=== PATIENT | female | born 1965 | race Caucasian/White ===

== ENCOUNTER → 2019-07-30 15:01 | Outpatient (BNVA) | payer MEDICAID, SELFPAY | PROVIDERS: Family Provider Physician Assistant Medical; PCP Physician Assistant Medical; Visit Provider Nurse Practitioner | DX: M54.6 Pain in thoracic spine (principal); Z79.891 Long term (current) use of opiate analgesic | CPT/HCPCS: 99213 ==

== ENCOUNTER 2019-08-19 06:00 | Outpatient (CLI) | payer MEDICAID, SELFPAY ==
--- NOTE | 2019-08-22 07:09 | ONC FU_ITS ---
Dr. Mancia Patient Follow-Up Note Patient: Nicky Gonzalez Unit #: [id number]: 1965 Dicatated By: Adolph Mancia M.D.Date of Visit:Aug 19, 2019 Onc Med Follow-up/Prog Note Chief Complaint: Anemia. History of Present Illness: This is a 53 year-old woman with iron deficiency anemia. She has a long-standing history of anemia, presumed to be due to iron deficiency. I had seen her initially in August 2014. At that time she indicated that taking iron never does me no good . The only time she recalls getting any benefit was when she was given several doses of parenteral iron during one . She had been seen at the [facility] in July 2014. Laboratory studies at that time included CBC showing hemoglobin 6.8 g with hematocrit 26.5%. The red cell indices were hypochromic/microcytic with MCV 65 and MCH 16. White count was normal at 7000 and the platelet count was slightly elevated at 469,000. Comprehensive metabolic profile was unremarkable except for slightly low potassium at 3.2 mmol per liter. TSH was normal at 1.61 mIU/ML. Her serum iron came back low at 14 mcg/dL. She was given parenteral iron replacement with Venofer. She completed treatment on 10/16/2014 to a total dose of 3000 mg. She tolerated it well. A follow-up CBC on 10/30/2014 showed a hemoglobin of 13.8 g with MCV 84.6. The transferrin saturation was 25% and ferritin was 206 ng/mL. A follow-up CBC on 02/04/2016 did show hemoglobin down slightly to 11.9 g. The transferrin saturation had dropped to 7%. She was then given further parenteral iron replacement with infusions of Injectafer on 02/21/2016 and on 02/28/2016. I had seen her for a follow-up visit again on 10/11/2016. At that time her hemoglobin was normal at 13.1 g, and her red cell indices were also normal. Her serum iron studies showed normal transferrin saturation at 25% and her ferritin was still the low-normal range at 40.7 ng/mL. She continued to complain of significant fatigue. Her repeat laboratory studies in December showed hemoglobin down slightly to 12.4 g. The transferrin saturation at that point had decreased to 9% and the ferritin was down to 6.3 ng/mL, consistent with iron deficiency. Although she was just borderline anemic, she continued to have significant fatigue, and she was given additional parenteral iron replacement with infusions of Injectafer on 01/10/2017 and 01/17/2017. Her medical illnesses include anemia, rheumatoid arthritis, and GERD. She also has a history of supraventricular tachycardia. She had smoked in the past, but only for a few years, and she quit more than 25 years ago. INTERIM HISTORY: She was seen for a follow-up visit on 09/03/2017. At that time she was having significant fatigue. Her hemoglobin was normal at 13.4 g, but her transferrin saturation was low at 11.1% and her ferritin level was low at 9.8 ng/mL, consistent with iron deficiency. She was given parenteral iron replacement with 2 additional infusions of Injectafer. She did appear to have symptomatic benefit. As of her follow-up visit in April, she had become slightly anemic with transferrin saturation low at 7.5% and ferritin low at 5.0 ng/mL, again consistent with iron deficiency. She was given further parenteral iron replacement with infusions of Injectafer on 05/14/2018 and 05/21/2018. She had a good clinical response. As of 12/12/2018 she had become mildly anemic again with hemoglobin 11.3 g and hematocrit 34.6%. The red cell indices were borderline low. The transferrin saturation was low at 8.4% with ferritin 8.0 ng/mL, consistent with iron deficiency. She was given additional parenteral iron replacement with infusions of Injectafer on 12/19/2018 and 12/26/2018. Her repeat CBC on 01/28/2019 showed hemoglobin up to 13.6 g with normal transferrin saturation at 34.9% and normal ferritin at 120 ng/mL. She is seen for a followup visit. she says her energy has been down for the past month or so, but for the past 4 days she has felt awful. She is still doing some work, though it is taking her longer to do it. She has good appetite. She has no fever, night sweats, or hot flashes. She has some shortness of breath with activity. She does not complain of cough. She has been having more SVT, and she has a little chest pain with it. She also has been having a little bit of nausea. Her acid reflux is managed adequately with medication. Bowel and bladder function has been okay. She has been having significant problems with menstrual bleeding, which has been ongoing for 7 weeks. She always has back pain, and she also has some pain in her feet. She has a little bit of numbness/tingling in her arms and legs. Medications: Azulfidine 3 (500 mg) Tablet Oral b.i.d., EQ Ibuprofen Tablet Oral PRN, EQ raNITIdine 1 Tablet (of 75 mg) Oral daily, HYDROcodone-Acetaminophen 1 Tablet (of 5-325 mg) Oral b.i.d., Metoprolol Tartrate 1 (50 mg) Tablet Oral b.i.d., Omeprazole 1 (40 mg) Capsule Delayed Release Oral daily, Potassium Chloride Isela ER 1 (10 meq) Tablet, controlled release Oral daily, PredniSONE 1 (5 mg) Tablet Oral daily Allergies: No Known Allergies. Review of Systems: Constitutional - Her energy has been down the past month. The last 4 days she has felt awful. She is doing some work, but it does take longer. Appetite is good and weight is stable. No fever, hot flashes, or night sweats. ECOG score is 1, ENMT - No sinus congestion/drainage. No mouth sores. No sore throat or difficulty swallowing, Hematologic/Lymphatic - She bruises easily, Respiratory - She has some shortness of breath with activity. No cough. No pleuritic pain or hemoptysis, Cardiovascular - She has been having more SVT, and she has a little bit of chest pain, Gastrointestinal - She has a little bit of nausea. Her acid reflux is adequately managed with omeprazole. No diarrhea or constipation. No blood in the stool or black stools, Genitourinary (F) - No dysuria or hematuria. No urinary frequency. No urgency or incontinence, Musculoskeletal - She alwas has back pain. She also has pain in her feet, Integumentary - No skin complications, Neurologic - She has had some headaches lately. She has been a little dizzy. She has a little bit of numbness and tingling in her arms and legs, Psychiatric - No anxiety or depression. No insomnia. Vital Signs: Performed on Aug 19, 2019 14:20 Height - 64.00 in Weight - 194 lbs (LOW) BSA - 1.93 sq.m BMI - 33.30 (HIGH) Temperature - 98 F (LOW) Pulse - 64 /min Respiration - 19 /min BP - 121/81 mm(hg) O2 Sat - 98 % Pain - 7 Physical Examination: Constitutional - She looks pretty good generally, Eyes - Sclerae nonicteric. Conjunctivae clear, ENMT - No lesions noted in the oral cavity, Hematologic/Lymphatic - No cervical, clavicular, or axillary adenopathy, Respiratory - Lungs are clear with good air movement bilaterally, Cardiovascular - Heart rhythm is regular. There is no murmur, gallop, or rub noted, Abdomen - Soft. Liver and spleen are not enlarged. There is no abdominal mass or ascites noted and there is no inguinal adenopathy, Extremities - No edema, Neurologic - No focal neurologic deficits noted. Lab/Imaging: Test performed on Aug 12, 2019 15:56 Ferritin 8.1 ng/mL % Iron Saturation 7 % Iron, Total 23 mcg/dL TIBC 342 mcg/dL WBC 6.8 10^9/L RBC 3.95 10^12/L HGB 11.4 g/dL HCT 35.6 % MCV 90.1 fl MCH 28.9 pg MCHC 32.0 g/dL RDW 14.4 % Platelet Count 222 10^9/L MPV 11.1 fL Neutrophils (Gran) 4.94 10^9/L Lymphocytes 1.10 10^9/L Monocytes 0.55 10^9/L Eosinophils 0.12 10^9/L Basophils 0.03 10^9/L Manual Lymphocytes 16 % Manual Monocytes 8 % Manual Eosinophils 2 % Manual Basophils 0 % Impression: 1. The patient has iron deficiency anemia, presumably due to inadequate oral iron absorption. She was given parenteral iron replacement with Venofer, which she completed in September to a total dose of 3000 mg. She has had a very good on objective response complete correction of the anemia. 2. By January 2016 she was iron deficient again. She was given further parenteral iron replacement with infusions of Injectafer on 02/21/2016 and 02/28/2016. Her other medical illnesses include: 3. Rheumatoid arthritis. 4. GERD. 5. Supraventricular tachycardia. She initially had a good objective response to the parenteral iron replacement. She had remained borderline anemic, and she continued to complain of significant fatigue. As of December 2016 her lab studies were again consistent with iron deficiency, and she was given another course of parenteral iron replacement with Injectafer. She tolerated it well, and she again had a very good objective response, but without dramatic subjective improvement. She was seen for a follow-up visit in August 2017. At that time she had reported some worsening of her symptoms, including fatigue and more frequent episodes of SVT. Her hemoglobin/hematocrit levels were just down slightly, but her serum iron studies and ferritin were clearly consistent with iron deficiency. She was given additional parenteral iron replacement with 2 infusions of Injectafer. She tolerated it well, and she had a good clinical response. As of April 2018 her laboratory studies were again consistent with iron deficiency, and she had become mildly anemic. She received further parenteral iron replacement with 2 additional infusions of Injectafer. She tolerated it welland she had a very good objective response. However, as of November 2018 she was mildly anemic again with transferrin saturation and ferritin consistent with iron deficiency. She was given additional parenteral iron replacement with Injectafer and she again had a very good clinical response. She comes in now with significant increase in fatigue. She is mildly anemic. The transferrin saturation and ferritin are obviously indicative iron deficiency. This has developed in association with pretty severe menorrhagia. Plan: She will be scheduled to come in for parenteral iron replacement with 2 infusions of Injectafer. She will be seeing Dr. Chen for the menorrhagia. She will have a repeat CBC in 6 weeks. I will see her again in 3 months, or sooner as needed. Signed By: Adolph Mancia M.D. <<Signature on File>>
== END 2019-08-19 06:01 | disposition home or self-care (01) ==
LOC: ONCMED 14:21
PROVIDERS: Family Provider Physician Assistant Medical; PCP Physician Assistant Medical; Visit Provider Internal Medicine Medical Oncology
DX: D50.8 Other iron deficiency anemias (principal); N92.0 Excessive and frequent menstruation with regular cycle; M06.9 Rheumatoid arthritis, unspecified; K21.9 Gastro-esophageal reflux disease without esophagitis; Z79.891 Long term (current) use of opiate analgesic; Z79.52 Long term (current) use of systemic steroids; Z87.891 Personal history of nicotine dependence
CPT/HCPCS: 99214

== ENCOUNTER 2019-08-20 15:16 | Outpatient (CLI) | payer MEDICAID, SELFPAY | END 2019-08-20 15:17 | disposition home or self-care (01) | LOC: ONCMED 15:17 | PROVIDERS: Family Provider Physician Assistant Medical; PCP Physician Assistant Medical; Visit Provider Internal Medicine Medical Oncology | DX: D50.9 Iron deficiency anemia, unspecified (principal) | CPT/HCPCS: 96365; J1439 ==

== ENCOUNTER 2019-08-22 14:54 | Outpatient (CLI) | payer MEDICAID, SELFPAY ==
--- NOTE | 2019-08-22 | US_ITS ---
WS: [id number] TRANSABDOMINAL PELVIC AND TRANSVAGINAL PELVIC ULTRASOUND HISTORY: VAGINAL BLEEDING, ABNORMAL COMPARISON: None available. Uterus: 13.4 cm x 7.8 cm x 5.0 cm. Moderately enlarged anteverted uterus. No fibroid or mass identifi ed. Endometrium: 0.4 cm. Thin endometrium. There is a fluid-filled endometrial cavity. There is also an o void mass along the mid to distal endometrial canal measuring 2.1 x 0.4 cm. Probably a polyp causing obstruction and fluid retention in the more proximal endometrium. Right ovary: 3.2 cm x 2.6 cm x 1.6 cm. Small follicles, no solid mass. Left ovary: 3.3 cm x 3.0 cm x 1.8 cm. Small follicles, no solid mass. Small cyst measures 2.1 x 2.0 x 2.4 cm. No free fluid. US/US pelvic with transvaginal IMPRESSION: 1. Soft tissue mass within the endometrial canal causing a mild fluid obstruct ion. Mass measures 2.1 x 0.4 cm and probably represents a polyp. Recommend dire ct visualization and biopsy. 2. Uterine enlargement.
== END 2019-08-22 14:55 | disposition home or self-care (01) ==
PROVIDERS: Family Provider Physician Assistant Medical; PCP Physician Assistant Medical; Visit Provider Family Medicine
DX: Z01.89 Encounter for other specified special examinations (principal)

== ENCOUNTER 2019-08-27 14:52 | Outpatient (CLI) | payer MEDICAID, SELFPAY ==
[2019-08-27] MEDS: sodium chloride 0.9% 100 ML 500 ML IV (16:20)
[2019-08-27] MEDS: ferric carboxy (PYXIS) 750 mg/15 mL INJ IV (16:20)
== END 2019-08-27 14:53 | disposition home or self-care (01) ==
LOC: ONCMED 14:55
PROVIDERS: Family Provider Physician Assistant Medical; PCP Physician Assistant Medical; Visit Provider Internal Medicine Medical Oncology
DX: D50.9 Iron deficiency anemia, unspecified (principal)
CPT/HCPCS: 96365; J1439

== ENCOUNTER 2019-09-23 06:43 | Day surgery (SDC) | payer MEDICAID, SELFPAY ==
[2019-09-18 10:54] VITALS: BMI 30.9
--- NOTE | 2019-09-18 10:59 | ECG_ITS ---
Measurements Intervals [place] Rate: 53 P: 47 CT: 148 QRS: 24 QRSD: 73 T: 23 QT: 411 QTc: 388 SINUS BRADYCARDIA POSSIBLE LEFT ATRIAL ENLARGEMENT [-0.1mV P WAVE IN V1/V2] Compared to ECG 04/12/2018 01:34:08 Sinus tachycardia no longer present Electronically Signed On 09-18-2019 12:44:53 CDT by Patti Ayala [email or web address]
--- NOTE | 2019-09-18 11:40 | ANES.PREANE2 ---
Pre-Anesthetic Assessment Pre-Anesthetic Assessment: Height/Weight: Height 1.63 m Weight 81.647 kg Proposed Procedure: Operation Date: 09/23/19 08:00 Proposed Procedures p Hysteroscopy with polypectomy 75843/23630/80683/82239/ N93.9(Not Applicable) - MD diana Owen Dilation And Curettage (D&C) Paracervical block(Not Applicable) - MD diana Owen Laser Ablation Vulvar Lesion(Not Applicable) - Medhat Rock MD Social: Social History: No alcohol and No tobacco Exam: Pre-Anes Outpt Exam: alert, oriented x 3, clear to auscultation bilaterally and regular rate & rhythm Airway: Submandibular: WNL Cervical ROM: WNL MP: 2 Dentition: Other (poor) History/ROS: No significant history except as noted Pulmonary: Pulmonary: None reported CV/HEM: CV/HEM: Arrythmia (SVT controlled with metoprolol) : : None reported Hepatic: Hepatic: None reported GI: GI: GERD (controlled) Metabolic: Metabolic: None reported Musc/skel: Musc/skel: RA Neuropsych: Neuropsych: None reported Anesthetic Plan: ASA status: 2 Anesthesia: Anesthesia Evaluation and MAC Risk of > 500 ml blood loss (7ml/kg in children): No PFSH Anesthesia PFSH: Medical History MEME positive Chronic thoracic spine pain Current chronic use of systemic steroids GERD (gastroesophageal reflux disease) Long-term use of high-risk medication Pain management contract signed Raynaud's phenomenon Rheumatoid arthritis Spondylosis THORACIC AND LUMBAR Surgical History History of lumpectomy of left breast (~06/27/17) Hx of section X5 Family History Father Diabetes Mother Hypertension Grandmother Stroke Grandfather Cancer Liver cancer Other Liver disease Social History Smoking and tobacco status: former smoker Alcohol intake: never History of recent travel: No Data Anesthesia Cardiac Studies: No Data to Display
[2019-09-23 07:00] VITALS: BP 153/93; PULSE 55; RESP 18; TEMP 36.6; O2SAT 100
[2019-09-23] MEDS: ketorolac 30 mg/mL INJ IVP (07:23)
[2019-09-23] MEDS: sodium chloride 0.9% 1,000 ML 30 ML IV (07:23)
--- NOTE | 2019-09-23 07:42 | P.ANESUD_ITS ---
Pre-Anesthetic Update Pre-Anesthetic Assessment: Date of Surgery/Procedure: 09/23/19 Preop Krystal gnosis: Abnormal uterine bleeding, Endometrial polyp, Vulvar lesion. Proposed Procedure: Operation Date: 09/23/19 08:00 Proposed Procedures p Hysteroscopy with polypectomy 59749/41189/88568/97091/ N93.9(Not Applicable) - MD diana Owen Dilation And Curettage (D&C) Paracervical block(Not Applicable) - Medhat Rock MD s Laser Ablation Vulvar Lesion(Not Applicable) - Medhat Rock MD Last Intake: Intake Last Liquid Date 09/22/19 Last Liquid Time 21:30 Last Solid Date 09/22/19 Vitals: Temperature 97.8 F 09/23/19 07:00 Temperature Source Temporal Artery S can 09/23/19 07:00 Pulse Rate 55 L 09/23/19 07:00 Respiratory Rate 18 09/23/19 07:00 Blood Pressure 153/93 09/23/19 07:00 Blood Pressure Cherelle n 113 09/23/19 07:00 Pulse Oximetry 100 09/23/19 07:00 Oxygen Delivery Me thod 09/23/19 07:00 Cardiac Studies: No Data to Display
--- NOTE | 2019-09-23 07:45 | W.PM.OPSUD ---
Surgery/Procedure H&P Update DATE OF PROCEDURE: September 23, 2019 DATE H&P PERFORMED: 09/15/19 H&P UPDATE INFORMATION: I have reviewed H&P completed within last 30 days, I have examined patient prior to procedure, No changes to prior documentation and H&P is in [facility] on date indicated PREOP DIAGNOSIS: Abnormal uterine bleeding, Endometrial polyp, Vulvar lesion. PLANNED PROCEDURE: Operation Date: 09/23/19 08:00 Proposed Procedures p Hysteroscopy with polypectomy 60252/12427/19050/78894/ N93.9(Not Applicable) - Medhat Rokc MD s Dilation And Curettage (D&C) Paracervical block(Not Applicable) - Medhat Rock MD s Laser Ablation Vulvar Lesion(Not Applicable) - Medhat Rock MD
[2019-09-23 08:03] LABS: OR HCG Qualitative Urine Negative (Negative)
[2019-09-23] MEDS: neomycin-poly-bacitracin oint 28 gm 1 APPLIC TOPICAL (08:37)
--- NOTE | 2019-09-23 08:39 | PM.OP ---
Operative Report Date of procedure: September 23, 2019 Pre-op Diagnosis: Abnormal uterine bleeding, Endometrial polyp, Vulvar lesion. Post-op Diagnosis: Abnormal uterine bleeding, Vulvar lesion Procedure Done: Hysteroscopy, D&C, Buttock biopsy, Paracervical block Specimens removed/disposition: 1. Endometrial curettings 2. Buttock biopsy Surgeon: Medhat Rock Anesthesia: MAC and Other (Paracervical block) Estimated blood loss (mL): 15 IV fluids (mL): 500 Complications: None Findings: First to second-degree uterine prolapse. Thickened endometrial lining with a raised mound across the posterior wall. On curettings this did not feel like a fibroid. Brief History: 54-year-old white female 6, para 6 who had presented to the office with abnormal uterine bleeding. In June she had bled for approximately 8 weeks. She reported changing a tampon 6-8 times per hour and passing up to half dollar sized clots. Prior to this her cycles have been regular. Pelvic ultrasound had been performed which showed a probable polyp within the endometrial cavity with fluid present around it. Treatment for this was discussed and she is presenting for hysteroscopy with polypectomy. Procedure: The patient was taken to the operating room where IV sedation was started. She was prepped and draped in the usual sterile fashion in the dorsal supine position with legs in Edil style stirrups. Sequential compression boots had been placed prior to starting the case. Patient had voided just before coming to the operating room. Exam under anesthesia was performed and the patient was noted to have first to second-degree uterine prolapse. A weighted speculum was placed in the vagina and the cervix was grasped with a single-tooth tenaculum. A paracervical block was performed with a total of 10 mL of 2% lidocaine with epinephrine used. The cervix was serially dilated until a operative hysteroscope could be passed. Crystalloid solution was used as a distention media. The endometrial cavity was inspected. Along the posterior wall she had a mound which on hysteroscopy was suspicious for fibroid. However on curettage the left posterior wall felt smooth most likely representing just a thickened area of tissue along the posterior wall. Both tubal ostia were identified. No definite polyp seen. Sharp curettage was performed with tissue obtained. This was continued until gritty texture was present throughout the endometrial cavity. The tenaculum was removed and there was minimal bleeding from the tenaculum site. Patient tolerated the procedure well. Sponge and needle counts were correct. DRAINS: None POSTOPERATIVE STATUS: The patient was transferred to the recovery room in satisfactory condition DISPOSITION: Discharge to home when criteria was met. FOLLOWUP APPOINTMENT: Followup appointment had been scheduled on 10/06/2019 in my office. MEDICATIONS: Prescription for: Tramadol 50 mg, 1 to 2 tablets every 6 hours as needed for pain, #10, 0 refills OTC ibuprofen 200 mg, 4 tablets 3 times a day as needed for pain May resume normal home medications.
[2019-09-23 08:43] VITALS: BP 118/59; PULSE 80; RESP 18; TEMP 36.2; O2SAT 97
[2019-09-23 08:58] VITALS: BP 130/77; PULSE 72; RESP 18; O2SAT 100
== END 2019-09-23 09:10 | disposition home or self-care (01) ==
PROVIDERS: Family Provider Physician Assistant Medical; PCP Physician Assistant Medical; Visit Provider Obstetrics & Gynecology
PROC: 0UJD8ZZ Inspection of Uterus and Cervix, Via Natural or Artificial Opening Endoscopic (ICD-10-PCS; CPT 58555; principal; 2019-09-23 08:00)
PROC: (CPT 58120; 2019-09-23 08:00)
PROC: (CPT 11106; 2019-09-23 08:00)
DX: N81.2 Incomplete uterovaginal prolapse (principal); N93.9 Abnormal uterine and vaginal bleeding, unspecified; N84.0 Polyp of corpus uteri; N90.89 Other specified noninflammatory disorders of vulva and perineum; K21.9 Gastro-esophageal reflux disease without esophagitis; I10 Essential (primary) hypertension; M06.9 Rheumatoid arthritis, unspecified; Z82.49 Family history of ischemic heart disease and other diseases of the circulatory system; Z83.3 Family history of diabetes mellitus; Z87.891 Personal history of nicotine dependence
CPT/HCPCS: 11106; 58558; 12345; 81025; 84703; 88305; 93005; 93010; 96374; J1885; J2001; J2704; J3010; J7030

== ENCOUNTER → 2019-09-24 14:14 | Outpatient (BNVA) | payer MEDICAID, SELFPAY | PROVIDERS: Family Provider Physician Assistant Medical; PCP Physician Assistant Medical; Visit Provider Anesthesiology | DX: Z76.89 Persons encountering health services in other specified circumstances (principal) | CPT/HCPCS: 99213 ==

== ENCOUNTER 2019-10-13 14:27 | Outpatient (CLI) | payer MEDICAID, SELFPAY ==
[2019-10-13 15:48] LABS: Basophils % 0.6 %; Eosinophils # 0.1 10^3/uL (0.0-0.8); Eosinophils % 2.2 %; Hematocrit 48.4 % (37.0-47.0); Hemoglobin 14.8 g/dL (11.5-15.3); Lymphocytes # 1.4 10^3/uL (0.8-4.8); Lymphocytes % 21.4 %; Mean Corpuscular HGB Conc 30.6 g/dL (30.0-36.0); Mean Corpuscular Hemoglobin 30.8 pg (28.0-34.0); Mean Corpuscular Volume 100.8 fL (81-99); Mean Platelet Volume 11.9 fL (7.4-10.4); Monocytes # 0.6 10^3/uL (0.2-0.9); Monocytes % 8.8 %; Neutrophils # 4.3 10^3/uL (1.8-7.7); Neutrophils % 66.7 %; Nucleated Red Blood Cells % 0 %; Platelet Count 183 10^3/cmm (130-400); Red Cell Distribution Width 14.8 % (12.1-15.1); White Blood Count 6.4 10^3/uL (4.0-10.0)
[2019-10-13 16:09] LABS: Alanine Aminotransferase 19 U/L (0-33); Albumin Level 4.6 g/dL (3.5-5.2); Alkaline Phosphatase 66 IU/L (35-105); Aspartate Amino Transferase 23 U/L (0-32); C Reactive Protein 0.3 mg/L (0.0-4.9); Globulin 2.5 g/dL (1.3-4.6); Glomerular Filtration Rate 87.9 mL/min (90-130); Total Bilirubin 0.6 mg/dL (0.15-1.2); Total Protein 7.1 g/dL (6.6-8.7)
[2019-10-13 16:23] LABS: Hepatitis C Virus Antibody Non-Reactive (Nonreactive)
[2019-10-13 16:34] LABS: Hepatitis B Surface Antigen. Non-Reactive (Nonreactive)
[2019-10-13 16:46] LABS: Erythrocyte Sedimentation Rate 3 mm/hr (0-15)
[2019-10-15 14:41] LABS: Quantiferon Mitogen 8.23 IU/mL; Quantiferon Nil 0.01 IU/mL; Quantiferon TB Gold NEGATIVE (NEGATIVE)
== END 2019-10-13 14:28 | disposition home or self-care (01) ==
LOC: ONCMED 14:27
PROVIDERS: Internal Medicine Rheumatology; Family Provider Physician Assistant Medical; PCP Physician Assistant Medical; Visit Provider Internal Medicine Medical Oncology
DX: D64.9 Anemia, unspecified (principal)
CPT/HCPCS: 36415; 80076; 82565; 85025; 85651; 86140; 86480; 86704; 86803; 87340

== ENCOUNTER → 2020-01-13 14:44 | Outpatient (BNVA) | payer MEDICAID, SELFPAY | PROVIDERS: Family Provider Physician Assistant Medical; PCP Physician Assistant Medical; Visit Provider Nurse Practitioner | DX: G89.29 Other chronic pain (principal); M54.6 Pain in thoracic spine; M06.9 Rheumatoid arthritis, unspecified; Z79.891 Long term (current) use of opiate analgesic | CPT/HCPCS: 99213 ==

== ENCOUNTER 2020-01-13 15:18 | Outpatient (CLI) | payer MEDICAID, SELFPAY ==
[2020-01-13 15:54] LABS: Basophils % 0.5 %; Eosinophils # 0.1 10^3/uL (0.0-0.8); Eosinophils % 2.1 %; Hematocrit 29.1 % (37.0-47.0); Hemoglobin 8.5 g/dL (11.5-15.3); Lymphocytes # 0.8 10^3/uL (0.8-4.8); Mean Corpuscular HGB Conc 29.2 g/dL (30.0-36.0); Mean Corpuscular Hemoglobin 26.2 pg (28.0-34.0); Mean Corpuscular Volume 89.8 fL (81-99); Mean Platelet Volume 10.7 fL (7.4-10.4); Monocytes # 0.4 10^3/uL (0.2-0.9); Monocytes % 11.2 %; Neutrophils # 2.44 10^3/uL (1.8-7.7); Neutrophils % 64.9 %; Nucleated Red Blood Cells % 0 %; Platelet Count 247 10^3/cmm (130-400); Red Blood Count 3.24 10^6/uL (4.1-5.3); Red Cell Distribution Width 14.5 % (12.1-15.1); White Blood Count 3.8 10^3/uL (4.0-10.0)
[2020-01-13 16:09] LABS: Alanine Aminotransferase 13 U/L (0-33); Albumin Level 4.2 g/dL (3.5-5.2); Alkaline Phosphatase 45 IU/L (35-105); Anion Gap 12.1 (5-19); Aspartate Amino Transferase 16 U/L (0-32); Blood Urea Nitrogen 5 mg/dL (6-20); Calcium 8.8 mg/dL (8.5-10.5); Carbon Dioxide 25 mmol/L (22-29); Chloride 106 mmol/L (98-107); Ferritin 5 ng/mL (15-150); Globulin 2.4 g/dL (1.3-4.6); Glucose 92 mg/dL (65-115); Iron 12 ug/dL (37-145); Osmolality Calculated 283 mOsm/kg (285-295); Percent Saturation 4.3 % (20-50); Potassium 4.1 mmol/L (3.5-5.1); Sodium 139 mmol/L (136-145); Total Bilirubin 0.4 mg/dL (0.15-1.2); Total Iron Binding Capacity 278 mcg/dl; Total Protein 6.6 g/dL (6.6-8.7); Unsaturated Iron Binding 266 ug/dL (112-347)
== END 2020-01-13 15:19 | disposition home or self-care (01) ==
LOC: ONCMED 15:21
PROVIDERS: PCP Physician Assistant Medical; Visit Provider Internal Medicine Medical Oncology
DX: D50.9 Iron deficiency anemia, unspecified (principal); K21.9 Gastro-esophageal reflux disease without esophagitis; I47.1 Supraventricular tachycardia
CPT/HCPCS: 36415; 80053; 82728; 83540; 83550; 85025

== ENCOUNTER 2020-01-15 15:03 | Outpatient (CLI) | payer MEDICAID, SELFPAY ==
--- NOTE | 2020-01-19 16:05 | ONC FU_ITS ---
[facility] Patient Note Patient: Nicyk Gonzalez Unit #: [id number]: 1965 Dictated By: Cally EllisonDate of Visit: Jan 15, 2020 Onc MED Follow-Up/Prog Note Chief Complaint: Anemia. History of Present Illness: Mrs Gonzalez is a 54 year-old woman with iron deficiency anemia. She has a long-standing history of anemia, presumed to be due to iron deficiency. Dr Mancia had seen her initially in August 2014. At that time she indicated that taking iron never does me no good . The only time she recalls getting any benefit was when she was given several doses of parenteral iron during one . She had been seen at the [facility] in July 2014. Laboratory studies at that time included CBC showing hemoglobin 6.8 g with hematocrit 26.5%. The red cell indices were hypochromic/microcytic with MCV 65 and MCH 16. White count was normal at 7000 and the platelet count was slightly elevated at 469,000. Comprehensive metabolic profile was unremarkable except for slightly low potassium at 3.2 mmol per liter. TSH was normal at 1.61 mIU/ML. Her serum iron came back low at 14 mcg/dL. She was given parenteral iron replacement with Venofer. She completed treatment on 10/16/2014 to a total dose of 3000 mg. She tolerated it well. A follow-up CBC on 10/30/2014 showed a hemoglobin of 13.8 g with MCV 84.6. The transferrin saturation was 25% and ferritin was 206 ng/mL. A follow-up CBC on 02/04/2016 did show hemoglobin down slightly to 11.9 g. The transferrin saturation had dropped to 7%. She was then given further parenteral iron replacement with infusions of Injectafer on 02/21/2016 and on 02/28/2016. Dr Mancia had seen her for a follow-up visit again on 10/11/2016. At that time her hemoglobin was normal at 13.1 g, and her red cell indices were also normal. Her serum iron studies showed normal transferrin saturation at 25% and her ferritin was still the low-normal range at 40.7 ng/mL. She continued to complain of significant fatigue. Her repeat laboratory studies in December showed hemoglobin down slightly to 12.4 g. The transferrin saturation at that point had decreased to 9% and the ferritin was down to 6.3 ng/mL, consistent with iron deficiency. Although she was just borderline anemic, she continued to have significant fatigue, and she was given additional parenteral iron replacement with infusions of Injectafer on 01/10/2017 and 01/17/2017. Her medical illnesses include anemia, rheumatoid arthritis, and GERD. She also has a history of supraventricular tachycardia. She had smoked in the past, but only for a few years, and she quit more than 25 years ago. INTERIM HISTORY: She was seen for a follow-up visit on 09/03/2017. At that time she was having significant fatigue. Her hemoglobin was normal at 13.4 g, but her transferrin saturation was low at 11.1% and her ferritin level was low at 9.8 ng/mL, consistent with iron deficiency. She was given parenteral iron replacement with 2 additional infusions of Injectafer. She did appear to have symptomatic benefit. As of her follow-up visit in April, she had become slightly anemic with transferrin saturation low at 7.5% and ferritin low at 5.0 ng/mL, again consistent with iron deficiency. She was given further parenteral iron replacement with infusions of Injectafer on 05/14/2018 and 05/21/2018. She had a good clinical response. As of 12/12/2018 she had become mildly anemic again with hemoglobin 11.3 g and hematocrit 34.6%. The red cell indices were borderline low. The transferrin saturation was low at 8.4% with ferritin 8.0 ng/mL, consistent with iron deficiency. She was given additional parenteral iron replacement with infusions of Injectafer on 12/19/2018 and 12/26/2018. Her repeat CBC on 01/28/2019 showed hemoglobin up to 13.6 g with normal transferrin saturation at 34.9% and normal ferritin at 120 ng/mL. Very presented in August with symptoms of iron deficiency. Her hemoglobin at that time was 11.4 iron saturation was 7% ferritin was 8.1 and iron was 23. Received 2 doses of Injectafer on August 20 and again on 10/26/2019. In September her blood counts have recovered to a hemoglobin of 14.8. Mrs. Gonzalez recently called to the office with complaints of counts craving ice and feeling very short of breath and fatigued. She was advised to have a CBC CMP and iron studies drawn. Her primary care provider is Mihir Hewitt. She is here today for follow-up and review the lab results. She denies any other concerns at present. She has had no fever or night sweats. She denies any chest pain or palpitations. She has had no nausea or vomiting. She denies lower extremity edema. Her main concern is that she is tired draggy, short of breath and is craving ice. These are all her normal triggers for when she is iron deficient. Her ECOG is 1. Past Medical History: GERD Iron deficiency anemia Supraventricular tachycardia Past Surgical History: section in 2010 section in 2005 section in 2004 Tendon repair in left hand in 1997 section in 1993 section in 1990 Allergies: No Known Allergies. Medications: Azulfidine 2 (500 mg) Tablet Oral b.i.d. EQ Ibuprofen Tablet Oral PRN Famotidine 1 Tablet (of 40 mg) Oral daily HYDROcodone-Acetaminophen 1 Tablet (of 5-325 mg) Oral b.i.d. Metoprolol Tartrate 1 (50 mg) Tablet Oral b.i.d. Omeprazole 1 (40 mg) Capsule Delayed Release Oral daily Potassium Chloride Isela ER 1 (10 meq) Tablet, controlled release Oral daily PredniSONE 1 (5 mg) Tablet Oral daily Family History: Ms. Gonzalez's mother is alive. Ms. Gonzalez's father at age 61: medical history includes non-alcoholic cirrhosis (cause of ). Her father with nonalcoholic cirrhosis at age 61. He also had diabetes. Mother and one brother are still in good health. Grandfather with lung cancer at age 75. Social History: Ms. Gonzalez is and she is unemployed. Ms. Gonzalez quit smoking 25 years ago but had smoked 1.0 pack/day for 4 years. She has no history of drinking. Review Of Symptoms: Constitutional Denies fevers, chills, night sweats. Moderate fatigue. She states she is craving ice. Allergic/Immunologic No reactions. Eyes Denies significant visual changes. ENMT Denies sore throat, mouth sores, difficulty or changes in swallowing ability, and/or sinus drainage. Endocrine Denies hot flashes or night sweats. Hematologic/Lymphatic Denies easy bleeding. The patient denies any tender or palpable lymph nodes. Easy bruising. Respiratory Denies chest pain, cough. Some dyspnea upon exertion. Cardiovascular Denies anginal chest pain. Gastrointestinal Denies nausea, vomiting, diarrhea, or constipation. Genitourinary (F) No hematuria, hesitancy, incontinence, vaginal bleeding, discharge or other problems with urination. Musculoskeletal back and bilateral feet pain-Chronic and currently controlled. Integumentary Denies chronic rashes, inflammation. Neurologic Denies headache. Psychiatric Denies insomnia, depression or anxiety. Vital Signs: Performed on Jan 15, 2020 15:31 Height - 64.00 in Weight - 179.4 lbs (LOW) BSA - 1.87 sq.m BMI - 30.79 (HIGH) Temperature - 98.0 F (LOW) Pulse - 59 /min (LOW) Respiration - 17 /min BP - 116/75 mm(hg) O2 Sat - 99 % Pain - 5,1 - No physically strenuous activity, but ambulatory and able to carry out light or sedentary work (e.g. office work, light house work). (ECOG) Physical Examination: Constitutional Alert, oriented, no acute distress. Skin pink, warm and dry.. Head Normocephalic; atraumatic. Eyes Conjunctivae and sclerae are clear and without icterus. Pupils are reactive and equal. Neck Supple without masses or thyromegaly. No jugular venous distension. Hematologic/Lymphatic No petechiae or purpura. No tender or palpable lymph nodes in the cervical or supraclavicular area. Respiratory Lungs are clear to auscultation without rhonchi or wheezing. Cardiovascular Regular rate and rhythm of heart without murmurs,clicks, gallops or rubs. Abdomen Non-tender, non-distended, no masses, ascites. Good bowel sounds noted in all quads. No guarding or rebound tenderness. No pulsatile masses. Back/Spine Non-tender to palpation. Extremities No visible deformities, no cyanosis, clubbing or edema. Pulses 4+ and equal bilaterally. Musculoskeletal No tenderness or swelling, normal range of motion without obvious weakness. Integumentary No rashes or lesions. Neurologic No sensory or motor deficits, normal cerebellar function, normal gait. Psychiatric Alert and oriented times three. Coherent speech. Verbalizes understanding of our discussions today. Laboratory:Test performed on Jan 13, 2020 15:32 Ferritin 5 ng/mL Iron 12 mcg/dL Sodium 139 mmol/L Iron Binding Capacity (TIBC) 278 mcg/dl Potassium 4.1 mmol/L % Iron Saturation 4.3 % Chloride 106 mmol/L CO2 25 mmol/L UIBC 266 mcg/dL Anion Gap 12.1 BUN 5 mg/dL Creatinine 0.6 mg/dL Cr Clearance (Est) 140.90 mL/min eGFR 105.0 mL/min Glucose 92 mg/dL Calcium 8.8 mg/dL Protein, Total 6.6 g/dL Albumin 4.2 g/dL Globulin 2.4 g/dL Bilirubin, Total 0.4 mg/dL ALT (SGPT) 13 U/L AST (SGOT) 16 U/L Alkaline Phosphatase 45 IU/L WBC 3.8 10 3/uL RBC 3.24 10 6/uL HGB 8.5 g/dL HCT 29.1 % MCV 89.8 fL MCH 26.2 pg MCHC 29.2 g/dL RDW 14.5 % Platelet Count 247 10 3/cmm MPV 10.7 fL Neutrophils 2.44 10 3/uL Lymphocytes 0.8 10 3/uL Monocytes 0.4 10 3/uL Eosinophils 0.1 10 3/uL Basophils 0.0 10 3/uL Neutrophil % 64.9 % Lymphocyte % 21.0 % Monocyte % 11.2 % Eosinophil % 2.1 % Basophils % 0.5 % NRBC % 0 % Test performed on Aug 12, 2019 15:56 Manual Lymphocytes 16 % Manual Monocytes 8 % Manual Eosinophils 2 % Manual Basophils 0 % Impression: 1. The patient has iron deficiency anemia, presumably due to inadequate oral iron absorption. She was given parenteral iron replacement with Venofer, which she completed in September to a total dose of 3000 mg. She has had a very good on objective response complete correction of the anemia. 2. By January 2016 she was iron deficient again. She was given further parenteral iron replacement with infusions of Injectafer on 02/21/2016 and 02/28/2016. Her other medical illnesses include: 3. Rheumatoid arthritis. 4. GERD. 5. Supraventricular tachycardia. She initially had a good objective response to the parenteral iron replacement. She had remained borderline anemic, and she continued to complain of significant fatigue. As of December 2016 her lab studies were again consistent with iron deficiency, and she was given another course of parenteral iron replacement with Injectafer. She tolerated it well, and she again had a very good objective response, but without dramatic subjective improvement. She was seen for a follow-up visit in August 2017. At that time she had reported some worsening of her symptoms, including fatigue and more frequent episodes of SVT. Her hemoglobin/hematocrit levels were just down slightly, but her serum iron studies and ferritin were clearly consistent with iron deficiency. She was given additional parenteral iron replacement with 2 infusions of Injectafer. She tolerated it well, and she had a good clinical response. As of April 2018 her laboratory studies were again consistent with iron deficiency, and she had become mildly anemic. She received further parenteral iron replacement with 2 additional infusions of Injectafer. She tolerated it well and she had a very good objective response. However, as of November 2018 she was mildly anemic again with transferrin saturation and ferritin consistent with iron deficiency. She was given additional parenteral iron replacement with Injectafer and she again had a very good clinical response. She comes in now with significant increase in fatigue. She is mildly anemic. The transferrin saturation and ferritin are obviously indicative iron deficiency. Plan: 1. Will obtain a PA for Injectafer for 2 doses (her most recent one in December. given that her hemoglobin now is 8.5 and her iron saturation is 4.3, iron is 12 and ferritin is 5. She will need 2 doses 1 week apart. 2. She states she sees rheumatology on Sunday and would like to coordinate that with Injectafer if at all possible. 3. Labs from January 13, 2020 were reviewed in detail and a copy was given to her. White count is 3.8 hemoglobin 8.5 platelets 1 47,000 creatinine 0.6 per iron saturation was 4.3 iron was 12 and ferritin was 5. 4. Once we had the PA we will set her up for Injectafer. She is due to see rheumatology on Sunday and would like to work her Injectafer dosing at that is at all possible. After we have the approval and her Injectafer is given we will plan to see her back in 4 to 6 weeks for follow-up. 5. Mrs. Gonzalez was instructed to contact us in the interim should questions or problems arise. Signed By: Cally Ellison-, CNP Adolph Mancia MD <<Signature on File>>
== END 2020-01-15 15:04 | disposition home or self-care (01) ==
LOC: ONCMED 15:06
PROVIDERS: PCP Physician Assistant Medical; Visit Provider Nurse Practitioner
DX: D50.9 Iron deficiency anemia, unspecified (principal); M06.9 Rheumatoid arthritis, unspecified; K21.9 Gastro-esophageal reflux disease without esophagitis; I47.1 Supraventricular tachycardia
CPT/HCPCS: 99214

== ENCOUNTER → 2020-01-20 14:33 | Outpatient (BNVA) | payer MEDICAID, SELFPAY | PROVIDERS: Family Provider Physician Assistant Medical; PCP Physician Assistant Medical; Visit Provider Internal Medicine | DX: M06.9 Rheumatoid arthritis, unspecified (principal); Z79.899 Other long term (current) drug therapy; Z79.52 Long term (current) use of systemic steroids | CPT/HCPCS: 36415; 99213 ==

== ENCOUNTER 2020-01-27 06:49 | Outpatient (RCR) | payer MEDICAID, SELFPAY ==
[2020-01-20] MEDS: ferric carboxy (IVPB) 750 MG in sodium chloride 0.9% (100 ml) 100 ML 460 MG IV (16:06)
[2020-01-27] MEDS: ferric carboxy (IVPB) 750 MG in sodium chloride 0.9% (100 ml) 100 ML 460 MG IV (15:25)
== END 2020-01-30 23:59 | disposition home or self-care (01) ==
LOC: ONCMED 06:49
PROVIDERS: PCP Physician Assistant Medical; Visit Provider Nurse Practitioner
DX: M06.9 Rheumatoid arthritis, unspecified (principal); D50.8 Other iron deficiency anemias; Z79.899 Other long term (current) drug therapy; Z79.52 Long term (current) use of systemic steroids
CPT/HCPCS: 80053; 85025; 85651; 86140; 96365; J1439

== ENCOUNTER 2020-03-23 12:47 | Outpatient (CLI) | payer MEDICAID, SELFPAY ==
[2020-03-23 13:30] LABS: Basophils % 0.7 %; Eosinophils # 0.1 10^3/uL (0.0-0.8); Eosinophils % 2.2 %; Hematocrit 45.6 % (37.0-47.0); Hemoglobin 14.8 g/dL (11.5-15.3); Lymphocytes # 1.4 10^3/uL (0.8-4.8); Mean Corpuscular HGB Conc 32.5 g/dL (30.0-36.0); Mean Corpuscular Hemoglobin 29.2 pg (28.0-34.0); Mean Corpuscular Volume 90.1 fL (81-99); Mean Platelet Volume 12.4 fL (7.4-10.4); Monocytes # 0.6 10^3/uL (0.2-0.9); Monocytes % 11.3 %; Neutrophils # 3.37 10^3/uL (1.8-7.7); Neutrophils % 60.6 %; Nucleated Red Blood Cells % 0 %; Platelet Count 176 10^3/cmm (130-400); Red Blood Count 5.06 10^6/uL (4.1-5.3); Red Cell Distribution Width 19.9 % (12.1-15.1); White Blood Count 5.6 10^3/uL (4.0-10.0)
[2020-03-23 13:39] LABS: Alanine Aminotransferase 21 U/L (0-33); Albumin Level 4.5 g/dL (3.5-5.2); Alkaline Phosphatase 51 IU/L (35-105); Blood Urea Nitrogen 9 mg/dL (6-20); Calcium 8.7 mg/dL (8.5-10.5); Carbon Dioxide 25 mmol/L (22-29); Chloride 103 mmol/L (98-107); Ferritin 143 ng/mL (15-150); Globulin 2.6 g/dL (1.3-4.6); Glomerular Filtration Rate 87.9 mL/min (90-130); Glucose 71 mg/dL (65-115); Iron 130 ug/dL (37-145); Osmolality Calculated 281 mOsm/kg (285-295); Sodium 137 mmol/L (136-145); Total Bilirubin 0.9 mg/dL (0.15-1.2); Total Protein 7.1 g/dL (6.6-8.7)
[2020-03-23 13:40] LABS: Anion Gap 13.2 (5-19); Potassium 4.2 mmol/L (3.5-5.1)
[2020-03-23 13:41] LABS: Aspartate Amino Transferase 27 U/L (0-32)
[2020-03-23 13:42] LABS: Percent Saturation 50.1 % (20-50); Total Iron Binding Capacity 259 mcg/dl; Unsaturated Iron Binding 129 ug/dL (112-347)
[2020-03-23 14:15] LABS: Slide Review Slide Review Perform
== END 2020-03-23 12:48 | disposition home or self-care (01) ==
LOC: ONCMED 12:48
PROVIDERS: PCP Physician Assistant Medical; Visit Provider Nurse Practitioner
DX: D50.9 Iron deficiency anemia, unspecified (principal); M06.9 Rheumatoid arthritis, unspecified; K21.9 Gastro-esophageal reflux disease without esophagitis; I47.1 Supraventricular tachycardia; G89.29 Other chronic pain; M54.6 Pain in thoracic spine; M47.9 Spondylosis, unspecified; Z79.891 Long term (current) use of opiate analgesic
CPT/HCPCS: 80053; 82728; 83540; 83550; 85025; 99213

== ENCOUNTER 2020-03-23 15:11 | Outpatient (CLI) | payer MEDICAID, SELFPAY ==
--- NOTE | 2020-03-26 17:34 | ONC FU_ITS ---
Dr. Mancia Patient Follow-Up Note Patient: Nicky Gonzalez Unit #: [id number]: 1965 Dicatated By: Adolph Mancia M.D.Date of Visit:Mar 23, 2020 Onc Med Follow-up/Prog Note Chief Complaint: Anemia. History of Present Illness: This is a 54 year-old woman with iron deficiency anemia. She has a long-standing history of anemia, presumed to be due to iron deficiency. I had seen her initially in August 2014. At that time she indicated that taking iron never does me no good . The only time she recalls getting any benefit was when she was given several doses of parenteral iron during one . She had been seen at the [facility] in July 2014. Laboratory studies at that time included CBC showing hemoglobin 6.8 g with hematocrit 26.5%. The red cell indices were hypochromic/microcytic with MCV 65 and MCH 16. White count was normal at 7000 and the platelet count was slightly elevated at 469,000. Comprehensive metabolic profile was unremarkable except for slightly low potassium at 3.2 mmol per liter. TSH was normal at 1.61 mIU/ML. Her serum iron came back low at 14 mcg/dL. She was given parenteral iron replacement with Venofer. She completed treatment on 10/16/2014 to a total dose of 3000 mg. She tolerated it well. A follow-up CBC on 10/30/2014 showed a hemoglobin of 13.8 g with MCV 84.6. The transferrin saturation was 25% and ferritin was 206 ng/mL. A follow-up CBC on 02/04/2016 did show hemoglobin down slightly to 11.9 g. The transferrin saturation had dropped to 7%. She was then given further parenteral iron replacement with infusions of Injectafer on 02/21/2016 and on 02/28/2016. I had seen her for a follow-up visit again on 10/11/2016. At that time her hemoglobin was normal at 13.1 g, and her red cell indices were also normal. Her serum iron studies showed normal transferrin saturation at 25% and her ferritin was still the low-normal range at 40.7 ng/mL. She continued to complain of significant fatigue. Her repeat laboratory studies in December showed hemoglobin down slightly to 12.4 g. The transferrin saturation at that point had decreased to 9% and the ferritin was down to 6.3 ng/mL, consistent with iron deficiency. Although she was just borderline anemic, she continued to have significant fatigue, and she was given additional parenteral iron replacement with infusions of Injectafer on 01/10/2017 and 01/17/2017. Her medical illnesses include anemia, rheumatoid arthritis, and GERD. She also has a history of supraventricular tachycardia. She had smoked in the past, but only for a few years, and she quit more than 25 years ago. INTERIM HISTORY: She was seen for a follow-up visit on 09/03/2017. At that time she was having significant fatigue. Her hemoglobin was normal at 13.4 g, but her transferrin saturation was low at 11.1% and her ferritin level was low at 9.8 ng/mL, consistent with iron deficiency. She was given parenteral iron replacement with 2 additional infusions of Injectafer. She did appear to have symptomatic benefit. As of her follow-up visit in April, she had become slightly anemic with transferrin saturation low at 7.5% and ferritin low at 5.0 ng/mL, again consistent with iron deficiency. She was given further parenteral iron replacement with infusions of Injectafer on 05/14/2018 and 05/21/2018. She had a good clinical response. As of 12/12/2018 she had become mildly anemic again with hemoglobin 11.3 g and hematocrit 34.6%. The red cell indices were borderline low. The transferrin saturation was low at 8.4% with ferritin 8.0 ng/mL, consistent with iron deficiency. She was given additional parenteral iron replacement with infusions of Injectafer on 12/19/2018 and 12/26/2018. Her repeat CBC on 01/28/2019 showed hemoglobin up to 13.6 g with normal transferrin saturation at 34.9% and normal ferritin at 120 ng/mL. In August 2019 she had become mildly anemic again with hemoglobin 11.4 g. Her transferrin saturation was low at 7% with ferritin also low at 8.1 ng/mL, consistent with iron deficiency. She was given 2 additional infusions of Injectafer, again with good clinical response. On her repeat CBC from 01/13/2020 her hemoglobin had decreased to 8.5 g. Her transferrin saturation was down to 4.3% with ferritin 5 ng/mL. She was given further infusions of Injectafer on 01/20/2020 and 01/27/2020. She is seen for a followup visit. She has been feeling much better following the infusions of Injectafer in December. She still reports having some fatigue, but she has back to normal activity. She has good appetite. She does not have fever, night sweats, or hot flashes. She had been having very heavy menstrual bleeding and she did have surgery in August which included D&C and a hysteroscopy with removal of a polyp. She has since then returned to having normal periods. She reports that she has had quite a few flareups of her rheumatoid arthritis. She still manages it adequately with sulfasalazine and prednisone. Medications: Azulfidine 2 (500 mg) Tablet Oral t.i.d., EQ Ibuprofen Tablet Oral PRN, Famotidine 1 Tablet (of 40 mg) Oral daily, HYDROcodone-Acetaminophen 1 Tablet (of 5-325 mg) Oral four times a day PRN, Magnesium Oxide 1 (400 mg) Capsule Oral daily, Metoprolol Tartrate 1 (50 mg) Tablet Oral b.i.d., Omeprazole 1 (40 mg) Capsule Delayed Release Oral daily, Potassium Chloride Isela ER 1 (10 meq) Tablet, controlled release Oral daily, PredniSONE 1 (5 mg) Tablet Oral daily Allergies: No Known Allergies. Review of Systems: Constitutional - She still has some fatigue, but her activity is back to normal. Appetite is good and weight is stable. No fever, night sweats, or hot flashes. ECOG score is 0, ENMT - No sinus congestion/drainage. No mouth sores. No sore throat or difficulty swallowing, Hematologic/Lymphatic - No abnormal bruising or bleeding, Respiratory - No shortness of breath. No cough. No pleuritic pain or hemoptysis, Cardiovascular - No angina pain. No palpitations, Gastrointestinal - No nausea or vomiting. She has some heartburn, but is adequately managed with omeprazole. No diarrhea or constipation. No blood in the stool or black stools, Genitourinary (F) - No dysuria or hematuria. No urinary frequency. No urgency or incontinence. She was having heavy menstrual bleeding. She underwent D&C and hysteroscopy in August. Her menstrual periods have since then been normal, Musculoskeletal - She has rheumatoid arthritis and she has been having quite a few flares, Integumentary - No skin rash, Neurologic - She occasionally has headache. She has no dizziness. She occasionally has numbness/tingling in her hands. No other focal neurologic symptoms, Psychiatric - No anxiety or depression. No insomnia. Vital Signs: Performed on Mar 23, 2020 15:15 Height - 64.00 in Weight - 174 lbs (LOW) BSA - 1.84 sq.m BMI - 29.87 Temperature - 98.8 F Pulse - 71 /min Respiration - 16 /min BP - 101/55 mm(hg) O2 Sat - 97 % Pain - 5 Physical Examination: Constitutional - She looks good generally, Eyes - Sclerae nonicteric. Conjunctivae clear, ENMT - No lesions noted in the oral cavity, Hematologic/Lymphatic - No cervical, clavicular, or axillary adenopathy, Respiratory - Lungs are clear with good air movement bilaterally, Cardiovascular - Heart rhythm is regular. There is no murmur, gallop, or rub noted, Abdomen - Soft. Liver and spleen are not enlarged. There is no abdominal mass or ascites noted and there is no inguinal adenopathy, Extremities - No edema, Neurologic - No focal neurologic deficits noted. Lab/Imaging: CBC shows hemoglobin 14.8 g with hematocrit 45.6%. The red cell indices are normal. The white blood cell count is 5600 and the platelet count is 176,000. Comprehensive metabolic profile is unremarkable. The serum iron studies show transferrin saturation at the upper limit of normal at 50.1% with ferritin in normal range at 143 ng/mL. Impression: 1. The patient has iron deficiency anemia, presumably due to inadequate oral iron absorption. She was given parenteral iron replacement with Venofer, which she completed in September to a total dose of 3000 mg. She has had a very good on objective response complete correction of the anemia. 2. By January 2016 she was iron deficient again. She was given further parenteral iron replacement with infusions of Injectafer on 02/21/2016 and 02/28/2016. Her other medical illnesses include: 3. Rheumatoid arthritis. 4. GERD. 5. Supraventricular tachycardia. She initially had a good objective response to the parenteral iron replacement. She had remained borderline anemic, and she continued to complain of significant fatigue. As of December 2016 her lab studies were again consistent with iron deficiency, and she was given another course of parenteral iron replacement with Injectafer. She tolerated it well, and she again had a very good objective response, but without dramatic subjective improvement. She was seen for a follow-up visit in August 2017. At that time she had reported some worsening of her symptoms, including fatigue and more frequent episodes of SVT. Her hemoglobin/hematocrit levels were just down slightly, but her serum iron studies and ferritin were clearly consistent with iron deficiency. She was given additional parenteral iron replacement with 2 infusions of Injectafer. She tolerated it well, and she had a good clinical response. She required parenteral iron replacement again in November 2018 and in August 2019. As of 01/13/2020 her hemoglobin was back down to 8.5 g with transferrin saturation 4% and with ferritin 5 ng/mL. The underlying cause does appear to be menorrhagia, but that has improved following surgery in August 2019 which included D&C and hysteroscopy with removal of endometrial polyp. At this point she is still having some fatigue, but she has had a very good clinical response to parenteral iron replacement with Injectafer. As of April 2018 her laboratory studies were again consistent with iron deficiency, and she had become mildly anemic. She received further parenteral iron replacement with 2 additional infusions of Injectafer. She tolerated it welland she had a very good objective response. Plan: She will be scheduled to have blood counts and serum iron studies rechecked every 3 months, and she will be given further parenteral iron replacement as needed. I will tentatively plan a follow-up visit in 1 year. Signed By: Adolph Mancia M.D. <<Signature on File>>
== END 2020-03-23 15:12 | disposition home or self-care (01) ==
LOC: ONCMED 15:11
PROVIDERS: PCP Physician Assistant Medical; Visit Provider Internal Medicine Medical Oncology
DX: D50.9 Iron deficiency anemia, unspecified (principal); M06.9 Rheumatoid arthritis, unspecified; K21.9 Gastro-esophageal reflux disease without esophagitis; I47.1 Supraventricular tachycardia
CPT/HCPCS: 99214

== ENCOUNTER → 2020-05-11 13:31 | Outpatient (BNVA) | payer MEDICAID, SELFPAY | PROVIDERS: PCP Physician Assistant Medical; Visit Provider Internal Medicine | DX: M06.9 Rheumatoid arthritis, unspecified (principal); Z79.52 Long term (current) use of systemic steroids; G89.29 Other chronic pain; K21.9 Gastro-esophageal reflux disease without esophagitis; M47.814 Spondylosis without myelopathy or radiculopathy, thoracic region | CPT/HCPCS: 36415; 80053; 85025; 85651; 86140; 99213 ==

== ENCOUNTER → 2020-05-21 13:26 | Outpatient (BNVA) | payer MEDICAID, SELFPAY | PROVIDERS: PCP Physician Assistant Medical; Visit Provider Anesthesiology | DX: G89.29 Other chronic pain (principal); M47.814 Spondylosis without myelopathy or radiculopathy, thoracic region; M47.816 Spondylosis without myelopathy or radiculopathy, lumbar region; Z79.891 Long term (current) use of opiate analgesic | CPT/HCPCS: 99213; 99214 ==

== ENCOUNTER 2020-06-19 22:53 | Emergency (ER) | payer MEDICAID, SELFPAY ==
[2020-06-19 23:06] VITALS: BP 112/63; PULSE 177; RESP 22; TEMP 36.3; O2SAT 99; BMI 28.3
[2020-06-19 23:18] VITALS: BP 112/63; PULSE 85; O2SAT 95
--- NOTE | 2020-06-19 23:35 | ECG_ITS ---
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 Measurements Intervals [place] Rate: 174 P: VT: QRS: 53 QRSD: 73 T: 42 QT: 253 QTc: 431 Interpretive Statements SUPRAVENTRICULAR TACHYCARDIA MODERATE ST DEPRESSION [0.05+ mV ST DEPRESSION] CRITICAL TEST RESULT Compared to ECG 09/18/2019 11:13:25 ST (T wave) deviation now present Sinus bradycardia no longer present Electronically Signed On 06-21-2020 20:43:02 HOUSING COORDINATOR by Brianne Downing M.D. [id number]
--- NOTE | 2020-06-19 23:35 | XRR_ITS ---
PROCEDURE INFORMATION: Exam: XR Chest, 1 View Exam date and time: 06/20/2020 12:08 AM Age: 54 years old Clinical indication: Other: Svt TECHNIQUE: Imaging protocol: XR of the chest Views: 1 view. COMPARISON: CR Chest 1 [place] [id number] 03/01/2017 6:04 PM FINDINGS: Lungs: Lungs are clear. Pleural space: There is no pleural effusion or pneumothorax. Heart/Mediastinum: The cardiac silhouette is within normal limits of size given AP technique. Bones/joints: Bones are unremarkable. XR/XR chest 1V portable [id number] IMPRESSION: No acute findings.
[2020-06-19 23:48] LABS: Basophils # 0.1 10^3/uL (0.0-0.1); Basophils % 0.7 %; Eosinophils # 0.1 10^3/uL (0.0-0.8); Eosinophils % 1.1 %; Hematocrit 37.1 % (37.0-47.0); Lymphocytes # 1.5 10^3/uL (0.8-4.8); Lymphocytes % 14.4 %; Mean Corpuscular HGB Conc 32.3 g/dL (30.0-36.0); Mean Corpuscular Hemoglobin 30.7 pg (28.0-34.0); Mean Corpuscular Volume 94.9 fL (81-99); Mean Platelet Volume 11.7 fL (7.4-10.4); Monocytes # 0.7 10^3/uL (0.2-0.9); Monocytes % 6.7 %; Neutrophils % 76.7 %; Nucleated Red Blood Cells % 0 %; Platelet Count 300 10^3/cmm (130-400); Red Blood Count 3.91 10^6/uL (4.1-5.3); Red Cell Distribution Width 12.8 % (12.1-15.1); White Blood Count 10.7 10^3/uL (4.0-10.0)
[2020-06-19] MEDS: sodium chloride 0.9% 1,000 ML 999 ML IV (23:52)
[2020-06-19 23:53] VITALS: BP 101/69; PULSE 85; RESP 10; O2SAT 96
[2020-06-20 00:07] LABS: Troponin(5th) Baseline 30 ng/L (0-10)
--- NOTE | 2020-06-20 00:13 | PC.NURSE ---
pt came in SVT 180bpm diltiazem 20mg given per md. pt rate decreased. Current rate 85 bpm.
[2020-06-20 00:14] LABS: Alanine Aminotransferase 24 U/L (0-33); Albumin Level 4.4 g/dL (3.5-5.2); Alkaline Phosphatase 71 IU/L (35-105); Anion Gap 14.7 (5-19); Aspartate Amino Transferase 24 U/L (0-32); Blood Urea Nitrogen 12 mg/dL (6-20); Calcium 9.4 mg/dL (8.5-10.5); Carbon Dioxide 25 mmol/L (22-29); Chloride 103 mmol/L (98-107); Creatine Phosphokinase 80 U/L (26-192); Globulin 2.6 g/dL (1.3-4.6); Glomerular Filtration Rate 65.8 mL/min (90-130); Glucose 128 mg/dL (65-115); NT Pro B Type Natriuretic Pept 261 pg/mL (0-125); Osmolality Calculated 289 mOsm/kg (285-295); Potassium 3.7 mmol/L (3.5-5.1); Sodium 139 mmol/L (136-145); Thyroid Stimulating Hormone 1.74 uIU/mL (0.27-4.20); Total Bilirubin 0.4 mg/dL (0.15-1.2)
[2020-06-20 00:20] VITALS: BP 98/71; PULSE 85; RESP 21; O2SAT 99
[2020-06-20 00:55] VITALS: BP 102/77; PULSE 86; RESP 13; O2SAT 100
--- NOTE | 2020-06-20 01:02 | W.ED.ARRPALP ---
HPI - Arrhythmia/Palpitations General: Chief Complaint: Arrhythmia/Palpitations Stated Complaint: SVT Time Seen by Provider: 06/19/20 23:09 History of Present Illness: HPI narrative: 54-year-old female with a history of SVT. She presents with palpitations, and bilateral jaw discomfort for a couple of hours. She suspected SVT. She tried some vagal maneuvers at home without improvement. She takes metoprolol for this. She seen cardiology in the past as well for this, but has not been referred to electrophysiology. She states this normally happens when my ferritin and iron get low . MD complaint: rapid heart beat and palpitations Onset (ago): hour(s) Duration: constant Severity: moderate Context: occurred during rest Arrhythmia history: SVT Associated symptoms: Reports short of breath; Deny anxiety, cough, diaphoresis or nausea Treatments prior to arrival: vagal maneuvers and beta-jose Review of Systems Const: Denies: diaphoresis Eyes: Denies: change in vision ENMT: Denies: odynophagia or sinus pain Card: Reports: palpitations and dyspnea on exertion; Denies: chest pain, irregular heart rhythm or orthopnea Resp: Reports: dyspnea; Denies: productive cough, non-productive cough or wheezing GI: Denies: nausea : Denies: dysuria or hematuria Musc: Reports: neck pain; Denies: joint warmth Skin/Breast: Denies: rash or erythema Neuro: Denies: headache(s), dizziness or vertigo Psych: Denies: anxiety PFS ED PFSH: Medical History (Updated 06/20/20 @ 01:08 by Kalpesh Park DO) MEME positive Chronic thoracic spine pain Current chronic use of systemic steroids Encounter for long-term (current) use of NSAIDs GERD (gastroesophageal reflux disease) Hypertension Lichen planus Long-term use of high-risk medication Pain management contract signed Paroxysmal supraventricular tachycardia Raynaud's phenomenon Rheumatoid arthritis Spondylosis THORACIC AND LUMBAR Surgical History History of hand surgery (~1997) History of hysteroscopy (09/23/19) Hysteroscopy, D&C, Buttock biopsy. [place] [facility] [place] History of lumpectomy of left breast (06/27/17) Hx of section X5 Family History Father Diabetes Mother Hypertension Grandmother Stroke Grandfather Cancer Liver cancer Other Liver disease Social History Smoking and tobacco status: former smoker Second hand smoke exposure: No Alcohol intake: never History of recent travel: No Physical Exam Const: GENERAL APPEARANCE: well developed ORIENTATION/CONSCIOUSNESS: Yes oriented to person, Yes oriented to place and Yes oriented to time HENMT: COMMON NORMALS: normocephalic, external ears normal and Normal external nose present HEAD & SCALP: normocephalic FACE & SINUS: normal facial exam NOSE: Normal external nose present and No nasal discharge present EXTERNAL EAR: Yes external ears normal Eye: COMMON NORMALS: Equal, round and reactive pupils present, EOMs intact bilaterally and conjunctivae normal EYELID: eyelids normal CONJUNCTIVA: Yes conjunctivae normal PUPIL: Yes Equal, round and reactive pupils present Neck/C-Spine: GENERAL: No tracheal deviation Chest: COMMONS NORMALS: normal inspection of the chest CHEST: No tenderness Resp: COMMON NORMALS: clear to auscultation bilaterally EFFORT & INSPECTION: No tachypneic, No respiratory distress, No retractions, No uses accessory muscles and No tracheal deviation AUSCULTATION: clear to auscultation bilaterally, no rhonchi, no wheezes and lung sounds not diminished Cardio: COMMON NORMALS: regular rhythm RATE: tachycardic RHYTHM: regular rhythm HEART SOUNDS: no murmurs PERIPHERAL PULSES: radial pulses present GI: INSPECTION: No abdominal distension AUSCULTATION: No Hyperactive bowel sounds present and No Hypoactive bowel sounds present PALPATION: No Guarding due to palpation present (GI) and No Rigid due to palpation PERCUSSION: no dullness to percussion and no tympanic to percussion Neuro: SENSORIUM/ORIENTATION: Yes oriented to person, Yes oriented to place and Yes oriented to time Psych: COMMON NORMALS: mental status grossly normal Skin: COMMON NORMALS: no rashes or lesions noted GENERAL SKIN EXAM: no rashes or lesions noted Course Vital Signs: Vital signs: Vital Signs Temperature 97.3 F L 06/19/20 23:06 Pulse Rate 85 06/20/20 01:36 Respiratory Rate 13 06/20/20 00:55 Blood Pressure 105/79 06/20/20 01:36 Pulse Oximetry 98 06/20/20 01:36 MDM - Arrhythmia/Palpitations MDM Narrative: Medical decision making narrative: 54-year-old female with a history of SVT. She presents with a heart rate of 1 70-1 80. She had tried vagal maneuvers at home. She has a history of this. She is received adenosine and Cardizem in the past with resolution. She was given a bolus of 20 mg of diltiazem on arrival, with resolution of her SVT. Upon resolution, her jaw pain went away. Lab Data: Labs: Lab Results 06/19/20 06/19/20 06/19/20 Range/Units 23:05 23:05 23:05 WBC 10.7 H (4.0-10.0) 10^3/ uL RBC 3.91 L (4.1-5.3) 10^6/u L Hgb 12.0 (11.5-15.3) g/dL Hct 37.1 (37.0-47.0) % MCV 94.9 (81-99) fL MCH 30.7 (28.0-34.0) pg MCHC 32.3 (30.0-36.0) g/dL RDW 12.8 (12.1-15.1) % Plt Count 300 (130-400) 10^3/c mm MPV 11.7 H (7.4-10.4) fL Neut % (Auto) 76.7 % Lymph % (Auto) 14.4 % [place] % (Auto) 6.7 % Eos % (Auto) 1.1 % Baso % (Auto) 0.7 % Neut # (Auto) 8.20 H (1.8-7.7) 10^3/u L Lymph # (Auto) 1.5 (0.8-4.8) 10^3/u L [place] # (Auto) 0.7 (0.2-0.9) 10^3/u L Eos # (Auto) 0.1 (0.0-0.8) 10^3/u L Baso # (Auto) 0.1 (0.0-0.1) 10^3/u L Nucleated RBC % (a uto) 0 % Nucleated RBCs # 0.0 /100WBC Sodium 139 (136-145) mmol/L Potassium 3.7 (3.5-5.1) mmol/L Chloride 103 (98-107) mmol/L Carbon Dioxide 25 (22-29) mmol/L Anion Gap 14.7 (5-19) BUN 12 (6-20) mg/dL Creatinine 0.9 (0.5-0.9) mg/dL GFR Calculation 65.8 L (90-130) mL/min Glucose 128 H (65-115) mg/dL Calculated Osmolal ity 289 (285-295) mOsm/k g Calcium 9.4 (8.5-10.5) mg/dL Total Bilirubin 0.4 (0.15-1.2) mg/dL AST 24 (0-32) U/L ALT 24 (0-33) U/L Alkaline Phosphata se 71 (35-105) IU/L Creatine Kinase 80 (26-192) U/L Troponin T Baselin e 30 H (0-10) ng/L NT-Pro-B Natriuret Pep 261 H (0-125) pg/mL Total Protein 7.0 (6.6-8.7) g/dL Albumin 4.4 (3.5-5.2) g/dL Globulin 2.6 (1.3-4.6) g/dL TSH 1.74 (0.27-4.20) uIU/ mL Discharge Plan Discharge Patient Disposition: Home Clinical Impression: Paroxysmal supraventricular tachycardia Condition: Stable Prescriptions: No Action prednisone 5 mg tablet 5 mg PO DAILY Qty: 30 RF: 2 hydrocodone-acetaminophen 5-325 mg tablet 1 tab PO QID PRN (Reason: pain) 30 Days Qty: 120 RF: 0 hydrocodone-acetaminophen 5-325 mg tablet 1 tab PO QID PRN (Reason: pain) 30 Days Qty: 120 RF: 0 tizanidine 4 mg capsule 4 mg PO TID PRN (Reason: muscle spasticity) Qty: 90 RF: 1 magnesium oxide 400 mg magnesium capsule 400 mg PO DAILY Qty: 90 RF: 3 famotidine 40 mg tablet 40 mg PO QDAY RF: 0 omeprazole 20 mg tablet,delayed release (DR/EC) 20 mg PO BID RF: 0 metoprolol succinate 50 mg capsule,sprinkle,ER 24hr 50 mg PO QDAY Qty: 90 RF: 3 sulfasalazine 500 mg tablet See Rx Instructions PO Q8H Qty: 180 RF: 0 potassium gluconate 595 mg (99 mg) Tablet 595 mg PO DAILY RF: 0 Vitamin D3 4,000 unit Capsule 4,000 unit PO DAILY RF: 0 Discharge Orders: Discharge ED (Routine); Ordered 06/20/20 Ordered By: Kalpesh Park Referrals: Bogdan Hewitt [Primary Care Provider] - Discharge Diet: Advance as tolerated Discharge Activity: Increase activity as tolerated Patient Instructions: Supraventricular Tachycardia (ED) Activity Restrictions/Additional Instructions: Return for return of palpitations, chest discomfort, jaw discomfort, shortness of breath, fever, other concerning symptoms. Coding Level of Care Code ED Wet Machine Tender for Chg Fwd Exam Comprehensive
--- NOTE | 2020-06-20 01:35 | ECG_ITS ---
[facility] Test Date: 2020-06-20 Pat Name: Nicky Gonzalez Department: Room: Gender: Female Chicken Sexer: : 1965 Requested By: Kalpesh Omalley Order Number: [id number] Ibrahim MD: Brianne Downing M.D. Measurements Intervals [place] Rate: 85 P: 55 ND: 156 QRS: 41 QRSD: 79 T: 36 QT: 361 QTc: 430 Interpretive Statements SINUS RHYTHM Compared to ECG 06/19/2020 23:01:06 Supraventricular tachycardia no longer present ST (T wave) deviation no longer present Electronically Signed On 06-21-2020 21:21:50 EMERGENCY VEHICLE TECHNICIAN by Brianne Downing M.D. [email or web address] TechUnited Travel Technologiescleveland clinic [facility].[employer]/store/NU/[id number] f
[2020-06-20 01:36] VITALS: BP 105/79; PULSE 85; O2SAT 98
[2020-06-20 01:48] VITALS: BP 105/79; PULSE 75; RESP 16; O2SAT 100
[2020-06-20 01:56] LABS: Ferritin 13 ng/mL (15-150)
== END 2020-06-20 01:53 | disposition home or self-care (01) ==
PROVIDERS: Emergency Provider Emergency Medicine; PCP Physician Assistant Medical
DX: I47.1 Supraventricular tachycardia (principal); I10 Essential (primary) hypertension; Z87.891 Personal history of nicotine dependence
CPT/HCPCS: 12345; 71045; 80053; 82550; 82728; 83880; 84443; 84484; 85025; 93005; 99283; 99291; J3490; J7030

== ENCOUNTER 2020-06-29 16:12 | Outpatient (CLI) | payer MEDICAID, SELFPAY ==
--- NOTE | 2020-06-29 16:15 | XR_ITS ---
WS: [id number] Exam: XR thoracic spine 3V* [id number] Date/Time of Exam: 06/29/2020 4:16 PM Reason For Exam: M54.6 - Pain in thoracic spine Comparison 12/25/2017. No fracture or dislocation. Mild spondylosis. No significant scoliosis. Normal paraspinal soft tissue s. No significant change. XR/XR thoracic spine 3V* [id number] IMPRESSION: 1. Minimal degenerative changes. No fracture or malalignment.
--- NOTE | 2020-06-29 16:15 | XR_ITS ---
WS: [id number] Exam: XR lumbar spine 2-3V* [id number] Date/Time of Exam: 06/29/2020 4:16 PM Reason For Exam: M54.6 - Pain in thoracic spine Comparison 12/25/2017. No acute fracture or dislocation. Mild spondylosis. Mild DJD of the SI joints. No significant change. XR/XR lumbar spine 2-3V* [id number] IMPRESSION: 1. Mild DJD. No fracture or malalignment.
--- NOTE | 2020-06-29 16:15 | XR_ITS ---
WS: [id number] Exam: XR shoulder LT min 2V* [id number] Date/Time of Exam: 06/29/2020 4:16 PM Reason For Exam: left shoulder pain The projections of the shoulder reveal no fractures, anomalies, soft tissue swelling, or calcificatio ns. There is normal bony alignment. No irregularity of the bony architecture is noted. XR/XR shoulder LT min 2V* [id number] IMPRESSION: Negative left shoulder.
== END 2020-06-29 16:13 | disposition home or self-care (01) ==
PROVIDERS: PCP Physician Assistant Medical; Visit Provider Internal Medicine
DX: M06.9 Rheumatoid arthritis, unspecified (principal); M54.6 Pain in thoracic spine; G89.29 Other chronic pain; M25.512 Pain in left shoulder; M47.816 Spondylosis without myelopathy or radiculopathy, lumbar region
CPT/HCPCS: 72072; 72100; 73030

== ENCOUNTER → 2020-09-02 14:26 | Outpatient (BNVA) | payer MEDICAID, SELFPAY | PROVIDERS: PCP Physician Assistant Medical; Visit Provider Internal Medicine | DX: M06.9 Rheumatoid arthritis, unspecified (principal); R76.8 Other specified abnormal immunological findings in serum; Z87.891 Personal history of nicotine dependence; R53.83 Other fatigue | CPT/HCPCS: 99214 ==

== ENCOUNTER 2020-09-02 15:17 | Outpatient (CLI) | payer MEDICAID, SELFPAY ==
[2020-09-02 16:31] LABS: Basophils # 0.1 10^3/uL (0.0-0.1); Basophils % 1.1 %; Eosinophils # 0.2 10^3/uL (0.0-0.8); Eosinophils % 3.4 %; Hematocrit 31.8 % (37.0-47.0); Hemoglobin 9.7 g/dL (11.5-15.3); Lymphocytes % 22.5 %; Mean Corpuscular HGB Conc 30.5 g/dL (30.0-36.0); Mean Corpuscular Hemoglobin 25.9 pg (28.0-34.0); Mean Corpuscular Volume 84.8 fL (81-99); Mean Platelet Volume 11.7 fL (7.4-10.4); Monocytes # 0.4 10^3/uL (0.2-0.9); Monocytes % 9.5 %; Nucleated Red Blood Cells % 0 %; Platelet Count 220 10^3/cmm (130-400); Red Blood Count 3.75 10^6/uL (4.1-5.3); Red Cell Distribution Width 16.2 % (12.1-15.1); White Blood Count 4.4 10^3/uL (4.0-10.0)
[2020-09-02 16:39] LABS: Ferritin 5 ng/mL (15-150); Iron 12 ug/dL (37-145); Percent Saturation 3.5 % (20-50); Total Iron Binding Capacity 338 mcg/dl; Unsaturated Iron Binding 326 ug/dL (112-347)
[2020-09-02 19:27] LABS: Alanine Aminotransferase 19 U/L (0-33); Albumin Level 4.1 g/dL (3.5-5.2); Alkaline Phosphatase 51 IU/L (35-105); Anion Gap 13.7 (5-19); Aspartate Amino Transferase 21 U/L (0-32); Blood Urea Nitrogen 10 mg/dL (6-20); Calcium 8.2 mg/dL (8.5-10.5); Carbon Dioxide 23 mmol/L (22-29); Chloride 108 mmol/L (98-107); Globulin 2.5 g/dL (1.3-4.6); Glomerular Filtration Rate 87.9 mL/min (90-130); Glucose 90 mg/dL (65-115); Osmolality Calculated 291 mOsm/kg (285-295); Potassium 3.7 mmol/L (3.5-5.1); Sodium 141 mmol/L (136-145); Total Bilirubin 0.2 mg/dL (0.15-1.2); Total Protein 6.6 g/dL (6.6-8.7)
== END 2020-09-02 15:18 | disposition home or self-care (01) ==
LOC: ONCMED 15:20
PROVIDERS: Absent Provider Internal Medicine; PCP Physician Assistant Medical; Visit Provider Nurse Practitioner
DX: M06.9 Rheumatoid arthritis, unspecified (principal)
CPT/HCPCS: 36415; 80053; 82728; 83540; 83550; 85025

== ENCOUNTER → 2020-09-07 13:40 | Outpatient (BNVA) | payer MEDICAID, SELFPAY | PROVIDERS: PCP Physician Assistant Medical; Visit Provider Nurse Practitioner | DX: G89.29 Other chronic pain (principal); M54.6 Pain in thoracic spine; M47.9 Spondylosis, unspecified; Z79.891 Long term (current) use of opiate analgesic | CPT/HCPCS: 99213 ==

== ENCOUNTER 2020-09-16 06:26 | Outpatient (CLI) | payer MEDICAID, SELFPAY ==
[2020-09-16] MEDS: acetaminophen 325 mg Tablet 650 MG PO (10:00)
[2020-09-16] MEDS: diphenhydrAMINE 50 mg/mL SDV 1mL 25 MG IVP (10:00)
[2020-09-16] MEDS: sodium chloride 0.9% 500 ML 75 ML IV (10:00)
[2020-09-16] MEDS: iron dextran 25 MG in SYRINGE 1 EACH 30 MG IVP (10:45)
== END 2020-09-16 06:27 | disposition home or self-care (01) ==
LOC: ONCMED 06:28
PROVIDERS: PCP Physician Assistant Medical; Visit Provider Internal Medicine Medical Oncology
DX: D50.9 Iron deficiency anemia, unspecified (principal)
CPT/HCPCS: 96365; 96366; 96367; 96375; J1100; J1200; J1750; J7030; J7040

== ENCOUNTER → 2020-11-03 16:29 | Outpatient (BNVA) | payer MEDICAID, SELFPAY | PROVIDERS: PCP Physician Assistant Medical; Visit Provider Internal Medicine Medical Oncology | DX: D50.0 Iron deficiency anemia secondary to blood loss (chronic) (principal) | CPT/HCPCS: 82728; 83550; 85025 ==

== ENCOUNTER → 2020-11-18 14:53 | Outpatient (BNVA) | payer MEDICAID, SELFPAY | PROVIDERS: PCP Physician Assistant Medical; Visit Provider Anesthesiology | DX: G89.29 Other chronic pain (principal); M54.6 Pain in thoracic spine; M47.9 Spondylosis, unspecified; Z79.899 Other long term (current) drug therapy; Z79.891 Long term (current) use of opiate analgesic | CPT/HCPCS: 99213 ==

== ENCOUNTER 2020-11-23 14:13 | Outpatient (CLI) | payer MEDICAID, SELFPAY ==
[2020-11-23 15:59] LABS: Basophils % 0.3 %; Eosinophils # 0.1 10^3/uL (0.0-0.8); Eosinophils % 1.9 %; Lymphocytes % 31.7 %; Mean Corpuscular HGB Conc 26.5 g/dL (30.0-36.0); Mean Corpuscular Hemoglobin 26.1 pg (28.0-34.0); Mean Corpuscular Volume 98.5 fL (81-99); Mean Platelet Volume 12.3 fL (7.4-10.4); Monocytes # 0.2 10^3/uL (0.2-0.9); Monocytes % 6.4 %; Neutrophils # 1.85 10^3/uL (1.8-7.7); Neutrophils % 59.4 %; Nucleated Red Blood Cells % 0 %; Platelet Count 44 10^3/cmm (130-400); Red Blood Count 2.03 10^6/uL (4.1-5.3); Red Cell Distribution Width 20.2 % (12.1-15.1); White Blood Count 3.1 10^3/uL (4.0-10.0)
[2020-11-23 16:00] LABS: Hemoglobin 5.3 g/dL (11.5-15.3)
[2020-11-23] MEDS: ferric gluconate 125 MG in sodium chloride 0.9% (100 ml) 100 ML 110 MG IV (16:30)
[2020-11-23 17:43] LABS: Ferritin 5 ng/mL (15-150); Iron 37 ug/dL (37-145); Percent Saturation 9.5 % (20-50); Total Iron Binding Capacity 389 mcg/dl; Unsaturated Iron Binding 352 ug/dL (112-347)
[2020-11-23 18:23] LABS: Basophils % 0.7 %; Eosinophils # 0.1 10^3/uL (0.0-0.8); Eosinophils % 2.2 %; Hematocrit 22.5 % (37.0-47.0); Hemoglobin 6.8 g/dL (11.5-15.3); Lymphocytes # 1.3 10^3/uL (0.8-4.8); Lymphocytes % 28.9 %; Mean Corpuscular HGB Conc 30.2 g/dL (30.0-36.0); Mean Corpuscular Hemoglobin 25.9 pg (28.0-34.0); Mean Corpuscular Volume 85.6 fL (81-99); Mean Platelet Volume 11.1 fL (7.4-10.4); Monocytes # 0.4 10^3/uL (0.2-0.9); Monocytes % 8.4 %; Neutrophils # 2.67 10^3/uL (1.8-7.7); Neutrophils % 59.4 %; Nucleated Red Blood Cells % 0 %; Platelet Count 246 10^3/cmm (130-400); Red Blood Count 2.63 10^6/uL (4.1-5.3); Red Cell Distribution Width 19.9 % (12.1-15.1); White Blood Count 4.5 10^3/uL (4.0-10.0)
== END 2020-11-23 14:14 | disposition home or self-care (01) ==
LOC: ONCMED 14:17
PROVIDERS: PCP Physician Assistant Medical; Visit Provider Internal Medicine Medical Oncology
DX: D50.9 Iron deficiency anemia, unspecified (principal); M06.9 Rheumatoid arthritis, unspecified; K21.9 Gastro-esophageal reflux disease without esophagitis; I47.1 Supraventricular tachycardia; Z79.899 Other long term (current) drug therapy
CPT/HCPCS: 76830; 82728; 83540; 83550; 85025; 96365; J2916

== ENCOUNTER 2020-12-02 06:29 | Outpatient (CLI) | payer MEDICAID, SELFPAY ==
[2020-12-02] MEDS: ferric gluconate 125 MG in sodium chloride 0.9% (100 ml) 100 ML 110 MG IV (14:00)
== END 2020-12-02 06:30 | disposition home or self-care (01) ==
LOC: ONCMED 06:31
PROVIDERS: PCP Physician Assistant Medical; Visit Provider Internal Medicine Medical Oncology
DX: M06.9 Rheumatoid arthritis, unspecified (principal); D50.0 Iron deficiency anemia secondary to blood loss (chronic); Z79.899 Other long term (current) drug therapy; Z87.891 Personal history of nicotine dependence
CPT/HCPCS: 85025; 96365; 99213; 99214; J2916

== ENCOUNTER 2020-12-02 16:24 | Outpatient (CLI) | payer MEDICAID, SELFPAY ==
[2020-12-02 16:46] LABS: Eosinophils # 0.1 10^3/uL (0.0-0.8); Eosinophils % 1.5 %; Hematocrit 24.8 % (37.0-47.0); Hemoglobin 6.8 g/dL (11.5-15.3); Lymphocytes % 26.1 %; Mean Corpuscular HGB Conc 27.4 g/dL (30.0-36.0); Mean Corpuscular Hemoglobin 23.9 pg (28.0-34.0); Mean Corpuscular Volume 87.3 fL (81-99); Mean Platelet Volume 10.5 fL (7.4-10.4); Monocytes # 0.3 10^3/uL (0.2-0.9); Monocytes % 8.6 %; Neutrophils # 2.46 10^3/uL (1.8-7.7); Neutrophils % 62.3 %; Nucleated Red Blood Cells % 0 %; Platelet Count 237 10^3/cmm (130-400); Red Blood Count 2.84 10^6/uL (4.1-5.3); Red Cell Distribution Width 20.2 % (12.1-15.1)
[2020-12-02 17:33] LABS: Alanine Aminotransferase 17 U/L (0-33); Albumin Level 4.3 g/dL (3.5-5.2); Alkaline Phosphatase 38 IU/L (35-105); Anion Gap 14.6 (5-19); Aspartate Amino Transferase 18 U/L (0-32); Blood Urea Nitrogen 10 mg/dL (6-20); Calcium 8.5 mg/dL (8.5-10.5); Carbon Dioxide 23 mmol/L (22-29); Chloride 104 mmol/L (98-107); Globulin 2.3 g/dL (1.3-4.6); Glomerular Filtration Rate 87.5 mL/min (90-130); Glucose 86 mg/dL (65-115); Osmolality Calculated 284 mOsm/kg (285-295); Potassium 3.6 mmol/L (3.5-5.1); Sodium 138 mmol/L (136-145); Total Bilirubin 0.5 mg/dL (0.15-1.2); Total Protein 6.6 g/dL (6.6-8.7)
== END 2020-12-02 16:25 | disposition home or self-care (01) ==
PROVIDERS: PCP Physician Assistant Medical; Visit Provider Internal Medicine
DX: D50.0 Iron deficiency anemia secondary to blood loss (chronic) (principal); M06.9 Rheumatoid arthritis, unspecified; Z79.899 Other long term (current) drug therapy
CPT/HCPCS: 36415; 80053; 85025

== ENCOUNTER 2020-12-08 06:44 | Outpatient (CLI) | payer MEDICAID, SELFPAY ==
[2020-12-08] MEDS: ferric gluconate 125 MG in sodium chloride 0.9% (100 ml) 100 ML 110 MG IV (15:25)
[2020-12-08 17:38] LABS: Ferritin 24 ng/mL (15-150); Iron 96 ug/dL (37-145); Percent Saturation 24.7 % (20-50); Total Iron Binding Capacity 388 mcg/dl; Unsaturated Iron Binding 292 ug/dL (112-347)
== END 2020-12-08 06:45 | disposition home or self-care (01) ==
LOC: ONCMED 06:45
PROVIDERS: PCP Physician Assistant Medical; Visit Provider Nurse Practitioner
DX: D50.9 Iron deficiency anemia, unspecified (principal); M06.9 Rheumatoid arthritis, unspecified; Z79.899 Other long term (current) drug therapy; K21.9 Gastro-esophageal reflux disease without esophagitis; I47.1 Supraventricular tachycardia
CPT/HCPCS: 82728; 83540; 83550; 85025; 96365; J2916

== ENCOUNTER 2020-12-14 06:21 | Outpatient (CLI) | payer MEDICAID, SELFPAY ==
[2020-12-14] MEDS: ferric gluconate 125 MG in sodium chloride 0.9% (100 ml) 100 ML 110 MG IV (15:55)
== END 2020-12-14 06:22 | disposition home or self-care (01) ==
LOC: ONCMED 06:22
PROVIDERS: PCP Physician Assistant Medical; Visit Provider Internal Medicine Medical Oncology
DX: D50.9 Iron deficiency anemia, unspecified (principal); M06.9 Rheumatoid arthritis, unspecified; Z79.899 Other long term (current) drug therapy; K21.9 Gastro-esophageal reflux disease without esophagitis; I47.1 Supraventricular tachycardia
CPT/HCPCS: 96365; J2916

== ENCOUNTER 2020-12-21 06:17 | Outpatient (CLI) | payer MEDICAID, SELFPAY ==
[2020-12-21] MEDS: ferric gluconate 125 MG in sodium chloride 0.9% (100 ml) 100 ML 110 MG IV (16:10)
== END 2020-12-21 06:18 | disposition home or self-care (01) ==
LOC: ONCMED 06:18
PROVIDERS: PCP Physician Assistant Medical; Visit Provider Internal Medicine Medical Oncology
DX: D50.9 Iron deficiency anemia, unspecified (principal); M06.9 Rheumatoid arthritis, unspecified; Z79.899 Other long term (current) drug therapy; I47.1 Supraventricular tachycardia; K21.9 Gastro-esophageal reflux disease without esophagitis
CPT/HCPCS: 96365; J2916

== ENCOUNTER 2020-12-31 09:01 | Outpatient (CLI) | payer MEDICAID, SELFPAY ==
[2020-12-31] MEDS: ferric gluconate 125 MG in sodium chloride 0.9% (100 ml) 100 ML 110 MG IV (09:31)
== END 2020-12-31 09:02 | disposition home or self-care (01) ==
LOC: ONCMED 09:02
PROVIDERS: PCP Physician Assistant Medical; Visit Provider Internal Medicine Medical Oncology
DX: D50.9 Iron deficiency anemia, unspecified (principal); M06.9 Rheumatoid arthritis, unspecified; Z79.899 Other long term (current) drug therapy; K21.9 Gastro-esophageal reflux disease without esophagitis; I47.1 Supraventricular tachycardia
CPT/HCPCS: 96365; J2916

== ENCOUNTER 2021-01-07 06:06 | Outpatient (CLI) | payer MEDICAID, SELFPAY ==
[2021-01-07] MEDS: ferric gluconate 125 MG in sodium chloride 0.9% (100 ml) 100 ML 110 MG IV (09:16)
== END 2021-01-07 06:07 | disposition home or self-care (01) ==
LOC: ONCMED 06:07
PROVIDERS: PCP Physician Assistant Medical; Visit Provider Internal Medicine Medical Oncology
DX: D50.9 Iron deficiency anemia, unspecified (principal); M06.9 Rheumatoid arthritis, unspecified; Z79.899 Other long term (current) drug therapy; K21.9 Gastro-esophageal reflux disease without esophagitis; I47.1 Supraventricular tachycardia
CPT/HCPCS: 87635; 96365; J2916

== ENCOUNTER 2021-01-11 10:24 | Day surgery (SDC) | payer MEDICAID, SELFPAY ==
[2021-01-07 13:41] VITALS: BMI 30.9
--- NOTE | 2021-01-07 13:48 | ANES.PREANE2 ---
Pre-Anesthetic Assessment Pre-Anesthetic Assessment: Height/Weight: Height 1.63 m Weight 81.647 kg Preop Diagnosis: Abnormal uterine bleeding, Endometrial polyp, Vulvar lesion. Proposed Procedure: Operation Date: 01/11/21 12:15 Proposed Procedures p Hysteroscopy, dilation and curettage with myosure 67209 68307 N92.0 D50.0 D25.9(Not Applicable) - Shazia Rowland MD Familial anesthetic complications: None Social: Social History: No alcohol and No tobacco Exam: Pre-Anes Outpt Exam: alert, oriented x 3, clear to auscultation bilaterally and regular rate & rhythm Airway: Cervical ROM: WNL MP: 3 Dentition: Other (missing) CV/HEM: CV/HEM: Arrythmia (SVT on metoprolol (exerbated when her iron levels are low)) GI: GI: GERD Musc/skel: Musc/skel: RA (on prednisone) Comments: raynaud's phenomenon in toes and fingers, upper and lower back Anesthetic Plan: ASA status: 3 Anesthesia: General Other: Patient willing to try MAC if proceduralist ok with it Risk of > 500 ml blood loss (7ml/kg in children): No PFSH Anesthesia PFSH: Medical History (Updated 11/22/20 @ 08:22 by Medhat Rock MD) MEME positive Chronic thoracic spine pain Current chronic use of systemic steroids Encounter for long-term (current) use of NSAIDs GERD (gastroesophageal reflux disease) Hypertension Lichen planus Long-term use of high-risk medication Pain management contract signed Paroxysmal supraventricular tachycardia Raynaud's phenomenon Rheumatoid arthritis Spondylosis THORACIC AND LUMBAR Surgical History History of hand surgery (~1997) History of hysteroscopy (09/23/19) Hysteroscopy, D&C, Buttock biopsy. Performed by Dr. Rock at [facility] [place], [place]. History of lumpectomy of left breast (06/27/17) Hx of section X5 Family History Father Diabetes Mother Hypertension Grandmother Stroke Grandfather Cancer Liver cancer Other Liver disease Social History (Updated 01/07/21 @ 10:45 by Sandra Whitney LPN) Smoking and tobacco status: former smoker Alcohol intake: never Substance/Drug Use: never History of recent travel: No Data Anesthesia Cardiac Studies: No Data to Display
[2021-01-11] VITALS (10 sets, daily range): BP systolic 110–139; BP diastolic 74–82; PULSE 54–71; RESP 11–18; TEMP 36.2–36.8; O2SAT 93–100
--- NOTE | 2021-01-11 11:37 | P.ANESUD_ITS ---
Pre-Anesthetic Update Pre-Anesthetic Assessment: Date of Surgery/Procedure: 01/11/21 Preop Krystal gnosis: abnormal uterine bleeding, uterine leiomyoma Proposed Procedure: Operation Date: 01/11/21 11:55 Proposed Procedures p Hysteroscopy, dilation and curettage with myosure 52561 38083 N92.0 D50.0 D25.9(Not Applicable) - Shazia Rowland MD Any changes to Pre-Anesthetic Assessment?: No Last Intake: Intake Last Liquid Date 01/10/21 Last Solid Date 01/10/21 Vitals: Temperature 98.2 F 01/11/21 10:44 Pulse Rate 54 L 01/11/21 10:44 Respiratory Rate 18 01/11/21 10:44 Blood Pressure 139/82 01/11/21 10:44 Blood Pressure Cherelle n 101 01/11/21 10:44 Pulse Oximetry 100 01/11/21 10:44 Oxygen Delivery Me thod 01/11/21 10:44 Exam: Pre-Anes Outpt Exam: alert, oriented x 3, clear to auscultation bilaterally and regular rate & rhythm Cardiac Studies: No Data to Display
[2021-01-11] MEDS: ketorolac 30 mg/mL INJ IVP (11:41)
[2021-01-11] MEDS: sodium chloride 0.9% 1,000 ML 30 ML IV (11:41)
[2021-01-11 11:49] LABS: Basophils # 0.1 10^3/uL (0.0-0.1); Basophils % 0.8 %; Eosinophils # 0.2 10^3/uL (0.0-0.8); Eosinophils % 2.4 %; Hematocrit 34.7 % (37.0-47.0); Hemoglobin 9.8 g/dL (11.5-15.3); Lymphocytes # 1.2 10^3/uL (0.8-4.8); Lymphocytes % 18.9 %; Mean Corpuscular HGB Conc 28.2 g/dL (30.0-36.0); Mean Corpuscular Hemoglobin 23.9 pg (28.0-34.0); Mean Corpuscular Volume 84.6 fL (81-99); Mean Platelet Volume 10.9 fL (7.4-10.4); Monocytes # 0.5 10^3/uL (0.2-0.9); Monocytes % 7.8 %; Neutrophils % 69.5 %; Nucleated Red Blood Cells % 0 %; Platelet Count 195 10^3/cmm (130-400); Red Cell Distribution Width 21.9 % (12.1-15.1); White Blood Count 6.2 10^3/uL (4.0-10.0)
[2021-01-11 12:04] LABS: Anion Gap 14.7 (5-19); Blood Urea Nitrogen 8 mg/dL (6-20); Calcium 8.4 mg/dL (8.5-10.5); Carbon Dioxide 25 mmol/L (22-29); Chloride 103 mmol/L (98-107); Glomerular Filtration Rate 104.6 mL/min (90-130); Glucose 78 mg/dL (65-115); Osmolality Calculated 285 mOsm/kg (285-295); Potassium 3.7 mmol/L (3.5-5.1); Sodium 139 mmol/L (136-145)
--- NOTE | 2021-01-11 12:06 | W.PM.OPSUD ---
Surgery/Procedure H&P Update DATE OF PROCEDURE: January 11, 2021 DATE H&P PERFORMED: 01/07/21 H&P UPDATE INFORMATION: I have reviewed H&P completed within last 30 days, I have examined patient prior to procedure and No changes to prior documentation PREOP DIAGNOSIS: abnormal uterine bleeding, uterine leiomyoma PLANNED PROCEDURE: Operation Date: 01/11/21 11:55 Proposed Procedures p Hysteroscopy, dilation and curettage with myosure 03202 10626 N92.0 D50.0 D25.9(Not Applicable) - Shazia Rowland MD
--- NOTE | 2021-01-11 13:21 | PM.OP ---
Operative Report Date of procedure: January 11, 2021 Pre-op Diagnosis: abnormal uterine bleeding, uterine leiomyoma Post-op diagnosis: same Post-op Findings: 12 week sized uterus, grade 3 uterine prolapse, multiple uterine fibroids. Procedure Done: hysteroscopy, dilation and curettage with myosure hysteroscopy deficit 420 ml Specimens removed/disposition: endometrial curettings sent to pathology Surgeon: Shazia Rowland Anesthesia: General Estimated blood loss (mL): 30 IV fluids (mL): 700 Complications: some bleeding postoperatively controlled with pitocin and TXA Findings: 12 week sized uterus with multiple fibroids present Condition: stable Disposition: PACU Procedure: The patient was taken to the operating room where general anesthesia was administered and to be adequate. She was prepped and draped in the normal sterile fashion in the dorsal lithotomy position in Edil stirrups. A weighted speculum was placed into the vagina and the anterior lip of the cervix grasped with a single-tooth tenaculum. The uterus was sounded to 12 cm. The cervix was dilated to 16 [place]. The hysteroscope was advanced into the endometrial cavity. There was excessive tissue and fibroids visualized. The MyoSure device was activated and the tissue was removed. Pictures were taken pre and post procedure. All instruments were removed. The patient tolerated the procedure well. She had some uterine bleeding postoperatively and the patient was given pitocin and TXA. There was good hemostasis post medication. Sponge lap and needle counts were correct x3. She was taken to the recovery room in stable condition.
--- NOTE | 2021-01-11 13:27 | P.DS_ITS ---
Discharge Providers Date of Discharge: January 11, 2021 Attending Provider at Discharge: Shazia Rowland MD Primary Care Provider: Bogdan Hewitt Diagnoses at Discharge Discharge Diagnosis (1) Postoperative state: Status: Acute Reason for Visit Reason for Visit: Hysteroscopy, dilation and curettage with myosure Hospital Course Hospital Course The patient was admitted for surgery. She did well postoperatively and was ready for discharge. Discharge Data Data Completed and Pending: Pending at discharge Category Date Time Status ES surgery / GI i mages Routine Exams 01/11/21 12:20 Taken Urine Culture Rou mushtaq Lab 01/11/21 Received Pathology: Surgic al [PTH] Routine Pth 01/11/21 13:23 Ordered Labs from last 24 hours 01/11/21 01/11/21 01/11/21 12:22 10:52 10:52 WBC 6.2 RBC 4.10 Hgb 9.8 L Hct 34.7 L MCV 84.6 MCH 23.9 L MCHC 28.2 L RDW 21.9 H Plt Count 195 MPV 10.9 H Neut % (Auto) 69.5 Lymph % (Auto) 18.9 [place] % (Auto) 7.8 Eos % (Auto) 2.4 Baso % (Auto) 0.8 Neut # (Auto) 4.30 Lymph # (Auto) 1.2 [place] # (Auto) 0.5 Eos # (Auto) 0.2 Baso # (Auto) 0.1 Nucleated RBC % (a uto) 0 Nucleated RBCs # 0.0 Sodium 139 Potassium 3.7 Chloride 103 Carbon Dioxide 25 Anion Gap 14.7 BUN 8 Creatinine 0.6 GFR Calculation 104.6 Glucose 78 Calculated Osmolal ity 285 Calcium 8.4 L Urine HCG, Qual Negative Vitals: Last Vital Signs Temp 97.5 F L 01/11/21 13:20 Pulse 62 01/11/21 13:20 Resp 16 01/11/21 13:20 BP 121/77 01/11/21 13:20 Pulse Ox 100 01/11/21 13:20 Discharge Plan Discharge Patient Disposition: Home Condition: Stable Prescriptions: Continued hydrocodone-acetaminophen 5-325 mg tablet 1 tab PO QID PRN (Reason: pain) 30 Days Qty: 120 RF: 0 tizanidine 4 mg capsule 4 mg PO TID PRN (Reason: muscle spasticity) Qty: 90 RF: 1 magnesium oxide 400 mg magnesium capsule 400 mg PO DAILY Qty: 90 RF: 3 famotidine 40 mg tablet 40 mg PO QDAY RF: 0 omeprazole 20 mg tablet,delayed release (DR/EC) 20 mg PO BID RF: 0 (DME) miscellaneous medical supply Misc See Rx Instructions .ROUTE .MEDSUPPLY Qty: 1 RF: 0 metoprolol tartrate 50 mg tablet 50 mg PO BID Qty: 60 RF: 3 prednisone 5 mg tablet See Rx Instructions PO DAILY Qty: 30 RF: 0 potassium gluconate 595 mg (99 mg) Tablet 595 mg PO DAILY RF: 0 Vitamin D3 4,000 unit Capsule 4,000 unit PO DAILY RF: 0 sulfasalazine 500 mg tablet 500 mg PO TID RF: 0 Discharge Orders: Discharge Order (Routine); Ordered 01/11/21 Ordered By: Shazia Rowland Discharge Attestations Time Spent in Discharge Care*: less than 30 min Quality Metrics Clinical Quality Measures During this hospital stay, did patient experience: None Coding Level of Care Code Acute Chg FW DC note Diagnoses Postoperative state Z98.890
--- NOTE | 2021-01-11 15:00 | ANE.PACU2 ---
Inpatient post-anesthesia follow up: Airway intact: Yes Vital signs: Temperature 97.2 F Pulse Rate 66 Respiratory Rate 18 Blood Pressure 113/77 Pulse Oximetry 97 Oxygen Delivery Me thod Room Air Oxygen Flow Rate 8 Fraction of Inspir ed Oxygen Hydration adequate: Yes Nausea and vomiting: No Pain level: 2 Mental status: Baseline
== END 2021-01-11 15:10 | disposition home or self-care (01) ==
PROVIDERS: Anesthesiology; PCP Physician Assistant Medical; Visit Provider Obstetrics & Gynecology
PROC: 0UDB8ZZ Extraction of Endometrium, Via Natural or Artificial Opening Endoscopic (ICD-10-PCS; CPT 58558; principal; 2021-01-11 11:55)
PROC: (CPT 58120; 2021-01-11 11:55)
DX: N93.9 Abnormal uterine and vaginal bleeding, unspecified (principal); D25.9 Leiomyoma of uterus, unspecified; N81.4 Uterovaginal prolapse, unspecified; K21.9 Gastro-esophageal reflux disease without esophagitis; M06.9 Rheumatoid arthritis, unspecified; Z79.52 Long term (current) use of systemic steroids; I10 Essential (primary) hypertension; Z87.891 Personal history of nicotine dependence
CPT/HCPCS: 58558; 36415; 80048; 81025; 85025; 87086; 88305; 96365; 96374; J0330; J0690; J1885; J2405; J2704; J3010; J3490; J7030

== ENCOUNTER 2021-01-18 06:17 | Outpatient (CLI) | payer MEDICAID, SELFPAY ==
[2021-01-18] MEDS: ferric gluconate 125 MG in sodium chloride 0.9% (100 ml) 100 ML 110 MG IV (16:25)
[2021-01-18 16:35] LABS: Eosinophils # 0.1 10^3/uL (0.0-0.8); Hematocrit 33.4 % (37.0-47.0); Hemoglobin 9.4 g/dL (11.5-15.3); Lymphocytes # 1.1 10^3/uL (0.8-4.8); Lymphocytes % 27.2 %; Mean Corpuscular HGB Conc 28.1 g/dL (30.0-36.0); Mean Corpuscular Hemoglobin 23.7 pg (28.0-34.0); Mean Corpuscular Volume 84.3 fL (81-99); Mean Platelet Volume 11.4 fL (7.4-10.4); Monocytes # 0.4 10^3/uL (0.2-0.9); Monocytes % 9.7 %; Neutrophils # 2.37 10^3/uL (1.8-7.7); Neutrophils % 58.6 %; Nucleated Red Blood Cells % 0 %; Platelet Count 212 10^3/cmm (130-400); Red Blood Count 3.96 10^6/uL (4.1-5.3); Red Cell Distribution Width 21.5 % (12.1-15.1)
[2021-01-18 19:23] LABS: Ferritin 31 ng/mL (15-150); Iron 21 ug/dL (37-145); Total Iron Binding Capacity 347 mcg/dl; Unsaturated Iron Binding 326 ug/dL (112-347)
== END 2021-01-18 06:18 | disposition home or self-care (01) ==
LOC: ONCMED 06:17
PROVIDERS: PCP Physician Assistant Medical; Visit Provider Internal Medicine Medical Oncology
DX: D50.9 Iron deficiency anemia, unspecified (principal); Z79.899 Other long term (current) drug therapy
CPT/HCPCS: 82728; 83540; 83550; 85025; 96365; J2916

== ENCOUNTER 2021-01-25 14:59 | Outpatient (CLI) | payer MEDICAID, SELFPAY ==
[2021-01-25] MEDS: ferric gluconate 125 MG in sodium chloride 0.9% (100 ml) 100 ML 110 MG IV (15:20)
== END 2021-01-25 15:00 | disposition home or self-care (01) ==
LOC: ONCMED 15:00
PROVIDERS: PCP Physician Assistant Medical; Visit Provider Internal Medicine Medical Oncology
DX: D50.9 Iron deficiency anemia, unspecified (principal)
CPT/HCPCS: 96365; J2916

== ENCOUNTER → 2021-02-01 13:28 | Outpatient (BNVA) | payer MEDICAID, SELFPAY | PROVIDERS: PCP Physician Assistant Medical; Visit Provider Anesthesiology | DX: G89.29 Other chronic pain (principal); M54.6 Pain in thoracic spine; M47.9 Spondylosis, unspecified; Z79.899 Other long term (current) drug therapy; Z79.891 Long term (current) use of opiate analgesic; Z87.891 Personal history of nicotine dependence | CPT/HCPCS: 99213 ==

== ENCOUNTER 2021-02-15 14:32 | Outpatient (CLI) | payer MEDICAID, SELFPAY ==
[2021-02-15] MEDS: sodium chloride 0.9% (100 ml) 100 ML 75 ML (15:14)
[2021-02-15] MEDS: ferric carboxy (IVPB) 750 MG in sodium chloride 0.9% (100 ml) 100 ML 460 MG IV (15:14)
== END 2021-02-15 14:33 | disposition home or self-care (01) ==
LOC: ONCMED 14:34
PROVIDERS: PCP Physician Assistant Medical; Visit Provider Internal Medicine Medical Oncology
DX: D50.9 Iron deficiency anemia, unspecified (principal); Z79.899 Other long term (current) drug therapy
CPT/HCPCS: 96365; J1439

== ENCOUNTER 2021-02-22 06:26 | Outpatient (CLI) | payer MEDICAID, SELFPAY ==
[2021-02-22] MEDS: ferric carboxy (IVPB) 750 MG in sodium chloride 0.9% (100 ml) 100 ML 460 MG IV (14:29)
[2021-02-22] MEDS: sodium chloride 0.9% (100 ml) 100 ML 460 ML (14:29)
[2021-02-22 14:47] LABS: Basophils # 0.1 10^3/uL (0.0-0.1); Eosinophils # 0.2 10^3/uL (0.0-0.8); Eosinophils % 3.3 %; Hematocrit 38.1 % (37.0-47.0); Hemoglobin 11.5 g/dL (11.5-15.3); Lymphocytes % 19.2 %; Mean Corpuscular HGB Conc 30.2 g/dL (30.0-36.0); Mean Corpuscular Hemoglobin 25.4 pg (28.0-34.0); Mean Corpuscular Volume 84.1 fl (81-99); Mean Platelet Volume 11.3 fL (7.4-10.4); Monocytes # 0.6 10^3/uL (0.2-0.9); Monocytes % 11.2 %; Neutrophils # 3.38 10^3/uL (1.8-7.7); Neutrophils % 64.9 %; Nucleated Red Blood Cells % 0 %; Platelet Count 194 10^3/cmm (130-400); Red Blood Count 4.53 10^6/uL (4.1-5.3); Red Cell Distribution Width 22.4 % (12.1-15.1); White Blood Count 5.2 10^3/uL (4.0-10.0)
[2021-02-22 15:35] LABS: Alanine Aminotransferase 20 U/L (0-33); Albumin Level 4.2 g/dL (3.5-5.2); Alkaline Phosphatase 43 IU/L (35-105); Anion Gap 12.5 (5-19); Aspartate Amino Transferase 22 U/L (0-32); Blood Urea Nitrogen 10 mg/dL (6-20); C Reactive Protein 0.3 mg/L (0.0-4.9); Calcium 8.4 mg/dL (8.5-10.5); Carbon Dioxide 25 mmol/L (22-29); Chloride 106 mmol/L (98-107); Globulin 2.3 g/dL (1.3-4.6); Glomerular Filtration Rate 104.6 mL/min (90-130); Glucose 67 mg/dL (65-115); Osmolality Calculated 287 mOsm/kg (285-295); Potassium 3.5 mmol/L (3.5-5.1); Sodium 140 mmol/L (136-145); Total Bilirubin 0.3 mg/dL (0.15-1.2); Total Protein 6.5 g/dL (6.6-8.7)
[2021-02-22 16:15] LABS: Erythrocyte Sedimentation Rate 3 mm/hr (0-15)
== END 2021-02-22 06:27 | disposition home or self-care (01) ==
LOC: ONCMED 06:27
PROVIDERS: Internal Medicine; PCP Physician Assistant Medical; Visit Provider Internal Medicine Medical Oncology
DX: D50.9 Iron deficiency anemia, unspecified (principal); Z79.899 Other long term (current) drug therapy
CPT/HCPCS: 80053; 85025; 85651; 86140; 96374; J1439

== ENCOUNTER → 2021-03-15 14:50 | Outpatient (BNVA) | payer MEDICAID, SELFPAY | PROVIDERS: PCP Physician Assistant Medical; Visit Provider Internal Medicine | DX: M06.9 Rheumatoid arthritis, unspecified (principal); M54.5 Low back pain; Z79.899 Other long term (current) drug therapy; Z79.52 Long term (current) use of systemic steroids; Z87.891 Personal history of nicotine dependence | CPT/HCPCS: 99214 ==

== ENCOUNTER 2021-03-25 11:08 | Outpatient (CLI) | payer MEDICAID, SELFPAY ==
[2021-03-25 12:01] LABS: Basophils % 0.7 %; Eosinophils # 0.1 10^3/uL (0.0-0.8); Eosinophils % 2.4 %; Hematocrit 45.2 % (37.0-47.0); Hemoglobin 14.8 g/dL (11.5-15.3); Lymphocytes # 0.9 10^3/uL (0.8-4.8); Lymphocytes % 16.5 %; Mean Corpuscular HGB Conc 32.7 g/dL (30.0-36.0); Mean Corpuscular Hemoglobin 29.7 pg (28.0-34.0); Mean Corpuscular Volume 90.8 fl (81-99); Mean Platelet Volume 11.4 fL (7.4-10.4); Monocytes # 0.3 10^3/uL (0.2-0.9); Monocytes % 6.1 %; Neutrophils # 3.96 10^3/uL (1.8-7.7); Neutrophils % 73.7 %; Nucleated Red Blood Cells % 0 %; Platelet Count 153 10^3/cmm (130-400); Red Blood Count 4.98 10^6/uL (4.1-5.3); Red Cell Distribution Width 21.4 % (12.1-15.1); White Blood Count 5.4 10^3/uL (4.0-10.0)
[2021-03-25 12:29] LABS: Ferritin 170 ng/mL (15-150); Iron 123 ug/dL (37-145); Percent Saturation 44.5 % (20-50); Total Iron Binding Capacity 276 mcg/dl; Unsaturated Iron Binding 153 ug/dL (112-347)
== END 2021-03-25 11:09 | disposition home or self-care (01) ==
LOC: ONCMED 11:10
PROVIDERS: PCP Physician Assistant Medical; Visit Provider Internal Medicine Medical Oncology
DX: D50.0 Iron deficiency anemia secondary to blood loss (chronic) (principal); M06.9 Rheumatoid arthritis, unspecified
CPT/HCPCS: 36415; 82728; 83540; 83550; 85025

== ENCOUNTER → 2021-03-29 14:12 | Outpatient (BNVA) | payer MEDICAID, SELFPAY | PROVIDERS: PCP Physician Assistant Medical; Visit Provider Anesthesiology | DX: G89.29 Other chronic pain (principal); M47.816 Spondylosis without myelopathy or radiculopathy, lumbar region; M47.814 Spondylosis without myelopathy or radiculopathy, thoracic region; Z79.891 Long term (current) use of opiate analgesic | CPT/HCPCS: 99213 ==

== ENCOUNTER → 2021-05-24 13:55 | Outpatient (BNVA) | payer MEDICAID, SELFPAY | PROVIDERS: PCP Physician Assistant Medical; Visit Provider Anesthesiology | DX: G89.29 Other chronic pain (principal); Z51.81 Encounter for therapeutic drug level monitoring; M47.816 Spondylosis without myelopathy or radiculopathy, lumbar region; M47.814 Spondylosis without myelopathy or radiculopathy, thoracic region; Z79.891 Long term (current) use of opiate analgesic; Z79.899 Other long term (current) drug therapy; Z87.891 Personal history of nicotine dependence | CPT/HCPCS: 99213 ==

== ENCOUNTER 2021-05-24 15:29 | Outpatient (CLI) | payer MEDICAID, SELFPAY ==
--- NOTE | 2021-05-24 15:44 | XR_ITS ---
WS: [id number] LUMBAR SPINE TECHNIQUE: 3 views of the lumbar spine CLINICAL INFORMATION: M54.5 - Low back pain COMPARISON: June 29, 2020 FINDINGS: Five [id number] lumbar vertebral bodies. Mild lumbar curve. Mild disc space narrowing L4-5 and L 5-S1. Chronic anterior wedging T11 and T12. Mild facet arthropathy L5-S1. Pelvic phleboliths. No acut e compression fractures. XR/XR lumbar spine 2-3V* [id number] IMPRESSION: 1. Mild lumbar curve. 2. No acute appearing compression fractures. 3. Mild disc space narrowing L4-L5 and L5-S1. 4. Mild facet arthropathy L5-S1. 5. Chronic anterior wedging at T11 and T12 unchanged.
--- NOTE | 2021-05-24 15:44 | XR_ITS ---
WS: [id number] CERVICAL SPINE FLEXION EXTENSION TECHNIQUE: 3 views of the cervical spine: lateral neutral, flexion and extension views. CLINICAL INFORMATION: M54.5 - Low back pain COMPARISON: None. FINDINGS: Straightening with slight reversal normal cervical lordosis. Normal C1-C2 articulation. Disc space na rrowing worse at C5-C6 and C6-C7 with anterior hypertrophic changes. Normal prevertebral soft tissues . Slight retrolisthesis C5 on C6 in the neutral position measuring 2 mm. This is unchanged on flexion -extension. No significant instability. Posterior elements are normal. No other significant findings. XR/XR cervical spine fl/ex [id number] IMPRESSION: 1. Straightening with slight reversal of the normal cervical lordosis. Alignme nt appears unchanged since 2019. 2. Disc space narrowing worse at C5-C6 and C6-C7. 3. Slight retrolisthesis C5 on C6 measuring 2 mm. No instability on flexion-ex tension.
== END 2021-05-24 15:30 | disposition home or self-care (01) ==
PROVIDERS: PCP Physician Assistant Medical; Visit Provider Internal Medicine
DX: M47.817 Spondylosis without myelopathy or radiculopathy, lumbosacral region (principal); M48.54XA Collapsed vertebra, not elsewhere classified, thoracic region, initial encounter for fracture; X58.XXXA Exposure to other specified factors, initial encounter
CPT/HCPCS: 72040; 72100

== ENCOUNTER → 2021-06-07 14:51 | Outpatient (BNVA) | payer MEDICAID, SELFPAY | PROVIDERS: PCP Physician Assistant Medical; Visit Provider Internal Medicine | DX: M05.9 Rheumatoid arthritis with rheumatoid factor, unspecified (principal); Z79.899 Other long term (current) drug therapy; M47.9 Spondylosis, unspecified; Z87.891 Personal history of nicotine dependence | CPT/HCPCS: 99214 ==

== ENCOUNTER 2021-07-05 14:39 | Outpatient (CLI) | payer MEDICAID, SELFPAY ==
[2021-07-05 16:07] LABS: Basophils # 0.1 10^3/uL (0.0-0.1); Eosinophils # 0.2 10^3/uL (0.0-0.8); Eosinophils % 3.8 %; Hematocrit 39.7 % (37.0-47.0); Hemoglobin 12.8 g/dL (11.5-15.3); Lymphocytes # 1.3 10^3/uL (0.8-4.8); Lymphocytes % 25.1 %; Mean Corpuscular HGB Conc 32.2 g/dL (30.0-36.0); Mean Corpuscular Hemoglobin 29.6 pg (28.0-34.0); Mean Corpuscular Volume 91.9 fl (81-99); Mean Platelet Volume 11.2 fL (7.4-10.4); Monocytes # 0.4 10^3/uL (0.2-0.9); Monocytes % 8.4 %; Neutrophils # 3.18 10^3/uL (1.8-7.7); Neutrophils % 61.1 %; Nucleated Red Blood Cells % 0 %; Platelet Count 201 10^3/cmm (130-400); Red Blood Count 4.32 10^6/uL (4.1-5.3); Red Cell Distribution Width 12.7 % (12.1-15.1); White Blood Count 5.2 10^3/uL (4.0-10.0)
[2021-07-05 16:27] LABS: Erythrocyte Sedimentation Rate < 1 mm/hr (0-15)
[2021-07-05 16:31] LABS: C Reactive Protein 0.5 mg/L (0.0-4.9); Ferritin 13 ng/mL (15-150); Iron 49 ug/dL (37-145); Percent Saturation 14.5 % (20-50); Total Iron Binding Capacity 337 mcg/dl; Unsaturated Iron Binding 288 ug/dL (112-347)
--- NOTE | 2021-07-08 15:55 | ONC FU_ITS ---
Dr. Mancia Patient Follow-Up Note Patient: Nicky Gonzalez Unit #: [id number]: 1965 Dicatated By: Adolph Mancia M.D.Date of Visit:Jul 05, 2021 Onc Med Follow-up/Prog Note Chief Complaint: Anemia. History of Present Illness: This is a 55 year-old woman with iron deficiency anemia. She has a long-standing history of anemia, presumed to be due to iron deficiency. I had seen her initially in August 2014. At that time she indicated that taking iron never does me no good . The only time she recalls getting any benefit was when she was given several doses of parenteral iron during one . She had been seen at the [facility] in July 2014. Laboratory studies at that time included CBC showing hemoglobin 6.8 g with hematocrit 26.5%. The red cell indices were hypochromic/microcytic with MCV 65 and MCH 16. White count was normal at 7000 and the platelet count was slightly elevated at 469,000. Comprehensive metabolic profile was unremarkable except for slightly low potassium at 3.2 mmol per liter. TSH was normal at 1.61 mIU/ML. Her serum iron came back low at 14 mcg/dL. She was given parenteral iron replacement with Venofer. She completed treatment on 10/16/2014 to a total dose of 3000 mg. She tolerated it well. A follow-up CBC on 10/30/2014 showed a hemoglobin of 13.8 g with MCV 84.6. The transferrin saturation was 25% and ferritin was 206 ng/mL. A follow-up CBC on 02/04/2016 did show hemoglobin down slightly to 11.9 g. The transferrin saturation had dropped to 7%. She was then given further parenteral iron replacement with infusions of Injectafer on 02/21/2016 and on 02/28/2016. I had seen her for a follow-up visit again on 10/11/2016. At that time her hemoglobin was normal at 13.1 g, and her red cell indices were also normal. Her serum iron studies showed normal transferrin saturation at 25% and her ferritin was still the low-normal range at 40.7 ng/mL. During subsequent follow-up she had multiple recurrences of iron deficiency anemia requiring additional infusions of Injectafer in December 2016, August 2017, May 2018, November 2018, August 2019, and December 2019. She continued, though, to respond well to the iron infusions. Her medical illnesses include anemia, rheumatoid arthritis, and GERD. She also has a history of supraventricular tachycardia. She had smoked in the past, but only for a few years, and she quit more than 25 years ago. INTERIM HISTORY: As of 09/02/2020 her hemoglobin had decreased to 9.7 g with low transferrin saturation at 3.5% and ferritin low at 5 ng/mL, consistent with iron deficiency. At that time she was given parenteral iron replacement with low molecular weight iron dextran, due to requirements imposed by her insurance carrier. Her anemia continued to worsen and from 12/02/2020 through 01/25/2021 she completed a course of treatment with Ferrlecit, again with suboptimal response. In January 2020 when she received 2 additional infusions of Injectafer. Her repeat CBC on 03/25/2021 showed an increase in her hemoglobin to 14.8 g with hematocrit 45.2%. Her transferrin saturation was normal at 44.5% and the ferritin had increased to 170 ng/mL. She is seen for a follow-up visit. She has been feeling pretty good generally. She has started having some fatigue again, but at this point she still has normal activity. ECOG score is 0. Her appetite is good. She has no fever or night sweats. She has had ongoing issues with menorrhagia, she says she has had persistent bleeding for the past 3-1/2 weeks. She has continued follow-up at [facility]. She also has ongoing problems associated with her rheumatoid arthritis. It had been pretty well controlled on low-dose prednisone, but the prednisone now is being tapered by her senior geologist. Medications: Azulfidine 2 (500 mg) Tablet Oral t.i.d., EQ Ibuprofen Tablet Oral PRN, Famotidine 1 Tablet (of 40 mg) Oral daily, HYDROcodone-Acetaminophen 1 Tablet (of 5-325 mg) Oral four times a day PRN, Magnesium Oxide 1 (400 mg) Capsule Oral daily, Metoprolol Tartrate 1 (50 mg) Tablet Oral b.i.d., Omeprazole 1 (40 mg) Capsule Delayed Release Oral daily, Potassium Chloride Isela ER 1 (10 meq) Tablet, controlled release Oral daily, PredniSONE 1 (5 mg) Tablet Oral daily Allergies: No Known Allergies. Vital Signs: Performed on Jul 05, 2021 16:52 Height - 64.00 in Weight - 200.6 lbs (HIGH) BSA - 1.96 sq.m BMI - 34.43 (HIGH) Temperature - 98.7 F Pulse - 68 /min Respiration - 17 /min BP - 150/95 mm(hg) (HIGH) O2 Sat - 99 % Pain - 5 Fatigue - 5 Physical Examination: Constitutional - She looks good generally, Eyes - Sclerae nonicteric. Conjunctivae clear, ENMT - No lesions noted in the oral cavity, Hematologic/Lymphatic - No cervical, clavicular, or axillary adenopathy, Respiratory - Lungs are clear with good air movement bilaterally, Cardiovascular - Heart rhythm is regular. There is no murmur, gallop, or rub noted, Abdomen - Soft. Liver and spleen are not enlarged. There is no abdominal mass or ascites noted and there is no inguinal adenopathy, Extremities - No edema, Neurologic - No focal neurologic deficits noted. Lab/Imaging: Test performed on Jul 05, 2021 15:50 Ferritin 13 ng/mL % Iron Saturation 14.5 % WBC 5.2 10 3/uL RBC 4.32 10 6/uL HGB 12.8 g/dL HCT 39.7 % MCV 91.9 fl MCH 29.6 pg MCHC 32.2 g/dL RDW 12.7 % Platelet Count 201 10 3/cmm MPV 11.2 fL Neutrophils 3.18 10 3/uL Lymphocytes 1.3 10 3/uL Monocytes 0.4 10 3/uL Eosinophils 0.2 10 3/uL Basophils 0.1 10 3/uL Neutrophil % 61.1 % Lymphocyte % 25.1 % Monocyte % 8.4 % Eosinophil % 3.8 % Basophils % 1.0 % NRBC % 0 % Problem List: 1. Iron deficiency anemia. 2. Rheumatoid arthritis. 3. GERD. 4. Supraventricular tachycardia. Problems Addressed with this Encounter and Plan: Patient with recurrent iron deficiency anemia. This is most likely due to combination of menstrual blood loss and inadequate oral iron absorption. She was first given parenteral iron replacement with Venofer in September 2014. During follow-up she required further parenteral iron replacement on multiple occasions, averaging once or twice a year, subsequently with Injectafer. In August 2020 she had recurrence of the iron deficiency anemia at that point she was treated with parenteral iron dextran, as mandated by her insurance carrier. Her anemia worsened following that treatment, and in November 2020 she began a course of replacement with Ferrlecit, but again with suboptimal response. In January 2021 she received 2 additional infusions of Injectafer. She had a very good response with her repeat CBC on 03/25/2021 showing hemoglobin back up to 14.8 g. She recently has developed mild fatigue again. There has been just a slight drop in her hemoglobin to 12.8 g. However, her transferrin saturation and ferritin are clearly consistent with recurrence of iron deficiency. As such, she will be given 1 additional infusion of Injectafer, subject to verification of insurance coverage. I will tentatively plan to see her again in 3 months. In the meantime, she will continue her follow-up with [facility]. Signed By: Adolph Mancia M.D. <<Signature on File>>
== END 2021-07-05 14:40 | disposition home or self-care (01) ==
LOC: ONCMED 14:43
PROVIDERS: Internal Medicine; PCP Physician Assistant Medical; Visit Provider Internal Medicine Medical Oncology
DX: D50.9 Iron deficiency anemia, unspecified (principal); K21.9 Gastro-esophageal reflux disease without esophagitis; I47.1 Supraventricular tachycardia; M06.9 Rheumatoid arthritis, unspecified; Z79.899 Other long term (current) drug therapy; Z87.891 Personal history of nicotine dependence
CPT/HCPCS: 36415; 82728; 83540; 83550; 85025; 85651; 86140; 99214

== ENCOUNTER 2021-07-19 06:39 | Outpatient (CLI) | payer MEDICAID, SELFPAY ==
[2021-07-19] MEDS: ferric carboxy (IVPB) 750 MG in sodium chloride 0.9% (100 ml) 100 ML 460 MG IV (13:24)
== END 2021-07-19 06:40 | disposition home or self-care (01) ==
LOC: ONCMED 06:40
PROVIDERS: Visit Provider Internal Medicine Medical Oncology
DX: D50.9 Iron deficiency anemia, unspecified (principal)
CPT/HCPCS: 96365; J1439

== ENCOUNTER → 2021-08-02 12:51 | Outpatient (BNVA) | payer MEDICAID, SELFPAY | PROVIDERS: Visit Provider Anesthesiology | DX: G89.29 Other chronic pain (principal); M54.6 Pain in thoracic spine; M79.671 Pain in right foot; M79.672 Pain in left foot; Z79.891 Long term (current) use of opiate analgesic | CPT/HCPCS: 99213 ==

== ENCOUNTER 2021-08-16 12:38 | Outpatient (CLI) | payer MEDICAID, SELFPAY ==
[2021-08-16 13:42] LABS: Basophils # 0.1 10^3/uL (0.0-0.1); Eosinophils # 0.2 10^3/uL (0.0-0.8); Eosinophils % 2.5 %; Hematocrit 42.5 % (37.0-47.0); Hemoglobin 13.8 g/dL (11.5-15.3); Lymphocytes % 16.1 %; Mean Corpuscular HGB Conc 32.5 g/dL (30.0-36.0); Mean Corpuscular Hemoglobin 30.2 pg (28.0-34.0); Mean Platelet Volume 11.8 fL (7.4-10.4); Monocytes # 0.4 10^3/uL (0.2-0.9); Monocytes % 6.6 %; Neutrophils # 4.46 10^3/uL (1.8-7.7); Neutrophils % 73.5 %; Nucleated Red Blood Cells % 0 %; Platelet Count 184 10^3/cmm (130-400); Red Blood Count 4.57 10^6/uL (4.1-5.3); Red Cell Distribution Width 15.8 % (12.1-15.1); White Blood Count 6.1 10^3/uL (4.0-10.0)
[2021-08-16 13:59] LABS: Ferritin 162 ng/mL (15-150); Iron 113 ug/dL (37-145)
[2021-08-16 14:21] LABS: Total Iron Binding Capacity 269 mcg/dl; Unsaturated Iron Binding 156 ug/dL (112-347)
== END 2021-08-16 12:39 | disposition home or self-care (01) ==
LOC: ONCMED 12:43
PROVIDERS: Visit Provider Internal Medicine Medical Oncology
DX: D50.9 Iron deficiency anemia, unspecified (principal); Z79.899 Other long term (current) drug therapy
CPT/HCPCS: 36415; 82728; 83540; 83550; 85025

== ENCOUNTER 2021-08-29 19:13 | Emergency (ER) | payer MEDICAID, SELFPAY ==
--- NOTE | 2021-08-29 19:22 | ECG_ITS ---
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 Measurements Intervals [place] Rate: 194 P: IA: QRS: 49 QRSD: 74 T: 10 QT: 222 QTc: 400 Interpretive Statements SUPRAVENTRICULAR TACHYCARDIA NONSPECIFIC ST & T-WAVE ABNORMALITY CRITICAL TEST RESULT Compared to ECG 06/20/2020 00:01:53 T-wave abnormality now present Sinus rhythm no longer present Electronically Signed On 08-31-2021 5:44:19 4 H YOUTH DEVELOPMENT SPECIALIST by Brianne Downing M.D. [id number]
[2021-08-29 19:23] VITALS: BP 119/98; PULSE 194; RESP 20; TEMP 36.5; O2SAT 96; BMI 29.2
--- NOTE | 2021-08-29 19:26 | ED_ITS ---
HPI - Chest Pain General: Chief Complaint: Chest Pain Stated Complaint: SVT Time Seen by Provider: 08/29/21 19:21 Source: patient Mode of arrival: ambulatory Limitations: no limitations History of Present Illness: 55-year-old female has a long history of SVT she states she is had it for roughly 10 years. She states she is usually able to convert her self at home started having palpitations 2 hours ago and is unable to converted at home. She denies any pain denies any shortness of breath she is in SVT here in the 190s she denies any worsening improving factors. Associated symptoms: Reports palpitations; Deny abdominal pain, dyspnea, fever(s), nausea or vomiting Review of Systems Const: Denies: fever(s), chills, body aches or change in appetite Eyes: Denies: blurry vision or eye discomfort ENMT: Denies: throat pain or dental pain Card: Reports: palpitations; Denies: chest pain Resp: Denies: dyspnea GI: Denies: abdominal pain, nausea, vomiting or diarrhea : Denies: dysuria Musc: Denies: neck pain or back pain Skin/Breast: Denies: rash Neuro: Denies: headache(s) Psych: Denies: depression Kamran/Lymph: Denies: easy bruising All/Imm: Denies: urticaria PFSH ED PFSH: Medical History MEME positive Chronic thoracic spine pain Current chronic use of systemic steroids Encounter for long-term (current) use of NSAIDs GERD (gastroesophageal reflux disease) Hypertension Lichen planus Long-term use of high-risk medication Pain management contract signed Paroxysmal supraventricular tachycardia Raynaud's phenomenon Rheumatoid arthritis Spondylosis THORACIC AND LUMBAR Surgical History History of hand surgery (~1997) History of hysteroscopy (09/23/19) Hysteroscopy, D&C, Buttock biopsy. Performed by Dr. Rock at [facility] in [place], [place]. History of lumpectomy of left breast (06/27/17) Hx of section X5 Family History Father Diabetes Mother Hypertension Grandmother Stroke Grandfather Cancer Liver cancer Other Liver disease Social History Smoking and tobacco status: former smoker Second hand smoke exposure: No Alcohol intake: never History of recent travel: No Physical Exam Const: COMMON NORMALS: no acute distress, patient oriented x3 and healthy appearing HENMT: COMMON NORMALS: normocephalic and atraumatic HEAD & SCALP: no rmocephalic and atraumatic Eye: COMMON NORMALS: Equal, round and reactive pupils present and EOMs intact bilaterally PUPIL: Yes Equal, round and reactive pupils present Neck/C-Spine: COMMON NORMALS: full ROM and supple Chest: COMMONS NORMALS: normal inspection of the chest and normal palpation of entire chest wall Resp: COMMON NORMALS: normal respiratory effort, No retractions, No use of accessory muscles and clear to auscultation bilaterally AUSCULTATION: clear to auscultation bilaterally Cardio: COMMON NORMALS: regular rhythm and No murmurs present (Cardio) RATE: tachycardic RHYTHM: regular rhythm GI: COMMON NORMALS: Normal to inspection, nondistended, normoactive bowel sounds present, Soft to palpation, non-tender and no masses PALPATION: Yes Soft to palpation Extremity: COMMON NORMALS: normal to inspection and full ROM Neuro: COMMON NORMALS: patient oriented x3, moves all extremities and no focal motor deficits Psych: COMMON NORMALS: mental status grossly normal, Normal thought process present and cooperative THOUGHT PROCESS: Normal thought process present Skin: COMMON NORMALS: no rashes or lesions noted and no wounds GENERAL SKIN EXAM: no rashes or lesions noted Course Vital Signs: Vital signs: Vital Signs Temperature 97.7 F 08/29/21 19:23 Pulse Rate 98 08/29/21 19:38 Respiratory Rate 16 08/29/21 19:38 Blood Pressure 132/84 08/29/21 19:38 Pulse Oximetry 98 08/29/21 19:38 MDM - Chest Pain Medical Decision Making Patient presents with SVT has had a long history of a converted here after adenosine I did observe her she stated normal sinus rhythm she feels improved she is stable for discharge she is to follow-up with her offender job retention specialist in 3 to 5 days return if worsening she understands agrees to plan. EKG Data EKG 1: I personally reviewed and interpreted this EKG as follows: EKG interpretation date: 08/29/21 EKG interpretation time: 19:22 Interpretation: svt hr [address] or t wave abnormalities qrs 74 qtc 320 Discharge Plan Discharge Patient Disposition: Home Clinical Impression: SVT (supraventricular tachycardia) Condition: Stable Prescriptions: No Action hydrocodone-acetaminophen 5-325 mg tablet 1 tab PO QID 30 Days Qty: 120 0RF Rx Instructions: fill on or after 07/16/21 hydrocodone-acetaminophen 5-325 mg tablet 1 tab PO QID PRN (Reason: pain) 30 Days Qty: 120 0RF Rx Instructions: fill on or after 08/28/21 tizanidine 4 mg capsule 4 mg PO TID PRN (Reason: muscle spasticity) Qty: 90 1RF omeprazole 20 mg tablet,delayed release (DR/EC) 20 mg PO BID 0RF metoprolol tartrate 25 mg tablet 25 mg PO BID Qty: 180 3RF tranexamic acid [Lysteda] 650 mg tablet 1,300 mg PO TID Qty: 90 0RF magnesium oxide 400 mg magnesium capsule 400 mg PO DAILY Qty: 90 3RF prednisone 5 mg tablet See Rx Instructions PO DAILY Qty: 30 0RF Rx Instructions: Taper: 1 tab daily for 3 weeks, 1/2 tab daily for 3 weeks. sulfasalazine 500 mg tablet 1 g PO TID Qty: 180 2RF potassium gluconate 595 mg (99 mg) Tablet 595 mg PO DAILY 0RF Vitamin D3 4,000 unit Capsule 4,000 unit PO DAILY 0RF Discharge Orders: Discharge ED (Routine); Ordered 08/29/21 Ordered By: Andrew Reynolds Referrals: Hector Maxwell M.D [Physician] - 1-3 days Discharge Diet: Advance as tolerated Discharge Activity: Resume usual activity Patient Instructions: Supraventricular Tachycardia (ED) Coding Level of Care Code ED Irrigating Pump Operator for Chg Fwd Exam Comprehensive
[2021-08-29 19:38] VITALS: BP 132/84; PULSE 98; RESP 16; O2SAT 98
--- NOTE | 2021-08-29 19:39 | PC.NURSE ---
patient received with SVT, states started 2 hours ago, tried to convert at home and states it usually works but not tonight. reports last ER visit for same was one year ago. denies other complaints. MD gave medication and conversion noted. respirations even equal and unlbaored. denies cp at this time.
[2021-08-29] MEDS: sodium chloride 0.9% 1,000 ML 999 ML IV (19:41)
[2021-08-29] MEDS: adenosine 3 mg/mL SDV 2mL 6 MG IVP (19:42)
[2021-08-29 20:33] VITALS: BP 124/79; PULSE 101; RESP 18; O2SAT 98
== END 2021-08-29 20:34 | disposition home or self-care (01) ==
PROVIDERS: Emergency Provider Emergency Medicine
DX: I47.1 Supraventricular tachycardia (principal); I10 Essential (primary) hypertension; Z87.891 Personal history of nicotine dependence
CPT/HCPCS: 93005; 96361; 96374; 99284; J0153; J7030

== ENCOUNTER 2021-10-04 14:29 | Outpatient (CLI) | payer MEDICAID, SELFPAY ==
[2021-10-04 15:00] LABS: Basophils # 0.1 10^3/uL (0.0-0.1); Basophils % 0.7 %; Eosinophils # 0.1 10^3/uL (0.0-0.8); Eosinophils % 1.3 %; Hematocrit 41.7 % (37.0-47.0); Hemoglobin 14.1 g/dL (11.5-15.3); Lymphocytes # 1.1 10^3/uL (0.8-4.8); Lymphocytes % 11.7 %; Mean Corpuscular HGB Conc 33.8 g/dL (30.0-36.0); Mean Corpuscular Hemoglobin 31.3 pg (28.0-34.0); Mean Corpuscular Volume 92.7 fl (81-99); Mean Platelet Volume 12.1 fL (7.4-10.4); Monocytes # 0.7 10^3/uL (0.2-0.9); Monocytes % 7.9 %; Neutrophils # 7.08 10^3/uL (1.8-7.7); Neutrophils % 77.5 %; Nucleated Red Blood Cells % 0 %; Platelet Count 206 10^3/cmm (130-400); Red Cell Distribution Width 14.1 % (12.1-15.1); White Blood Count 9.1 10^3/uL (4.0-10.0)
[2021-10-04 15:05] LABS: Erythrocyte Sedimentation Rate < 1 mm/hr (0-15)
[2021-10-04 15:18] LABS: Ferritin 27 ng/mL (15-150); Iron 82 ug/dL (37-145)
[2021-10-04] MEDS: ferric carboxy (PYXIS) 750 MG in sodium chloride 0.9% (100 ml) 100 ML 345 MG IV (16:50)
[2021-10-04 17:23] LABS: Percent Saturation 27.2 % (20-50); Total Iron Binding Capacity 301 mcg/dl
[2021-10-04 17:24] LABS: Unsaturated Iron Binding 219 ug/dL (112-347)
--- NOTE | 2021-10-07 11:16 | ONC FU_ITS ---
Dr. Mancia Patient Follow-Up Note Patient: Nicky Gonzalez Unit #: [id number]: 1965 Dicatated By: Adolph Mancia M.D.Date of Visit:Oct 04, 2021 Onc Med Follow-up/Prog Note Chief Complaint: Anemia. History of Present Illness: This is a 56 year-old woman with iron deficiency anemia. She has a long-standing history of anemia, presumed to be due to iron deficiency. I had seen her initially in August 2014. At that time she indicated that taking iron never does me no good . The only time she recalls getting any benefit was when she was given several doses of parenteral iron during one . She had been seen at the [facility] in July 2014. Laboratory studies at that time included CBC showing hemoglobin 6.8 g with hematocrit 26.5%. The red cell indices were hypochromic/microcytic with MCV 65 and MCH 16. White count was normal at 7000 and the platelet count was slightly elevated at 469,000. Comprehensive metabolic profile was unremarkable except for slightly low potassium at 3.2 mmol per liter. TSH was normal at 1.61 mIU/ML. Her serum iron came back low at 14 mcg/dL. She was given parenteral iron replacement with Venofer. She completed treatment on 10/16/2014 to a total dose of 3000 mg. She tolerated it well. A follow-up CBC on 10/30/2014 showed a hemoglobin of 13.8 g with MCV 84.6. The transferrin saturation was 25% and ferritin was 206 ng/mL. A follow-up CBC on 02/04/2016 did show hemoglobin down slightly to 11.9 g. The transferrin saturation had dropped to 7%. She was then given further parenteral iron replacement with infusions of Injectafer on 02/21/2016 and on 02/28/2016. I had seen her for a follow-up visit again on 10/11/2016. At that time her hemoglobin was normal at 13.1 g, and her red cell indices were also normal. Her serum iron studies showed normal transferrin saturation at 25% and her ferritin was still the low-normal range at 40.7 ng/mL. During subsequent follow-up she had multiple recurrences of iron deficiency anemia requiring additional infusions of Injectafer in December 2016, August 2017, May 2018, November 2018, August 2019, and December 2019. She continued, though, to respond well to the iron infusions. Her medical illnesses include anemia, rheumatoid arthritis, and GERD. She also has a history of supraventricular tachycardia. She had smoked in the past, but only for a few years, and she quit more than 25 years ago. INTERIM HISTORY: As of 09/02/2020 her hemoglobin had decreased to 9.7 g with low transferrin saturation at 3.5% and ferritin low at 5 ng/mL, consistent with iron deficiency. At that time she was given parenteral iron replacement with low molecular weight iron dextran, due to requirements imposed by her insurance carrier. Her anemia continued to worsen and from 12/02/2020 through 01/25/2021 she completed a course of treatment with Ferrlecit, again with suboptimal response. In January 2020 when she received 2 additional infusions of Injectafer. Her repeat CBC on 03/25/2021 showed an increase in her hemoglobin to 14.8 g with hematocrit 45.2%. Her transferrin saturation was normal at 44.5% and the ferritin had increased to 170 ng/mL. At her follow-up visit in July 2021 her hemoglobin had decreased slightly, to 12.8 g. Her iron saturation, though, was low at 14.5% and the ferritin had dropped to 13 ng/mL, consistent with iron deficiency. She was having more fatigue, and she was given parenteral iron replacement again with a single infusion of Injectafer. She is seen now for a follow-up visit. She is again complaining that she has no strength to do anything. She is able to do light work, though. ECOG score is 1. She has good appetite. She has not had fever. She occasionally wakes up at night with sweating. She has not had sore mouth or throat. She does not complain of cough, and she has not been short of breath. She has chest pain with SVT, but that is very occasional. Her acid reflux is adequately managed with omeprazole. She has no other GI or complaints. She has been having more joint pain, as she recently has been off prednisone. She occasionally has headache. She sometimes has numbness in her hands. Medications: Azulfidine 2 (500 mg) Tablet Oral t.i.d., EQ Ibuprofen Tablet Oral PRN, Famotidine 1 Tablet (of 40 mg) Oral daily, HYDROcodone-Acetaminophen 1 Tablet (of 5-325 mg) Oral four times a day PRN, Magnesium Oxide 1 (400 mg) Capsule Oral daily, Metoprolol Tartrate 1 (50 mg) Tablet Oral b.i.d., Omeprazole 1 (40 mg) Capsule Delayed Release Oral daily, Potassium Chloride Isela ER 1 (10 meq) Tablet, controlled release Oral daily Allergies: No Known Allergies. Vital Signs: Performed on Oct 04, 2021 16:29 Height - 64.00 in Weight - 204 lbs (HIGH) BSA - 1.97 sq.m BMI - 35.02 (HIGH) Temperature - 97.9 F (LOW) Pulse - 59 /min (LOW) Respiration - 17 /min BP - 124/84 mm(hg) O2 Sat - 99 % Pain - 6 Fatigue - 6 Physical Examination: Constitutional - She looks pretty good generally, Eyes - Sclerae nonicteric. Conjunctivae clear, ENMT - No lesions noted in the oral cavity, Hematologic/Lymphatic - No cervical, clavicular, or axillary adenopathy, Respiratory - Lungs are clear with good air movement bilaterally, Cardiovascular - Heart rhythm is regular. There is no murmur, gallop, or rub noted, Abdomen - Soft. Liver and spleen are not enlarged. There is no abdominal mass or ascites noted and there is no inguinal adenopathy, Extremities - No edema, Neurologic - No focal neurologic deficits noted. Lab/Imaging: Test performed on Oct 04, 2021 14:50 Ferritin 27 ng/mL Iron 82 mcg/dL Iron Binding Capacity (TIBC) 301 mcg/dl % Iron Saturation 27.2 % UIBC 219 mcg/dL ESR (Sed Rate) < 1 mm/hr WBC 9.1 10 3/uL RBC 4.50 10 6/uL HGB 14.1 g/dL HCT 41.7 % MCV 92.7 fl MCH 31.3 pg MCHC 33.8 g/dL RDW 14.1 % Platelet Count 206 10 3/cmm MPV 12.1 fL Neutrophils 7.08 10 3/uL Lymphocytes 1.1 10 3/uL Monocytes 0.7 10 3/uL Eosinophils 0.1 10 3/uL Basophils 0.1 10 3/uL Neutrophil % 77.5 % Lymphocyte % 11.7 % Monocyte % 7.9 % Eosinophil % 1.3 % Basophils % 0.7 % NRBC % 0 % Problem List: 1. Iron deficiency anemia. 2. Rheumatoid arthritis. 3. GERD. 4. Supraventricular tachycardia. Problems Addressed with this Encounter and Plan: 1. Patient with recurrent iron deficiency anemia. This is most likely due to combination of menstrual blood loss and inadequate oral iron absorption. She was first given parenteral iron replacement with Venofer in September 2014. During follow-up she required further parenteral iron replacement on multiple occasions, averaging once or twice a year, but subsequently with Injectafer. In August 2020 she had recurrence of the iron deficiency anemia at that point she was treated with parenteral iron dextran, as mandated by her insurance carrier. Her anemia worsened following that treatment, and in November 2020 she began a course of replacement with Ferrlecit, but again with suboptimal response. In January 2021 she received 2 additional infusions of Injectafer. She had a very good response with her repeat CBC on 03/25/2021 showing hemoglobin back up to 14.8 g.\ As of July 2021 her hemoglobin was down slightly, but with her transferrin saturation and ferritin consistent with iron deficiency. At that point she was given a single infusion of Injectafer, again with good clinical response. She presents now with adequate hemoglobin/hematocrit levels, but with worsening fatigue and with her ferritin relatively low again at 27 ng/mL. With those findings, she will be given 1 additional infusion of Injectafer. She will be scheduled for a follow-up visit in 3 months. 2. She has rheumatoid arthritis. She has been on steroid therapy with low-dose prednisone. As her current prescription had recently , she will be given a prescription for prednisone to take 5 mg daily until her next rheumatology appointment. Signed By: Adolph Mancia M.D. <<Signature on File>>
== END 2021-10-04 14:30 | disposition home or self-care (01) ==
PROVIDERS: Visit Provider Internal Medicine Medical Oncology
DX: D50.9 Iron deficiency anemia, unspecified (principal); M06.9 Rheumatoid arthritis, unspecified; K21.9 Gastro-esophageal reflux disease without esophagitis; I47.1 Supraventricular tachycardia; Z79.899 Other long term (current) drug therapy
CPT/HCPCS: 82728; 83540; 83550; 85025; 85651; 86140; 96365; 99214; J1439

== ENCOUNTER → 2021-11-08 14:19 | Outpatient (BNVA) | payer MEDICAID, SELFPAY | PROVIDERS: Visit Provider Internal Medicine Medical Oncology | DX: D50.9 Iron deficiency anemia, unspecified (principal) | CPT/HCPCS: 82728; 83550; 85025 ==

== ENCOUNTER 2021-11-25 09:00 | Oncology outpatient (recurring) (ONCR) | payer MEDICAID, SELFPAY ==
[2021-11-18] MEDS: sodium chloride 0.9% 250 ML 75 ML IV (09:40)
[2021-11-18] MEDS: ferric carboxy (IVPB) 750 MG in sodium chloride 0.9% (100 ml) 100 ML 345 MG IV (09:42)
[2021-11-18 10:15] VITALS: BP 106/71; PULSE 52; TEMP 36.7; O2SAT 99
[2021-11-25 09:15] VITALS: BP 123/83; PULSE 65; TEMP 36.7; O2SAT 99
[2021-11-25] MEDS: sodium chloride 0.9% 500 ML 100 ML IV (09:25)
[2021-11-25] MEDS: ferric carboxy (IVPB) 750 MG in sodium chloride 0.9% (100 ml) 100 ML 345 MG IV (09:25)
[2021-11-25 09:56] VITALS: BP 110/72; PULSE 53; RESP 16; TEMP 36.3; O2SAT 98
== END 2021-11-29 23:59 | disposition home or self-care (01) ==
PROVIDERS: Visit Provider Internal Medicine Medical Oncology
DX: D50.9 Iron deficiency anemia, unspecified (principal); Z79.899 Other long term (current) drug therapy
CPT/HCPCS: 96365; J1439; J7040; J7050

== ENCOUNTER → 2021-11-30 08:43 | Day surgery (SDC) | payer MEDICAID, SELFPAY | PROVIDERS: PCP Family Medicine; Visit Provider Obstetrics & Gynecology | DX: Z01.818 Encounter for other preprocedural examination (principal); N80.0 Endometriosis of uterus; N93.9 Abnormal uterine and vaginal bleeding, unspecified | CPT/HCPCS: 93005 ==

== ENCOUNTER 2021-12-06 10:31 | Inpatient (IN) | payer MEDICAID, SELFPAY ==
--- NOTE | 2021-11-30 13:34 | ECG_ITS ---
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 Measurements Intervals [place] Rate: 55 P: 44 CA: 156 QRS: 17 QRSD: 83 T: 15 QT: 424 QTc: 407 Interpretive Statements SINUS BRADYCARDIA POSSIBLE LEFT ATRIAL ENLARGEMENT [-0.1mV P-WAVE IN V1/V2] POSSIBLE ANTERIOR MYOCARDIAL INFARCTION , PROBABLY OLD [30 ms Q WAVE IN V3/V4, OR R < 0.2 mV IN V4] Compared to ECG 08/29/2021 19:22:35 Myocardial infarct finding now present Supraventricular tachycardia no longer present T-wave abnormality no longer present Electronically Signed On 11-30-2021 19:49:23 CDT by John Pickett M.D. [id number]
[2021-12-06] VITALS (31 sets, daily range): BP systolic 83–160; BP diastolic 57–98; PULSE 46–99; RESP 13–23; TEMP 36.1–37.1; O2SAT 88–99; BMI 30.1
[2021-12-06 06:30] LABS: OR HCG Qualitative Urine Negative (Negative)
[2021-12-06] MEDS: sodium chloride 0.9% 1,000 ML 30 ML IV (06:46)
[2021-12-06] MEDS: scopolamine 1.5 Patch 1 PATCH TRANSDERMA (06:47)
[2021-12-06] MEDS: acetaminophen 1,000 MG/100 ML PIGGYBACK 400 MG IV (06:47)
[2021-12-06] MEDS: ketorolac 30 mg/mL INJ IVP ×3 (06:49→22:55)
[2021-12-06] MEDS: phenazopyridine 100 mg Tablet 200 MG PO (06:50)
[2021-12-06] MEDS: CELEcoxib 200 mg Capsule 400 MG PO (06:50)
[2021-12-06] MEDS: gabapentin 300 mg Capsule PO (06:51)
--- NOTE | 2021-12-06 06:52 | P.ANESUD_ITS ---
Pre-Anesthetic Update Pre-Anesthetic Assessment: Date of Surgery/Procedure: 12/06/21 Preop Krystal gnosis: abnormal uterine bleeding, uterine leiomyoma Proposed Procedure: Operation Date: 12/06/21 07:00 Proposed Procedures p Total abdominal hysterectomy, bilateral salpingectomy 36917,N80.0,N93.9(Not Applicable) - Shazia Rowland MD s Salpingectomy(Not Applicable) - Shazia Rowland MD Any changes to Pre-Anesthetic Assessment?: No Last Intake: Intake Last Liquid Date 12/05/21 Last Liquid Time 23:59 Last Solid Date 12/06/21 Last Solid Time 22:00 Vitals: Temperature 98.1 F 12/06/21 06:10 Temperature Source Temporal Artery S can 12/06/21 06:10 Pulse Rate 62 12/06/21 06:10 Respiratory Rate 17 12/06/21 06:10 Blood Pressure 160/98 12/06/21 06:10 Blood Pressure Cherelle n 118 12/06/21 06:10 Pulse Oximetry 96 12/06/21 06:10 Oxygen Delivery Me thod 12/06/21 06:20 Exam: Pre-Anes Outpt Exam: alert, oriented x 3, clear to auscultation bilaterally and regular rate & rhythm Cardiac Studies: No Data to Display
[2021-12-06 06:55] LABS: Basophils % 0.7 %; Eosinophils # 0.1 10^3/uL (0.0-0.8); Hematocrit 40.3 % (37.0-47.0); Hemoglobin 13.1 g/dL (11.5-15.3); Lymphocytes # 0.6 10^3/uL (0.8-4.8); Lymphocytes % 12.3 %; Mean Corpuscular HGB Conc 32.5 g/dL (30.0-36.0); Mean Corpuscular Hemoglobin 31.6 pg (28.0-34.0); Mean Corpuscular Volume 97.3 fl (81-99); Mean Platelet Volume 12.2 fL (7.4-10.4); Monocytes # 0.3 10^3/uL (0.2-0.9); Monocytes % 6.4 %; Neutrophils # 3.52 10^3/uL (1.8-7.7); Neutrophils % 77.5 %; Nucleated Red Blood Cells % 0 %; Platelet Count 155 10^3/cmm (130-400); Red Blood Count 4.14 10^6/uL (4.1-5.3); Red Cell Distribution Width 18.5 % (12.1-15.1); White Blood Count 4.5 10^3/uL (4.0-10.0)
--- NOTE | 2021-12-06 07:03 | W.PM.OPSUD ---
Surgery/Procedure H&P Update DATE OF PROCEDURE: December 06, 2021 DATE H&P PERFORMED: 11/30/21 H&P UPDATE INFORMATION: I have reviewed H&P completed within last 30 days, I have examined patient prior to procedure and No changes to prior documentation PREOP DIAGNOSIS: abnormal uterine bleeding, uterine leiomyoma PLANNED PROCEDURE: Operation Date: 12/06/21 07:00 Proposed Procedures p Total abdominal hysterectomy, bilateral salpingectomy 99962,N80.0,N93.9(Not Applicable) - Shazia Rowland MD s Salpingectomy(Not Applicable) - Shazia Rowland MD Related Problem List Diagnoses (1) Adenomyosis: (2) Other iron deficiency anemias: (3) Uterine leiomyoma: (4) Abnormal uterine bleeding:
[2021-12-06 07:12] LABS: Anion Gap 12.9 (5-19); Blood Urea Nitrogen 9 mg/dL (6-20); Calcium 8.3 mg/dL (8.5-10.5); Carbon Dioxide 24 mmol/L (22-29); Chloride 103 mmol/L (98-107); Glomerular Filtration Rate 104.2 mL/min (90-130); Glucose 102 mg/dL (65-115); Osmolality Calculated 281 mOsm/kg (285-295); Potassium 3.9 mmol/L (3.5-5.1); Sodium 136 mmol/L (136-145)
--- NOTE | 2021-12-06 09:00 | SUR.OPER ---
Family Notified Of Patient's Status Via Phone.
--- NOTE | 2021-12-06 09:46 | P.OP_ITS ---
Operative Report Date of procedure: December 06, 2021 Pre-op diagnosis: Preop Diagnosis abnormal uterine bleeding, uterine leiomyoma Post-op diagnosis: same Post-op findings: 12 week sized uterus, bilateral paratubal cysts, normal appearing ovaries Procedure done: total abdominal hysterectomy, bilateral salpingectomy. Specimens removed/disposition: uterus and bilateral fallopian tubes to pathology Surgeon: Shazia Rowland Anesthesia: General Estimated blood loss (mL): 500 IV fluids (mL): 1,500 Urine output (mL): 450 Complications: none Findings: 12 week sized uterus, normal appearing tubes and ovaries Procedure: The patient was taken to the operating room where general anesthesia was administered and found to be adequate. She was prepped and draped in the normal sterile fashion in the dorsal supine position. A rincon catheter was placed. A Pfannenstiel skin incision was made and carried down to the underlying layer of fascia. The fascia was nicked in the midline and extended laterally with the Bethea scissors. The fascia was then tented up and the rectus muscles dissected off sharply. The rectus muscles were in the midline and the abdomen e ntered bluntly with the digit. This peritoneal incision was extended superiorly and inferiorly with good visualization of the bladder. The O'Nolan-O'Lai retractor was placed and the bowel packed away. The round ligament was suture- ligated and opened. This was performed bilaterally. Using electric cautery, the fallopian tube was cauterized in the mesosalpinx, inferior to the fallopian tube and carried along the mesosalpinx to the uterus and removed. A window was made medial to the infundibulopelvic ligament and inferior to the ovary. The infundibulopelvic ligament was clamped cut and suture-ligated bilaterally. The bladder flap was created sharply with the metzenbaum scissors and the bladder reflected caudally. The uterine arteries and cardinal ligaments were then clamped cut and suture-ligated down to the angle of the vagina. The vaginal cuff was clamped and cut and the specimen was removed. The vaginal cuff was closed with 0 Vicryl incorporating the uterosacral ligaments into the lateral aspects of the vaginal cuff. There was excellent hemostasis. The pelvis was irrigated. The O'Nolan-O'Ali retractor as well as the packing was removed. The peritoneum was closed with 2-0 Monocryl in a running fashion. The fascia was closed with 0 Vicryl in a running fashion with 2 separate sutures overlapping in the midline. The skin was closed with absorbable bob. The patient tolerated the procedure well. Sponge lap and needle counts were correct x2. She was taken to the recovery room in stable condition.
[2021-12-06] MEDS: HYDROmorphone 1 mg/mL INJ 1 mL 0.5 MG IVP (10:42)
[2021-12-06] MEDS: dextrose 5%-lactated ringers 1,000 ML 125 ML IV ×2 (11:37→20:02)
[2021-12-06] MEDS: HYDROcodone-acetaminophen 5-325 mg Tablet PO (11:49)
[2021-12-06] MEDS: ondansetron 2 mg/ML SDV 2 mL 4 MG IVP ×2 (13:13→20:46)
--- NOTE | 2021-12-06 14:11 | PC.NURSE ---
1346 PATIENTS CAME OUT AND SAID THAT HE WAS HELPING HER TURN OVER AND NOTICED THAT THERE WAS ALOT OF BLOOD COMING FROM HER INCISION, THIS SANDING MACHINE BUFFER WENT IN AND THE SILVER DRESSING LOOKED TOTALLLY SATURATED WELL IT WAS RUNNING OUT THE EDGES (PATIENT WAS ON HER RIGHT SIDE) THERE WAS A AREA ABOUT 20CM THAT WAS TOTALLY SOAKED THRU HER SHEETS AND ON HER GOWN WELL ON HER BLANKETS, THIS SANDING MACHINE BUFFER CAME OUT AND CALLED OR AND TOLD THEM TO HAVE DR. GANDHI TO CALL ME LIANG AND TOLD HER TO TELL HER THAT HER PATIENTS INCISION WAS BLEEDING AND THAT I WAS GOING TO REINFORCE IT. CALL WAS MADE TO OR AT 6579. THIS SANDING MACHINE BUFFER HAD ELMIRA BIANCHI RN COME IN AND LOOK AT IT WITH ME AND SHE HELPED ME CHANGE HER BED. K-PAD PLACED WELL. PT DID HAVE SMALL EMESIS THAT WAS ORANGE IN COLOR PRIOR TO LINEN CHANGE.
[2021-12-06] MEDS: HYDROmorphone 1 mg/mL INJ 1 mL 1.5 MG IVP (15:17)
--- NOTE | 2021-12-06 17:49 | ANE.PACU2 ---
Inpatient post-anesthesia follow up: Airway intact: Yes Vital signs: Temperature 98.3 F Pulse Rate 70 Respiratory Rate 16 Blood Pressure 111/73 Pulse Oximetry 96 Oxygen Delivery Me thod Nasal Cannula Oxygen Flow Rate 3 Fraction of Inspir ed Oxygen Hydration adequate: Yes Nausea and vomiting: No Pain level: 1 Mental status: Baseline
--- NOTE | 2021-12-06 18:23 | PC.NURSE ---
DRESSING APPEARS CLEAN ON THE SURFACE, NOTHING ON THE PADS THAT ARE UNDER HER.
--- NOTE | 2021-12-06 18:27 | PC.NURSE ---
1750 WENT INTO GET PATIENT UP AND SHE WAS ASLEEP, BUT I LOOKED TO ASSESS HER DRESSING AND IT HAD 1/2 THE ABD DRESSING WAS SATURATED WELL LOTS ON BLUE PAD AND SOAKED THRU SHEETS AGAIN. PT WAS TO DIZZY TO GET UP AND SET IN CHAIR SO I JUST CHANGED HER BED AND LAID HER BACK DOWN. CALLED DR. GANDHI AT 1806 AND TOLD HER ABOUT BLEEDING AND TOLD HER THAT I WAS NOT COMFORTABLE WITH IT AND ASKED IF SHE WOULD COME IN AND SEE PATIENT. SHE SAID SHE WOULD AND ORDERED STAT CBC. THIS SOCIAL SERVICE WORKER ATTEMPTED IV IN LEFT HAND AND WAS ONLY ABLE TO GET CBC.
--- NOTE | 2021-12-06 19:26 | PC.NURSE ---
1924 CALLED LAB TO CHECK ON CBC BECAUSE IT WAS NO LONGER SHOWING UP UNDER HER PROFILE, STAFF SAID ACCORDING TO DOCUMENTATION THAT IT WAS CANCELLED BECAUSE IT CLOTTED. ASKED HER IF THEY HAD TRIED TO CALL SOMEONE AND SHE SAID SHE DID NOT KNOW, THIS MUSIC DEPARTMENT CHAIR ASKED TO TALK TO THE TECH. I BELIEVE IT WAS GUILLERMO GOT ON THE PHONE AND I ASKED IF SHE HAD NOTIFIED ANYONE THAT SHE CANCELLED IT AND SHE SAID SHE TRIED TO CALL OB AND NOONE ANSWERED, I ASKED HER WHAT NUMBER SHE TRIED AND SHE GAVE ME [facility]. TOLD HER THAT SHE WAS A PATIENT IN OB AND THAT WE NEEDED TO BE NOTIFIED AND TOLD HER THAT IF SHE CAN'T TALK TO SOMEONE THAT SHE CAN NOT JUST NOT CANCEL IT, IF SHE CAN NOT GET AHOLD OF SOMEONE SHE NEEDS TO CALL THE DOCTOR AT THE VERY LESS.
[2021-12-06] MEDS: oxyCODONE-APAP 5-325 mg Tablet PO (20:01)
[2021-12-06 20:31] LABS: Basophils % 0.2 %; Hematocrit 31.4 % (37.0-47.0); Hemoglobin 10.5 g/dL (11.5-15.3); Lymphocytes # 0.2 10^3/uL (0.8-4.8); Lymphocytes % 1.3 %; Mean Corpuscular HGB Conc 33.4 g/dL (30.0-36.0); Mean Corpuscular Hemoglobin 31.5 pg (28.0-34.0); Mean Corpuscular Volume 94.3 fl (81-99); Mean Platelet Volume 12.2 fL (7.4-10.4); Monocytes # 0.5 10^3/uL (0.2-0.9); Monocytes % 2.6 %; Neutrophils % 95.4 %; Nucleated Red Blood Cells % 0 %; Platelet Count 194 10^3/cmm (130-400); Red Blood Count 3.33 10^6/uL (4.1-5.3); Red Cell Distribution Width 18.6 % (12.1-15.1); White Blood Count 18.7 10^3/uL (4.0-10.0)
[2021-12-06] MEDS: metoclopramide 5 mg/mL SDV 2 mL 10 MG IVP (21:20)
--- NOTE | 2021-12-07 00:04 | PM.PN ---
Subjective Subjective: Called by nurse. Patient has soaked through her dressing with blood and there is blood on the chux under her. Vitals/I&O/Wt Last Vital Signs Temp 98.7 F 12/06/21 20:00 Pulse 99 12/06/21 20:00 Resp 15 12/06/21 20:01 BP 114/80 12/06/21 20:00 Pulse Ox 97 12/06/21 20:00 12/06/21 12/06/21 12/07/21 14:59 22:59 06:59 Intake Total 1550 / 1550 1150 / 2700 Output Total 1825 / 1825 300 / 2125 Balance -275 / -275 850 / 575 Weight last 48 hrs Weight 175 lb 6.128 oz Physical Exam Narrative: I was called by nursing over a concern for more than normal post op bleeding. Hgb is stable after surgery with 500 EBL 13.1-->10.5. Incision is examined and is intact. The left corner has a slow trickle of blood. The patient has been having more than average pain and has received a lot of pain medication. She has been having nausea and vomiting. Zofran and Reglan seem to be getting that under control. Pain has also improved since earlier with the addition of ativan and IV dilaudid. Const: COMMON NORMALS: average body habitus, patient oriented x3, no limitations, healthy appearing, alert and well nourished GENERAL APPEARANCE: cooperative, well kempt and well developed ORIENTATION/CONSCIOUSNESS: Yes awake, Yes oriented to person, Yes oriented to place and Yes oriented to time Neuro: COMMON NORMALS: patient oriented x3 SENSORIUM/ORIENTATION: Yes alert, Yes oriented to person, Yes oriented to place and Yes oriented to time Psych: APPEARANCE: Yes well kempt Skin: NARRATIVE SKIN EXAM: The dressing is removed and there is some active bleeding from the corner of the incision. The incision is intact. there is evidence of echymosis from surgery. A pressure dressing is placed over the incision. Urinary Catheter Management: Costa: Cath Placed During This Visit: yes Reason for Continuing Indwelling Catheter: Perioperative Use in Selected Surgeries Urinary Catheter Date of Insertion: 12/06/21 Urinary Catheter Time of Insertion: 07:15 Data : 12/06/21 20:18 12/06/21 06:39 Attestations Medical Necessity Statement*: The patient had abdominal surgery. She will be her for 2 midnights. Coding Level of Care Code Acute Automotive Light Mechanic for dA Turner
[2021-12-07 01:35] VITALS: RESP 15; O2SAT 98
[2021-12-07] MEDS: oxyCODONE-APAP 5-325 mg Tablet PO ×3 (01:35→16:39)
--- NOTE | 2021-12-07 03:32 | PC.NURSE ---
2120 Dr. Rowland at bedside assessing bleeding from patient abdominal incision. Dressing changed with sterile gauze pads, ABD, and foam tape.
[2021-12-07] MEDS: dextrose 5%-lactated ringers 1,000 ML 125 ML IV (03:45)
[2021-12-07 04:16] VITALS: BP 104/72; PULSE 107; TEMP 36.8; O2SAT 95
[2021-12-07 06:17] LABS: Hematocrit 23.4 % (37.0-47.0); Hemoglobin 7.8 g/dL (11.5-15.3); Mean Corpuscular HGB Conc 33.3 g/dL (30.0-36.0); Mean Corpuscular Hemoglobin 31.7 pg (28.0-34.0); Mean Corpuscular Volume 95.1 fl (81-99); Mean Platelet Volume 12.4 fL (7.4-10.4); Platelet Count 164 10^3/cmm (130-400); Red Blood Count 2.46 10^6/uL (4.1-5.3); Red Cell Distribution Width 19.2 % (12.1-15.1); White Blood Count 7.2 10^3/uL (4.0-10.0)
[2021-12-07 09:09] VITALS: RESP 16; O2SAT 92
[2021-12-07] MEDS: lactated ringers 1,000 ML 999 ML (09:10)
[2021-12-07] MEDS: docusate sodium 100 mg Capsule PO ×2 (09:10→16:40)
[2021-12-07] MEDS: ibuprofen 800 mg tablet PO ×2 (09:10→16:39)
[2021-12-07] MEDS: pantoprazole DR 40 mg Tablet PO ×2 (09:10→16:39)
[2021-12-07 11:30] LABS: Basophils % 0.2 %; Eosinophils % 0.2 %; Hematocrit 22.7 % (37.0-47.0); Hemoglobin 7.4 g/dL (11.5-15.3); Lymphocytes # 0.8 10^3/uL (0.8-4.8); Mean Corpuscular HGB Conc 32.6 g/dL (30.0-36.0); Mean Corpuscular Hemoglobin 31.9 pg (28.0-34.0); Mean Corpuscular Volume 97.8 fl (81-99); Mean Platelet Volume 12.1 fL (7.4-10.4); Monocytes # 0.6 10^3/uL (0.2-0.9); Monocytes % 10.2 %; Neutrophils # 4.04 10^3/uL (1.8-7.7); Neutrophils % 74.7 %; Nucleated Red Blood Cells % 0 %; Platelet Count 156 10^3/cmm (130-400); Red Blood Count 2.32 10^6/uL (4.1-5.3); Red Cell Distribution Width 19.8 % (12.1-15.1); White Blood Count 5.4 10^3/uL (4.0-10.0)
[2021-12-07] MEDS: predniSONE 5 mg Tablet PO (14:08)
[2021-12-07] MEDS: lactated ringers 1,000 ML 125 ML (14:08)
--- NOTE | 2021-12-07 16:03 | PM.PN ---
Subjective Subjective: The patient had a good pressure dressing placed last night. She has had no further bleeding from her incision. Her hemoglobin had dropped to 7.8 this morning and a repeat about 6 hours later showed it was stable. She has had decreased urine output and received a few boluses. Her output increases with the boluses. The patient has been having nausea and vomiting. She reports feeling dizzy. She is requiring more pain medication than an average patient. Her states that she has a tolerance and it requires a lot to control her pain. She only wants to sleep. She refuses to get out of bed. I discussed a blood transfusion for her, since she is feeling ill. she refused, stating that she would only accept if it was a matter of life and . The nurse is trying to encourage her to eat and to walk. She has gotten up once and made one trip around the department. She didn't want to do any more. She denies being dizzy, lightheaded or nauseous any more. Vitals/I&O/Wt Last Vital Signs Temp 98.3 F 12/07/21 04:16 Pulse 107 H 12/07/21 04:16 Resp 16 12/07/21 09:09 BP 104/72 12/07/21 04:16 Pulse Ox 92 12/07/21 09:09 12/07/21 12/07/21 12/07/21 06:59 14:59 22:59 Intake Total 964.583 / 3664.583 Output Total 325 / 2800 200 / 200 Balance 639.583 / 864.583 -200 / -200 Weight last 48 hrs Weight 175 lb 6.128 oz Physical Exam Const: COMMON NORMALS: no acute distress, average body habitus, patient oriented x3 and alert GENERAL APPEARANCE: comfortable, well kempt and well developed ORIENTATION/CONSCIOUSNESS: Yes awake, Yes oriented to person, Yes oriented to place and Yes oriented to time Resp: COMMON NORMALS: normal respiratory effort EFFORT & INSPECTION: Yes able to speak in complete sentences GI: COMMON NORMALS: Soft to palpation and non-tender AUSCULTATION: Yes Hypoactive bowel sounds present PALPATION: Yes Soft to palpation OTHER: normal upper bowel sounds. Hypoactive lower bowel sounds. Extremity: COMMON NORMALS: no calf tenderness Neuro: COMMON NORMALS: patient oriented x3 SENSORIUM/ORIENTATION: Yes alert, Yes oriented to person, Yes oriented to place and Yes oriented to time Psych: APPEARANCE: Yes well kempt Urinary Catheter Management: Costa: Cath Placed During This Visit: yes Reason for Continuing Indwelling Catheter: Perioperative Use in Selected Surgeries Urinary Catheter Date of Insertion: 12/06/21 Urinary Catheter Time of Insertion: 07:15 Data : 12/07/21 11:20 12/06/21 06:39 Micro: Microbiology 12/06/21 09:30 Urine Culture - Preliminary Urine Catheterized A&P Assessment and plan (1) Post-op bleeding: Hemoglobin appears to be stable. No further bleeding from incision site. Patient is able to ambulate. Needs to ambulate more and pass gas to advance diet. If everything remains stable, she should be able to be discharged tomorrow. repeat CBC in AM Status: Acute Attestations Medical Necessity Statement*: The patient will be here at least 2 midnights. Coding Level of Care Code Acute Commercial Litigation Attorney for Ad Turner Diagnoses Post-op bleeding
--- NOTE | 2021-12-07 16:15 | PC.NURSE ---
Pt ambulated to OB 11 and back to room with minimal lightheadedness. Pt tolerated well and went back to bed once to room.
[2021-12-07 16:30] VITALS: BP 90/61; PULSE 102; RESP 16; TEMP 36.9
[2021-12-07 16:39] VITALS: RESP 16
[2021-12-07 20:41] LABS: Basophils % 0.2 %; Eosinophils % 0.2 %; Hematocrit 22.2 % (37.0-47.0); Hemoglobin 7.3 g/dL (11.5-15.3); Lymphocytes # 0.7 10^3/uL (0.8-4.8); Lymphocytes % 13.6 %; Mean Corpuscular HGB Conc 32.9 g/dL (30.0-36.0); Mean Corpuscular Hemoglobin 31.9 pg (28.0-34.0); Mean Corpuscular Volume 96.9 fl (81-99); Monocytes # 0.3 10^3/uL (0.2-0.9); Monocytes % 5.1 %; Neutrophils # 4.05 10^3/uL (1.8-7.7); Neutrophils % 79.7 %; Nucleated Red Blood Cells % 0 %; Red Blood Count 2.29 10^6/uL (4.1-5.3); Red Cell Distribution Width 19.9 % (12.1-15.1); White Blood Count 5.1 10^3/uL (4.0-10.0)
[2021-12-07 20:45] VITALS: BP 102/67; PULSE 86; RESP 15; TEMP 37.1; O2SAT 90
[2021-12-07 21:11] LABS: Platelet Count 20 10^3/cmm (130-400)
[2021-12-07 21:12] LABS: Slide Review Slide Review Perform
--- NOTE | 2021-12-07 23:09 | PC.NURSE ---
Dr. Mancia in pts room at this time.
--- NOTE | 2021-12-07 23:20 | P.CONIM_ITS ---
Providers/Reason For Consult Consulting Physician/Specialty*: Hematology Reason for Consult*: anemia and thrombocytopenia Requesting Physician: Shazia Rowland MD Attending Physician: Shazia Rowland MD Primary Care Provider: Zahra Medina MD History of Present Illness History of Present Illness Nicky Gonzalez is a 56 year old woman with postoperative anemia and thrombocytopenia. I have followed for iron deficiency anemia in association with abnormal uterine bleeding. She has required parenteral iron replacement on multiple occasions, most recently in September 2021. She has been followed by Dr. Rowland for the abnormal uterine bleeding. She was found to have evidence of adenomyosis on a previous D&C. She was admitted this time for hysterectomy. On 12/06/2021 she underwent total abdominal hysterectomy and bilateral salpingectomy. According to the operative note the procedure appeared to been uncomplicated, though she had a reported blood loss of 500 mL. She had significant back pain postoperatively, but that subsequently resolved. In the meantime, her surgical dressing had to be changed yesterday because of persistent oozing from the operative site. Since then there has been no further bleeding noted. Her preoperative CBC drawn at 0639 on 12/06/2021 showed normal hemoglobin at 13.1 g with hematocrit 40.3%. The white blood cell count was 4500 and the platelet count was 155,000. A repeat CBC this morning showed a drop in the hemoglobin to 7.8 g with white blood cell count 7200 and with platelet count still normal at 164,000. As of 1119 this morning hemoglobin was stable at 7.4 g with platelet count 156,000. Her repeat CBC today at 2022 showed stable hemoglobin at 7.3 g but with platelet count low at 20,000. She has not had any acute change in symptoms other than the postoperative back pain yesterday, but that has pretty well resolved now. She has just a little soreness in the lower abdomen/pelvic area. She has not felt unusually weak or tired, and she has not had fever or chills. She has had a little bit of sore throat. She does not complain of cough, and she has not had any shortness of breath or chest pain. She had some nausea/vomiting yesterday, but that has resolved. Her most recent bowel movement was on Sunday. She has not been aware of any blood in the stool. Bladder function has been okay at home. She currently has an indwelling catheter. She has joint pain associated with her rheumatoid arthritis, which she has managed with low-dose prednisone. She has not had headache. She has been a little bit lightheaded. She has no focal neurologic symptoms. She has had easy bruising, but that is chronic. Medications/Allergies Home Medications Medication Instructions Recorded Confirmed Last Taken Type omeprazole 20 mg tablet,delayed 20 mg PO BID 07/28/19 12/06/21 12/05/21 23:00 History release cholecalciferol (vitamin D3) 100 4,000 unit PO DAILY 09/18/19 12/06/21 11/29/21 History mcg (4,000 unit) capsule (Vitamin D3) potassium gluconate 595 mg (99 mg) 595 mg PO DAILY PRN 09/18/19 12/06/21 11/29/21 History tablet metoprolol tartrate 25 mg tablet 25 mg PO BID #180 tab 01/20/21 12/06/21 12/05/21 23:00 Rx sulfasalazine 500 mg tablet 1 g PO TID #180 tab 06/29/21 12/06/21 12/05/21 23:00 Rx magnesium oxide 400 mg PO DAILY #90 cap 10/18/21 12/06/21 12/01/21 Rx prednisone 5 mg tablet 5 mg PO DAILY 11/30/21 12/06/21 12/05/21 23:00 History tranexamic acid 650 mg tablet 1,300 mg PO TID PRN 11/30/21 12/06/21 12/05/21 23:00 History (Lysteda) Allergies Allergy/AdvReac Type Severity Reaction Status Date / Time No Known Allergies Allergy Verified 12/06/21 06:10 Current Medications Generic Name Dose Route Start Last Admin Trade Name Freq PRN Reason Stop Dose Admin Docusate Sodium 100 mg 12/06/21 18:00 12/07/21 16:40 Docusate Sodium 100 Mg Capsule PO 100 mg BID ONIEL Administration Hydromorphone HCl 1.5 mg 12/06/21 09:57 12/06/21 15:17 Hydromorphone 1 Mg/Ml Inj 1 Ml IVP 1.5 mg Q3H PRN Administration BREAKTHROUGH PAIN Dextrose/Lactated Ringer's 1,000 mls @ 125 mls/hr 12/06/21 10:00 12/07/21 14:08 Dextrose 5%-Lactated Ringers IV Infused .Q8H ONIEL Infusion Sodium Chloride 1,000 mls @ 125 mls/hr 12/07/21 08:45 12/07/21 19:47 Sodium Chloride 0.9% IV Not Given .Q8H ONIEL Ibuprofen 800 mg 12/07/21 10:00 12/07/21 16:39 Ibuprofen 800 Mg Tablet PO 800 mg Q8H ONIEL Administration Metoprolol Tartrate 25 mg 12/06/21 18:00 12/07/21 08:38 Metoprolol Tartrate 25 Mg Tablet PO Not Given BID ONIEL Ondansetron HCl 4 mg 12/06/21 09:57 12/06/21 20:46 Ondansetron 2 Mg/Ml Sdv 2 Ml IVP 4 mg Q4H PRN Administration NAUSEA Oxycodone/Acetaminophen 1 - 2 tab 12/06/21 15:12 12/07/21 16:39 Oxycodone-Apap 5-325 Mg Tablet PO 1 tab Q6H PRN Administration MODERATE TO SEVERE PAIN Pantoprazole Sodium 40 mg 12/06/21 18:00 12/07/21 16:[address] 40 Mg Tablet PO 40 mg BID ONIEL Administration Prednisone 5 mg 12/07/21 09:00 12/07/21 14:08 Prednisone 5 Mg Tablet PO 5 mg DAILY ONIEL Administration PFSH Acute PFSH: Medical History MEME positive Chronic thoracic spine pain Current chronic use of systemic steroids Encounter for long-term (current) use of NSAIDs GERD (gastroesophageal reflux disease) Hypertension Lichen planus Long-term use of high-risk medication Other iron deficiency anemias Pain management contract signed Paroxysmal supraventricular tachycardia Raynaud's phenomenon Rheumatoid arthritis Spondylosis THORACIC AND LUMBAR Surgical History History of hand surgery (~1997) History of hysteroscopy (09/23/19) Hysteroscopy, D&C, Buttock biopsy. Per[place] by Dr. Rock at [facility] [place], [place]. History of lumpectomy of left breast (06/27/17) Hx of section X5 Family History Father Diabetes Mother Hypertension Grandmother Stroke Grandfather Cancer Liver cancer Other Liver disease Female Reproductive History: Date of last menstrual period: 11/22/21 Vitals/I&O/Wt Last Vital Signs Temp 98.7 F 12/07/21 20:45 Pulse 86 12/07/21 20:45 Resp 15 12/07/21 20:45 BP 102/67 12/07/21 20:45 Pulse Ox 90 12/07/21 20:45 12/07/21 12/07/21 12/08/21 14:59 22:59 06:59 Intake Total 2118.00 / 2118.00 Output Total 200 / 200 750 / 950 Balance 1918.00 / 191.00 -750 / 1168.00 Weight last 48 hrs Weight 79.552 kg Physical Exam Narrative: Const: She does not appear to be in acute distress. Eyes: Sclera nonicteric. Conjunctiva clear. HENMT: No lesions noted in the oral cavity. In particular, there are no mucosal hemorrhages noted. Lymph: No cervical, clavicular, or axillary adenopathy. Resp: Lungs sound clear with good airflow bilaterally. Cardio: Heart rhythm is regular. There is a 2/6 systolic murmur. There is no gallop or rub noted. GI: Abdomen is mildly distended but soft. Liver and spleen are not enlarged. There is no abdominal mass or ascites noted. There is no inguinal adenopathy. Extremity: No edema. Skin: There are very few scattered purpuric lesions. There are no petechiae noted. Neuro: There are no focal neurologic deficits noted. Urinary Catheter Management: Costa: Cath Placed During This Visit: yes Reason for Continuing Indwelling Catheter: Accurate Measurement of Urinary Output in Critically Ill Patients Urinary Catheter Date of Insertion: 12/06/21 Urinary Catheter Time of Insertion: 07:15 Data : 12/07/21 20:23 12/06/21 06:39 Micro: Microbiology 12/06/21 09:30 Urine Culture - Preliminary Urine Catheterized Other data: I reviewed the blood smear from the :23 lab draw. It appears to be almost completely devoid of platelets. The red cell morphology is unremarkable. There are no schistocytes noted. There are no immature or otherwise abnormal white blood cell forms noted. A&P Assessment and plan (1) Thrombocytopenia: Patient with pre-existing iron deficiency anemia in association with abnormal uterine bleeding presents with what appears to be acute postoperative thrombocytopenia and anemia. The cause is uncertain, but at least some component of the anemia is almost certainly due to blood loss. DIC is obviously a concern, though clinically there appears to be be no obvious underlying cause for it. Based on the clinical setting and the blood smear findings, TTP also appears to be unlikely. Autoimmune thrombocytopenia would be a possibility, tickly with the underlying rheumatoid arthritis. Her management at this point is problematic due to very limited venous access, which currently is being addressed. As soon as we have venous access available, she will have additional laboratory studies which will include a CBC with type and cross, DIC screen, and LDH and haptoglobin levels. Further management will depend on the results of those studies. Status: Acute Coding Level of Care Code Acute Load Out Person for [facility] Fwd Diagnoses Thrombocytopenia D69.6
[2021-12-07 23:23] LABS: LAB Peripheral Smear Sent for Review
[2021-12-08] VITALS (11 sets, daily range): BP systolic 91–143; BP diastolic 62–87; PULSE 74–101; RESP 16–18; TEMP 36.8–37.1; O2SAT 86–95
[2021-12-08] MEDS: sodium chloride 0.9% 1,000 ML 125 ML IV ×2 (00:17→08:37)
[2021-12-08 00:49] LABS: Hematocrit 21.8 % (37.0-47.0); Hemoglobin 7.1 g/dL (11.5-15.3); Mean Corpuscular HGB Conc 32.6 g/dL (30.0-36.0); Mean Corpuscular Hemoglobin 31.8 pg (28.0-34.0); Mean Corpuscular Volume 97.8 fl (81-99); Mean Platelet Volume 12.3 fL (7.4-10.4); Platelet Count 150 10^3/cmm (130-400); Red Blood Count 2.23 10^6/uL (4.1-5.3); Red Cell Distribution Width 19.9 % (12.1-15.1); White Blood Count 7.2 10^3/uL (4.0-10.0)
[2021-12-08 01:28] LABS: Absolute Neutrophil 5.9 10^3/cmm (1.4-6.5); Absolute Segmented Neutrophil 5.8 10/cmm (1.6-7.1); Band Neutrophils Absolute 0.1 10^3/cmm (0.0-1.2); Eosinophils 0 %; Lymphocytes 16 %; Lymphocytes Absolute 1.2 10^3/cmm (1.2-3.4); Monocytes Absolute 0.1 10^3/cmm (0.1-0.6); Platelet Estimate Normal (Normal); Segmented Neutrophils 81 %; Total Cells Counted 100 (0-100)
[2021-12-08 01:29] LABS: Anisocytosis Trace
[2021-12-08 02:58] LABS: INR 1.41 (0.8-1.2)
[2021-12-08 03:02] LABS: D Dimer 0.75 ug/mIFEU (0-0.59)
[2021-12-08 03:17] LABS: Fibrinogen 78 mg/dL (174-498)
[2021-12-08 03:33] LABS: Lactate Dehydrogenase 118 U/L (135-214)
--- NOTE | 2021-12-08 03:57 | PC.NURSE ---
DURING 0400 VITALS, THIS NURSE NOTED PT'S OXYGEN LEVEL TO BE IN THE MID TO UPPER 80S. THIS NURSE PLACED NASAL CANULA AT 2L ON PT. PT'S OXYGEN LEVEL INCREASED TO 89-91%. THIS NURSE INCREASED THE PT'S OXYGEN TO 3L AND OXYGEN NOTED TO INCREASE TO 92-94%. THIS NURSE CALLED AND SPOKE TO RESPIRATORY AND SHE CAME TO BEDSIDE, REPOSITIONED PT, AND STATED TO KEEP PT ON OXYGEN AT THIS TIME AND KEEP OXYGEN PERCENTAGE ABOVE 92% AND THIS WAS EXPECTED DUE TO HER HEMOGLOBIN BEING LOW.
[2021-12-08 04:36] LABS: Basophils % 0.5 %; Eosinophils % 0.5 %; Hematocrit 22.6 % (37.0-47.0); Hemoglobin 6.9 g/dL (11.5-15.3); Lymphocytes # 1.3 10^3/uL (0.8-4.8); Lymphocytes % 20.1 %; Mean Corpuscular HGB Conc 30.5 g/dL (30.0-36.0); Mean Corpuscular Hemoglobin 31.7 pg (28.0-34.0); Mean Corpuscular Volume 103.7 fl (81-99); Mean Platelet Volume 12.2 fL (7.4-10.4); Monocytes # 0.4 10^3/uL (0.2-0.9); Monocytes % 6.9 %; Neutrophils # 4.42 10^3/uL (1.8-7.7); Neutrophils % 70.6 %; Nucleated Red Blood Cells % 0 %; Platelet Count 142 10^3/cmm (130-400); Red Blood Count 2.18 10^6/uL (4.1-5.3); White Blood Count 6.3 10^3/uL (4.0-10.0)
[2021-12-08] MEDS: oxyCODONE-APAP 5-325 mg Tablet PO ×2 (05:09→17:24)
[2021-12-08] MEDS: pantoprazole DR 40 mg Tablet PO ×2 (08:35→17:24)
[2021-12-08] MEDS: docusate sodium 100 mg Capsule PO ×2 (08:36→17:24)
[2021-12-08] MEDS: predniSONE 5 mg Tablet PO (08:36)
[2021-12-08 09:24] LABS: Alanine Aminotransferase 14 U/L (0-33); Albumin Level 3.4 g/dL (3.5-5.2); Alkaline Phosphatase 35 IU/L (35-105); Anion Gap 10.8 (5-19); Aspartate Amino Transferase 18 U/L (0-32); Blood Urea Nitrogen 12 mg/dL (6-20); Calcium 7.7 mg/dL (8.5-10.5); Carbon Dioxide 25 mmol/L (22-29); Chloride 107 mmol/L (98-107); Globulin 1.4 g/dL (1.3-4.6); Glomerular Filtration Rate 51.8 mL/min (90-130); Glucose 91 mg/dL (65-115); Osmolality Calculated 287 mOsm/kg (285-295); Potassium 3.8 mmol/L (3.5-5.1); Sodium 139 mmol/L (136-145); Total Bilirubin 0.3 mg/dL (0.15-1.2); Total Protein 4.8 g/dL (6.6-8.7)
[2021-12-08 09:25] LABS: Iron 75 ug/dL (37-145); Percent Saturation 44.1 % (20-50); Total Iron Binding Capacity 170 mcg/dl; Unsaturated Iron Binding 95 ug/dL (112-347)
--- NOTE | 2021-12-08 11:30 | PC.NURSE ---
SpO2 95%. O2 titrated down to 2L via nasal cannula
--- NOTE | 2021-12-08 14:10 | PC.NURSE ---
SpO2 98% on 2L via nasal cannula. Nasal cannula removed, pt ambulated in vigil. Pt SpO2 stayed 95%,pt now on RA
--- NOTE | 2021-12-08 14:15 | PC.NURSE ---
Pt ambulated in vigil from room 9 to room 11 and back to room 9. Pt tolerated well and had minimal dizziness.
--- NOTE | 2021-12-08 16:07 | PC.NURSE ---
Pt sleeping; SpO2 85%. Put 2L nasal cannula on pt while sleeping. SpO2 now 94%
[2021-12-08] MEDS: simethicone 80 mg Chew PO (17:24)
[2021-12-08] MEDS: metoprolol tartrate 25 mg Tablet PO (17:25)
[2021-12-09 04:43] VITALS: RESP 15
[2021-12-09] MEDS: oxyCODONE-APAP 5-325 mg Tablet PO (04:43)
[2021-12-09 04:49] VITALS: BP 126/85; PULSE 73; TEMP 36.8; O2SAT 94
[2021-12-09] MEDS: simethicone 80 mg Chew PO (05:11)
[2021-12-09 06:15] LABS: Basophils % 0.7 %; Eosinophils # 0.2 10^3/uL (0.0-0.8); Eosinophils % 3.5 %; Hematocrit 22.9 % (37.0-47.0); Hemoglobin 7.5 g/dL (11.5-15.3); Lymphocytes # 1.4 10^3/uL (0.8-4.8); Lymphocytes % 25.3 %; Mean Corpuscular HGB Conc 32.8 g/dL (30.0-36.0); Mean Corpuscular Hemoglobin 32.3 pg (28.0-34.0); Mean Corpuscular Volume 98.7 fl (81-99); Mean Platelet Volume 11.3 fL (7.4-10.4); Monocytes # 0.4 10^3/uL (0.2-0.9); Monocytes % 7.1 %; Neutrophils # 3.29 10^3/uL (1.8-7.7); Neutrophils % 61.2 %; Nucleated Red Blood Cells % 0.6 %; Platelet Count 147 10^3/cmm (130-400); Red Blood Count 2.32 10^6/uL (4.1-5.3); White Blood Count 5.4 10^3/uL (4.0-10.0)
--- NOTE | 2021-12-09 07:15 | PC.NURSE ---
Dr. Pham to floor. Orders received for discharge. This RN asked about status of dressing. 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 This RN asked if Dr. Mancia needed to make rounds on patient prior to discharge. Orders received from Dr. Pham to follow through with discharge without Dr. Mancia rounding and he will ask MD if there is anything needed on patient. JIM YODER
[2021-12-09] MEDS: docusate sodium 100 mg Capsule PO (09:02)
[2021-12-09] MEDS: predniSONE 5 mg Tablet PO (09:02)
[2021-12-09] MEDS: pantoprazole DR 40 mg Tablet PO (09:02)
--- NOTE | 2021-12-09 09:29 | PC.NURSE ---
Dr. Pham at bedside. surgical incision reinforced with dermabond and steri strips by . Orders received to RN for discharge with abd pads for any drainage. Follow up date for Sunday or Sunday with Dr. Rowland. JIM YODER
--- NOTE | 2021-12-09 09:31 | PC.NURSE ---
Appointment date clarified with [facility] front office staff. Dr. Pham is ok with scheduled appointment for , 12/15. JIM YODER
--- NOTE | 2021-12-09 10:22 | PM.OBGYDC ---
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 Mahoney 46-year-old female admitted for planned total abdominal hysterectomy. The procedure was performed. Postop recovery/observation was complicated by bleeding from incision right treated with pressure dressing. Hematology was consulted and stated iron infusion was not indicated at this time. H&H stabilized to 7.5. The patient refused blood transfusion. Incentive spirometry was ordered as it was not given until day 2 postop. She is afebrile and hemodynamically stable postoperative day 3. Tolerating diet well. Ambulating without difficulty. Edges of incision have to be reapproximated with Dermabond and Steri-Strips for reinforcement of incision as the subcuticular bob were spaced out further than the recommended distance. Significant suprapubic ecchymosis noted. Physical Exam Narrative: GA: Alert and oriented ?3. HEENT: WNL. Heart: Regular rate and rhythm. Lungs: Clear to auscultation bilaterally. Abdomen: Bowel sounds present, minimal tenderness, incision clean and but with serous discharge, ecchymosis, no edema. SUBSTATION MECHANIC: Scant bleeding. Extremities: No edema, no cyanosis, no calves pain. Urinary Catheter Management: Costa: Cath Placed During This Visit: yes, but has since been removed by the nurse Reason for Continuing Indwelling Catheter: Decision to DC Catheter Urinary Catheter Date of Insertion: 12/06/21 Urinary Catheter Time of Insertion: 07:15 Date Urinary Catheter Removed: 12/08/21 Time Urinary Catheter Discontinued: 14:30 History History History 6 Term 6 Miscarriages/Ectopic 0 0 Living Children 6 Discharge Data Studies Completed and Pending Completed Studies During Hospitalization Category Date Time Status Pathology: Surgical [PTH] Routine Pth 12/06/21 10:01 Completed Pending at discharge Category Date Time Status RED BLOOD CELLS [Leukocyte Reduced RBC] Routine Lab 12/07/21 22:23 Results Type and Screen Routine Lab 12/06/21 06:39 Results Laboratory Results WBC 5.4 10^3/uL (4.0-10.0) 12/09/21 06:09 Corrected WBC Cancelled 12/09/21 05:24 RBC 2.32 10^6/uL (4.1-5.3) L 12/09/21 06:09 Hgb 7.5 g/dL (11.5-15.3) L 12/09/21 06:09 Hct 22.9 % (37.0-47.0) L 12/09/21 06:09 MCV 98.7 fl (81-99) 12/09/21 06:09 MCH 32.3 pg (28.0-34.0) 12/09/21 06:09 MCHC 32.8 g/dL (30.0-36.0) D 12/09/21 06:09 RDW 19.0 % (12.1-15.1) H 12/09/21 06:09 Plt Count 147 10^3/cmm (130-400) 12/09/21 06:09 MPV 11.3 fL (7.4-10.4) H 12/09/21 06:09 Gran % Cancelled 12/09/21 05:24 Neut % (Auto) 61.2 % 12/09/21 06:09 Lymph % (Auto) 25.3 % 12/09/21 06:09 Gulf % (Auto) 7.1 % 12/09/21 06:09 Eos % (Auto) 3.5 % 12/09/21 06:09 Baso % (Auto) 0.7 % 12/09/21 06:09 Neut # (Auto) 3.29 10^3/uL (1.8-7.7) 12/09/21 06:09 Lymph # (Auto) 1.4 10^3/uL (0.8-4.8) 12/09/21 06:09 Gulf # (Auto) 0.4 10^3/uL (0.2-0.9) 12/09/21 06:09 Eos # (Auto) 0.2 10^3/uL (0.0-0.8) 12/09/21 06:09 Baso # (Auto) 0.0 10^3/uL (0.0-0.1) 12/09/21 06:09 Absolute Gran (auto) Cancelled 12/09/21 05:24 Nucleated RBC % (auto) 0.6 % 12/09/21 06:09 Total Counted 100 (0-100) 12/08/21 00:13 Atypical Lymphs % 0.0 % (0-5) 12/08/21 00:13 Absolute Neutrophils 5.9 10^3/cmm (1.4-6.5) 12/08/21 00:13 Segmented Neutrophils 81 % 12/08/21 00:13 Abs Segm Neuts (Man) 5.8 10/cmm (1.6-7.1) 12/08/21 00:13 Band Neutrophils 1.0 % 12/08/21 00:13 Abs Band Neuts (Man) 0.1 10^3/cmm (0.0-1.2) 12/08/21 00:13 Absolute Lymphocytes 1.2 10^3/cmm (1.2-3.4) 12/08/21 00:13 Lymphocytes (Manual) 16 % 12/08/21 00:13 Monocytes (Manual) 2.0 % 12/08/21 00:13 Absolute Monocytes 0.1 10^3/cmm (0.1-0.6) 12/08/21 00:13 Eosinophils (Manual) 0 % 12/08/21 00:13 Absolute Eosinophils 0.0 10^3/cmm (0.0-0.7) 12/08/21 00:13 Basophils (Manual) 0.0 % 12/08/21 00:13 Absolute Basophils 0.0 10^3/cmm (0.0-0.2) 12/08/21 00:13 Nucleated RBCs # 0.0 /100WBC 12/09/21 06:09 Platelet Estimate Normal (Normal) 12/08/21 00:13 Anisocytosis Trace 12/08/21 00:13 Haptoglobin 30.0 mg/L (30-200) 12/08/21 01:35 PT 17.60 SECONDS (12.1-14.9) H 12/08/21 00:13 INR 1.41 (0.8-1.2) H 12/08/21 00:13 APTT 26.0 SECONDS (23.9-36.7) 12/08/21 00:13 Fibrinogen 78 mg/dL (174-498) L 12/08/21 00:13 Fibrin Degrad Products Neg, <10 ug/mL (NEG) 12/08/21 00:13 D-Dimer 0.75 ug/mIFEU (0-0.59) H 12/08/21 00:13 Sodium 139 mmol/L (136-145) 12/08/21 01:35 Potassium 3.8 mmol/L (3.5-5.1) 12/08/21 01:35 Chloride 107 mmol/L (98-107) 12/08/21 01:35 Carbon Dioxide 25 mmol/L (22-29) 12/08/21 01:35 Anion Gap 10.8 (5-19) 12/08/21 01:35 BUN 12 mg/dL (6-20) 12/08/21 01:35 Creatinine 1.1 mg/dL (0.5-0.9) H 12/08/21 01:35 GFR Calculation 51.8 mL/min (90-130) L 12/08/21 01:35 Glucose 91 mg/dL (65-115) 12/08/21 01:35 Calculated Osmolality 287 mOsm/kg (285-295) 12/08/21 01:35 Calcium 7.7 mg/dL (8.5-10.5) L 12/08/21 01:35 Iron 75 ug/dL (37-145) 12/08/21 01:45 TIBC 170 mcg/dl 12/08/21 01:45 % Saturation 44.1 % (20-50) 12/08/21 01:45 Unsat Iron Binding 95 ug/dL (112-347) L 12/08/21 01:45 Total Bilirubin 0.3 mg/dL (0.15-1.2) 12/08/21 01:35 AST 18 U/L (0-32) 12/08/21 01:35 ALT 14 U/L (0-33) 12/08/21 01:35 Alkaline Phosphatase 35 IU/L (35-105) 12/08/21 01:35 Lactate Dehydrogenase 118 U/L (135-214) L 12/08/21 01:35 Total Protein 4.8 g/dL (6.6-8.7) L 12/08/21 01:35 Albumin 3.4 g/dL (3.5-5.2) L 12/08/21 01:35 Globulin 1.4 g/dL (1.3-4.6) 12/08/21 01:35 Urine HCG, Qual Negative (Negative) 12/06/21 06:29 Blood Type O Positive 12/06/21 06:39 Rho(D) Type Positive 12/06/21 06:39 Antibody Screen Negative 12/06/21 06:39 Crossmatch See Detail 12/06/21 06:39 Vitals Last Vital Signs Temp 98.2 F 12/09/21 04:49 Pulse 73 12/09/21 04:49 Resp 15 12/09/21 04:43 BP 126/85 12/09/21 04:49 Pulse Ox 94 12/09/21 04:49 Discharge Plan Discharge Patient Disposition: Home Condition: Stable Prescriptions: New hydrocodone-acetaminophen 5-325 mg tablet 1 tab PO Q4H PRN (Reason: pain) Qty: 30 0RF acetaminophen 325 mg capsule 325 mg PO Q4H PRN (Reason: fever or pain) Qty: 60 0RF docusate sodium [Colace] 100 mg capsule 100 mg PO BID Qty: 60 0RF ibuprofen 800 mg tablet 800 mg PO TID PRN (Reason: pain) Qty: 60 0RF Continued omeprazole 20 mg tablet,delayed release (DR/EC) 20 mg PO BID 0RF metoprolol tartrate 25 mg tablet 25 mg PO BID Qty: 180 3RF sulfasalazine 500 mg tablet 1 g PO TID Qty: 180 2RF magnesium oxide 400 mg magnesium capsule 400 mg PO DAILY Qty: 90 3RF potassium gluconate 595 mg (99 mg) Tablet 595 mg PO DAILY PRN (Reason: hr elevated) 0RF Vitamin D3 4,000 unit Capsule 4,000 unit PO DAILY 0RF prednisone 5 mg Tablet 5 mg PO DAILY 0RF tranexamic acid [Lysteda] 650 mg tablet 1,300 mg PO TID PRN (Reason: Bleeding) 0RF Discharge Orders: Discharge Order (Routine); Ordered 12/09/21 Ordered By: Mahad Pham Referrals: Shazia Rowland MD [Physician] - 12/15/21 2:00 pm (1 week incision check: 12/15/21 @2:00. 6 week post-op appt: 01/16/22 @10:45. ) Adolph Mancia MD [Hospitalist] - 12/14/21 11:00 am (LAB DRAW ) Discharge Diet: Usual diet Discharge Activity: Limit activity as instructed Patient Instructions: Iron Deficiency Anemia (GEN), Postoperative Bleeding (DC), Thrombocytopenia (DC), Hysterectomy (DC), OB Abdominal Surgery - [facility], OB Discharge Report, OB Food/Drug Interaction Guide, Opioid Safety Activity Restrictions/Additional Instructions: 1. Please call [facility] on next working day to make your post-operative appointment in 2 weeks. 2. Please stay home until you come back to the clinic on first post-operative check up. 3. Please follow instructions on your medications CAREFULLY. 4. If you have abdominal incision, do not cover it unless dressing is necessary because of drainage. OK to shower, but avoid bath. Leave steri-strips until they fall off. If they are still on one week after surgery, you may remove them. 5. If you had vaginal surgery or vaginal repair, Dr. Pham may instruct you to take SITZ bath. 6. Yellow, blood tinged odorous vaginal discharge is usually normal after hysterectomy or vaginal surgeries. 7. No sexual intercourse, tampons, or douches until you are completely released from the post-operative care. 8. Avoid constipation by eating right and maybe using some Metamucil or Milk of Magnesia. 9. All prescription refills are given during the working hours. Please do no wait till it runs out. Call the clinic at [phone] before your medication runs out. The clinic will get in touch with your doctor to prescribe medications if necessary. 10. Please remain within 40 mile radius from our hospital because emergencies do happen now and then during the post-operative period. 11. If you have stairs at home, take one step at a time slowly and minimize the number of trips. It helps to stay in one floor for the next few days. No lifting except what you can lift by one hand until you are released from the post-operative care. 12. Driving is discouraged until you are well healed. It may be 3-4 weeks before you feel strong enough to drive. You should be able to turn and look through the rear window without pain and you should be able to push the brake pedal very hard without pain before you drive. No fast rules, but SAFETY should be your primary concern. DO NOT drive if you are on sedating medications such as narcotics. 13. Call the clinic (during working hours) to make urgent appointment or go to the Emergency room, if any of the following occurs: i. Vaginal bleeding becomes heavy, more than a period. ii. Incision becomes red and sore, or drains pus. iii. Your temperature is over 100.4 or you have chill. iv. IV site becomes red and swollen (a little ``knot?? is usually OK) v. Persistent nausea and vomiting vi. Persistent constipation or diarrhea vii. Rash or allergic reaction to medications. 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
[2021-12-09 11:10] VITALS: BP 119/78; PULSE 85; RESP 15; TEMP 36.7
== END 2021-12-09 11:45 | disposition home or self-care (01) | DRG 742 ==
LOC: OBGYN 10:32
PROVIDERS: Anesthesiology; Internal Medicine Medical Oncology; Obstetrics & Gynecology; Admitting Provider Obstetrics & Gynecology; PCP Family Medicine; Visit Provider Obstetrics & Gynecology
PROC: 0UT90ZZ Resection of Uterus, Open Approach (ICD-10-PCS; CPT 58150; principal; 2021-12-06 07:00)
PROC: 0UT90ZZ Resection of Uterus, Open Approach (ICD-10-PCS; CPT 58700; 2021-12-06 07:00)
DX: D25.9 Leiomyoma of uterus, unspecified (principal); D62 Acute posthemorrhagic anemia; N80.0 Endometriosis of uterus; N83.8 Other noninflammatory disorders of ovary, fallopian tube and broad ligament; D50.8 Other iron deficiency anemias; D69.6 Thrombocytopenia, unspecified; M06.9 Rheumatoid arthritis, unspecified; Z79.52 Long term (current) use of systemic steroids; I10 Essential (primary) hypertension
CPT/HCPCS: 36415; 51702; 80048; 80053; 81025; 83010; 83540; 83550; 83615; 84703; 85007; 85025; 85027; 85362; 85378; 85384; 85610; 85730; 86850; 86900; 86920; 87086; 88307; 99223; J1100; J1170; J1885; J2405; J2704; J2710; J2765; J3010; J3490; J7030; J7512

== ENCOUNTER 2021-12-10 15:51 | Emergency (ER) | payer MEDICAID, SELFPAY ==
[2021-12-10 15:58] VITALS: BP 107/58; PULSE 58; RESP 16; TEMP 36.6; O2SAT 96; BMI 29.2
--- NOTE | 2021-12-10 17:56 | W.ED.GENADLT ---
HPI - General Adult General: Chief complaint: General Medical Stated complaint: bleeding s/p hysterectomy Time Seen by Provider: 12/10/21 17:04 History of Present Illness: Patient comes in with concerns for bleeding at her surgical site. States she was discharged yesterday after hysterectomy and continues to have oozing around the surgical wound. On physical exam her wound is mostly intact with an area on the left lateral side that is oozing a small amount of blood. Associated symptoms: Deny chest pain, dyspnea, headache(s), nausea, rash, palpitations or vomiting Review of Systems Const: Denies: fever(s) or body aches Eyes: Denies: change in vision or blurry vision ENMT: Denies: throat pain or odynophagia Card: Denies: chest pain or palpitations Resp: Denies: dyspnea or productive cough GI: Denies: abdominal pain, nausea or vomiting : Denies: flank pain or dysuria Musc: Denies: neck pain or back pain Skin/Breast: Denies: rash or pruritus Neuro: Denies: headache(s) or numbness in extremities Psych: Denies: anxiety or change in appetite Endo: Denies: polyuria or excessive sweating PFSH ED PFSH: Medical History MEME positive Chronic thoracic spine pain Current chronic use of systemic steroids Encounter for long-term (current) use of NSAIDs GERD (gastroesophageal reflux disease) Hypertension Lichen planus Long-term use of high-risk medication Other iron deficiency anemias Pain management contract signed Paroxysmal supraventricular tachycardia Raynaud's phenomenon Rheumatoid arthritis Spondylosis THORACIC AND LUMBAR Surgical History History of hand surgery (~1997) History of hysteroscopy (09/23/19) Hysteroscopy, D&C, Buttock biopsy. Performed by Dr. Rock at [facility] in [place], [place]. History of lumpectomy of left breast (06/27/17) Hx of section X5 Family History Father Diabetes Mother Hypertension Grandmother Stroke Grandfather Cancer Liver cancer Other Liver disease Female Reproductive History: Date of last menstrual period: 11/22/21 Physical Exam Const: COMMON NORMALS: no acute distress, patient oriented x3, healthy appearing and alert HENMT: COMMON NORMALS: normocephalic and atraumatic HEAD & SCALP: normocephalic and atraumatic Eye: COMMON NORMALS: Equal, round and reactive pupils present and EOMs intact bilaterally PUPIL: Yes Equal, round and reactive pupils present Neck/C-Spine: COMMON NORMALS: full ROM and supple Resp: COMMON NORMALS: normal respiratory effort, No retractions and No use of accessory muscles Cardio: COMMON NORMALS: regular rate and regular rhythm RATE: regular rate RHYTHM: regular rhythm GI: COMMON NORMALS: Normal to inspection, nondistended, normoactive bowel sounds present, Soft to palpation and non-tender PALPATION: Yes Soft to palpation Back/Pelvis: COMMON NORMALS: thoracic and lumbar spine normal to inspection and no thoracic nor lumbar tenderness Extremity: COMMON NORMALS: normal to inspection and full ROM Neuro: COMMON NORMALS: patient oriented x3 SENSORIUM/ORIENTATION: Yes alert Psych: COMMON NORMALS: mental status grossly normal and cooperative OTHER: wound is mostly intact with an area on the left lateral side that is oozing a small amount of blood. Course Vital Signs: Vital signs: Vital Signs Temperature 97.9 F 12/10/21 15:58 Pulse Rate 58 L 12/10/21 15:58 Respiratory Rate 16 12/10/21 15:58 Blood Pressure 107/58 12/10/21 15:58 Pulse Oximetry 96 12/10/21 15:58 MDM - General Adult Medical Decision Making Patient comes in with concerns for bleeding at her surgical site. States she was discharged yesterday after hysterectomy and continues to have oozing around the surgical wound. On physical exam her wound is mostly intact with an area on the left lateral side that is oozing a small amount of blood. I discussed it with [employer], and we will try to cauterize with silver nitrate and place a pressure dressing. Will discharge at that time with precautions return for worsening or changing symptoms. Discharge Plan Discharge Patient Disposition: Home Clinical Impression: Encounter for wound care Condition: Stable Prescriptions: No Action omeprazole 20 mg tablet,delayed release (DR/EC) 20 mg PO BID 0RF metoprolol tartrate 25 mg tablet 25 mg PO BID Qty: 180 3RF sulfasalazine 500 mg tablet 1 g PO TID Qty: 180 2RF magnesium oxide 400 mg magnesium capsule 400 mg PO DAILY Qty: 90 3RF potassium gluconate 595 mg (99 mg) Tablet 595 mg PO DAILY PRN (Reason: hr elevated) 0RF Vitamin D3 4,000 unit Capsule 4,000 unit PO DAILY 0RF prednisone 5 mg Tablet 5 mg PO DAILY 0RF tranexamic acid [Lysteda] 650 mg tablet 1,300 mg PO TID PRN (Reason: Bleeding) 0RF ibuprofen 800 mg tablet 800 mg PO TID PRN (Reason: pain) Qty: 60 0RF hydrocodone-acetaminophen 5-325 mg tablet 1 tab PO Q4H PRN (Reason: pain) Qty: 30 0RF Colace 100 mg capsule 100 mg PO BID Qty: 60 0RF acetaminophen 325 mg capsule 325 mg PO Q4H PRN (Reason: fever or pain) Qty: 60 0RF Discharge Orders: Discharge ED (Routine); Ordered 12/10/21 Ordered By: Jose Beck Referrals: Zahra Medina MD [Primary Care Provider] - Coding Level of Care Code ED Party Plan Sales Director for Chg Fwd Exam Comprehensive
[2021-12-10] MEDS: silver nitrate applicator 1 EACH TOPICAL (18:33)
--- NOTE | 2021-12-10 18:34 | PC.NURSE ---
Pressure dressing applied by Dr. Beck.
[2021-12-10 18:38] VITALS: BP 115/44; PULSE 70; RESP 15; O2SAT 97
== END 2021-12-10 18:39 | disposition home or self-care (01) ==
PROVIDERS: Emergency Provider Emergency Medicine; PCP Family Medicine
DX: Z48.01 Encounter for change or removal of surgical wound dressing (principal); Z98.890 Other specified postprocedural states; Z90.710 Acquired absence of both cervix and uterus
CPT/HCPCS: 99283

== ENCOUNTER → 2021-12-12 09:19 | Outpatient (BNVA) | payer MEDICAID, SELFPAY | PROVIDERS: PCP Family Medicine; Visit Provider Obstetrics & Gynecology | DX: T81.40XA Infection following a procedure, unspecified, initial encounter (principal); T81.31XA Disruption of external operation (surgical) wound, not elsewhere classified, initial encounter; Y83.8 Other surgical procedures as the cause of abnormal reaction of the patient, or of later complication, without mention of misadventure at the time of the procedure | CPT/HCPCS: 85025 ==

== ENCOUNTER 2021-12-15 13:46 | Oncology outpatient (recurring) (ONCR) | payer MEDICAID, SELFPAY ==
--- NOTE | 2021-11-30 15:27 | P.ANESASSM_ITS ---
Pre-Anesthetic Assessment Height/Weight: Height 1.63 m Preop Diagnosis: abnormal uterine bleeding, uterine leiomyoma Familial anesthetic complications: none Was Beta Lelo taken within 24 hours: Yes Was Clonidine taken within 24 hours: N/A Social No alcohol and No tobacco Exam alert, oriented x 3, clear to auscultation bilaterally and regular rate & rhythm Airway Submandibular: within normal limits Cervical ROM: within normal limits Mallampati: Class II Dentition: chipped Pulmonary None reported CV/HEM Anemia, Arrythmia (Hx of SVT, no hx of syncope, not exercised induced, unknow cause per patient ) and Hypertension adenomyosis Hepatic None reported GI Gastroesophageal Reflux Disease Metabolic None reported Musc/skel Lower Back Pain, Osteoarthritis/DJD and Rheumatoid Arthritis MEME positive 5 mg prednisone daily Spondylosis Chronic pain contract in place Neuropsych None reported Anesthetic Plan ASA status: 3 (56 year old female with RA, HTN, GERD, SVT, lichen planus, 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 Patient consents to proceed with general anesthesia. Risk of > 500 ml blood loss (7ml/kg in children): No Medications/Allergies Home Medications Medication Instructions Recorded Confirmed Last Taken Type omeprazole 20 mg tablet,delayed 20 mg PO BID 07/28/19 11/30/21 01/10/21 History release cholecalciferol (vitamin D3) 100 4,000 unit PO DAILY 09/18/19 11/30/21 01/10/21 History mcg (4,000 unit) capsule (Vitamin D3) potassium gluconate 595 mg (99 mg) 595 mg PO DAILY PRN 09/18/19 11/30/21 01/10/21 History tablet metoprolol tartrate 25 mg tablet 25 mg PO BID #180 tab 01/20/21 11/30/21 Unknown Rx sulfasalazine 500 mg tablet 1 g PO TID #180 tab 06/29/21 11/30/21 Unknown Rx magnesium oxide 400 mg PO DAILY #90 cap 10/18/21 11/30/21 Unknown Rx prednisone 5 mg tablet 5 mg PO DAILY 11/30/21 11/30/21 Unknown History tranexamic acid 650 mg tablet 1,300 mg PO TID PRN 11/30/21 11/30/21 Unknown History (Lysteda) Allergies Allergy/AdvReac Type Severity Reaction Status Date / Time No Known Allergies Allergy Verified 11/30/21 14:36 [facility] Anesthesia Medical History MEME positive Chronic thoracic spine pain Current chronic use of systemic steroids Encounter for long-term (current) use of NSAIDs GERD (gastroesophageal reflux disease) Hypertension Lichen planus Long-term use of high-risk medication Other iron deficiency anemias Pain management contract signed Paroxysmal supraventricular tachycardia Raynaud's phenomenon Rheumatoid arthritis Spondylosis THORACIC AND LUMBAR Surgical History History of hand surgery (~1997) History of hysteroscopy (09/23/19) Hysteroscopy, D&C, Buttock biopsy. Performed by Dr. Rock at [facility] in [place], [place]. History of lumpectomy of left breast (06/27/17) Hx of section X5 Family History Father Diabetes Mother Hypertension Grandmother Stroke Grandfather Cancer Liver cancer Other Liver disease Female Reproductive History Date of last menstrual period: 11/22/21 Data Anesthesia Cardiac Studies: No Data to Display
[2021-12-15 15:22] LABS: Basophils % 0.6 %; Eosinophils # 0.3 10^3/uL (0.0-0.8); Eosinophils % 7.4 %; Hematocrit 32.8 % (37.0-47.0); Hemoglobin 10.7 g/dL (11.5-15.3); Lymphocytes # 0.5 10^3/uL (0.8-4.8); Lymphocytes % 14.3 %; Mean Corpuscular HGB Conc 32.6 g/dL (30.0-36.0); Mean Corpuscular Hemoglobin 32.6 pg (28.0-34.0); Mean Platelet Volume 10.9 fL (7.4-10.4); Monocytes # 0.2 10^3/uL (0.2-0.9); Monocytes % 5.4 %; Neutrophils # 2.51 10^3/uL (1.8-7.7); Neutrophils % 71.7 %; Nucleated Red Blood Cells % 0 %; Platelet Count 254 10^3/cmm (130-400); Red Blood Count 3.28 10^6/uL (4.1-5.3); Red Cell Distribution Width 20.5 % (12.1-15.1); White Blood Count 3.5 10^3/uL (4.0-10.0)
[2021-12-15 15:43] LABS: Ferritin 292 ng/mL (15-150); Iron 75 ug/dL (37-145); Percent Saturation 29.5 % (20-50); Total Iron Binding Capacity 254 mcg/dl; Unsaturated Iron Binding 179 ug/dL (112-347)
== END 2021-12-29 23:59 | disposition home or self-care (01) ==
LOC: ONCMED 13:47
PROVIDERS: PCP Family Medicine; Visit Provider Internal Medicine Medical Oncology
DX: D69.6 Thrombocytopenia, unspecified (principal)
CPT/HCPCS: 36415; 82728; 83540; 83550; 85025; 87070; 87075; 87077; 87184; 87205

== ENCOUNTER → 2021-12-16 08:31 | Outpatient (BNVA) | payer MEDICAID, SELFPAY | PROVIDERS: PCP Family Medicine; Visit Provider Nurse Practitioner Family | DX: T81.31XA Disruption of external operation (surgical) wound, not elsewhere classified, initial encounter (principal); Y83.8 Other surgical procedures as the cause of abnormal reaction of the patient, or of later complication, without mention of misadventure at the time of the procedure | CPT/HCPCS: 11042 ==

== ENCOUNTER → 2021-12-23 09:01 | Outpatient (BNVA) | payer MEDICAID, SELFPAY | PROVIDERS: PCP Family Medicine; Visit Provider Nurse Practitioner Family | DX: I96 Gangrene, not elsewhere classified (principal); T81.31XA Disruption of external operation (surgical) wound, not elsewhere classified, initial encounter; Y83.8 Other surgical procedures as the cause of abnormal reaction of the patient, or of later complication, without mention of misadventure at the time of the procedure | CPT/HCPCS: 11042; 11045 ==

== ENCOUNTER → 2021-12-30 15:07 | Outpatient (BNVA) | payer MEDICAID, SELFPAY | PROVIDERS: PCP Family Medicine; Visit Provider Surgery | DX: T81.31XA Disruption of external operation (surgical) wound, not elsewhere classified, initial encounter (principal); Y83.8 Other surgical procedures as the cause of abnormal reaction of the patient, or of later complication, without mention of misadventure at the time of the procedure; I96 Gangrene, not elsewhere classified | CPT/HCPCS: 11042; 11045; 87086 ==

== ENCOUNTER → 2022-01-06 13:59 | Outpatient (BNVA) | payer MEDICAID, SELFPAY | PROVIDERS: PCP Family Medicine; Visit Provider Surgery | DX: I96 Gangrene, not elsewhere classified (principal); T81.31XA Disruption of external operation (surgical) wound, not elsewhere classified, initial encounter; Y83.8 Other surgical procedures as the cause of abnormal reaction of the patient, or of later complication, without mention of misadventure at the time of the procedure | CPT/HCPCS: 11043; 11046 ==

== ENCOUNTER 2022-01-13 07:37 | Outpatient (CLI) | payer MEDICAID, SELFPAY ==
[2022-01-13] MEDS: barium sulfate 450 mL Oral Susp PO (08:08)
--- NOTE | 2022-01-13 09:00 | CT_ITS ---
WS: [id number] CT ABDOMEN AND PELVIS WITH CONTRAST HISTORY: Midline pelvic wound from prior hysterectomy. TECHNIQUE: Imaging performed of the abdomen and pelvis with IV contrast. Single phase imaging of the abdomen. Coronal and sagittal reformats are submitted. All CT scans at [facility] use at [facility] one of these dose optimization techniques: automated exposure control; mA and/or kV adjustment per patient size (includes targeted exams where dose is matched to clinical indication); or iterative re construction. IV CONTRAST: Omnipaque 350; 95 mL IV. Oral contrast: Yes. DLP: 1248.43 mGy.cm COMPARISON: None available. Lower thorax: Benign granuloma RIGHT lower lobe. No pneumonia. No effusion. Heart is normal size. Sma ll hiatal hernia. Liver/biliary system: Normal size with no intrahepatic dilatation. Normal portal vein. Gallbladder: Normal. No gallstones or wall thickening. No pericholecystic fluid. Pancreas: Normal size pancreas and pancreatic duct. No adjacent inflammation. Spleen: Normal size spleen. No mass or infarct. Adrenal glands: Normal. Right kidney: Normal size RIGHT kidney. 12 x 14 mm cyst in the mid kidney. No obstruction. Left kidney: Normal. Aorta: Normal. Lymphadenopathy: None. Free fluid: None. GI tract: Unremarkable. Abdominal wall: Unremarkable abdominal wall. No hernia. Pelvis: Urinary bladder is well distended. There are postsurgical changes noted along the anterior pe lvic wall at the level of the urinary bladder from the prior recent hysterectomy. There is continued soft tissue thickening with stranding and thickening along the inferior rectus abdominal muscles. The re is a focal area of soft tissue thickening which extends to involve the superficial surface of the urinary bladder at the surgical site. There is slight tethering and retraction of the urinary bladder wall. There is mild thickening that extends along the middle umbilical ligament to the urinary bladd er. There is no drainable fluid collection and no abscess identified. Bones: Unremarkable. CT/CT abdomen pelvis w con* [id number] IMPRESSION: 1. Postsurgical changes involving the anterior pelvis with mild thickening of the distal rectus abdominis muscles and the soft tissues. 2. There is a focal area of mild enhancement and increased thickening involvin g the anterior bladder wall with some very mild tethering with distraction towa rds the surgical site. No abscess. No free fluid. The bladder wall thickening a nd tethering is inseparable from the postsurgical changes along the midline wit h mild thickening of the middle umbilical ligament. Postsurgical scarring and m ild inflammation. Due to the distortion and retraction of the bladder. Possibil ity of a suture along the midline may be partially contacting the bladder cause d causing retraction. The intraluminal contents of the urinary bladder are well distended with no air. 3. Prior hysterectomy. No additional abnormalities.
[2022-01-13] MEDS: iohexol 350 mg/mL 100 mL Btl IV (09:54)
== END 2022-01-13 07:38 | disposition home or self-care (01) ==
PROVIDERS: PCP Family Medicine; Visit Provider Obstetrics & Gynecology
DX: T81.31XA Disruption of external operation (surgical) wound, not elsewhere classified, initial encounter (principal)
CPT/HCPCS: 74177

== ENCOUNTER 2022-01-13 13:57 | Emergency (ER) | payer MEDICAID, SELFPAY ==
[2022-01-13 14:06] VITALS: BP 125/84; PULSE 90; RESP 18; TEMP 36.1; O2SAT 98
--- NOTE | 2022-01-13 18:39 | ED_ITS ---
Documented by User: [email or web address] Moreno 01/15/22 00:47 HPI - Nausea/Vomiting/Diarrhea General: Chief complaint: Nausea/Vomiting/Diarrhea Stated complaint: Wound Care sent to get evaluated Time Seen by Provider: 01/13/22 18:11 History of Present Illness: Patient is a 56-year-old female comes to the ED with nausea/vomiting and surgical incision site that is not healing. Patient says her nausea and vomiting started today. She has not been able to keep any food down. She has been able to tolerate some p.o. fluids. She had multiple episodes of emesis. Patient had a abdominal hysterectomy done on December 06, 2021. Her surgical incision site was not healing up well after procedure and she was referred to wound care for treatment and has seen them multiple times over the past month. Her surgical incision site is still not healing well and is very painful tender to the touch. She has yellow and bloody drainage from incision site. Denies any fevers. Patient does also endorse having some dysuria but denies any hematuria. Her dysuria has been going on for the past couple weeks ever since she discharged from hospital. Associated nausea: Yes Associated symtoms: Reports dysuria and nausea; Denies change in vision, chest pain, fatigue, headache(s) or palpitations Review of Systems Const: Denies: fever(s), chills or fatigue Eyes: Denies: change in vision or eye discomfort ENMT: Denies: throat pain, odynophagia, nasal discharge or nasal congestion Card: Denies: chest pain, palpitations, edema, swelling of feet/ankles, dyspnea on exertion or orthopnea Resp: Denies: dyspnea, productive cough or non-productive cough GI: Reports: nausea and vomiting; Denies: abdominal pain, diarrhea, constipation or hematochezia : Reports: dysuria; Denies: flank pain or hematuria Musc: Denies: neck pain, back pain or extremity swelling Skin/Breast: Reports: surgical incision (Nonhealing abdominal surgical incision); Denies: rash or new lesions Neuro: Denies: headache(s), numbness in extremities or weakness in extremities [facility] ED PFSH: Medical History MEME positive Chronic thoracic spine pain Current chronic use of systemic steroids Encounter for long-term (current) use of NSAIDs GERD (gastroesophageal reflux disease) Hypertension Lichen planus Long-term use of high-risk medication No pertinent past medical history Denies diabetes, asthma, hypertension, seizures, DVT/PE PCP: None Other iron deficiency anemias Pain management contract signed Paroxysmal supraventricular tachycardia Managed by Dr. Hoskins/Dr. Maxwell in cardiology Raynaud's phenomenon Rheumatoid arthritis Diagnosed in 2004 and is managed by rheumatology Dr. Peck Spondylosis THORACIC AND LUMBAR Surgical History History of hand surgery (~1997) History of hysteroscopy (09/23/19) Hysteroscopy, D&C, Buttock biopsy. Performed by Dr. Rock at [facility] in [place], [place]. History of lumpectomy of left breast (06/27/17) Hx of section X5 Status post hysterectomy 12/06/2021--total abdominal hysterectomy with bilateral salpingectomy for abnormal uterine bleeding by Dr. Rowland at [facility] Family History Father Diabetes Heart disease Mother Hypertension Thyroid condition Heart disease Grandmother Stroke paternal Heart disease paternal Grandfather Thyroid condition maternal Family/Other Thyroid condition maternal aunt Denies family history of Colon cancer Ovarian cancer Hyperlipidemia Breast cancer Uterine cancer Social History Smoking and tobacco status: former smoker Second hand smoke exposure: No Alcohol intake: never History of recent travel: No Female Reproductive History: Date of last menstrual period: 11/22/21 Physical Exam Const: COMMON NORMALS: patient oriented x3 and alert GENERAL APPEARANCE: cooperative HENMT: COMMON NORMALS: normocephalic HEAD & SCALP: normocephalic MOUTH: Normal oral and palatal mucosa present THROAT: posterior oropharynx normal and uvula midline Neck/C-Spine: COMMON NORMALS: supple GENERAL: Yes normal visual inspection Resp: COMMON NORMALS: normal respiratory effort, No retractions, No use of accessory muscles and clear to auscultation bilaterally AUSCULTATION: clear to auscultation bilaterally Cardio: COMMON NORMALS: regular rate, regular rhythm, S1 normal heart sound present, S2 normal heart sound present, No gallops present (Cardio), No clicks present (Cardio), No murmurs present (Cardio) and Peripheral pulses 2+ throughout RATE: regular rate RHYTHM: regular rhythm HEART SOUNDS: S1 normal heart sound present and S2 normal heart sound present PERIPHERAL PULSES: Peripheral pulses 2+ throughout GI: COMMON NORMALS: Normal to inspection, nondistended, normoactive bowel sounds present, Soft to palpation, non-tender and no masses INSPECTION: Yes incision Inspection of incision: drainage ( Lower abdominal incision site-open w/ bloody and yellow drainage) PALPATION: Yes Soft to palpation OTHER: Surgical incision site on abdomen is still open and yellow and bloody drainage present. Tenderness around incision site. : COMMON NORMALS: Yes no CVA tenderness BLADDER/KIDNEY EXAM: Yes no CVA tenderness Back/Pelvis: COMMON NORMALS: no CVA tenderness Extremity: COMMON NORMALS: normal to inspection Neuro: COMMON NORMALS: patient oriented x3 and moves all extremities SENSORIUM/ORIENTATION: Yes alert Skin: NARRATIVE SKIN EXAM: Surgical incision site on abdomen is still open and yellow and bloody drainage present. Tenderness around incision site. GENERAL SKIN EXAM: dry skin Course Vital Signs: Vital signs: Vital Signs Temperature 97.0 F L 01/13/22 14:06 Pulse Rate 90 01/13/22 14:06 Respiratory Rate 18 01/13/22 14:06 Blood Pressure 120/84 01/13/22 21:01 Pulse Oximetry 98 01/13/22 14:06 MDM - Nausea/Vomiting/Diarrhea Medical Decision Making Patient is a 56-year-old female comes to the ED with nausea/vomiting and surgical incision site that is not healing. Patient says her nausea and vomiting started today. She has not been able to keep any food down. She has been able to tolerate some p.o. fluids. She had multiple episodes of emesis. Patient had a abdominal hysterectomy done on December 06, 2021. Her surgical incision site was not healing up well after procedure and she was referred to wound care for treatment and has seen them multiple times over the past month. Vitals are stable and patient is afebrile. Potassium of 3.3 with the rest of her CBC, UA CMP were unremarkable. Blood culture and wound culture pending. Patient had a outpatient CT of her abdomen done earlier today before coming to the ED. Patient highlighted some postop healing with scar tissue and adhesions noted from bladder wall. No other acute findings noted. Patient was given IV fluids and Zofran and her symptoms improved and nausea and vomiting was controlled. She was given a dose of Rocephin and potassium here in the ED. She was stable for discharge home and diagnosed with nausea and vomiting and problem involving surgical incision. She was sent home with a prescription for nausea medicine and clindamycin. Strict return to ED precautions given. She was told to follow-up with the surgeon in the next 3 to 5 days for reevaluation. Patient understood and agreed with plan. Lab Data I reviewed the patient's lab results. : 01/13/22 19:12 01/13/22 19:12 Laboratory Results WBC 2.5 10^3/uL (4.0-10.0) L 01/13/22 19:12 RBC 4.70 10^6/uL (4.1-5.3) 01/13/22 19:12 Hgb 14.7 g/dL (11.5-15.3) 01/13/22 19:12 Hct 45.6 % (37.0-47.0) 01/13/22 19:12 MCV 97.0 fl (81-99) 01/13/22 19:12 MCH 31.3 pg (28.0-34.0) 01/13/22 19:12 MCHC 32.2 g/dL (30.0-36.0) 01/13/22 19:12 RDW 14.6 % (12.1-15.1) 01/13/22 19:12 Plt Count 155 10^3/cmm (130-400) 01/13/22 19:12 MPV 12.3 fL (7.4-10.4) H 01/13/22 19:12 Neut % (Auto) 43.2 % 01/13/22 19:12 Lymph % (Auto) 42.0 % 01/13/22 19:12 Cochran % (Auto) 8.0 % 01/13/22 19:12 Eos % (Auto) 6.0 % 01/13/22 19:12 Baso % (Auto) 0.4 % 01/13/22 19:12 Neut # (Auto) 1.08 10^3/uL (1.8-7.7) L 01/13/22 19:12 Lymph # (Auto) 1.1 10^3/uL (0.8-4.8) 01/13/22 19:12 Cochran # (Auto) 0.2 10^3/uL (0.2-0.9) 01/13/22 19:12 Eos # (Auto) 0.2 10^3/uL (0.0-0.8) 01/13/22 19:12 Baso # (Auto) 0.0 10^3/uL (0.0-0.1) 01/13/22 19:12 Nucleated RBC % (auto) 0 % 01/13/22 19:12 Nucleated RBCs # 0.0 /100WBC 01/13/22 19:12 Sodium 138 mmol/L (136-145) 01/13/22 19:12 Potassium 3.3 mmol/L (3.5-5.1) L 01/13/22 19:12 Chloride 100 mmol/L (98-107) 01/13/22 19:12 Carbon Dioxide 27 mmol/L (22-29) 01/13/22 19:12 Anion Gap 14.3 (5-19) 01/13/22 19:12 BUN 11 mg/dL (6-20) 01/13/22 19:12 Creatinine 0.8 mg/dL (0.5-0.9) 01/13/22 19:12 GFR Calculation 74.7 mL/min (90-130) L 01/13/22 19:12 Glucose 96 mg/dL (65-115) 01/13/22 19:12 Calculated Osmolality 285 mOsm/kg (285-295) 01/13/22 19:12 Calcium 9.4 mg/dL (8.5-10.5) 01/13/22 19:12 Total Bilirubin 0.5 mg/dL (0.15-1.2) 01/13/22 19:12 AST 38 U/L (0-32) H 01/13/22 19:12 ALT 37 U/L (0-33) H 01/13/22 19:12 Alkaline Phosphatase 63 IU/L (35-105) 01/13/22 19:12 Total Protein 7.5 g/dL (6.6-8.7) 01/13/22 19:12 Albumin 5.2 g/dL (3.5-5.2) 01/13/22 19:12 Globulin 2.3 g/dL (1.3-4.6) 01/13/22 19:12 Lipase 57 U/L (13-60) 01/13/22 19:12 Urine Color Yellow (Yellow) 01/13/22 19:08 Urine Appearance Clear (CLEAR) 01/13/22 19:08 Urine pH 6.5 (5-7) 01/13/22 19:08 Ur Specific [place] 1.010 (1.005-1.030) 01/13/22 19:08 Urine Protein Trace (Negative) 01/13/22 19:08 Urine Glucose (UA) Norm (Normal) 01/13/22 19:08 Urine Ketones 1+ (Negative) H 01/13/22 19:08 Urine Blood Neg (Negative) 01/13/22 19:08 Urine Nitrate Negative (Negative) 01/13/22 19:08 Urine Bilirubin 1+ (Negative) H 01/13/22 19:08 Urine Urobilinogen Norm mg/dL (Negative) 01/13/22 19:08 Ur Leukocyte Esterase Trace (Negative) H 01/13/22 19:08 Urine RBC 0-4 /hpf (0-2) H 01/13/22 19:08 Urine WBC 5-10 /hpf (0-5) H 01/13/22 19:08 Ur Squamous Epith Cells 15-25 /hpf (0-5) H 01/13/22 19:08 Amorphous Sediment Not Reportable 01/13/22 19:08 Urine Bacteria Trace /hpf (NONE) 01/13/22 19:08 Discharge Plan Discharge Patient Disposition: Home Clinical Impression: Problem involving surgical incision Nausea and vomiting Qualifiers: Vomiting type: unspecified Qualified Code(s): R11.2 - Nausea with vomiting, unspecified Condition: Stable Prescriptions: New clindamycin HCl 150 mg capsule 300 mg PO QID 7 Days Qty: 56 0RF ondansetron 4 mg tablet,disintegrating 4 mg PO Q8H PRN (Reason: nausea and vomiting) Qty: 20 0RF No Action omeprazole 20 mg tablet,delayed release (DR/EC) 20 mg PO BID 0RF metoprolol tartrate 25 mg tablet 25 mg PO BID Qty: 180 3RF cephalexin 500 mg capsule 500 mg PO BID 10 Days Qty: 20 0RF lidocaine 5 % gel 1 ea topical DAILY Qty: 113 1RF sulfasalazine 500 mg tablet 1 g PO TID Qty: 180 2RF ciprofloxacin HCl 500 mg tablet 500 mg PO BID Qty: 20 0RF hydrocodone-acetaminophen 7.5-325 mg tablet 1 tab PO Q4H PRN (Reason: pain) 7 Days Qty: 30 0RF sodium chloride [Sterile Saline] 0.9 % solution 1 irrig irrigation DAILY PRN (Reason: wound care) Qty: 1000 0RF sulfamethoxazole-trimethoprim [Bactrim DS] 800-160 mg tablet 1 tab PO BID Qty: 14 0RF potassium gluconate 595 mg (99 mg) Tablet 595 mg PO DAILY PRN (Reason: hr elevated) 0RF prednisone 5 mg Tablet 5 mg PO DAILY 0RF ibuprofen 800 mg tablet 800 mg PO TID PRN (Reason: pain) Qty: 60 0RF hydrocodone-acetaminophen 5-325 mg tablet 1 tab PO Q4H PRN (Reason: pain) Qty: 30 0RF Hold Instructions: Dose Change Colace 100 mg capsule 100 mg PO BID Qty: 60 0RF acetaminophen 325 mg capsule 325 mg PO Q4H PRN (Reason: fever or pain) Qty: 60 0RF Discharge Orders: Discharge ED (Routine); Ordered 01/13/22 Ordered By: Shahram Laughlin Referrals: Zahra Medina MD [Primary Care Provider] - Discharge Diet: Advance as tolerated and Clear Liquid Discharge Activity: Increase activity as tolerated Activity Restrictions/Additional Instructions: Call Dr. Rowland on Sunday morning to set up follow-up appointment and to discuss CT results. Clear liquid diet for the next 24 hours and slowly advance diet as tolerated. Take medications as prescribed. Return to the ER or your medical provider if condition worsens or you develop a fever Please read and understand discharge instructions. Thank you for choosing [facility] for your healthcare needs today. Please realize this is an emergency room and that we are providing you with a medical screening exam and this may not be complete and all inclusive of all the testing and or work up that you may need to determine your ailment or severity of your illness. It is very important that you follow up as instructed or that you return to the Emergency Department should you have concerns or if your con dition changes or worsens in any way. Coding Level of Care Code ED Wan Support Specialist for Chg Fwd Exam Comprehensive Documented by User: Kalpesh Park DO 01/15/22 02:10 HPI - Nausea/Vomiting/Diarrhea General: Chief complaint: Nausea/Vomiting/Diarrhea Stated complaint: Wound Care sent to get evaluated Time Seen by Provider: 01/13/22 18:11 PFSH ED PFSH: Medical History MEME positive Chronic thoracic spine pain Current chronic use of systemic steroids Encounter for long-term (current) use of NSAIDs GERD (gastroesophageal reflux disease) Hypertension Lichen planus Long-term use of high-risk medication No pertinent past medical history Denies diabetes, asthma, hypertension, seizures, DVT/PE PCP: None Other iron deficiency anemias Pain management contract signed Paroxysmal supraventricular tachycardia Managed by Dr. Hoskins/Dr. Maxwell in cardiology Raynaud's phenomenon Rheumatoid arthritis Diagnosed in 2004 and is managed by rheumatology Dr. Peck Spondylosis THORACIC AND LUMBAR Surgical History History of hand surgery (~1997) History of hysteroscopy (09/23/19) Hysteroscopy, D&C, Buttock biopsy. Performed by Dr. Rock at [facility] in [place], [place] History of lumpectomy of left breast (06/27/17) Hx of section X5 Status post hysterectomy 12/06/2021--total abdominal hysterectomy with bilateral salpingectomy for abnormal uterine bleeding by Dr. Rowland at [facility] Family History Father Diabetes Heart disease Mother Hypertension Thyroid condition Heart disease Grandmother Stroke paternal Heart disease paternal Grandfather Thyroid condition maternal Family/Other Thyroid condition maternal aunt Denies family history of Colon cancer Ovarian cancer Hyperlipidemia Breast cancer Uterine cancer Social History Smoking and tobacco status: former smoker Second hand smoke exposure: No Alcohol intake: never History of recent travel: No Course Vital Signs: Vital signs: Vital Signs Temperature 97.0 F L 01/13/22 14:06 Pulse Rate 90 01/13/22 14:06 Respiratory Rate 18 01/13/22 14:06 Blood Pressure 120/84 01/13/22 21:01 Pulse Oximetry 98 01/13/22 14:06 MDM - Nausea/Vomiting/Diarrhea Medical Decision Making Patient is a 56-year-old female comes to the ED with nausea/vomiting and surgical incision site that is not healing. Patient says her nausea and vomiting started today. She has not been able to keep any food down. She has been able to tolerate some p.o. fluids. She had multiple episodes of emesis. Patient had a abdominal hysterectomy done on December 06, 2021. Her surgical incision site was not healing up well after procedure and she was referred to wound care for treatment and has seen them multiple times over the past month. Vitals are stable and patient is afebrile. Potassium of 3.3 with the rest of her CBC, UA CMP were unremarkable. Blood culture and wound culture pending. Patient had a outpatient CT of her abdomen done earlier today before coming to the ED. Patient highlighted some postop healing with scar tissue and adhesions noted from bladder wall. No other acute findings noted. Patient was given IV fluids and Zofran and her symptoms improved and nausea and vomiting was controlled. She was given a dose of Rocephin and potassium here in the ED. She was stable for discharge home and diagnosed with nausea and vomiting and problem involving surgical incision. She was sent home with a prescription for nausea medicine and clindamycin. Strict return to ED precautions given. She was told to follow-up with the surgeon in the next 3 to 5 days for reevaluation. Patient understood and agreed with plan. This patient was originally seen by Mr. Truman PA-C.? I agree with his history, evaluation, and treatment. Lab Data : 01/13/22 19:12 01/13/22 19:12 Laboratory Results WBC 2.5 10^3/uL (4.0-10.0) L 01/13/22 19:12 RBC 4.70 10^6/uL (4.1-5.3) 01/13/22 19:12 Hgb 14.7 g/dL (11.5-15.3) 01/13/22 19:12 Hct 45.6 % (37.0-47.0) 01/13/22 19:12 MCV 97.0 fl (81-99) 01/13/22 19:12 MCH 31.3 pg (28.0-34.0) 01/13/22 19:12 MCHC 32.2 g/dL (30.0-36.0) 01/13/22 19:12 RDW 14.6 % (12.1-15.1) 01/13/22 19:12 Plt Count 155 10^3/cmm (130-400) 01/13/22 19:12 MPV 12.3 fL (7.4-10.4) H 01/13/22 19:12 Neut % (Auto) 43.2 % 01/13/22 19:12 Lymph % (Auto) 42.0 % 01/13/22 19:12 Cochran % (Auto) 8.0 % 01/13/22 19:12 Eos % (Auto) 6.0 % 01/13/22 19:12 Baso % (Auto) 0.4 % 01/13/22 19:12 Neut # (Auto) 1.08 10^3/uL (1.8-7.7) L 01/13/22 19:12 Lymph # (Auto) 1.1 10^3/uL (0.8-4.8) 01/13/22 19:12 Cochran # (Auto) 0.2 10^3/uL (0.2-0.9) 01/13/22 19:12 Eos # (Auto) 0.2 10^3/uL (0.0-0.8) 01/13/22 19:12 Baso # (Auto) 0.0 10^3/uL (0.0-0.1) 01/13/22 19:12 Nucleated RBC % (auto) 0 % 01/13/22 19:12 Nucleated RBCs # 0.0 /100WBC 01/13/22 19:12 Sodium 138 mmol/L (136-145) 01/13/22 19:12 Potassium 3.3 mmol/L (3.5-5.1) L 01/13/22 19:12 Chloride 100 mmol/L (98-107) 01/13/22 19:12 Carbon Dioxide 27 mmol/L (22-29) 01/13/22 19:12 Anion Gap 14.3 (5-19) 01/13/22 19:12 BUN 11 mg/dL (6-20) 01/13/22 19:12 Creatinine 0.8 mg/dL (0.5-0.9) 01/13/22 19:12 GFR Calculation 74.7 mL/min (90-130) L 01/13/22 19:12 Glucose 96 mg/dL (65-115) 01/13/22 19:12 Calculated Osmolality 285 mOsm/kg (285-295) 01/13/22 19:12 Calcium 9.4 mg/dL (8.5-10.5) 01/13/22 19:12 Total Bilirubin 0.5 mg/dL (0.15-1.2) 01/13/22 19:12 AST 38 U/L (0-32) H 01/13/22 19:12 ALT 37 U/L (0-33) H 01/13/22 19:12 Alkaline Phosphatase 63 IU/L (35-105) 01/13/22 19:12 Total Protein 7.5 g/dL (6.6-8.7) 01/13/22 19:12 Albumin 5.2 g/dL (3.5-5.2) 01/13/22 19:12 Globulin 2.3 g/dL (1.3-4.6) 01/13/22 19:12 Lipase 57 U/L (13-60) 01/13/22 19:12 Urine Color Yellow (Yellow) 01/13/22 19:08 Urine Appearance Clear (CLEAR) 01/13/22 19:08 Urine pH 6.5 (5-7) 01/13/22 19:08 Ur Specific [place] 1.010 (1.005-1.030) 01/13/22 19:08 Urine Protein Trace (Negative) 01/13/22 19:08 Urine Glucose (UA) Norm (Normal) 01/13/22 19:08 Urine Ketones 1+ (Negative) H 01/13/22 19:08 Urine Blood Neg (Negative) 01/13/22 19:08 Urine Nitrate Negative (Negative) 01/13/22 19:08 Urine Bilirubin 1+ (Negative) H 01/13/22 19:08 Urine Urobilinogen Norm mg/dL (Negative) 01/13/22 19:08 Ur Leukocyte Esterase Trace (Negative) H 01/13/22 19:08 Urine RBC 0-4 /hpf (0-2) H 01/13/22 19:08 Urine WBC 5-10 /hpf (0-5) H 01/13/22 19:08 Ur Squamous Epith Cells 15-25 /hpf (0-5) H 01/13/22 19:08 Amorphous Sediment Not Reportable 01/13/22 19:08 Urine Bacteria Trace /hpf (NONE) 01/13/22 19:08 Discharge Plan Discharge Patient Disposition: Home Clinical Impression: Problem involving surgical incision Nausea and vomiting Qualifiers: Vomiting type: unspecified Qualified Code(s): R11.2 - Nausea with vomiting, unspecified Condition: Stable Prescriptions: New clindamycin HCl 150 mg capsule 300 mg PO QID 7 Days Qty: 56 0RF ondansetron 4 mg tablet,disintegrating 4 mg PO Q8H PRN (Reason: nausea and vomiting) Qty: 20 0RF No Action omeprazole 20 mg tablet,delayed release (DR/EC) 20 mg PO BID 0RF metoprolol tartrate 25 mg tablet 25 mg PO BID Qty: 180 3RF cephalexin 500 mg capsule 500 mg PO BID 10 Days Qty: 20 0RF lidocaine 5 % gel 1 ea topical DAILY Qty: 113 1RF sulfasalazine 500 mg tablet 1 g PO TID Qty: 180 2RF ciprofloxacin HCl 500 mg tablet 500 mg PO BID Qty: 20 0RF hydrocodone-acetaminophen 7.5-325 mg tablet 1 tab PO Q4H PRN (Reason: pain) 7 Days Qty: 30 0RF sodium chloride [Sterile Saline] 0.9 % solution 1 irrig irrigation DAILY PRN (Reason: wound care) Qty: 1000 0RF sulfamethoxazole-trimethoprim [Bactrim DS] 800-160 mg tablet 1 tab PO BID Qty: 14 0RF potassium gluconate 595 mg (99 mg) Tablet 595 mg PO DAILY PRN (Reason: hr elevated) 0RF prednisone 5 mg Tablet 5 mg PO DAILY 0RF ibuprofen 800 mg tablet 800 mg PO TID PRN (Reason: pain) Qty: 60 0RF hydrocodone-acetaminophen 5-325 mg tablet 1 tab PO Q4H PRN (Reason: pain) Qty: 30 0RF Hold Instructions: Dose Change Colace 100 mg capsule 100 mg PO BID Qty: 60 0RF acetaminophen 325 mg capsule 325 mg PO Q4H PRN (Reason: fever or pain) Qty: 60 0RF Discharge Orders: Discharge ED (Routine); Ordered 01/13/22 Ordered By: Shahram Laughlin Referrals: Zahra Medina MD [Primary Care Provider] - Discharge Diet: Advance as tolerated and Clear Liquid Discharge Activity: Increase activity as tolerated Activity Restrictions/Additional Instructions: Call Dr. Rowland on Sunday morning to set up follow-up appointment and to disc uss CT results. Clear liquid diet for the next 24 hours and slowly advance diet as tolerated. Take medications as prescribed. Return to the ER or your medical provider if condition worsens or you develop a fever Please read and understand discharge instructions. Thank you for choosing [facility] for your healthcare needs today. Please realize this is an emergency room and that we are providing you with a medical screening exam and this may not be complete and all inclusive of all the testing and or work up that you may need to determine your ailment or severity of your illness. It is very important that you follow up as instructed or that you return to the Emergency Department should you have concerns or if your condition changes or worsens in any way. Coding Level of Care Code ED Wan Support Specialist for Ad Turner Exam Comprehensive
[2022-01-13 19:25] LABS: Basophils % 0.4 %; Eosinophils # 0.2 10^3/uL (0.0-0.8); Hematocrit 45.6 % (37.0-47.0); Hemoglobin 14.7 g/dL (11.5-15.3); Lymphocytes # 1.1 10^3/uL (0.8-4.8); Mean Corpuscular HGB Conc 32.2 g/dL (30.0-36.0); Mean Corpuscular Hemoglobin 31.3 pg (28.0-34.0); Mean Platelet Volume 12.3 fL (7.4-10.4); Monocytes # 0.2 10^3/uL (0.2-0.9); Neutrophils # 1.08 10^3/uL (1.8-7.7); Neutrophils % 43.2 %; Nucleated Red Blood Cells % 0 %; Platelet Count 155 10^3/cmm (130-400); Red Cell Distribution Width 14.6 % (12.1-15.1); White Blood Count 2.5 10^3/uL (4.0-10.0)
[2022-01-13] MEDS: ondansetron 2 mg/ML SDV 2 mL 4 MG IVP (19:40)
[2022-01-13] MEDS: sodium chloride 0.9% 1,000 ML 999 ML IV (19:40)
[2022-01-13 19:44] LABS: Add Urine Culture? No; Add Urine Microscopic? YES; Bacteria Urine TRACE /hpf; Bilirubin Urine 1+ (Negative); Blood Urine Neg (Negative); Glucose Urine UA Norm (Normal); Ketones Urine 1+ (Negative); Leukocyte Esterase Urine Trace (Negative); Nitrate Urine Negative (Negative); Protein Urine Trace (Negative); RBC Urine 0-4 /hpf (0-2); Squamous Epithelial Cell Urine 15-25 /hpf (0-5); Urine Appearance Clear (CLEAR); Urine Color Yellow (Yellow); Urobilinogen Urine Norm (Negative); pH Urine 6.5 (5-7)
[2022-01-13 19:49] LABS: Alanine Aminotransferase 37 U/L (0-33); Albumin Level 5.2 g/dL (3.5-5.2); Alkaline Phosphatase 63 IU/L (35-105); Anion Gap 14.3 (5-19); Aspartate Amino Transferase 38 U/L (0-32); Blood Urea Nitrogen 11 mg/dL (6-20); Calcium 9.4 mg/dL (8.5-10.5); Carbon Dioxide 27 mmol/L (22-29); Chloride 100 mmol/L (98-107); Globulin 2.3 g/dL (1.3-4.6); Glomerular Filtration Rate 74.7 mL/min (90-130); Glucose 96 mg/dL (65-115); Lipase 57 U/L (13-60); Osmolality Calculated 285 mOsm/kg (285-295); Potassium 3.3 mmol/L (3.5-5.1); Sodium 138 mmol/L (136-145); Total Bilirubin 0.5 mg/dL (0.15-1.2); Total Protein 7.5 g/dL (6.6-8.7)
[2022-01-13] MEDS: cefTRIAXone 1,000 MG in sodium chloride 0.9% (plus) 50 ML 100 MG IV (20:25)
[2022-01-13 21:01] VITALS: BP 120/84
[2022-01-13] MEDS: potassium chloride ER 20 mEq Tablet PO (21:19)
[2022-01-13] MEDS: metoclopramide 5 mg/mL SDV 2 mL 10 MG IVP (21:19)
== END 2022-01-13 22:37 | disposition home or self-care (01) ==
PROVIDERS: Emergency Provider Physician Assistant; PCP Family Medicine
DX: R11.2 Nausea with vomiting, unspecified (principal); T81.89XA Other complications of procedures, not elsewhere classified, initial encounter; Y83.8 Other surgical procedures as the cause of abnormal reaction of the patient, or of later complication, without mention of misadventure at the time of the procedure
CPT/HCPCS: 80053; 81001; 83690; 85025; 87040; 87070; 87075; 87205; 96374; 96375; 99284; J0696; J2405; J2765; J7030

== ENCOUNTER → 2022-01-20 10:32 | Outpatient (BNVA) | payer MEDICAID, SELFPAY | PROVIDERS: PCP Family Medicine; Visit Provider Nurse Practitioner Family | DX: T81.31XA Disruption of external operation (surgical) wound, not elsewhere classified, initial encounter (principal); Y83.8 Other surgical procedures as the cause of abnormal reaction of the patient, or of later complication, without mention of misadventure at the time of the procedure; I96 Gangrene, not elsewhere classified | CPT/HCPCS: 11042; A6021 ==

== ENCOUNTER → 2022-01-27 13:21 | Outpatient (BNVA) | payer MEDICAID, SELFPAY | PROVIDERS: PCP Family Medicine; Visit Provider Nurse Practitioner Family | DX: I96 Gangrene, not elsewhere classified (principal); L98.492 Non-pressure chronic ulcer of skin of other sites with fat layer exposed | CPT/HCPCS: 11042; A6021 ==

== ENCOUNTER → 2022-02-03 13:46 | Outpatient (BNVA) | payer MEDICAID, SELFPAY | PROVIDERS: PCP Family Medicine; Visit Provider Nurse Practitioner Family | DX: T81.31XA Disruption of external operation (surgical) wound, not elsewhere classified, initial encounter (principal); Y83.8 Other surgical procedures as the cause of abnormal reaction of the patient, or of later complication, without mention of misadventure at the time of the procedure; I96 Gangrene, not elsewhere classified; L98.492 Non-pressure chronic ulcer of skin of other sites with fat layer exposed | CPT/HCPCS: 11042; 87070; 87176; 87205 ==

== ENCOUNTER → 2022-02-10 13:33 | Outpatient (BNVA) | payer MEDICAID, SELFPAY | PROVIDERS: PCP Family Medicine; Visit Provider Surgery | DX: T81.31XA Disruption of external operation (surgical) wound, not elsewhere classified, initial encounter (principal); Y83.8 Other surgical procedures as the cause of abnormal reaction of the patient, or of later complication, without mention of misadventure at the time of the procedure; I96 Gangrene, not elsewhere classified | CPT/HCPCS: 11042; A6021 ==

== ENCOUNTER → 2022-02-17 13:48 | Outpatient (BNVA) | payer MEDICAID, SELFPAY | PROVIDERS: PCP Family Medicine; Visit Provider Surgery | DX: T81.31XA Disruption of external operation (surgical) wound, not elsewhere classified, initial encounter (principal); Y83.8 Other surgical procedures as the cause of abnormal reaction of the patient, or of later complication, without mention of misadventure at the time of the procedure; L98.492 Non-pressure chronic ulcer of skin of other sites with fat layer exposed; I96 Gangrene, not elsewhere classified | CPT/HCPCS: 11042; A6021 ==

== ENCOUNTER → 2022-02-24 15:02 | Outpatient (BNVA) | payer MEDICAID, SELFPAY | PROVIDERS: PCP Family Medicine; Visit Provider Surgery | DX: T81.31XD Disruption of external operation (surgical) wound, not elsewhere classified, subsequent encounter (principal); Y83.8 Other surgical procedures as the cause of abnormal reaction of the patient, or of later complication, without mention of misadventure at the time of the procedure; L98.492 Non-pressure chronic ulcer of skin of other sites with fat layer exposed; I96 Gangrene, not elsewhere classified | CPT/HCPCS: 11042; A6021 ==

== ENCOUNTER → 2022-02-28 14:45 | Outpatient (BNVA) | payer MEDICAID, SELFPAY | PROVIDERS: PCP Family Medicine; Visit Provider Nurse Practitioner Family | DX: T81.31XA Disruption of external operation (surgical) wound, not elsewhere classified, initial encounter (principal); Y83.8 Other surgical procedures as the cause of abnormal reaction of the patient, or of later complication, without mention of misadventure at the time of the procedure; I96 Gangrene, not elsewhere classified; L98.492 Non-pressure chronic ulcer of skin of other sites with fat layer exposed | CPT/HCPCS: 11042; A6021 ==

== ENCOUNTER → 2022-03-07 15:05 | Outpatient (BNVA) | payer MEDICAID, SELFPAY | PROVIDERS: PCP Family Medicine; Visit Provider Nurse Practitioner Family | DX: T81.31XA Disruption of external operation (surgical) wound, not elsewhere classified, initial encounter (principal); Y83.8 Other surgical procedures as the cause of abnormal reaction of the patient, or of later complication, without mention of misadventure at the time of the procedure; L98.492 Non-pressure chronic ulcer of skin of other sites with fat layer exposed; I96 Gangrene, not elsewhere classified | CPT/HCPCS: 11042; 87070; 87176; 87205; A6197 ==

== ENCOUNTER 2022-03-13 21:58 | Emergency (ER) | payer MEDICAID, SELFPAY ==
[2022-03-13 22:05] VITALS: BP 127/85; PULSE 183; RESP 20; TEMP 36.4; O2SAT 97
--- NOTE | 2022-03-13 22:11 | ECG_ITS ---
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 Measurements Intervals [place] Rate: 193 P: VT: QRS: 18 QRSD: 75 T: 29 QT: 229 QTc: 411 Interpretive Statements SUPRAVENTRICULAR TACHYCARDIA MODERATE ST DEPRESSION [0.05+ mV ST DEPRESSION] CRITICAL TEST RESULT Compared to ECG 11/30/2021 12:41:28 ST (T wave) deviation now present Sinus bradycardia no longer present Myocardial infarct finding no longer present Electronically Signed On 03-14-2022 18:05:56 CDT by Brianne Downing M.D. [email or web address]
--- NOTE | 2022-03-13 22:24 | W.ED.ARRPALP ---
HPI - Arrhythmia/Palpitations General: Chief Complaint: Arrhythmia/Palpitations Stated Complaint: SVT Attack Time Seen by Provider: 03/13/22 22:03 Source: patient Mode of arrival: ambulatory Limitations: no limitations History of Present Illness: 56-year-old female who has a long history of SVT states she had SVT for roughly 15 years states she is able to converse of at home states has been SVT for roughly 2 to 3 hours has tried multiple attempts and has not been able to convert herself. She is tachycardic here in the 170s she denies any pain she states she has been having a hard time having a surgical incision healed to her abdomen from 1 month ago from a hysterectomy and denies any fever denies any drainage at this time. Associated symptoms: Deny nausea or vomiting Review of Systems Const: Denies: fever(s), chills, body aches or change in appetite Eyes: Denies: blurry vision or eye discomfort ENMT: Denies: throat pain or dental pain Card: Reports: palpitations and irregular heart rhythm Resp: Denies: dyspnea GI: Denies: abdominal pain, nausea, vomiting or diarrhea : Denies: dysuria Musc: Denies: neck pain or back pain Skin/Breast: Denies: rash Neuro: Denies: headache(s) Psych: Denies: depression Kamran/Lymph: Denies: easy bruising All/Imm: Denies: urticaria PFSH ED PFSH: Medical History MEME positive Chronic thoracic spine pain Current chronic use of systemic steroids Encounter for long-term (current) use of NSAIDs GERD (gastroesophageal reflux disease) Hypertension Lichen planus Long-term use of high-risk medication No pertinent past medical history Denies diabetes, asthma, hypertension, seizures, DVT/PE PCP: None Pain management contract signed Paroxysmal supraventricular tachycardia Managed by Dr. Hoskins/Dr. Maxwell in cardiology Raynaud's phenomenon Rheumatoid arthritis Diagnosed in 2004 and is managed by rheumatology Dr. Peck Spondylosis THORACIC AND LUMBAR Surgical History History of hand surgery (~1997) History of hysteroscopy (09/23/19) Hysteroscopy, D&C, Buttock biopsy. Performed by Dr. Rock at [facility] in [place], [place]. History of lumpectomy of left breast (06/27/17) Hx of section X5 Status post hysterectomy 12/06/2021--total abdominal hysterectomy with bilateral salpingectomy for abnormal uterine bleeding by Dr. Rowland at [facility] Family History Father Diabetes Heart disease Mother Hypertension Thyroid condition Heart disease Grandmother Stroke paternal Heart disease paternal Grandfather Thyroid condition maternal Family/Other Thyroid condition maternal aunt Denies family history of Colon cancer Ovarian cancer Hyperlipidemia Breast cancer Uterine cancer Social History Smoking and tobacco status: former smoker Second hand smoke exposure: No Alcohol intake: never History of recent travel: No Female Reproductive History: Date of last menstrual period: 11/22/21 Physical Exam Const: COMMON NORMALS: patient oriented x3 HENMT: COMMON NORMALS: normocephalic and atraumatic HEAD & SCALP: normocephalic and atraumatic Eye: COMMON NORMALS: Equal, round and reactive pupils present and EOMs intact bilaterally PUPIL: Yes Equal, round and reactive pupils present Neck/C-Spine: COMMON NORMALS: full ROM and supple Chest: COMMONS NORMALS: normal inspection of the chest and normal palpation of entire chest wall Resp: COMMON NORMALS: normal respiratory effort, No retractions, No use of accessory muscles and clear to auscultation bilaterally AUSCULTATION: clear to auscultation bilaterally Cardio: COMMON NORMALS: No murmurs present (Cardio) RATE: tachycardic GI: COMMON NORMALS: Normal to inspection, nondistended, normoactive bowel sounds present, Soft to palpation, non-tender and no masses PALPATION: Yes Soft to palpation OTHER: Incision is slightly dehisced but is clean dry and intact no drainage or erythema Extremity: COMMON NORMALS: normal to inspection and full ROM Neuro: COMMON NORMALS: patient oriented x3, moves all extremities and no focal motor deficits Psych: COMMON NORMALS: mental status grossly normal, Normal thought process present and cooperative THOUGHT PROCESS: Normal thought process present Skin: COMMON NORMALS: no rashes or lesions noted and no wounds GENERAL SKIN EXAM: no rashes or lesions noted Course Vital Signs: Vital signs: Vital Signs Temperature 97.6 F 03/13/22 22:05 Pulse Rate 97 03/13/22 22:54 Respiratory Rate 17 03/13/22 22:54 Blood Pressure 107/84 03/13/22 22:54 Pulse Oximetry 99 03/13/22 22:54 Oxygen Delivery Me thod 03/13/22 22:05 MDM - Arrhythmia/Palpitations Medical Decision Making Patient presents here with SVT patient converted here with adenosine she is well-appearing here she is stable for discharge she is to follow-up with PCP and return if worsening she understands agrees to plan. Lab Data : 03/13/22 22:40 Laboratory Results WBC 6.7 10^3/uL (4.0-10.0) 03/13/22 22:40 RBC 5.12 10^6/uL (4.1-5.3) 03/13/22 22:40 Hgb 15.5 g/dL (11.5-15.3) H 03/13/22 22:40 Hct 44.9 % (37.0-47.0) 03/13/22 22:40 MCV 87.7 fl (81-99) 03/13/22 22:40 MCH 30.3 pg (28.0-34.0) 03/13/22 22:40 MCHC 34.5 g/dL (30.0-36.0) 03/13/22 22:40 RDW 12.9 % (12.1-15.1) 03/13/22 22:40 Plt Count 219 10^3/cmm (130-400) 03/13/22 22:40 MPV 11.8 fL (7.4-10.4) H 03/13/22 22:40 Neut % (Auto) 47.5 % 03/13/22 22:40 Lymph % (Auto) 33.0 % 03/13/22 22:40 [place] % (Auto) 7.5 % 03/13/22 22:40 Eos % (Auto) 10.5 % 03/13/22 22:40 Baso % (Auto) 1.2 % 03/13/22 22:40 Neut # (Auto) 3.17 10^3/uL (1.8-7.7) 03/13/22 22:40 Lymph # (Auto) 2.2 10^3/uL (0.8-4.8) 09/12/22 22:40 [place] # (Auto) 0.5 10^3/uL (0.2-0.9) 03/13/22 22:40 Eos # (Auto) 0.7 10^3/uL (0.0-0.8) 03/13/22 22:40 Baso # (Auto) 0.1 10^3/uL (0.0-0.1) 03/13/22 22:40 Nucleated RBC % (auto) 0 % 03/13/22 22:40 Nucleated RBCs # 0.0 /100WBC 03/13/22 22:40 EKG Data EKG 1: I personally reviewed and interpreted this EKG as follows: EKG interpretation date: 03/13/22 EKG interpretation time: 22:11 Interpretation: svt hr [address] or t wave abnormalities qrs 75 qtc 327 Discharge Plan Discharge Patient Disposition: Home Clinical Impression: Supraventricular tachycardia Condition: Stable Prescriptions: No Action omeprazole 20 mg tablet,delayed release (DR/EC) 20 mg PO BID metoprolol tartrate 25 mg tablet 25 mg PO BID Qty: 180 3RF cephalexin 500 mg capsule 500 mg PO BID 10 Days Qty: 20 0RF amoxicillin-pot clavulanate [Augmentin] 500-125 mg tablet 1 tab PO BID Qty: 10 0RF lidocaine 5 % gel 1 ea topical DAILY Qty: 113 1RF fluconazole [Diflucan] 150 mg tablet 150 mg PO DAILY Qty: 3 0RF sulfasalazine 500 mg tablet 1 g PO TID Qty: 180 2RF ciprofloxacin HCl 500 mg tablet 500 mg PO BID Qty: 20 0RF hydrocodone-acetaminophen 7.5-325 mg tablet 1 tab PO Q4H PRN (Reason: pain) 7 Days Qty: 30 0RF sodium chloride [Sterile Saline] 0.9 % solution 1 irrig irrigation DAILY PRN (Reason: wound care) Qty: 1000 0RF sulfamethoxazole-trimethoprim [Bactrim DS] 800-160 mg tablet 1 tab PO BID Qty: 14 0RF potassium gluconate 595 mg (99 mg) Tablet 595 mg PO DAILY PRN (Reason: hr elevated) prednisone 5 mg Tablet 5 mg PO DAILY ibuprofen 800 mg tablet 800 mg PO TID PRN (Reason: pain) Qty: 60 0RF hydrocodone-acetaminophen 5-325 mg tablet 1 tab PO Q4H PRN (Reason: pain) Qty: 30 0RF Hold Instructions: Dose Change Colace 100 mg capsule 100 mg PO BID Qty: 60 0RF acetaminophen 325 mg capsule 325 mg PO Q4H PRN (Reason: fever or pain) Qty: 60 0RF ondansetron 4 mg tablet,disintegrating 4 mg PO Q8H PRN (Reason: nausea and vomiting) Qty: 20 0RF Discharge Orders: Discharge ED (Routine); Ordered 03/13/22 Ordered By: Andrew Reynolds Referrals: Zahra Medina MD [Primary Care Provider] - Discharge Diet: Advance as tolerated Discharge Activity: Resume usual activity Patient Instructions: Supraventricular Tachycardia (ED) Coding Level of Care Code ED Technical Sales Consultant for Ad Fwd Exam Comprehensive
[2022-03-13] MEDS: adenosine 3 mg/mL SDV 2mL 12 MG IVP (22:43)
[2022-03-13 22:44] LABS: Basophils # 0.1 10^3/uL (0.0-0.1); Basophils % 1.2 %; Eosinophils # 0.7 10^3/uL (0.0-0.8); Eosinophils % 10.5 %; Hematocrit 44.9 % (37.0-47.0); Hemoglobin 15.5 g/dL (11.5-15.3); Lymphocytes # 2.2 10^3/uL (0.8-4.8); Mean Corpuscular HGB Conc 34.5 g/dL (30.0-36.0); Mean Corpuscular Hemoglobin 30.3 pg (28.0-34.0); Mean Corpuscular Volume 87.7 fl (81-99); Mean Platelet Volume 11.8 fL (7.4-10.4); Monocytes # 0.5 10^3/uL (0.2-0.9); Monocytes % 7.5 %; Neutrophils # 3.17 10^3/uL (1.8-7.7); Neutrophils % 47.5 %; Nucleated Red Blood Cells % 0 %; Platelet Count 219 10^3/cmm (130-400); Red Blood Count 5.12 10^6/uL (4.1-5.3); Red Cell Distribution Width 12.9 % (12.1-15.1); White Blood Count 6.7 10^3/uL (4.0-10.0)
[2022-03-13] MEDS: sodium chloride 0.9% 1,000 ML 999 ML IV (22:45)
[2022-03-13 22:54] VITALS: BP 107/84; PULSE 97; RESP 17; O2SAT 99
[2022-03-13 23:29] VITALS: BP 105/81; PULSE 94; RESP 19; O2SAT 98
== END 2022-03-13 23:30 | disposition home or self-care (01) ==
PROVIDERS: Emergency Provider Emergency Medicine; PCP Family Medicine
DX: I47.1 Supraventricular tachycardia (principal); Z87.891 Personal history of nicotine dependence; I10 Essential (primary) hypertension
CPT/HCPCS: 85025; 93005; 96361; 96374; 99284; J0153; J7030

== ENCOUNTER 2022-03-21 | Outpatient (CLI) | payer MEDICAID, SELFPAY | END 2022-04-11 23:00 | disposition home or self-care (01) | LOC: RAD 05-02 01:32 | PROVIDERS: Visit Provider Nurse Practitioner Family | DX: T81.31XD Disruption of external operation (surgical) wound, not elsewhere classified, subsequent encounter (principal); Y83.8 Other surgical procedures as the cause of abnormal reaction of the patient, or of later complication, without mention of misadventure at the time of the procedure; L98.492 Non-pressure chronic ulcer of skin of other sites with fat layer exposed; I96 Gangrene, not elsewhere classified | CPT/HCPCS: 11042; A6021 ==

== ENCOUNTER → 2022-04-04 14:02 | Outpatient (BNVA) | payer MEDICAID, SELFPAY | PROVIDERS: PCP Family Medicine; Visit Provider Nurse Practitioner Family | DX: T81.31XA Disruption of external operation (surgical) wound, not elsewhere classified, initial encounter (principal); Y83.8 Other surgical procedures as the cause of abnormal reaction of the patient, or of later complication, without mention of misadventure at the time of the procedure; L98.492 Non-pressure chronic ulcer of skin of other sites with fat layer exposed; I96 Gangrene, not elsewhere classified | CPT/HCPCS: 11042; 87070; 87077; 87176; 87186; 87205 ==

== ENCOUNTER 2022-04-11 13:14 | Outpatient (CLI) | payer MEDICAID, SELFPAY ==
--- NOTE | 2022-04-11 13:00 | CTR_ITS ---
PROCEDURE INFORMATION: Exam: CT Abdomen And Pelvis With Contrast Exam date and time: 04/11/2022 2:00 PM Age: 56 years old Clinical indication: Abdominal pain; Generalized; Prior surgery; Surgery type: Hysterectomy; Patient HX: HX of abdominal hyst 4 months ago. Patient is having recurrent staph infections; Additional info: T81.31xd - disruption of external operation (surgical) wo. . . TECHNIQUE: Imaging protocol: Computed tomography of the abdomen and pelvis with contrast. Radiation optimization: All CT scans at this facility use at least one of these dose optimization techniques: automated exposure control; mA and/or kV adjustment per patient size (includes targeted exams where dose is matched to clinical indication); or iterative reconstruction. Contrast material: OMNI 350; Contrast volume: 95 ml; Contrast route: INTRAVENOUS (IV); COMPARISON: CT abdomen pelvis w con* [id number] 01/13/2022 9:46 AM RADIATION DOSE METRICS: Total DLP (mGy-cm): 1479.83 FINDINGS: Lungs: Right lower lobe very minimal atelectasis versus minimal infiltrate. Liver: Normal. No mass. Gallbladder and bile ducts: Normal. No calcified stones. No ductal dilation. Pancreas: Normal. No ductal dilation. Spleen: Normal. No splenomegaly. Adrenal glands: Normal. No mass. Kidneys and ureters: Right kidney cyst, negative for follow-up advised. Stomach and bowel: See Intraperitoneal space finding. Appendix: No evidence of appendicitis. Intraperitoneal space: Right lower paramidline abdominal wall small hernia containing omentum without bowel. Vasculature: Unremarkable. No abdominal aortic aneurysm. Lymph nodes: Unremarkable. No enlarged lymph nodes. Urinary bladder: Unremarkable as visualized. Reproductive: Unremarkable as visualized. Bones/joints: Unremarkable. No acute fracture. Soft tissues: Unremarkable. Other findings: Small amount of nonspecific fluid in the pelvis. CT/CT abdomen pelvis w con* [id number] IMPRESSION: 1. Right lower lobe very minimal atelectasis versus minimal infiltrate. 2. Right kidney cyst, negative for follow-up advised. 3. Small amount of nonspecific fluid in the pelvis. 4. Right lower paramidline abdominal wall small hernia containing omentum without bowel. COMMENTS: Consistent with the [employer]'s Incidental Findings Committee white paper (J Am Claribel Radiol 2018): Any incidental renal lesion less than 1 cm or classified as too small to characterize, or any incidental cystic renal lesion characterized as simple-appearing, is likely benign. No follow-up imaging is recommended for these lesions per consensus recommendations based on imaging criteria.
[2022-04-11] MEDS: iohexol 350 mg/mL 100 mL Btl IV (14:21)
== END 2022-04-11 13:15 | disposition home or self-care (01) ==
LOC: RAD 13:15
PROVIDERS: PCP Family Medicine; Visit Provider Nurse Practitioner Family
DX: T81.31XD Disruption of external operation (surgical) wound, not elsewhere classified, subsequent encounter (principal); X58.XXXD Exposure to other specified factors, subsequent encounter; K43.9 Ventral hernia without obstruction or gangrene
CPT/HCPCS: 74177

== ENCOUNTER → 2022-04-18 13:01 | Outpatient (BNVA) | payer MEDICAID, SELFPAY | PROVIDERS: PCP Family Medicine; Visit Provider Nurse Practitioner Family | DX: T81.31XD Disruption of external operation (surgical) wound, not elsewhere classified, subsequent encounter (principal); Y83.8 Other surgical procedures as the cause of abnormal reaction of the patient, or of later complication, without mention of misadventure at the time of the procedure; I96 Gangrene, not elsewhere classified; L98.492 Non-pressure chronic ulcer of skin of other sites with fat layer exposed | CPT/HCPCS: 11042; A6219 ==

== ENCOUNTER → 2022-04-25 15:22 | Outpatient (BNVA) | payer MEDICAID, SELFPAY | PROVIDERS: Visit Provider Surgery | DX: K43.9 Ventral hernia without obstruction or gangrene (principal); T81.30XA Disruption of wound, unspecified, initial encounter; N39.9 Disorder of urinary system, unspecified; X58.XXXA Exposure to other specified factors, initial encounter | CPT/HCPCS: 99213 ==

== ENCOUNTER 2022-04-27 00:26 | Emergency (ER) | payer MEDICAID, SELFPAY ==
[2022-04-27 00:37] VITALS: PULSE 79; RESP 16; TEMP 36.7; O2SAT 98; BMI 29.2
[2022-04-27 00:42] VITALS: BP 164/103
--- NOTE | 2022-04-27 00:46 | CTR_ITS ---
PROCEDURE INFORMATION: Exam: CT Abdomen And Pelvis Without Contrast Exam date and time: 04/27/2022 1:06 AM Age: 56 years old Clinical indication: Abdominal pain; Localized; Prior surgery; Surgery type: Hysterectomy. Csection. Patient HX: C/O lower abd pain. TECHNIQUE: Imaging protocol: Computed tomography of the abdomen and pelvis without contrast. Radiation optimization: All CT scans at this facility use at least one of these dose optimization techniques: automated exposure control; mA and/or kV adjustment per patient size (includes targeted exams where dose is matched to clinical indication); or iterative reconstruction. COMPARISON: CT abdomen pelvis w con* [id number] 04/11/2022 2:00 PM RADIATION DOSE METRICS: Total DLP (mGy-cm): 664.15 FINDINGS: Lungs: The visualized lung bases show no consolidation. Liver: Normal size and homogeneous density. No liver mass is seen. Gallbladder and bile ducts: The gallbladder is contracted. No calcified gallstones. No ductal dilation. Pancreas: Normal size and homogeneous density. No ductal dilation. Spleen: Normal. No splenomegaly. Adrenal glands: No mass. Kidneys and ureters: No evidence of hydronephrosis. No renal or ureteral calculi. Stomach and bowel: Right ventral pelvic paramidline hernia through the right rectus abdominus sheath containing a loop of small bowel without obstruction. This likely represents a surgical scar hernia. Appendix: No evidence of appendicitis. Intraperitoneal space: No free air. No significant fluid collection. Vasculature: No abdominal aortic aneurysm. Lymph nodes: No enlarged retroperitoneal or mesenteric lymph nodes. Urinary bladder: The anterior wall of the urinary bladder is tethered to the medial aspect of the mouth of the hernia but is not in the hernia. Reproductive: There has been a hysterectomy. The vaginal cuff is symmetrical. There is a 6 mm right ovarian calcification raising the question of a mature cystic teratoma (dermoid cyst). This remains stable from the comparison study. Bones/joints: No acute fracture. No evidence of bone destruction. Soft tissues: Right ventral pelvic wall hernia containing a loop of small bowel without obstruction. CT/CT abdomen pelvis con [id number] IMPRESSION: 1. A right pelvic ventral hernia containing a loop of small bowel without obstruction. 2. Prior hysterectomy. 3. A 6 mm calcification in the right ovary raising the question of a dermoid cyst (mature cystic teratoma). This may be further evaluated by non emergent pelvic sonography or MRI if clinically indicated.
--- NOTE | 2022-04-27 00:54 | ED_ITS ---
HPI - Abdominal Pain General: Chief Complaint: Abdominal Pain Stated Complaint: abd pain Time Seen by Provider: 04/27/22 00:43 Source: patient Mode of arrival: ambulatory Limitations: no limitations History of Present Illness: 56-year-old female states that she had a hysterectomy roughly 5 to 6 months ago she states she had some chronic abdominal pain since then states today though she started having lower abdominal pain this afternoon that is now diffuse in nature she states this is worse than her typical pain states her pain is a 7 out of 10 denies any fever states that seem to be worse with movement denies any vomiting or diarrhea. She has had some increased urinary frequency as well. Associated Symptoms: Denies chills, dysuria and fever(s) Related Data: Date of Last Menstrual Period: 11/22/21 Review of Systems Const: Denies: fever(s), chills, body aches or change in appetite Eyes: Denies: blurry vision or eye discomfort ENMT: Denies: throat pain or dental pain Card: Denies: chest pain Resp: Denies: dyspnea GI: Reports: abdominal pain : Denies: dysuria Musc: Denies: neck pain or back pain Skin/Breast: Denies: rash Neuro: Denies: headache(s) Psych: Denies: depression Kamran/Lymph: Denies: easy bruising All/Imm: Denies: urticaria PFSH ED PFSH: Medical History MEME positive Chronic thoracic spine pain Current chronic use of systemic steroids Encounter for long-term (current) use of NSAIDs GERD (gastroesophageal reflux disease) Hypertension Lichen planus Long-term use of high-risk medication No pertinent past medical history Denies diabetes, asthma, hypertension, seizures, DVT/PE PCP: None Pain management contract signed Paroxysmal supraventricular tachycardia Managed by Dr. Hoskins/Dr. Maxwell in cardiology Raynaud's phenomenon Rheumatoid arthritis Diagnosed in 2004 and is managed by rheumatology Dr. Peck Spondylosis THORACIC AND LUMBAR Surgical History History of hand surgery (~1997) History of hysteroscopy (09/23/19) Hysteroscopy, D&C, Buttock biopsy. Performed by Dr. Rock at [facility] in [place], [place]. History of lumpectomy of left breast (06/27/17) Hx of section X5 Status post hysterectomy 12/06/2021--total abdominal hysterectomy with bilateral salpingectomy for abnormal uterine bleeding by Dr. Rowland at [facility] Family History Father Diabetes Heart disease Mother Hypertension Thyroid condition Heart disease Grandmother Stroke paternal Heart disease paternal Grandfather Thyroid condition maternal Family/Other Thyroid condition maternal aunt Denies family history of Colon cancer Ovarian cancer Hyperlipidemia Breast cancer Uterine cancer Social History Smoking and tobacco status: former smoker Second hand smoke exposure: No Alcohol intake: never History of recent travel: No Female Reproductive History: Date of last menstrual period: 11/22/21 Physical Exam Const: COMMON NORMALS: no acute distress, patient oriented x3 and healthy appearing HENMT: COMMON NORMALS: normocephalic and atraumatic HEAD & SCALP: normocephalic and atraumatic Eye: COMMON NORMALS: Equal, round and reactive pupils present and EOMs intact bilaterally PUPIL: Yes Equal, round and reactive pupils present Neck/C-Spine: COMMON NORMALS: full ROM and supple Chest: COMMONS NORMALS: normal inspection of the chest and normal palpation of entire chest wall Resp: COMMON NORMALS: normal respiratory effort, No retractions, No use of accessory muscles and clear to auscultation bilaterally AUSCULTATION: clear to auscultation bilaterally Cardio: COMMON NORMALS: regular rate, regular rhythm and No murmurs present (Cardio) RATE: regular rate RHYTHM: regular rhythm GI: COMMON NORMALS: Normal to inspection, nondistended, normoactive bowel sounds present, Soft to palpation and no masses PALPATION: Yes Soft to palpation OTHER: diffuse mild tenderness Extremity: COMMON NORMALS: normal to inspection and full ROM Neuro: COMMON NORMALS: patient oriented x3, moves all extremities and no focal motor deficits Psych: COMMON NORMALS: mental status grossly normal, Normal thought process present and cooperative THOUGHT PROCESS: Normal thought process present Skin: COMMON NORMALS: no rashes or lesions noted and no wounds GENERAL SKIN EXAM: no rashes or lesions noted Course Vital Signs: Vital signs: Vital Signs Temperature 98.1 F 04/27/22 00:37 Pulse Rate 79 04/27/22 00:37 Respiratory Rate 17 10/27/22 01:34 Blood Pressure 164/103 04/27/22 00:42 Pulse Oximetry 98 04/27/22 00:37 Oxygen Delivery Me thod 04/27/22 00:37 MDM - Abdominal Pain Medical Decision Making Patient presents here with abdominal pain she does have ventral wall hernia was able to reduce the hernia without any difficulty she has no signs of incarceration her pain improved. Patient stable for discharge patient is to follow-up with wound care along with Dr. Rowland patient e return if worsening Lab Data : 04/27/22 01:04 04/27/22 01:04 Labs/Radiology: Radiology Impressions Abdomen/Pelvis CT 04/27/22 00:46 IMPRESSION: 1. A right pelvic ventral hernia containing a loop of small bowel without obstruction. 2. Prior hysterectomy. 3. A 6 mm calcification in the right ovary raising the question of a dermoid cyst (mature cystic teratoma). This may be further evaluated by non emergent pelvic sonography or MRI if clinically indicated. Laboratory Results WBC 5.6 10^3/uL (4.0-10.0) 04/27/22 01:04 RBC 4.65 10^6/uL (4.1-5.3) 04/27/22 01:04 Hgb 14.4 g/dL (11.5-15.3) 04/27/22 01:04 Hct 42.6 % (37.0-47.0) 04/27/22 01:04 MCV 91.6 fl (81-99) 04/27/22 01:04 MCH 31.0 pg (28.0-34.0) 04/27/22 01:04 MCHC 33.8 g/dL (30.0-36.0) 04/27/22 01:04 RDW 13.8 % (12.1-15.1) 04/27/22 01:04 Plt Count 172 10^3/cmm (130-400) 04/27/22 01:04 MPV 11.5 fL (7.4-10.4) H 04/27/22 01:04 Neut % (Auto) 55.3 % 04/27/22 01:04 Lymph % (Auto) 23.6 % 04/27/22 01:04 [place] % (Auto) 6.3 % 04/27/22 01:04 Eos % (Auto) 13.5 % 04/27/22 01:04 Baso % (Auto) 0.9 % 04/27/22 01:04 Neut # (Auto) 3.07 10^3/uL (1.8-7.7) 04/27/22 01:04 Lymph # (Auto) 1.3 10^3/uL (0.8-4.8) 04/27/22 01:04 [place] # (Auto) 0.4 10^3/uL (0.2-0.9) 04/27/22 01:04 Eos # (Auto) 0.8 10^3/uL (0.0-0.8) 04/27/22 01:04 Baso # (Auto) 0.1 10^3/uL (0.0-0.1) 04/27/22 01:04 Nucleated RBC % (auto) 0 % 04/27/22 01:04 Nucleated RBCs # 0.0 /100WBC 04/27/22 01:04 Sodium 136 mmol/L (136-145) 04/27/22 01:04 Potassium 3.9 mmol/L (3.5-5.1) 04/27/22 01:04 Chloride 100 mmol/L (98-107) 04/27/22 01:04 Carbon Dioxide 26 mmol/L (22-29) 04/27/22 01:04 Anion Gap 13.9 (5-19) 04/27/22 01:04 BUN 14 mg/dL (6-20) 04/27/22 01:04 Creatinine 0.7 mg/dL (0.5-0.9) 04/27/22 01:04 GFR Calculation 87.2 mL/min (90-130) L 04/27/22 01:04 Glucose 88 mg/dL (65-115) 04/27/22 01:04 Calculated Osmolality 282 mOsm/kg (285-295) L 04/27/22 01:04 Calcium 9.5 mg/dL (8.5-10.5) 04/27/22 01:04 Total Bilirubin 0.8 mg/dL (0.15-1.2) 04/27/22 01:04 AST 28 U/L (0-32) 04/27/22 01:04 ALT 38 U/L (0-33) H 04/27/22 01:04 Alkaline Phosphatase 73 U/L (35-105) 04/27/22 01:04 Total Protein 7.2 g/dL (6.6-8.7) 04/27/22 01:04 Albumin 4.5 g/dL (3.5-5.2) 04/27/22 01:04 Globulin 2.7 g/dL (1.3-4.6) 04/27/22 01:04 Lipase 53 U/L (13-60) 04/27/22 01:04 Urine Color Yellow (Yellow) 04/27/22 01:57 Urine Appearance Clear (CLEAR) 04/27/22 01:57 Urine pH 6 (5-7) 04/27/22 01:57 Ur Specific [place] 1.020 (1.005-1.030) 04/27/22 01:57 Urine Protein Neg (Negative) 04/27/22 01:57 Urine Glucose (UA) Norm (Normal) 04/27/22 01:57 Urine Ketones Negative (Negative) 04/27/22 01:57 Urine Blood Neg (Negative) 04/27/22 01:57 Urine Nitrate Negative (Negative) 04/27/22 01:57 Urine Bilirubin Neg (Negative) 04/27/22 01:57 Urine Urobilinogen Norm mg/dL (Negative) 04/27/22 01:57 Ur Leukocyte Esterase Negative (Negative) 04/27/22 01:57 Discharge Plan Discharge Patient Disposition: Home Clinical Impression: Abdominal pain, Hernia, ventral, Ovarian cyst Condition: Stable Prescriptions: New hydrocodone-acetaminophen 5-325 mg tablet 1 tab PO Q6H PRN (Reason: pain) Qty: 14 0RF ondansetron 4 mg tablet,disintegrating 4 mg PO Q6H PRN (Reason: nausea and vomiting) Qty: 14 0RF No Action omeprazole 20 mg tablet,delayed release (DR/EC) 20 mg PO BID metoprolol tartrate 25 mg tablet 25 mg PO BID Qty: 180 3RF cephalexin 500 mg capsule 500 mg PO BID 10 Days Qty: 20 0RF amoxicillin-pot clavulanate [Augmentin] 500-125 mg tablet 1 tab PO BID Qty: 10 0RF lidocaine 5 % gel 1 ea topical DAILY Qty: 113 1RF fluconazole [Diflucan] 150 mg tablet 150 mg PO DAILY Qty: 3 0RF sulfasalazine 500 mg tablet 1 g PO TID Qty: 180 2RF ciprofloxacin HCl 500 mg tablet 500 mg PO BID Qty: 20 0RF hydrocodone-acetaminophen 7.5-325 mg tablet 1 tab PO Q4H PRN (Reason: pain) 7 Days Qty: 30 0RF sodium chloride [Sterile Saline] 0.9 % solution 1 irrig irrigation DAILY PRN (Reason: wound care) Qty: 1000 0RF sulfamethoxazole-trimethoprim [Bactrim DS] 800-160 mg tablet 1 tab PO BID Qty: 14 0RF sodium chloride [Aqua Care Sodium Chloride] 0.9 % solution 1 irrig irrigation DAILY 30 Days Qty: 500 2RF potassium gluconate 595 mg (99 mg) Tablet 595 mg PO DAILY PRN (Reason: hr elevated) prednisone 5 mg Tablet 5 mg PO DAILY ibuprofen 800 mg tablet 800 mg PO TID PRN (Reason: pain) Qty: 60 0RF hydrocodone-acetaminophen 5-325 mg tablet 1 tab PO Q4H PRN (Reason: pain) Qty: 30 0RF Hold Instructions: Dose Change Colace 100 mg capsule 100 mg PO BID Qty: 60 0RF acetaminophen 325 mg capsule 325 mg PO Q4H PRN (Reason: fever or pain) Qty: 60 0RF ondansetron 4 mg tablet,disintegrating 4 mg PO Q8H PRN (Reason: nausea and vomiting) Qty: 20 0RF Discharge Orders: Discharge ED (Routine); Ordered 04/27/22 Ordered By: Andrew Reynolds Referrals: Kranthi Richard MD [Physician] - 1-3 days Discharge Diet: Advance as tolerated Discharge Activity: Resume usual activity Patient Instructions: Abdominal Hernia, Abdominal Pain (ED), Opioid Safety Coding Level of Care Code ED Prospecting Driller Helper for Chg Fwd Exam Comprehensive
[2022-04-27 01:09] LABS: Basophils # 0.1 10^3/uL (0.0-0.1); Basophils % 0.9 %; Eosinophils # 0.8 10^3/uL (0.0-0.8); Eosinophils % 13.5 %; Hematocrit 42.6 % (37.0-47.0); Hemoglobin 14.4 g/dL (11.5-15.3); Lymphocytes # 1.3 10^3/uL (0.8-4.8); Lymphocytes % 23.6 %; Mean Corpuscular HGB Conc 33.8 g/dL (30.0-36.0); Mean Corpuscular Volume 91.6 fl (81-99); Mean Platelet Volume 11.5 fL (7.4-10.4); Monocytes # 0.4 10^3/uL (0.2-0.9); Monocytes % 6.3 %; Neutrophils # 3.07 10^3/uL (1.8-7.7); Neutrophils % 55.3 %; Nucleated Red Blood Cells % 0 %; Platelet Count 172 10^3/cmm (130-400); Red Blood Count 4.65 10^6/uL (4.1-5.3); Red Cell Distribution Width 13.8 % (12.1-15.1); White Blood Count 5.6 10^3/uL (4.0-10.0)
[2022-04-27 01:32] LABS: Alanine Aminotransferase 38 U/L (0-33); Albumin Level 4.5 g/dL (3.5-5.2); Alkaline Phosphatase 73 U/L (35-105); Blood Urea Nitrogen 14 mg/dL (6-20); Calcium 9.5 mg/dL (8.5-10.5); Carbon Dioxide 26 mmol/L (22-29); Chloride 100 mmol/L (98-107); Globulin 2.7 g/dL (1.3-4.6); Glomerular Filtration Rate 87.2 mL/min (90-130); Glucose 88 mg/dL (65-115); Lipase 53 U/L (13-60); Osmolality Calculated 282 mOsm/kg (285-295); Sodium 136 mmol/L (136-145); Total Bilirubin 0.8 mg/dL (0.15-1.2); Total Protein 7.2 g/dL (6.6-8.7)
[2022-04-27 01:34] VITALS: RESP 17
[2022-04-27] MEDS: morphine 4 mg/mL SDV 1 mL IVP (01:34)
[2022-04-27] MEDS: sodium chloride 0.9% 1,000 ML 999 ML IV (01:35)
[2022-04-27] MEDS: ondansetron 2 mg/ML SDV 2 mL 4 MG IVP (01:35)
[2022-04-27 01:45] LABS: Anion Gap 13.9 (5-19); Aspartate Amino Transferase 28 U/L (0-32); Potassium 3.9 mmol/L (3.5-5.1)
[2022-04-27 02:30] LABS: Add Urine Microscopic? NO; Charge for UA Resulting for Rev
[2022-04-27 02:44] LABS: Bilirubin Urine Neg (Negative); Blood Urine Neg (Negative); Glucose Urine UA Norm (Normal); Ketones Urine Negative (Negative); Leukocyte Esterase Urine Negative (Negative); Nitrate Urine Negative (Negative); Protein Urine Neg (Negative); Urine Appearance Clear (CLEAR); Urine Color Yellow (Yellow); Urobilinogen Urine Norm (Negative); pH Urine 6 (5-7)
[2022-04-27 02:58] VITALS: BP 130/87; PULSE 80; RESP 17
--- NOTE | 2022-04-27 10:34 | DCPLANNER ---
Addendum entered by Allison Tavera 05/24/22 14:56: lead portfolio manager received the following message from the [facility] doctors hospital care clinic regarding follow up appointment:\ She needs to have an ultrasound to assess. A CT scan is NOT the way to assess a pelvis. This is NOT a complication of surgery. It is likely a physiolgic cyst. Please get her scheduled for the ultrasound and after that, I will evaluate the result to see if this is an urgent situation or not. On 04/28/22 @ 12:33 Amanda Mathis Wrote To Shazia Rowland Spoke with pt. the next opening was 06/02/22. She stated that she wanted to be seen sooner b/c she feels that this a complication from surgery in November. She states that she seen Dr. Richard on 04/25/22 and was told that she had an incision hernia and major bladder issues. She states that the ovarian cyst is the worst of her worries. Would you like to see her sooner? and would it be a 15 minute or 30 minute? Original Note: lead portfolio manager had message to schedule a follow up appointment for patient with [facility]. lead portfolio manager sent patients information to the front office staff at [facility]. Patients information will be printed and reviewed. Clinic will call patient with appointment information.
== END 2022-04-27 03:00 | disposition home or self-care (01) ==
PROVIDERS: Emergency Provider Emergency Medicine
DX: R10.9 Unspecified abdominal pain (principal); K43.9 Ventral hernia without obstruction or gangrene; N83.201 Unspecified ovarian cyst, right side; Z87.891 Personal history of nicotine dependence; I10 Essential (primary) hypertension
CPT/HCPCS: 74176; 80053; 81003; 83690; 85025; 96361; 96374; 96375; 99285; J2270; J2405; J7030

== ENCOUNTER → 2022-05-19 12:43 | Outpatient (BNVA) | payer MEDICAID, SELFPAY | PROVIDERS: PCP Nurse Practitioner Family; Visit Provider Obstetrics & Gynecology | DX: N83.291 Other ovarian cyst, right side (principal) | CPT/HCPCS: 76830 ==

== ENCOUNTER 2022-06-05 10:45 | Emergency (ER) | payer MEDICAID, SELFPAY ==
[2022-06-05 11:20] VITALS: BP 152/101; PULSE 81; RESP 16; TEMP 37.2; O2SAT 93
--- NOTE | 2022-06-05 12:10 | ED_ITS ---
HPI - SOB/Dyspnea General: Chief Complaint: Shortness of Breath/Dyspnea Stated Complaint: cough and shortness of Time Seen by Provider: 06/05/22 12:10 History of Present Illness: HPI Narrative: Ms. Gonzalez is a 56-year-old lady with significant past medical history of rheumatoid arthritis on sulfasalazine and history of paroxysmal supraventricular tachycardia on metoprolol presenting to the emergency department due to shortness of breath and cough. She endorses symptoms of been ongoing for a few weeks and were gradual in onset. Initially very mild and only with exertion however now occur with rest and worsened with laying back. Notes mildly prod uctive cough and generalized malaise. Does become marked dyspnea with coughing episodes. Intensity symptoms is moderate at rest. Course has worsened. No other specific changes in health, exacerbating, or alleviating factors identified. No history of smoking or COPD. Onset (ago): week(s) Timing: progressively worsening Severity: moderate Exacerbating factors: lying flat and exertion Relieving factors: nothing Review of Systems General: Reports: 10 or more systems reviewed and unremarkable except in HPI and below PFSH ED PFSH: Medical History MEME positive Chronic thoracic spine pain Current chronic use of systemic steroids Encounter for long-term (current) use of NSAIDs GERD (gastroesophageal reflux disease) Hernia, ventral Hypertension Lichen planus Long-term use of high-risk medication No pertinent past medical history Denies diabetes, asthma, hypertension, seizures, DVT/PE PCP: None Ovarian cyst Pain management contract signed Paroxysmal supraventricular tachycardia Managed by Dr. Hoskins/Dr. Maxwell in cardiology Raynaud's phenomenon Rheumatoid arthritis Diagnosed in 2004 and is managed by rheumatology Dr. Peck Seroma after procedure Spondylosis THORACIC AND LUMBAR Urinary problem in female Ventral hernia Surgical History History of hand surgery (~1997) History of hysteroscopy (09/23/19) Hysteroscopy, D&C, Buttock biopsy. Performed by Dr. Rock at [facility] in [place], [place]. History of lumpectomy of left breast (06/27/17) Hx of section X5 Status post hysterectomy 12/06/2021--total abdominal hysterectomy with bilateral salpingectomy for abnormal uterine bleeding by Dr. Rowland at [facility] Family History Father Diabetes Heart disease Mother Hypertension Thyroid condition Heart disease Grandmother Stroke paternal Heart disease paternal Grandfather Thyroid condition maternal Family/Other Thyroid condition maternal aunt Denies family history of Colon cancer Ovarian cancer Hyperlipidemia Breast cancer Uterine cancer Social History Smoking and tobacco status: former smoker Second hand smoke exposure: No Alcohol intake: never History of recent travel: No Female Reproductive History: Date of last menstrual period: 11/22/21 Physical Exam Const: COMMON NORMALS: alert GENERAL APPEARANCE: cooperative and well developed HENMT: COMMON NORMALS: normocephalic and atraumatic HEAD & SCALP: normocephalic and atraumatic Eye: COMMON NORMALS: conjunctivae normal CONJUNCTIVA: Yes conjunctivae normal SCLERA: sclerae normal Neck/C-Spine: COMMON NORMALS: supple GENERAL: Yes trachea midline Resp: COMMON NORMALS: clear to auscultation bilaterally EFFORT & INSPECTION: Yes able to speak in complete sentences AUSCULTATION: clear to auscultation bilaterally Cardio: COMMON NORMALS: regular rate and regular rhythm RATE: regular rate RHYTHM: regular rhythm GI: COMMON NORMALS: Soft to palpation PALPATION: Yes Soft to palpation and No Tenderness to palpation present (GI) Extremity: GENERAL: Yes normal exam except as noted and No edema Neuro: COMMON NORMALS: moves all extremities SENSORIUM/ORIENTATION: Yes alert and No Orientation impaired Psych: COMMON NORMALS: mental status grossly normal and Normal thought process present THOUGHT PROCESS: Normal thought process present Course Vital Signs: Vital signs: Vital Signs Temperature 99.0 F 06/05/22 15:38 Pulse Rate 81 06/05/22 15:38 Respiratory Rate 16 06/05/22 15:38 Blood Pressure 152/101 06/05/22 15:38 Pulse Oximetry 93 06/05/22 15:38 MDM - SOB/Dyspnea Medical Decision Making 56-year-old lady on immunosuppressants presenting for respiratory symptoms. Patient is nontoxic and not requiring supplemental oxygen at this time. Labs with mild hemoconcentration, no significant other abnormality. 2-hour delta troponin is negative. Viral studies negative. Chest x-ray with no lobar consolidation or pneumothorax. Patient given steroid and antibiotic dose in the emergency department. Most likely etiology of patient's symptoms is atypical pneumonia which will be treated given duration of illness. The results of ED evaluation were discussed with the patient including prescriptions and/or symptomatic cares (if applicable) including appropriate and responsible use, followup plan, and return precautions. The patient verbalized understanding and felt safe for discharge. Medical Records I reviewed the patient's medical records. Lab Data I reviewed the patient's lab results. 06/05/22 12:35 06/05/22 12:35 Labs/Radiology: Radiology Impressions Chest X-Ray 06/05/22 12:15 IMPRESSION: Unremarkable frontal portable chest x-ray. Laboratory Results WBC 7.0 10^3/uL (4.0-10.0) 06/05/22 12:35 RBC 5.67 10^6/uL (4.1-5.3) H 06/05/22 12:35 Hgb 17.9 g/dL (11.5-15.3) H 06/05/22 12:35 Hct 51.3 % (37.0-47.0) H 06/05/22 12:35 MCV 90.5 fl (81-99) 06/05/22 12:35 MCH 31.6 pg (28.0-34.0) 06/05/22 12:35 MCHC 34.9 g/dL (30.0-36.0) 06/05/22 12:35 RDW 12.9 % (12.1-15.1) 06/05/22 12:35 Plt Count 175 10^3/cmm (130-400) 06/05/22 12:35 MPV 13.2 fL (7.4-10.4) H 06/05/22 12:35 Neut % (Auto) 72.1 % 06/05/22 12:35 Lymph % (Auto) 14.4 % 06/05/22 12:35 [place]upe % (Auto) 3.4 % 06/05/22 12:35 Eos % (Auto) 9.1 % 06/05/22 12:35 Baso % (Auto) 0.9 % 06/05/22 12:35 Neut # (Auto) 5.04 10^3/uL (1.8-7.7) 06/05/22 12:35 Lymph # (Auto) 1.0 10^3/uL (0.8-4.8) 06/05/22 12:35 [place] # (Auto) 0.2 10^3/uL (0.2-0.9) 06/05/22 12:35 Eos # (Auto) 0.6 10^3/uL (0.0-0.8) 06/05/22 12:35 Baso # (Auto) 0.1 10^3/uL (0.0-0.1) 06/05/22 12:35 Nucleated RBC % (auto) 0 % 06/05/22 12:35 Nucleated RBCs # 0.0 /100WBC 06/05/22 12:35 Sodium 138 mmol/L (136-145) 06/05/22 12:35 Potassium 4.1 mmol/L (3.5-5.1) 06/05/22 12:35 Chloride 100 mmol/L (98-107) 06/05/22 12:35 Carbon Dioxide 23 mmol/L (22-29) 06/05/22 12:35 Anion Gap 19.1 (5-19) H 06/05/22 12:35 BUN 14 mg/dL (6-20) 06/05/22 12:35 Creatinine 0.7 mg/dL (0.5-0.9) 06/05/22 12:35 GFR Calculation 87.2 mL/min (90-130) L 06/05/22 12:35 Glucose 84 mg/dL (65-115) 06/05/22 12:35 Calculated Osmolality 286 mOsm/kg (285-295) 06/05/22 12:35 Calcium 9.6 mg/dL (8.5-10.5) 06/05/22 12:35 Total Bilirubin 0.7 mg/dL (0.15-1.2) 06/05/22 12:35 AST 29 U/L (0-32) 06/05/22 12:35 ALT 27 U/L (0-33) 06/05/22 12:35 Alkaline Phosphatase 94 U/L (35-105) 06/05/22 12:35 Troponin T Baseline 6 ng/L (0-10) 06/05/22 12:35 Troponin T 120 Minute 6.00 ng/L (0-10) 06/05/22 15:00 Delta Troponin T 0 ABS# (0-10) 06/05/22 15:00 C-Reactive Protein 3.0 mg/L (0.0-4.9) 06/05/22 12:35 NT-Pro-B Natriuret Pep 125 pg/mL (0-125) 06/05/22 12:35 Total Protein 8.0 g/dL (6.6-8.7) 06/05/22 12:35 Albumin 5.0 g/dL (3.5-5.2) 06/05/22 12:35 Globulin 3.0 g/dL (1.3-4.6) 06/05/22 12:35 Procalcitonin 0.02 ng/mL (0-0.5) 06/05/22 12:35 TSH 0.90 uIU/mL (0.27-4.20) 06/05/22 12:35 Coronavirus 229E (PCR) Not detected (NOT DETECT) 06/05/22 12:55 SARS-CoV-2 (PCR) Not detected (NOT DETECT) 06/05/22 12:55 Discharge Plan Discharge Patient Disposition: Home Clinical Impression: Cough, Dyspnea Condition: Stable Prescriptions: New albuterol sulfate 90 mcg/actuation HFA aerosol inhaler 2 inh inhalation Q4H PRN (Reason: shortness of breath or wheezing) Qty: 8.5 0RF No Action metoprolol tartrate 25 mg tablet 25 mg PO BID Qty: 180 3RF sulfasalazine 500 mg tablet 1 g PO TID Qty: 180 2RF Colace 100 mg capsule 100 mg PO BID PRN (Reason: Constipation) omeprazole 20 mg Tablet,Delayed Release (Dr/Ec) 20 mg PO DAILY Discharge Orders: Discharge ED (Routine); Ordered 06/05/22 Ordered By: Jason Vicente Referrals: Maverick Frances FNP [Primary Care Provider] - Discharge Diet: Usual diet Discharge Activity: Increase activity as tolerated Patient Instructions: How to Use a Metered-Dose Inhaler (ED), Pneumonia (ED) Activity Restrictions/Additional Instructions: Thank you for visiting the emergency department. You were seen and evaluated for cough and respiratory symptoms. The exact cause of your symptoms is unclear though given duration of symptoms will be treated with antibiotics, steroids, albuterol. I will prescribe steroids and antibiotics. Please also use your albuterol metered-dose inhaler 2 puffs every 4 hours for 24 hours followed by 2 puffs every 6 hours for 24 hours followed by 2 puffs every 8 hours for 24 hours and then return to the normal schedule. Please follow-up with your primary care provider. Return to the emergency department for worsening symptoms or anything else that you are concerned about a feel needs emergency department evaluation. Coding Level of Care Code ED Cognos Administrator for Ad Fwvarghese Exam Comprehensive
--- NOTE | 2022-06-05 12:15 | XR_ITS ---
WS: [id number] EXAMINATION: XR chest 1V portable [id number] REASON FOR EXAM: sob COMPARISON: 06/19/2020 ORDER DATE: 06/05/2022 12:15 PM TECHNIQUE: A single, portable frontal chest x-ray was obtained. X-RAY FINDINGS: The lungs are clear. Pleural spaces are clear. No pleural effusions or pneumothorax. Cardiomediastinal silhouette is normal. No evidence for pulmonary edema. Soft tissue and osseous structures are unremarkable. No tubes or lines are present. XR/XR chest 1V portable [id number] IMPRESSION: Unremarkable frontal portable chest x-ray.
[2022-06-05 13:08] LABS: Basophils # 0.1 10^3/uL (0.0-0.1); Basophils % 0.9 %; Eosinophils # 0.6 10^3/uL (0.0-0.8); Eosinophils % 9.1 %; Hematocrit 51.3 % (37.0-47.0); Hemoglobin 17.9 g/dL (11.5-15.3); Lymphocytes % 14.4 %; Mean Corpuscular HGB Conc 34.9 g/dL (30.0-36.0); Mean Corpuscular Hemoglobin 31.6 pg (28.0-34.0); Mean Corpuscular Volume 90.5 fl (81-99); Mean Platelet Volume 13.2 fL (7.4-10.4); Monocytes # 0.2 10^3/uL (0.2-0.9); Monocytes % 3.4 %; Neutrophils # 5.04 10^3/uL (1.8-7.7); Neutrophils % 72.1 %; Nucleated Red Blood Cells % 0 %; Platelet Count 175 10^3/cmm (130-400); Red Blood Count 5.67 10^6/uL (4.1-5.3); Red Cell Distribution Width 12.9 % (12.1-15.1)
[2022-06-05 13:09] LABS: Slide Review Slide Review Perform
[2022-06-05 13:11] VITALS: BP 152/101; PULSE 81; RESP 16; TEMP 37.2; O2SAT 93
[2022-06-05 13:25] LABS: Troponin(5th) Baseline 6 ng/L (0-10)
[2022-06-05 13:38] LABS: NT Pro B Type Natriuretic Pept 125 pg/mL (0-125); Procalcitonin 0.02 ng/mL (0-0.5)
[2022-06-05 13:49] LABS: Alanine Aminotransferase 27 U/L (0-33); Alkaline Phosphatase 94 U/L (35-105); Blood Urea Nitrogen 14 mg/dL (6-20); Calcium 9.6 mg/dL (8.5-10.5); Carbon Dioxide 23 mmol/L (22-29); Chloride 100 mmol/L (98-107); Glomerular Filtration Rate 87.2 mL/min (90-130); Glucose 84 mg/dL (65-115); Osmolality Calculated 286 mOsm/kg (285-295); Sodium 138 mmol/L (136-145); Total Bilirubin 0.7 mg/dL (0.15-1.2)
[2022-06-05 13:53] LABS: Anion Gap 19.1 (5-19); Aspartate Amino Transferase 29 U/L (0-32); Potassium 4.1 mmol/L (3.5-5.1)
[2022-06-05 14:53] LABS: Adenovirus Not Detected (NOT DETECT); Chlamydia Pneumoniae Not Detected (NOT DETECT); Coronavirus 229E,HKU1,NL63,OC4 Not Detected (NOT DETECT); Human Metapneumovirus Not Detected (NOT DETECT); Human Rhinovirus/Enterovirus Not Detected (NOT DETECT); Influenza A Not Detected (NOT DETECT); Influenza A H1 Not Detected (NOT DETECT); Influenza A H1-2009 Not Detected (NOT DETECT); Influenza A H3 Not Detected (NOT DETECT); Influenza B Not Detected (NOT DETECT); Mycoplasma Pneumoniae Not Detected (NOT DETECT); Parainfluenza Virus Type 1 Not Detected (NOT DETECT); Parainfluenza Virus Type 2 Not Detected (NOT DETECT); Parainfluenza Virus Type 3 Not Detected (NOT DETECT); Parainfluenza Virus Type 4 Not Detected (NOT DETECT); Respiratory Syncytial Virus A Not Detected (NOT DETECT); Respiratory Syncytial Virus B Not Detected (NOT DETECT); SARS-COV-2 Not Detected (NOT DETECT)
[2022-06-05] MEDS: predniSONE 20 mg Tablet 60 MG PO (15:26)
[2022-06-05] MEDS: doxycycline 100 mg Tablet PO (15:26)
[2022-06-05 15:38] VITALS: BP 152/101; PULSE 81; RESP 16; TEMP 37.2; O2SAT 93
[2022-06-05 16:27] LABS: Troponin 5 2HR Delta 0 ABS# (0-10)
== END 2022-06-05 15:35 | disposition home or self-care (01) ==
PROVIDERS: Emergency Provider Emergency Medicine; PCP Nurse Practitioner Family
DX: R05.9 Cough, unspecified (principal); R06.00 Dyspnea, unspecified; I10 Essential (primary) hypertension
CPT/HCPCS: 36415; 71045; 80053; 83880; 84145; 84443; 84484; 85025; 86140; 87635; 99285; J7512

== ENCOUNTER → 2022-07-21 13:38 | Outpatient (BNVA) | payer MEDICAID, SELFPAY | PROVIDERS: Referring Provider Obstetrics & Gynecology; Visit Provider Surgery | DX: K43.2 Incisional hernia without obstruction or gangrene (principal) | CPT/HCPCS: 99213 ==

== ENCOUNTER 2022-08-14 13:15 | Emergency (ER) | payer MEDICAID, SELFPAY ==
[2022-08-14 13:22] VITALS: PULSE 69; RESP 16; TEMP 37; O2SAT 97
--- NOTE | 2022-08-14 13:43 | W.ED.ABDPA2 ---
HPI - Abdominal Pain General: Chief Complaint: Abdominal Pain Stated Complaint: right leg bump and pain Time Seen by Provider: 08/14/22 13:29 Source: patient Mode of arrival: ambulatory Limitations: no limitations History of Present Illness: Patient is a 56-year-old female presents to ED today with one separate complaints. Patient states her first complaint is right lower leg/knee pain. She states she first noticed the pain around 4 AM this morning. Patient states she was awake at 1 AM and did not have any discomfort when she awoke later around 4 began noticing pain to the lateral aspect of her right knee and lower leg. She noticed this morning it was swollen and warm to the touch. She denies any injury or trauma. She has not noticed any redness. Denies numbness, tingling, loss of sensation. Patient's other complaint is lower abdominal pain beginning yesterday. Patient states she has a history of 5 previous sections. She did develop staph in her section at one point when wound was healing (several several months ago) and that seems to be her main concern today even though incision is completely healed. She has a ventral hernia scheduled for repair by Dr. Zapata later this week. She is not having any pain related to the hernia. Reports nausea without vomiting. One episode of non-bloody diarrhea yesterday. No urinary complaints. No fevers. MD elicited complaint: abdominal pain Onset (ago): hour(s) Pain Consistency: constant Location: LLQ and Suprapubic Severity: moderate Radiation: none Migration to: no migration Exacerbating factors: nothing Relieving factors: nothing Associated Symptoms: Reports nausea; Denies change in bowel habits, chills, diarrhea, dysuria, fever(s), hematochezia, melena and vomiting Related Data: Date of Last Menstrual Period: 11/22/21 Patient : No Review of Systems Const: Denies: fever(s), chills, body aches, fatigue or malaise Card: Denies: chest pain Resp: Denies: dyspnea GI: Reports: abdominal pain and nausea; Denies: vomiting, diarrhea, change in bowel habits, hematochezia or melena : Denies: flank pain, difficulty voiding, dysuria, urinary frequency, urinary urgency or urinary hesitancy Musc: Reports: extremity pain (R LE) and extremity swelling; Denies: neck pain, back pain, joint redness, joint stiffness, muscle cramps or muscle weakness Skin/Breast: Denies: rash Neuro: Denies: headache(s), numbness in extremities, weakness in extremities or sensory changes PFSH ED PFSH: Medical History MEME positive Chronic thoracic spine pain Current chronic use of systemic steroids Encounter for long-term (current) use of NSAIDs GERD (gastroesophageal reflux disease) Hernia, ventral Hypertension Lichen planus Long-term use of high-risk medication No pertinent past medical history Denies diabetes, asthma, hypertension, seizures, DVT/PE PCP: None Ovarian cyst Pain management contract signed Paroxysmal supraventricular tachycardia Managed by Dr. Hoskins/Dr. Maxwell in cardiology Raynaud's phenomenon Rheumatoid arthritis Diagnosed in 2004 and is managed by rheumatology Dr. Peck Seroma after procedure Spondylosis THORACIC AND LUMBAR Urinary problem in female Ventral hernia Surgical History History of esophagogastroduodenoscopy (EGD) History of hand surgery (~1997) History of hysteroscopy (09/23/19) Hysteroscopy, D&C, Buttock biopsy. Performed by Dr. Rock at [facility] in [place], [place]. History of lumpectomy of left breast (06/27/17) Hx of section X5 Status post hysterectomy 12/06/2021--total abdominal hysterectomy with bilateral salpingectomy for abnormal uterine bleeding by Dr. Rowland at [facility] Family History Father Diabetes Heart disease Mother Hypertension Thyroid condition Heart disease Grandmother Stroke paternal Heart disease paternal Grandfather Thyroid condition maternal Family/Other Thyroid condition maternal aunt Denies family history of Colon cancer Ovarian cancer Hyperlipidemia Breast cancer Uterine cancer Female Reproductive History: Date of last menstrual period: 11/22/21 Physical Exam Const: COMMON NORMALS: no acute distress, patient oriented x3, no limitations, alert and well nourished ORIENTATION/CONSCIOUSNESS: Yes awake, Yes oriented to person, Yes oriented to place and Yes oriented to time HENMT: COMMON NORMALS: normocephalic and atraumatic HEAD & SCALP: normal to inspection, normocephalic and atraumatic Resp: COMMON NORMALS: normal respiratory effort and clear to auscultation bilaterally AUSCULTATION: clear to auscultation bilaterally Cardio: COMMON NORMALS: regular rate and regular rhythm RATE: regular rate RHYTHM: regular rhythm GI: COMMON NORMALS: Soft to palpation, No hepatosplenomegaly present and no masses INSPECTION: Yes normal to inspection AUSCULTATION: Yes normoactive bowel sounds PALPATION: Yes Soft to palpation, Yes Tenderness to palpation present (GI) (suprapubic, LLQ), No Guarding due to palpation present (GI), No Rigid due to palpation and Yes No hepatosplenomegaly present : COMMON NORMALS: Yes no CVA tenderness BLADDER/KIDNEY EXAM: Yes no CVA tenderness Back/Pelvis: COMMON NORMALS: no CVA tenderness, thoracic and lumbar spine normal to inspection, no thoracic nor lumbar tenderness and thoraco-lumbar ROM normal Extremity: LEFT LOWER EXTREMITY: Yes knee joint and Yes lower leg EXTREMITY IMAGE (FRONT): 1. swelling and warmth present without erythema or skin lesions/changes; distal pulses and cap refill normal; sensory intact; no obvious calf pain or swelling; ROM of knee joint seems to exacerbate discomfort Neuro: KIT COMA SCALE: document GCS findings [place] coma scale eye opening: Spontaneous [place] coma scale verbal response: Orientated Kit coma scale motor response: Obey commands [place] coma scale total score: 15 COMMON NORMALS: patient oriented x3, moves all extremities, no focal motor deficits and no sensory deficits noted SENSORIUM/ORIENTATION: Yes alert, Yes oriented to person, Yes oriented to place and Yes oriented to time Skin: COMMON NORMALS: no rashes or lesions noted GENERAL SKIN EXAM: no rashes or lesions noted TRAUMA: no lacerations or abrasions Course Consultations: Consultation #1: Dr. Zapata-recommends continuing current plan for hernia repair on Vital Signs: Vital signs: Vital Signs Temperature 98.6 F 08/14/22 13:22 Pulse Rate 79 08/14/22 17:24 Respiratory Rate 16 08/14/22 13:22 Blood Pressure 173/96 08/14/22 17:24 Pulse Oximetry 100 08/14/22 17:24 Oxygen Delivery Me thod 08/14/22 16:45 MDM - Abdominal Pain Medical Decision Making Patient here with complaints of right lower leg pain as well as abdominal pain. Blood work at this point is fairly unremarkable. CT scan does show her known ventral hernia that contained a portion of the cecum consistent with a Rich hernia with trace fluid that may reflect incarceration. Patient is not having pain at the site of her hernia. Case discussed with Dr. Zapata who recommends current plan for hernia repair on . Right lower leg pain is atraumatic. Ultrasound obtained which was negative for DVT. Possibly related to her RA? She can follow-up with PCP in regards to this. Return ED precautions given. Lab Data 08/14/22 14:01 08/14/22 14:01 Labs/Radiology: Radiology Impressions Abdomen/Pelvis CT 08/14/22 14:40 IMPRESSION: 1. Ventral hernia noted in the right lower abdomen containing a portion of the cecum consistent with Rich hernia. There is also trace fluid within the hernia sac which may reflect incarceration of the hernia, correlate with clinical exam. 2. 3 cm left ovarian cyst noted. COMMENTS: Consistent with the [employer]'s Incidental Findings Committee white paper (J Am Claribel Radiol 2018): Any incidental renal lesion less than 1 cm or classified as too small to characterize, or any incidental cystic renal lesion characterized as simple-appearing, is likely benign. No follow-up imaging is recommended for these lesions per consensus recommendations based on imaging criteria. Laboratory Results WBC 7.5 10^3/uL (4.0-10.0) 08/14/22 14:01 RBC 5.24 10^6/uL (4.1-5.3) 08/14/22 14:01 Hgb 15.9 g/dL (11.5-15.3) H 08/14/22 14:01 Hct 46.4 % (37.0-47.0) 08/14/22 14:01 MCV 88.5 fl (81-99) 08/14/22 14:01 MCH 30.3 pg (28.0-34.0) 08/14/22 14:01 MCHC 34.3 g/dL (30.0-36.0) 08/14/22 14:01 RDW 12.6 % (12.1-15.1) 08/14/22 14:01 Plt Count 177 10^3/cmm (130-400) 08/14/22 14:01 MPV 11.5 fL (7.4-10.4) H 08/14/22 14:01 Neut % (Auto) 76.9 % 08/14/22 14:01 Lymph % (Auto) 13.8 % 08/14/22 14:01 [place] % (Auto) 4.0 % 08/14/22 14:01 Eos % (Auto) 4.3 % 08/14/22 14:01 Baso % (Auto) 0.5 % 08/14/22 14:01 Neut # (Auto) 5.75 10^3/uL (1.8-7.7) 08/14/22 14:01 Lymph # (Auto) 1.0 10^3/uL (0.8-4.8) 08/14/22 14:01 [place] # (Auto) 0.3 10^3/uL (0.2-0.9) 08/14/22 14:01 Eos # (Auto) 0.3 10^3/uL (0.0-0.8) 08/14/22 14:01 Baso # (Auto) 0.0 10^3/uL (0.0-0.1) 08/14/22 14:01 Nucleated RBC % (auto) 0 % 08/14/22 14:01 Nucleated RBCs # 0.0 /100WBC 08/14/22 14:01 Sodium 137 mmol/L (136-145) 08/14/22 14:01 Potassium 4.2 mmol/L (3.5-5.1) 08/14/22 14:01 Chloride 100 mmol/L (98-107) 08/14/22 14:01 Carbon Dioxide 28 mmol/L (22-29) 08/14/22 14:01 Anion Gap 13.2 (5-19) 08/14/22 14:01 BUN 7 mg/dL (6-20) 08/14/22 14:01 Creatinine 0.6 mg/dL (0.5-0.9) 08/14/22 14:01 GFR Calculation 104.2 mL/min (90-130) 08/14/22 14:01 Glucose 87 mg/dL (65-115) 08/14/22 14:01 Calculated Osmolality 281 mOsm/kg (285-295) L 08/14/22 14:01 Lactic Acid 1.2 mmol/L (0.5-2.2) 08/14/22 14:01 Calcium 9.4 mg/dL (8.5-10.5) 08/14/22 14:01 Iron 133 ug/dL (37-145) 08/15/22 16:33 TIBC 294 mcg/dl 08/15/22 16:33 % Saturation 45.2 % (20-50) 08/15/22 16:33 Unsat Iron Binding 161 ug/dL (112-347) 08/15/22 16:33 Ferritin 55 ng/mL (15-150) 08/15/22 16:33 Total Bilirubin 0.9 mg/dL (0.15-1.2) 08/14/22 14:01 AST 24 U/L (0-32) 08/14/22 14:01 ALT 22 U/L (0-33) 08/14/22 14:01 Alkaline Phosphatase 76 U/L (35-105) 08/14/22 14:01 Total Protein 6.8 g/dL (6.6-8.7) 08/14/22 14:01 Albumin 4.4 g/dL (3.5-5.2) 08/14/22 14:01 Globulin 2.4 g/dL (1.3-4.6) 08/14/22 14:01 Lipase 33 U/L (13-60) 08/14/22 14:01 Urine Color Yellow (Yellow) 08/14/22 14:27 Urine Appearance Clear (CLEAR) 08/14/22 14:27 Urine pH 7 (5-7) 08/14/22 14:27 Ur Specific Hecker 1.010 (1.005-1.030) 08/14/22 14:27 Urine Protein Neg (Negative) 08/14/22 14:27 Urine Glucose (UA) Norm (Normal) 08/14/22 14:27 Urine Ketones Negative (Negative) 08/14/22 14:27 Urine Blood Neg (Negative) 08/14/22 14:27 Urine Nitrate Negative (Negative) 08/14/22 14:27 Urine Bilirubin Neg (Negative) 08/14/22 14:27 Urine Urobilinogen Neg mg/dL (Negative) 08/14/22 14:27 Ur Leukocyte Esterase Negative (Negative) 08/14/22 14:27 Discharge Plan Discharge Patient Disposition: Home Clinical Impression: Acute pain of right lower extremity Ventral hernia Qualifiers: Obstruction and gangrene presence: without obstruction or gangrene Qualified Code(s): K43.9 - Ventral hernia without obstruction or gangrene Condition: Stable Prescriptions: New ondansetron 4 mg tablet,disintegrating 4 mg PO Q8H PRN (Reason: nausea and vomiting) Qty: 14 0RF No Action metoprolol tartrate 25 mg tablet 25 mg PO BID Qty: 180 3RF sulfasalazine 500 mg tablet 1 g PO TID Qty: 180 2RF omeprazole 20 mg Tablet,Delayed Release (Dr/Ec) 20 mg PO DAILY albuterol sulfate 90 mcg/actuation HFA aerosol inhaler 2 inh inhalation Q4H PRN (Reason: shortness of breath or wheezing) Qty: 8.5 0RF Discharge Orders: Discharge ED (Routine); Ordered 08/14/22 Ordered By: Lindsay Love Coding Level of Care Code ED Supervisor Public Message Service for Ad Turner
[2022-08-14 14:12] LABS: Basophils % 0.5 %; Eosinophils # 0.3 10^3/uL (0.0-0.8); Eosinophils % 4.3 %; Hematocrit 46.4 % (37.0-47.0); Hemoglobin 15.9 g/dL (11.5-15.3); Lymphocytes % 13.8 %; Mean Corpuscular HGB Conc 34.3 g/dL (30.0-36.0); Mean Corpuscular Hemoglobin 30.3 pg (28.0-34.0); Mean Corpuscular Volume 88.5 fl (81-99); Mean Platelet Volume 11.5 fL (7.4-10.4); Monocytes # 0.3 10^3/uL (0.2-0.9); Neutrophils # 5.75 10^3/uL (1.8-7.7); Neutrophils % 76.9 %; Nucleated Red Blood Cells % 0 %; Platelet Count 177 10^3/cmm (130-400); Red Blood Count 5.24 10^6/uL (4.1-5.3); Red Cell Distribution Width 12.6 % (12.1-15.1); White Blood Count 7.5 10^3/uL (4.0-10.0)
--- NOTE | 2022-08-14 14:12 | USCV_ITS ---
Carlos Nicky Age: 56 Gender: F : 1965 Exam Date: 08/14/2022 15:06 Ordering Phys: Lindsay Love Technologist: JIM Exam Location: [facility] Indication: Lateral Lower Leg pain and Swelling HISTORY: Lateral Lower Leg pain and Swelling x 2 days PROCEDURES: Venous duplex imaging was performed in only the right lower extremity. The following venous structures were evaluated: common femoral vein, profunda vein, proximal portion of the greater saphenous vein, superficial femoral vein, and the popliteal vein. In addition, the posterior tibial and peroneal trunk were evaluated. FINDINGS: Normal 2-D Doppler and augmentation and compressibility throughout the lower extremity venous structures. Additional imaging through the proximal calf veins also reveals no thrombus. Limited evaluation of the greater saphenous vein is patent with no thrombus. CONCLUSIONS No DVT right lower extremity. Dr. Nicole Morocho DO (Electronically Signed) Final Date: 14 August 2022 16:15 S
[2022-08-14 14:30] LABS: Alanine Aminotransferase 22 U/L (0-33); Albumin Level 4.4 g/dL (3.5-5.2); Alkaline Phosphatase 76 U/L (35-105); Anion Gap 13.2 (5-19); Aspartate Amino Transferase 24 U/L (0-32); Blood Urea Nitrogen 7 mg/dL (6-20); Calcium 9.4 mg/dL (8.5-10.5); Carbon Dioxide 28 mmol/L (22-29); Chloride 100 mmol/L (98-107); Globulin 2.4 g/dL (1.3-4.6); Glomerular Filtration Rate 104.2 mL/min (90-130); Glucose 87 mg/dL (65-115); Lipase 33 U/L (13-60); Osmolality Calculated 281 mOsm/kg (285-295); Potassium 4.2 mmol/L (3.5-5.1); Sodium 137 mmol/L (136-145); Total Bilirubin 0.9 mg/dL (0.15-1.2); Total Protein 6.8 g/dL (6.6-8.7)
[2022-08-14 14:31] LABS: Lactic Sepsis W/Reflex 1.2 mmol/L (0.5-2.2)
[2022-08-14 14:33] LABS: Add Urine Microscopic? NO; Charge for UA Resulting for Rev
[2022-08-14 14:37] VITALS: BP 144/90; PULSE 62; O2SAT 99
[2022-08-14 14:38] LABS: Bilirubin Urine Neg (Negative); Blood Urine Neg (Negative); Glucose Urine UA Norm (Normal); Ketones Urine Negative (Negative); Leukocyte Esterase Urine Negative (Negative); Nitrate Urine Negative (Negative); Protein Urine Neg (Negative); Urine Appearance Clear (CLEAR); Urine Color Yellow (Yellow); Urobilinogen Urine Neg (Negative); pH Urine 7 (5-7)
--- NOTE | 2022-08-14 14:40 | CTR_ITS ---
PROCEDURE INFORMATION: Exam: CT Abdomen And Pelvis With Contrast Exam date and time: 08/14/2022 3:26 PM Age: 56 years old Clinical indication: Pain; Other: Llq; Additional info: Lower (suprapubic, llq) abdominal pain, known R ventral hernia TECHNIQUE: Imaging protocol: Computed tomography of the abdomen and pelvis with contrast. Radiation optimization: All CT scans at this facility use at least one of these dose optimization techniques: automated exposure control; mA and/or kV adjustment per patient size (includes targeted exams where dose is matched to clinical indication); or iterative reconstruction. Contrast material: OMNI=AQUE 350; Contrast volume: 95 ml; Contrast route: INTRAVENOUS (IV); Other protocol: This patient has received 3 known CTs and 0 known cardiac nuclear medicine studies in the 12 months prior to the current study. COMPARISON: CT abdomen pelvis wo con [id number] 04/27/2022 1:06 AM RADIATION DOSE METRICS: Total DLP (mGy-cm): 726.89 FINDINGS: Liver: Normal. No mass. Gallbladder and bile ducts: Normal. No calcified stones. No ductal dilation. Pancreas: Normal. No ductal dilation. Spleen: Normal. No splenomegaly. Adrenal glands: Normal. No mass. Kidneys and ureters: 1.5 cm cyst noted in the right kidney. No hydronephrosis. Stomach and bowel: Please see soft tissue section. No obstruction. No mucosal thickening. Appendix: No evidence of appendicitis. Intraperitoneal space: Unremarkable. No free air. No significant fluid collection. Vasculature: Unremarkable. No abdominal aortic aneurysm. Lymph nodes: Unremarkable. No enlarged lymph nodes. Urinary bladder: Unremarkable as visualized. Reproductive: 3 cm left ovarian cyst noted. Hysterectomy. Bones/joints: No acute fracture. Soft tissues: Ventral hernia noted in the right lower abdomen containing mesenteric fat and a portion of the cecum consistent with Rich hernia. Trace fluid also noted within the hernia sac. The hernia neck measures 3.[address]/CT abdomen pelvis w con* [id number] IMPRESSION: 1. Ventral hernia noted in the right lower abdomen containing a portion of the cecum consistent with Rich hernia. There is also trace fluid within the hernia sac which may reflect incarceration of the hernia, correlate with clinical exam. 2. 3 cm left ovarian cyst noted. COMMENTS: Consistent with the [employer]'s Incidental Findings Committee white paper (J Am Claribel Radiol 2018): Any incidental renal lesion less than 1 cm or classified as too small to characterize, or any incidental cystic renal lesion characterized as simple-appearing, is likely benign. No follow-up imaging is recommended for these lesions per consensus recommendations based on imaging criteria.
[2022-08-14 15:42] VITALS: BP 159/97; PULSE 75; O2SAT 99
[2022-08-14 16:45] VITALS: BP 148/108; PULSE 69; O2SAT 97
[2022-08-14 17:24] VITALS: BP 173/96; PULSE 79; O2SAT 100
[2022-08-15 17:10] LABS: Ferritin 55 ng/mL (15-150); Iron 133 ug/dL (37-145); Percent Saturation 45.2 % (20-50); Total Iron Binding Capacity 294 mcg/dl; Unsaturated Iron Binding 161 ug/dL (112-347)
== END 2022-08-14 17:25 | disposition home or self-care (01) ==
PROVIDERS: Internal Medicine Medical Oncology; Emergency Provider Physician Assistant
DX: K43.9 Ventral hernia without obstruction or gangrene (principal); M79.604 Pain in right leg; I10 Essential (primary) hypertension
CPT/HCPCS: 36415; 74177; 80053; 81003; 82728; 83540; 83550; 83605; 83690; 85025; 93971; 99285; Q9967

== ENCOUNTER 2022-08-17 08:35 | Day surgery (SDC) | payer MEDICAID, SELFPAY ==
[2022-08-16 14:37] VITALS: BMI 29.2
[2022-08-17] VITALS (14 sets, daily range): BP systolic 125–169; BP diastolic 74–110; PULSE 61–94; RESP 11–18; TEMP 36.2–36.4; O2SAT 93–100
--- NOTE | 2022-08-17 08:39 | W.PM.OPSUD ---
Surgery/Procedure H&P Update DATE OF PROCEDURE: August 17, 2022 DATE H&P PERFORMED: 07/21/22 PREOP DIAGNOSIS: abnormal uterine bleeding, uterine leiomyoma PLANNED PROCEDURE: Operation Date: 08/17/22 09:40 Proposed Procedures p lap repair of incision hernia with mesh 96634,K43.2(Not Applicable) - Yovani Zapata DO
--- NOTE | 2022-08-17 09:20 | ECG_ITS ---
[facility] Test Date: 2022-08-17 Pat Name: Nicky Gonzalez Department: Room: Gender: Female Rn Transplant: : 1965 Requested By: Gabriel aJffe Order Number: [id number] Ibrahim MD: John Pickett M.D. Measurements Intervals [place] Rate: 61 P: 43 OR: 163 QRS: 18 QRSD: 79 T: 24 QT: 436 QTc: 442 Interpretive Statements SINUS RHYTHM WITH SINUS ARRHYTHMIA Compared to ECG 03/13/2022 22:11:51 Supraventricular tachycardia no longer present ST (T wave) deviation no longer present Electronically Signed On 08-17-2022 20:09:53 TECHNICAL SALES SPECIALIST by John Pickett M.D. [email or web address]
[2022-08-17] MEDS: sodium chloride 0.9% 1,000 ML 30 ML IV (09:25)
[2022-08-17] MEDS: ceFAZolin 2,000 MG in sodium chloride 0.9% (plus) 50 ML 100 MG IV (09:35)
--- NOTE | 2022-08-17 09:39 | ANES.PREANE2 ---
Pre-Anesthetic Assessment Height/Weight: Height 1.63 m Weight 77.111 kg Temp Pulse Resp BP Pulse Ox O2 Del Method 97.2 F L 62 18 169/110 97 08/17/22 08:51 08/17/22 08:51 08/17/22 08:51 08/17/22 08:51 08/17/22 08:51 08/17/22 08:51 Preop Diagnosis: Incisional hernia Operation Date: 08/17/22 09:40 Proposed Procedures p lap repair of incision hernia with mesh 58323,K43.2(Not Applicable) - Yovani Zapata DO Familial anesthetic complications: none Was Beta Lelo taken within 24 hours: Yes Was Clonidine taken within 24 hours: N/A Last intake: Intake Last Liquid Date 08/16/22 Last Liquid Time 23:59 Last Solid Date 08/16/22 Last Solid Time 22:00 Social No alcohol and No tobacco Exam alert, oriented x 3, clear to auscultation bilaterally and regular rate & rhythm Airway Submandibular: within normal limits Cervical ROM: within normal limits Mallampati: Class II Dentition: full Pulmonary Asthma CV/HEM Arrythmia (SVT) and Hypertension GI Gastroesophageal Reflux Disease Metabolic Chronic steroids [facility]/skel Rheumatoid Arthritis Anesthetic Plan ASA status: 3 Anesthesia: General and Regional (specify below) (TAP blk) Medications/Allergies Home Medications Medication Instructions Recorded Confirmed Last Taken Type metoprolol tartrate 25 mg tablet 25 mg PO BID #180 tabs 01/20/21 08/17/22 08/16/22 Rx sulfasalazine 500 mg tablet 1 g PO TID #180 tabs 06/29/21 08/17/22 08/16/22 Rx albuterol sulfate 90 mcg/actuation 2 inh inhalation Q4H PRN shortness 06/05/22 08/17/22 2 Weeks Ago Rx aerosol inhaler of breath or wheezing #8.5 grams ~08/03/22 omeprazole 20 mg tablet,delayed 20 mg PO DAILY 06/05/22 08/17/22 08/16/22 History release ondansetron 4 mg disintegrating 4 mg PO Q8H PRN nausea and 08/14/22 08/17/22 08/15/22 Rx tablet vomiting #14 tabs Allergies Allergy/AdvReac Type Severity Reaction Status Date / Time No Known Allergies Allergy Verified 08/17/22 08:45 Current Medications Generic Name Dose Route Start Last Admin Trade Name Freq PRN Reason Stop Dose Admin Sodium Chloride 1,000 mls @ 30 mls/hr 08/17/22 09:00 08/17/22 09:25 Sodium Chloride 0.9% IV 08/18/22 08:59 30 mls/hr .Q24H ONIEL Administration PFSH Anesthesia Medical History MEME positive Chronic thoracic spine pain Current chronic use of systemic steroids Encounter for long-term (current) use of NSAIDs GERD (gastroesophageal reflux disease) Hernia, ventral Hypertension Lichen planus Long-term use of high-risk medication No pertinent past medical history Denies diabetes, asthma, hypertension, seizures, DVT/PE PCP: None Ovarian cyst Pain management contract signed Paroxysmal supraventricular tachycardia Managed by Dr. Hoskins/Dr. Maxwell in cardiology Raynaud's phenomenon Rheumatoid arthritis Diagnosed in 2004 and is managed by rheumatology Dr. Peck Seroma after procedure Spondylosis THORACIC AND LUMBAR Urinary problem in female Ventral hernia Surgical History History of esophagogastroduodenoscopy (EGD) History of hand surgery (~1997) History of hysteroscopy (09/23/19) Hysteroscopy, D&C, Buttock biopsy. Performed by Dr. Rock at [facility] [place] in [place], [place]. History of lumpectomy of left breast (06/27/17) Hx of section X5 Status post hysterectomy 12/06/2021--total abdominal hysterectomy with bilateral salpingectomy for abnormal uterine bleeding by Dr. Rowland at [facility] [place] Family History Father Diabetes Heart disease Mother Hypertension Thyroid condition Heart disease Grandmother Stroke paternal Heart disease paternal Grandfather Thyroid condition maternal Family/Other Thyroid condition maternal aunt Denies family history of Colon cancer Ovarian cancer Hyperlipidemia Breast cancer Uterine cancer Female Reproductive History Date of last menstrual period: 11/22/21 Data Anesthesia Cardiac Studies: No Data to Display
--- NOTE | 2022-08-17 11:08 | PM.OP ---
Operative Report Date of procedure: August 17, 2022 Pre-op diagnosis: Preop Diagnosis Incisional hernia Post-op diagnosis: other (Recurrent incisional hernia) Procedure done: Laparoscopic repair of recurrent incisional hernia with mesh Creation of bladder flap Implants: 6 inch round Ventralight mesh Specimens removed/disposition: Hernia sac Surgeon: Dr. Yovani Zapata DO Anesthesia: General Estimated blood loss (mL): 5 Complications: None apparent Brief History: This is a very pleasant 56-year-old female with a recurrent incisional hernia at a Pfannenstiel incision containing bowel and bladder. Laparoscopic repair with mesh was indicated. The risks and benefits were explained and documented. Procedure: Patient was wheeled into the operative room and placed on the OR table in a supine position. Abdomen was inspected prepped and draped in usual sterile fashion. Time-out was performed and all present were in agreement. A 15 blade scalpel was used to make a 5 millimeter incision left upper quadrant. A Veress needle was placed into the incision and intra-abdominal insufflation was brought to 15 millimeters of mercury. A 12 millimeter trocar was placed into the left lower quadrant. A second 5 mm trocar was placed in the left mid abdomen. There was a large hernia suprapubically containing omentum, colon and bladder. There was also old mesh at the site. Meticulous dissection with laparoscopic Enseal, Metzenbaum scissors and [place] dissectors was performed to remove the omentum and colon from the hernia. Next attention was brought to creation of bladder flap. Meticulous dissection was performed sharply between the bladder and the anterior abdominal wall to flap the bladder down and thus create enough space for adequate mesh coverage. The Costa catheter remained clear the entire operation. The energy device was then used to cut out the hernia sac. A 5 cm defect was identified. A 6 inch ventral light mesh was placed into the abdomen and brought up through the center of the hernia using an the Andrea-Rodney. The mesh was then tacked in place in a double crown fashion. The skeleton of the mesh was removed via the left lower quadrant. The hernia sac was then removed from the abdomen via the left lower quadrant. The left lower quadrant port site was closed with an 0 Vicryl suture in a Andrea-Rodney in a [id number] fashion. Incisions were closed with 4 O Monocryl in a subcuticular interrupted fashion. Skin glue was applied. Patient tolerated the procedure well.
[2022-08-17] MEDS: HYDROcodone-acetaminophen 10-325 mg Tablet 1 TAB PO (12:45)
--- NOTE | 2022-08-17 13:11 | ANES.PROC ---
Anesthesia Procedures Procedure/Date: 08/17/22 Nerve Block ^: Nerve Block 1: Main Anesthesia: general anesthesia Time Out Performed: Yes Consent: from patient, risks and benefits reviewed and patient agrees to proceed Nerve block location: other (Bilateral TAP blks) Anesthesia monitors applied: pulse oximetry, EKG, BP cuff and oxygen Nerve block position: supine Anesthetic Used: ropivicaine 0.5% Amount of anesthesia used (mL): 30 Ultrasound used to: recognize landmarks Nerve Stimulator Used?: No Interscalene/Femoral BLK: 4 stimuplex 21 g needle used for position and inplane approach Injection: neg aspiration of heme Patient Tolerated Procedure: well Complications: none
[2022-08-17] MEDS: ondansetron 4 MG Tablet PO (13:26)
--- NOTE | 2022-08-17 14:13 | PC.NURSE ---
Pt c/o 02/08 abdominal pain 15 minutes after receiving PO hydrocodone however declined my offer to call surgeon for possible admit to floor stating I just want to go home. Pt stated she had not passed any gas. Instructed pt and spouse to go to ED if pain worsens or if pain medication is not therapeutic, pt and voiced understanding.
--- NOTE | 2022-08-17 18:09 | ANE.PACU2 ---
Inpatient post-anesthesia follow up: Airway intact: Yes Vital signs: Temperature 97.4 F Pulse Rate 77 Respiratory Rate 16 Blood Pressure 131/92 Pulse Oximetry 95 Oxygen Delivery Me thod Room Air Oxygen Flow Rate 8 Fraction of Inspir ed Oxygen Hydration adequate: Yes Nausea and vomiting: No Pain level: 4 Mental status: Baseline
== END 2022-08-17 14:05 | disposition home or self-care (01) ==
PROVIDERS: Visit Provider Surgery
PROC: 0WQF4ZZ Repair Abdominal Wall, Percutaneous Endoscopic Approach (ICD-10-PCS; CPT 49593; principal; 2022-08-17 09:40)
DX: K43.2 Incisional hernia without obstruction or gangrene (principal); I10 Essential (primary) hypertension; K21.9 Gastro-esophageal reflux disease without esophagitis; Z79.52 Long term (current) use of systemic steroids; M06.9 Rheumatoid arthritis, unspecified
CPT/HCPCS: 49593; 51702; 88302; 93005; J0131; J0690; J1100; J1170; J1200; J1720; J1885; J2370; J2405; J2704; J2795; J3010; J3490; J7030; Q0162

== ENCOUNTER 2022-08-19 01:48 | Observation (INO) | payer MEDICAID, SELFPAY ==
[2022-08-19] VITALS (16 sets, daily range): BP systolic 90–129; BP diastolic 59–85; PULSE 97–127; RESP 14–20; TEMP 36.6–37; O2SAT 91–97; BMI 29.2
--- NOTE | 2022-08-19 02:05 | CTR_ITS ---
PROCEDURE INFORMATION: Exam: CT Abdomen And Pelvis With Contrast Exam date and time: 08/19/2022 2:38 AM Age: 56 years old Clinical indication: Nausea and vomiting; Abdominal pain; Generalized; Prior surgery; Surgery date: Post-operative (0-2 days); Surgery type: Hernia repair; Additional info: Abd pain TECHNIQUE: Imaging protocol: Computed tomography of the abdomen and pelvis with contrast. Radiation optimization: All CT scans at this facility use at least one of these dose optimization techniques: automated exposure control; mA and/or kV adjustment per patient size (includes targeted exams where dose is matched to clinical indication); or iterative reconstruction. Contrast material: OMNI 350; Contrast volume: 100 ml; Contrast route: INTRAVENOUS (IV); Other protocol: This patient has received 4 known CTs and 0 known cardiac nuclear medicine studies in the 12 months prior to the current study. COMPARISON: CT abdomen pelvis w con* [id number] 08/14/2022 3:26 PM RADIATION DOSE METRICS: Total DLP (mGy-cm): 934.11 FINDINGS: Lungs: New mild bibasilar consolidative changes with a few air bronchograms in the partially imaged lung bases. Liver: No focal intrahepatic lesions are seen. Gallbladder and bile ducts: No gallbladder wall thickening. No calcified stones. No ductal dilation. Pancreas: No intraparenchymal lesions are seen. No ductal dilation. Spleen: No intraparenchymal lesions are seen. No splenomegaly. Adrenal glands: Normal. No mass. Kidneys and ureters: No solid intraparenchymal soft tissue lesion. No hydronephrosis. Right renal superior pole lobulated low attenuating cystic structure measuring up to 1.6 cm in diameter is most compatible with a benign cyst. Stomach and bowel: No pathologic bowel dilatation. No obstruction. Appendix: No evidence of appendicitis. Intraperitoneal space: Interval development of a mild amount of the intermediate attenuating fluid within the abdomen and pelvis, this finding was not present on the prior exam. Subtle increased attenuation within the fluid in the posterior lower portion of the pelvis on series 5 image 36 and series 3, image 76. Vasculature: No abdominal aortic aneurysm. Lymph nodes: No pathologically enlarged lymph nodes. Urinary bladder: Unremarkable as visualized. Reproductive: Redemonstration of similar-appearing left ovarian low attenuating 3 mm cyst on series 3, image 66. Bones/joints: Redemonstration of a right lower quadrant ventral hernia containing intermediate attenuating (approximately 40 Hounsfield units) fluid collection measuring up to approximately 3 cm (AP) x 9 cm (transverse) x 6.5 cm (caudal cranial) with a small foci of internal air on series 6, image 39. Soft tissues: Very small fat containing umbilical hernia. CT/CT abdomen pelvis w con* [id number] IMPRESSION: 1. Interval development of intermediate attenuating fluid within the abdomen and pelvis extending into previously described right lower quadrant ventral hernia as described above. Somewhat ill-defined area of increased attenuation within the fluid collection in the posterior dependent portion the pelvis on series 3, image 76. Findings are most compatible with hemoperitoneum with extravasation versus organizing blood clot in the posterior dependent lower pelvis. Correlate and follow-up as clinically indicated. 2. Other chronic/incidental findings as described above. COMMENTS: Consistent with the [employer]'s Incidental Findings Committee white paper (J Am Claribel Radiol 2018): Any incidental renal lesion less than 1 cm or classified as too small to characterize, or any incidental cystic renal lesion characterized as simple-appearing, is likely benign. No follow-up imaging is recommended for these lesions per consensus recommendations based on imaging criteria.
--- NOTE | 2022-08-19 02:09 | W.ED.NAVMDI ---
HPI - Nausea/Vomiting/Diarrhea General: Chief complaint: Nausea/Vomiting/Diarrhea Stated complaint: n/v, abdomen pain on site, post hernia surgery Time Seen by Provider: 08/19/22 02:07 Source: patient Mode of arrival: ambulatory Limitations: no limitations History of Present Illness: 56-year-old female who had incisional hernia repair on states that ever since the surgery she has been having severe abdominal pain that has been diffuse in nature along with multiple episodes of nausea and vomiting. She called her surgeon informed if it did not improve that she needed to come back to the ER she states that overnight it is gotten worse her pain is currently an 8 out of 10 denies any fevers. Associated symtoms: Denies chest pain, dysuria or headache(s) Review of Systems Const: Denies: fever(s), chills, body aches or change in appetite Eyes: Denies: blurry vision or eye discomfort ENMT: Denies: throat pain or dental pain Card: Denies: chest pain Resp: Denies: dyspnea GI: Reports: abdominal pain : Denies: dysuria Musc: Denies: neck pain or back pain Skin/Breast: Denies: rash Neuro: Denies: headache(s) Psych: Denies: depression Kamran/Lymph: Denies: easy bruising All/Imm: Denies: urticaria PFSH ED PFSH: Medical History MEME positive Chronic thoracic spine pain Current chronic use of systemic steroids Encounter for long-term (current) use of NSAIDs GERD (gastroesophageal reflux disease) Hernia, ventral Hypertension Lichen planus Long-term use of high-risk medication No pertinent past medical history Denies diabetes, asthma, hypertension, seizures, DVT/PE PCP: None Ovarian cyst Pain management contract signed Paroxysmal supraventricular tachycardia Managed by Dr. Hoskins/Dr. Maxwell in cardiology Raynaud's phenomenon Rheumatoid arthritis Diagnosed in 2004 and is managed by rheumatology Dr. Peck Seroma after procedure Spondylosis THORACIC AND LUMBAR Urinary problem in female Ventral hernia Surgical History History of esophagogastroduodenoscopy (EGD) History of hand surgery (~1997) History of hysteroscopy (09/23/19) Hysteroscopy, D&C, Buttock biopsy. [place] [facility] [place] History of lumpectomy of left breast (06/27/17) Hx of section X5 Status post hysterectomy 12/06/2021--total abdominal hysterectomy with bilateral salpingectomy for abnormal uterine bleeding [place] [facility] [place] History Father Diabetes Heart disease Mother Hypertension Thyroid condition Heart disease Grandmother Stroke paternal Heart disease paternal Grandfather Thyroid condition maternal Family/Other Thyroid condition maternal aunt Denies family history of Colon cancer Ovarian cancer Hyperlipidemia Breast cancer Uterine cancer Physical Exam Const: COMMON NORMALS: no acute distress, patient oriented x3 and healthy appearing HENMT: COMMON NORMALS: normocephalic and atraumatic HEAD & SCALP: normocephalic and atraumatic Eye: COMMON NORMALS: Equal, round and reactive pupils present and EOMs intact bilaterally PUPIL: Yes Equal, round and reactive pupils present Neck/C-Spine: COMMON NORMALS: full ROM and supple Chest: COMMONS NORMALS: normal inspection of the chest and normal palpation of entire chest wall Resp: COMMON NORMALS: normal respiratory effort, No retractions, No use of accessory muscles and clear to auscultation bilaterally AUSCULTATION: clear to auscultation bilaterally Cardio: COMMON NORMALS: regular rate, regular rhythm and No murmurs present (Cardio) RATE: regular rate RHYTHM: regular rhythm GI: COMMON NORMALS: Normal to inspection, nondistended, normoactive bowel sounds present, Soft to palpation and no masses PALPATION: Yes Soft to palpation OTHER: diffuse tenderness incisions cdi Extremity: COMMON NORMALS: normal to inspection and full ROM Neuro: COMMON NORMALS: patient oriented x3, moves all extremities and no focal motor deficits Psych: COMMON NORMALS: mental status grossly normal, Normal thought process present and cooperative THOUGHT PROCESS: Normal thought process present Skin: COMMON NORMALS: no rashes or lesions noted and no wounds GENERAL SKIN EXAM: no rashes or lesions noted Course Vital Signs: Vital signs: Vital Signs Pulse Rate 109 H 08/19/22 03:28 Respiratory Rate 14 08/19/22 03:37 Blood Pressure 96/71 08/19/22 03:28 Pulse Oximetry 95 08/19/22 03:28 Oxygen Delivery Me thod 08/19/22 03:28 MDM - Nausea/Vomiting/Diarrhea Medical Decision Making Patient presents here with abdominal pain she did have a mesh repair yesterday she has been vomiting she could have tore something her CT does show some blood in the abdomen I have spoke to her surgeon Dr. Zapata who is aware of the findings is reviewed the CT knows her labs as well we will start TXA and admit patient at this time to his service. Her vital signs here been stable. Lab Data 08/19/22 02:20 08/19/22 02:20 Radiology Impressions Abdomen/Pelvis CT 08/19/22 02:05 IMPRESSION: 1. Interval development of intermediate attenuating fluid within the abdomen and pelvis extending into previously described right lower quadrant ventral hernia as described above. Somewhat ill-defined area of increased attenuation within the fluid collection in the posterior dependent portion the pelvis on series 3, image 76. Findings are most compatible with hemoperitoneum with extravasation versus organizing blood clot in the posterior dependent lower pelvis. Correlate and follow-up as clinically indicated. 2. Other chronic/incidental findings as described above. COMMENTS: Consistent with the [employer]'s Incidental Findings Committee white paper (J Am Claribel Radiol 2018): Any incidental renal lesion less than 1 cm or classified as too small to characterize, or any incidental cystic renal lesion characterized as simple-appearing, is likely benign. No follow-up imaging is recommended for these lesions per consensus recommendations based on imaging criteria. ADDENDUM: 08/19/22 0324 The findings were verbally communicated via telephone conference with Dr. Reynolds at 3:19 AM NATUROPATHIC DOCTOR on 08/19/2022. The findings were acknowledged and understood. Laboratory Results WBC 13.7 10^3/uL (4.0-10.0) H 08/19/22 02:20 RBC 3.81 10^6/uL (4.1-5.3) L 08/19/22 02:20 Hgb 10.0 g/dL (11.5-15.3) L 08/19/22 03:25 Hct 30.8 % (37.0-47.0) L 08/19/22 03:25 MCV 94.2 fl (81-99) 08/19/22 02:20 MCH 31.0 pg (28.0-34.0) 08/19/22 02:20 MCHC 32.9 g/dL (30.0-36.0) 08/19/22 02:20 RDW 13.8 % (12.1-15.1) 08/19/22 02:20 Plt Count 276 10^3/cmm (130-400) 08/19/22 02:20 MPV 11.8 fL (7.4-10.4) H 08/19/22 02:20 Neut % (Auto) 78.0 % 08/19/22 02:20 Lymph % (Auto) 13.4 % 08/19/22 02:20 Moca % (Auto) 7.4 % 08/19/22 02:20 Eos % (Auto) 0.2 % 08/19/22 02:20 Baso % (Auto) 0.5 % 08/19/22 02:20 Neut # (Auto) 10.71 10^3/uL (1.8-7.7) H 08/19/22 02:20 Lymph # (Auto) 1.8 10^3/uL (0.8-4.8) 08/19/22 02:20 Moca # (Auto) 1.0 10^3/uL (0.2-0.9) H 08/19/22 02:20 Eos # (Auto) 0.0 10^3/uL (0.0-0.8) 08/19/22 02:20 Baso # (Auto) 0.1 10^3/uL (0.0-0.1) 08/19/22 02:20 Nucleated RBC % (auto) 0 % 08/19/22 02:20 Nucleated RBCs # 0.0 /100WBC 08/19/22 02:20 PT 15.70 SECONDS (12.1-14.9) H 08/19/22 02:20 INR 1.21 (0.8-1.2) H 08/19/22 02:20 Sodium 132 mmol/L (136-145) L 08/19/22 02:20 Potassium 3.9 mmol/L (3.5-5.1) 08/19/22 02:20 Chloride 95 mmol/L (98-107) L 08/19/22 02:20 Carbon Dioxide 23 mmol/L (22-29) 08/19/22 02:20 Anion Gap 17.9 (5-19) 08/19/22 02:20 BUN 28 mg/dL (6-20) H 08/19/22 02:20 Creatinine 2.9 mg/dL (0.5-0.9) H 08/19/22 02:20 GFR Calculation 16.9 mL/min (90-130) L 08/19/22 02:20 Glucose 151 mg/dL (65-115) H 08/19/22 02:20 Calculated Osmolality 282 mOsm/kg (285-295) L 08/19/22 02:20 Calcium 8.9 mg/dL (8.5-10.5) 08/19/22 02:20 Total Bilirubin 0.5 mg/dL (0.15-1.2) 08/19/22 02:20 AST 22 U/L (0-32) 08/19/22 02:20 ALT 17 U/L (0-33) 08/19/22 02:20 Alkaline Phosphatase 61 U/L (35-105) 08/19/22 02:20 Total Protein 6.6 g/dL (6.6-8.7) 08/19/22 02:20 Albumin 4.5 g/dL (3.5-5.2) 08/19/22 02:20 Globulin 2.1 g/dL (1.3-4.6) 08/19/22 02:20 Lipase 54 U/L (13-60) 08/19/22 02:20 Discharge Plan Discharge Patient Disposition: Admitted As Inpatient Clinical Impression: Abdominal pain, Vomiting Condition: Stable Coding Level of Care Code ED First Aid Nurse for Ad Turner
[2022-08-19] MEDS: morphine 4 mg/mL SDV 1 mL IVP ×2 (02:20→06:35)
[2022-08-19] MEDS: ondansetron 2 mg/ML SDV 2 mL 4 MG IVP ×2 (02:21→04:23)
[2022-08-19 02:29] LABS: Basophils # 0.1 10^3/uL (0.0-0.1); Basophils % 0.5 %; Eosinophils % 0.2 %; Hematocrit 35.9 % (37.0-47.0); Hemoglobin 11.8 g/dL (11.5-15.3); Lymphocytes # 1.8 10^3/uL (0.8-4.8); Lymphocytes % 13.4 %; Mean Corpuscular HGB Conc 32.9 g/dL (30.0-36.0); Mean Corpuscular Volume 94.2 fl (81-99); Mean Platelet Volume 11.8 fL (7.4-10.4); Monocytes % 7.4 %; Neutrophils # 10.71 10^3/uL (1.8-7.7); Nucleated Red Blood Cells % 0 %; Platelet Count 276 10^3/cmm (130-400); Red Blood Count 3.81 10^6/uL (4.1-5.3); Red Cell Distribution Width 13.8 % (12.1-15.1); White Blood Count 13.7 10^3/uL (4.0-10.0)
[2022-08-19] MEDS: iohexol 350 mg/mL 500 mL Btl (per mL) IV (02:46)
[2022-08-19 02:52] LABS: Alanine Aminotransferase 17 U/L (0-33); Albumin Level 4.5 g/dL (3.5-5.2); Alkaline Phosphatase 61 U/L (35-105); Anion Gap 17.9 (5-19); Aspartate Amino Transferase 22 U/L (0-32); Blood Urea Nitrogen 28 mg/dL (6-20); Calcium 8.9 mg/dL (8.5-10.5); Carbon Dioxide 23 mmol/L (22-29); Chloride 95 mmol/L (98-107); Globulin 2.1 g/dL (1.3-4.6); Glomerular Filtration Rate 16.9 mL/min (90-130); Glucose 151 mg/dL (65-115); Lipase 54 U/L (13-60); Osmolality Calculated 282 mOsm/kg (285-295); Potassium 3.9 mmol/L (3.5-5.1); Sodium 132 mmol/L (136-145); Total Bilirubin 0.5 mg/dL (0.15-1.2); Total Protein 6.6 g/dL (6.6-8.7)
[2022-08-19] MEDS: sodium chloride 0.9% 1,000 ML 999 ML IV ×2 (03:37→04:26)
[2022-08-19] MEDS: HYDROmorphone 1 mg/mL INJ 1 mL IVP ×4 (03:37→21:06)
[2022-08-19 03:50] LABS: Hematocrit 30.8 % (37.0-47.0)
[2022-08-19 03:58] LABS: INR 1.21 (0.8-1.2)
[2022-08-19 06:04] LABS: Hematocrit 30.2 % (37.0-47.0); Hemoglobin 9.6 g/dL (11.5-15.3)
[2022-08-19] MEDS: sodium chloride 0.9% 1,000 ML 100 ML IV (06:21)
[2022-08-19] MEDS: vancomycin 1,000 MG in sodium chloride 0.9% 250 ML 250 MG IV (08:29)
[2022-08-19] MEDS: ondansetron 2 mg/ML SDV 2 mL 8 MG IVP ×2 (08:59→18:06)
[2022-08-19 09:14] LABS: Add Urine Microscopic? NO; Charge for UA Resulting for Rev
[2022-08-19 09:22] LABS: Bilirubin Urine Neg (Negative); Blood Urine Neg (Negative); Glucose Urine UA Norm (Normal); Ketones Urine Negative (Negative); Leukocyte Esterase Urine Negative (Negative); Nitrate Urine Negative (Negative); Protein Urine Neg (Negative); Urine Appearance Clear (CLEAR); Urine Color Yellow (Yellow); Urobilinogen Urine Norm (Negative); pH Urine 5 (5-7)
[2022-08-19 10:02] LABS: Basophils # 0.1 10^3/uL (0.0-0.1); Basophils % 0.5 %; Eosinophils % 0.2 %; Hematocrit 29.6 % (37.0-47.0); Hemoglobin 9.1 g/dL (11.5-15.3); Lymphocytes # 1.6 10^3/uL (0.8-4.8); Lymphocytes % 14.8 %; Mean Corpuscular HGB Conc 30.7 g/dL (30.0-36.0); Mean Corpuscular Hemoglobin 30.8 pg (28.0-34.0); Mean Corpuscular Volume 100.3 fl (81-99); Mean Platelet Volume 11.6 fL (7.4-10.4); Monocytes # 0.6 10^3/uL (0.2-0.9); Monocytes % 5.6 %; Neutrophils % 78.2 %; Nucleated Red Blood Cells % 0 %; Platelet Count 183 10^3/cmm (130-400); Red Blood Count 2.95 10^6/uL (4.1-5.3); Red Cell Distribution Width 13.8 % (12.1-15.1); White Blood Count 10.5 10^3/uL (4.0-10.0)
[2022-08-19 10:18] LABS: Alanine Aminotransferase 13 U/L (0-33); Albumin Level 3.5 g/dL (3.5-5.2); Alkaline Phosphatase 51 U/L (35-105); Aspartate Amino Transferase 16 U/L (0-32); Blood Urea Nitrogen 25 mg/dL (6-20); Calcium 7.9 mg/dL (8.5-10.5); Carbon Dioxide 18 mmol/L (22-29); Chloride 100 mmol/L (98-107); Glomerular Filtration Rate 29.3 mL/min (90-130); Glucose 109 mg/dL (65-115); Osmolality Calculated 277 mOsm/kg (285-295); Sodium 131 mmol/L (136-145); Total Bilirubin 0.3 mg/dL (0.15-1.2); Total Protein 5.5 g/dL (6.6-8.7)
[2022-08-19 10:20] LABS: Anion Gap 17.1 (5-19); Potassium 4.1 mmol/L (3.5-5.1)
--- NOTE | 2022-08-19 11:02 | P.HP_ITS ---
Providers/Chief Complaint Admitting Physician: Yovani Zapata DO Chief Complaint: n/v, abdomen pain on site, post hernia surgery History of Present Illness Nicky Gonzalez is a 56 year old female who presented to the hospital overnight, 2 days after a complex hernia repair. She had a repair of a Pfannenstiel incisional hernia which involved colon, bladder and a mesh that was adhered to the hernia and the bladder and was unknown to the patient. The procedure involved a bladder flap and there was minimal blood loss. There was no bleeding at the end of the procedure. At home she developed nausea and vomiting. This is likely either from the pain and/or the high dose of hydrocodone. She had significant abdominal pain at the hernia site which was sharp and not radiating. Vomiting and moving made the pain worse. Nothing made the pain better. For this she went to the ER. Review of Systems General: Reports: 10 or more systems reviewed and unremarkable except in HPI and below Medications/Allergies Home Medications Medication Instructions Recorded Confirmed Last Taken Type metoprolol tartrate 25 mg tablet 25 mg PO BID #180 tabs 01/20/21 08/19/22 08/16/22 Rx sulfasalazine 500 mg tablet 1 g PO TID #180 tabs 06/29/21 08/19/22 08/16/22 Rx albuterol sulfate 90 mcg/actuation 2 inh inhalation Q4H PRN shortness 06/05/22 08/19/22 2 Weeks Ago Rx aerosol inhaler of breath or wheezing #8.5 grams ~08/03/22 omeprazole 20 mg tablet,delayed 20 mg PO DAILY 06/05/22 08/19/22 08/16/22 History release ondansetron 4 mg disintegrating 4 mg PO Q8H PRN nausea and 08/14/22 08/19/22 08/15/22 Rx tablet vomiting #14 tabs docusate sodium 100 mg capsule 100 mg PO BID #20 caps 08/17/22 08/19/22 Unknown Rx (DOK) hydrocodone 10 mg-acetaminophen 1 tab PO Q6H PRN pain #20 tabs 08/17/22 08/19/22 Unknown Rx 325 mg tablet Allergies Allergy/AdvReac Type Severity Reaction Status Date / Time No Known Allergies Allergy Verified 08/17/22 08:45 PFSH Acute PFSH: Medical History (Updated 08/19/22 @ 11:05 by Yovani Zapata DO) MEME positive Chronic thoracic spine pain Current chronic use of systemic steroids Encounter for long-term (current) use of NSAIDs GERD (gastroesophageal reflux disease) Hernia, ventral Hypertension Lichen planus Long-term use of high-risk medication No pertinent past medical history Denies diabetes, asthma, hypertension, seizures, DVT/PE PCP: None Ovarian cyst Pain management contract signed Paroxysmal supraventricular tachycardia Managed by Dr. Hoskins/Dr. Maxwell in cardiology Raynaud's phenomenon Rheumatoid arthritis Diagnosed in 2004 and is managed by rheumatology Dr. Peck Seroma after procedure Spondylosis THORACIC AND LUMBAR Urinary problem in female Ventral hernia Surgical History (Updated 08/19/22 @ 11:05 by Yovani Zapata DO) History of esophagogastroduodenoscopy (EGD) History of hand surgery (~1997) History of hysteroscopy (09/23/19) Hysteroscopy, D&C, Buttock biopsy. Performed by Dr. Rock at [facility] in [place], [place]. History of incisional hernia repair History of lumpectomy of left breast (06/27/17) Hx of section X5 Status post hysterectomy 12/06/2021--total abdominal hysterectomy with bilateral salpingectomy for abnormal uterine bleeding by Dr. Rowland at [facility] Family History Father Diabetes Heart disease Mother Hypertension Thyroid condition Heart disease Grandmother Stroke paternal Heart disease paternal Grandfather Thyroid condition maternal Family/Other Thyroid condition maternal aunt Denies family history of Colon cancer Ovarian cancer Hyperlipidemia Breast cancer Uterine cancer Vitals/I&O/Wt Last Vital Signs Temp 97.8 F 08/19/22 07:17 Pulse 107 H 08/19/22 07:17 Resp 16 08/19/22 07:17 BP 103/71 08/19/22 07:17 Pulse Ox 95 08/19/22 07:17 O2 Del Method 08/19/22 05:45 O2 Flow Rate 2 08/19/22 08:00 08/18/22 08/19/22 08/19/22 22:59 06:59 14:59 Intake Total 2220 / 2220 465 / 465 Output Total 400 / 400 Balance 2220 / 2220 65 / 65 Weight last 48 hrs Weight 170 lb Physical Exam Narrative: General : Patient is well developed , no acute distress, oriented x3 Head : Normal cephalic, a-traumatic. Ears : Pinnae and external canal are normal. Hearing is normal. Eyes : PERRLA, Sclera and injection are normal. No conjunctival discharge. Nose : Mucous membranes are without erythema. Throat : buccal mucosa is normal, gums are without significant recession or hypertrophy. Lungs : Equal chest rise bilaterally, no use of accessory muscles, trachea is midline. Cor : Rate and rhythm are normal. Abdomen : Soft, ND, appropriately tender to palpation, no g/r/m Incisions intact without erythema or exudate Extremities : No edema, no cyanosis or clubbing, dorsalis pedis pulses are present bilaterally, non-tender to palpation of calves. Upper extremities are normal bilaterally. Back : non-tender to palpation, no CVA tenderness. Neuro : CN II - XII intact, Upper and lower extremities have equal and full strength Data 08/19/22 09:45 08/19/22 09:45 A&P Assessment and plan (1) Intraperitoneal hematoma: (2) History of incisional hernia repair: (3) NADEEN (acute kidney injury): Plan She likely tore at her mesh tacks by retching, causing postoperative bleeding Hemoglobin is now stable. It appears she is no longer bleeding Unsure the origin of the acute kidney injury, but it is rapidly improving despite IV contrast being given IV fluids She has a history of multiple staph infections. That history in the setting of a hematoma by her mesh gives me concern for possible development of a mesh infection. Therefore I will empirically put her on vancomycin Regular diet No acute surgical intervention Likely discharge home tomorrow Attestations Medical Necessity Statement*: Patient requires 1 more for IV fluids and pain control in the setting of acute kidney injury Coding Level of Care Code Acute Code for [facility] Fwd Diagnoses Intraperitoneal hematoma K66.1 History of incisional hernia repair Z98.890; Z87.19 NADEEN (acute kidney injury) N17.9
[2022-08-19] MEDS: sodium chloride 0.9% 1,000 ML 150 ML IV ×2 (14:24→19:54)
[2022-08-19] MEDS: pantoprazole 40 mg SDV IVP (18:05)
[2022-08-20] VITALS (15 sets, daily range): BP systolic 105–158; BP diastolic 73–90; PULSE 91–109; RESP 16–20; TEMP 36.6–37.6; O2SAT 90–97
[2022-08-20] MEDS: HYDROmorphone 1 mg/mL INJ 1 mL IVP ×3 (01:02→11:36)
[2022-08-20] MEDS: ondansetron 2 mg/ML SDV 2 mL 8 MG IVP ×4 (01:02→20:34)
[2022-08-20] MEDS: sodium chloride 0.9% 1,000 ML 150 ML IV ×3 (01:44→20:34)
[2022-08-20 04:16] LABS: Basophils # 0.1 10^3/uL (0.0-0.1); Basophils % 0.8 %; Eosinophils # 0.4 10^3/uL (0.0-0.8); Eosinophils % 5.1 %; Hematocrit 24.3 % (37.0-47.0); Hemoglobin 7.7 g/dL (11.5-15.3); Lymphocytes # 1.5 10^3/uL (0.8-4.8); Lymphocytes % 21.3 %; Mean Corpuscular HGB Conc 31.7 g/dL (30.0-36.0); Mean Corpuscular Hemoglobin 30.3 pg (28.0-34.0); Mean Corpuscular Volume 95.7 fl (81-99); Mean Platelet Volume 11.4 fL (7.4-10.4); Monocytes # 0.5 10^3/uL (0.2-0.9); Monocytes % 6.6 %; Neutrophils # 4.48 10^3/uL (1.8-7.7); Neutrophils % 63.4 %; Nucleated Red Blood Cells % 0 %; Platelet Count 156 10^3/cmm (130-400); Red Blood Count 2.54 10^6/uL (4.1-5.3); Red Cell Distribution Width 14.1 % (12.1-15.1); White Blood Count 7.1 10^3/uL (4.0-10.0)
[2022-08-20 04:43] LABS: Anion Gap 11.1 (5-19); Blood Urea Nitrogen 19 mg/dL (6-20); Calcium 7.9 mg/dL (8.5-10.5); Carbon Dioxide 23 mmol/L (22-29); Chloride 105 mmol/L (98-107); Glomerular Filtration Rate 57.8 mL/min (90-130); Glucose 123 mg/dL (65-115); Osmolality Calculated 284 mOsm/kg (285-295); Potassium 4.1 mmol/L (3.5-5.1); Sodium 135 mmol/L (136-145)
[2022-08-20] MEDS: pantoprazole 40 mg SDV IVP ×2 (06:10→17:09)
[2022-08-20] MEDS: vancomycin 1,000 MG in sodium chloride 0.9% 250 ML 250 MG IV (09:14)
--- NOTE | 2022-08-20 11:39 | PC.NURSE ---
Patient got nauseous after pain medication administration still one hour too early to give her PRN Zofran for her nausea. Called Dr Zapata in OR and received verbal order for Reglan Q4 IVP scheduled. Order placed. Will observe patient's tolerance of medication.
[2022-08-20] MEDS: metoclopramide 5 mg/mL SDV 2 mL IVP ×3 (11:52→22:47)
--- NOTE | 2022-08-20 14:06 | PM.PN ---
Subjective Subjective: Patient seen and examined. Pain controlled. Still nauseous however. No emesis Vitals/I&O/Wt Last Vital Signs Temp 98.0 F 08/20/22 08:00 Pulse 98 08/20/22 08:00 Resp 16 08/20/22 11:36 BP 105/73 08/20/22 08:00 Pulse Ox 92 08/20/22 08:00 O2 Del Method 08/20/22 08:00 O2 Flow Rate 2 08/19/22 19:54 08/19/22 08/20/22 08/20/22 22:59 06:59 14:59 Intake Total 825 / 2075 875 / 2950 1590 / 1590 Output Total 400 / 800 400 / 1200 Balance 425 / 1275 475 / 1750 1590 / 1590 Weight last 48 hrs Weight 170 lb Physical Exam Narrative: General: No acute distress, awake alert and oriented x3 Abdomen: Soft, nondistended, appropriately tender to palpation, no guarding rebound or masses Incisions intact without erythema or exudate Data 08/20/22 03:30 08/20/22 03:30 A&P Assessment and plan (1) Intraperitoneal hematoma: (2) History of incisional hernia repair: (3) NADEEN (acute kidney injury): (4) Anemia: Plan She likely tore at her mesh tacks by retching, causing postoperative bleeding Hemoglobin is now stable. It appears she is no longer bleeding Unsure the origin of the acute kidney injury, but it is rapidly improving despite IV contrast being given IV fluids She has a history of multiple staph infections. That history in the setting of a hematoma by her mesh gives me concern for possible development of a mesh infection. Therefore I will empirically put her on vancomycin Regular diet Transfuse 1 unit PRBCs Tranexamic acid 1 g now and 1 g in an hour Repeat hemoglobin this afternoon Attestations Medical Necessity Statement*: Patient requires at least 1 more night in the hospital for observation for possible bleeding Coding Level of Care Code Acute Code for [facility] Fwd Diagnoses Intraperitoneal hematoma K66.1 History of incisional hernia repair Z98.890; Z87.19 NADEEN (acute kidney injury) N17.9 Anemia D64.9
[2022-08-20 18:38] LABS: Hematocrit 26.8 % (37.0-47.0); Hemoglobin 8.6 g/dL (11.5-15.3)
[2022-08-20] MEDS: metoprolol tartrate 25 mg Tablet PO (22:47)
--- NOTE | 2022-08-20 22:50 | PC.NURSE ---
Family member at bedside asking why patient hasn't been getting her Metoprolol stating that she has a history of SVT. Dr. Zapata notified and ordered to continue all home meds. SCDs also ordered.
[2022-08-21] VITALS (9 sets, daily range): BP systolic 151–154; BP diastolic 88–95; PULSE 80–90; RESP 14–18; TEMP 36.4–37; O2SAT 87–98
[2022-08-21 02:59] LABS: Basophils # 0.1 10^3/uL (0.0-0.1); Basophils % 0.8 %; Eosinophils # 0.4 10^3/uL (0.0-0.8); Eosinophils % 6.4 %; Hematocrit 27.6 % (37.0-47.0); Hemoglobin 8.9 g/dL (11.5-15.3); Lymphocytes # 1.2 10^3/uL (0.8-4.8); Lymphocytes % 18.6 %; Mean Corpuscular HGB Conc 32.2 g/dL (30.0-36.0); Mean Corpuscular Volume 96.2 fl (81-99); Mean Platelet Volume 11.3 fL (7.4-10.4); Monocytes # 0.5 10^3/uL (0.2-0.9); Monocytes % 7.6 %; Neutrophils % 62.3 %; Nucleated Red Blood Cells % 0 %; Platelet Count 155 10^3/cmm (130-400); Red Blood Count 2.87 10^6/uL (4.1-5.3); Red Cell Distribution Width 14.6 % (12.1-15.1); White Blood Count 6.6 10^3/uL (4.0-10.0)
[2022-08-21] MEDS: sodium chloride 0.9% 1,000 ML 150 ML IV ×2 (03:04→09:04)
[2022-08-21 03:22] LABS: Anion Gap 8.8 (5-19); Blood Urea Nitrogen 11 mg/dL (6-20); Carbon Dioxide 25 mmol/L (22-29); Chloride 109 mmol/L (98-107); Glomerular Filtration Rate 104.2 mL/min (90-130); Glucose 96 mg/dL (65-115); Osmolality Calculated 287 mOsm/kg (285-295); Potassium 3.8 mmol/L (3.5-5.1); Sodium 139 mmol/L (136-145)
[2022-08-21] MEDS: pantoprazole 40 mg SDV IVP (05:16)
[2022-08-21] MEDS: metoclopramide 5 mg/mL SDV 2 mL IVP ×2 (05:16→11:42)
[2022-08-21] MEDS: vancomycin 1,000 MG in sodium chloride 0.9% 250 ML 250 MG IV (08:53)
[2022-08-21] MEDS: pantoprazole DR 40 mg Tablet PO (08:54)
[2022-08-21] MEDS: docusate sodium 100 mg Capsule PO (08:54)
[2022-08-21] MEDS: sulfaSALAzine 500 mg Tablet 1000 MG PO ×2 (09:04→16:31)
[2022-08-21] MEDS: metoprolol tartrate 25 mg Tablet PO (09:04)
--- NOTE | 2022-08-21 10:26 | PC.CHAP ---
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 [] Patient/Family/Request visit [] Outpatient visit [] Follow-up visit [] Physician referral [] Code/Alert [x] Routine visit [] Staff referral [] Actively dying [] Patient sleeping [x] Family support [] [] Out of room [] Palliative care [] [] Receiving care in room [] Pre-surgical visit [] Trauma [] Long length of stay [] ICU visit [] Other: Relational/Emotional Strength [x] Patient feels connected with others/family/visitors/staff [] Distress [] Loneliness/isolation [] Abandonment Spirituality of Patient [x] Person of Mary [] Attends Restorationist of their Mary [x] Believes in Prayer [] Reads Bible or Latter-Day materials [] There are Spiritual issues to be addressed Administration Manager Interventions [x] Prayer [x] Active listening [] Non-anxious presence [x] Spiritual/emotional support [] Crisis/trauma care [] Spiritual counseling [] Bereavement support [] Provided bereavement packet [] Provided Bible/devotional materials [] Provided toy/stuffed animal, coloring book to patient or family member [] Provided Communion [] Anointing/[place] [] Salvation [x] Completed spiritual assessment [] Other: Impact on Illness or Injury [] Angry [] Fearful [] Anxious [] Often cries [] Exhaustion [] Unable to work [] Unable to attend restoration [] Unable to walk/stand [] Unable to read [] Unable to drive [] Unable to eat/drink [] Unable to sleep [] Unable to be with family [] Patient intubated [] Other: Summary Time spent with patient 5 min
--- NOTE | 2022-08-21 11:59 | PC.NURSE ---
notified Dr. Zapata patient did not have tylenol on board. Dr. Zapata gave a verbal order of hydrocodone 5/325 mg PO Once and Tylenonl 650 mg PO once. orders complete
[2022-08-21 12:04] LABS: Glucose Point of Care 95 mg/dL (70-110)
[2022-08-21] MEDS: acetaminophen 325 mg Tablet 650 MG PO (12:16)
[2022-08-21] MEDS: HYDROcodone-acetaminophen 5-325 mg Tablet 1 TAB PO (12:17)
[2022-08-21] MEDS: hyDRALAzine 25 mg Tablet PO (12:45)
--- NOTE | 2022-08-21 14:39 | PM.DCS ---
Discharge Providers Date of Admission: 08/19/22 04:00 Date of Discharge: August 21, 2022 Attending Provider at Admission: Yovani Zapata DO Attending Provider at Discharge: Yovani Zapata DO Diagnoses at Discharge Discharge Diagnosis (1) Intraperitoneal hematoma: Status: Acute (2) History of incisional hernia repair: Status: Acute (3) NADEEN (acute kidney injury): Status: Acute (4) Anemia: Status: Acute Reason for Visit Reason for Visit: n/v, abdomen pain on site, post hernia surgery Hospital Course Hospital Course This very pleasant 56-year-old female who recently underwent a complex repair of an incisional hernia at a Pfannenstiel incision that included colon and bladder, requiring a bladder flap. She was doing well initially postoperatively until she started having nausea and vomiting. After the nausea and vomiting she began having significant abdominal pain. She reported to the emergency room was found to have a intraperitoneal hematoma, likely from the retching tearing at her mesh tacks. She received 1 unit of PRBCs and had a stable hemoglobin prior to discharge. Physical Exam Narrative: General : Patient is well developed , no acute distress, oriented x3 Head : Normal cephalic, a-traumatic. Ears : Pinnae and external canal are normal. Hearing is normal. Eyes : PERRLA, Sclera and injection are normal. No conjunctival discharge. Nose : Mucous membranes are without erythema. Throat : buccal mucosa is normal, gums are without significant recession or hypertrophy. Lungs : Equal chest rise bilaterally, no use of accessory muscles, trachea is midline. Cor : Rate and rhythm are normal. Abdomen : Soft, ND, appropriately tender, no g/r/m Extremities : No edema, no cyanosis or clubbing, dorsalis pedis pulses are present bilaterally, non-tender to palpation of calves. Upper extremities are normal bilaterally. Back : non-tender to palpation, no CVA tenderness. Neuro : CN II - XII intact, Upper and lower extremities have equal and full strength Discharge Data Studies Completed and Pending Completed Studies During Hospitalization Category Date Time Status CT abdomen pelvis w con* [id number] Stat Cat Scan 08/19/22 02:05 Completed Pending at discharge Category Date Time Status BMP [Basic Metabolic Panel] AM LABS Lab 08/22/22 04:00 Ordered CBC Auto Diff [Complete Blood Count w/Auto] AM LABS Lab 08/22/22 04:00 Ordered Radiology Impressions Abdomen/Pelvis CT 08/19/22 02:05 IMPRESSION: 1. Interval development of intermediate attenuating fluid within the abdomen and pelvis extending into previously described right lower quadrant ventral hernia as described above. Somewhat ill-defined area of increased attenuation within the fluid collection in the posterior dependent portion the pelvis on series 3, image 76. Findings are most compatible with hemoperitoneum with extravasation versus organizing blood clot in the posterior dependent lower pelvis. Correlate and follow-up as clinically indicated. 2. Other chronic/incidental findings as described above. COMMENTS: Consistent with the [employer]'s Incidental Findings Committee white paper (J Am Claribel Radiol 2018): Any incidental renal lesion less than 1 cm or classified as too small to characterize, or any incidental cystic renal lesion characterized as simple-appearing, is likely benign. No follow-up imaging is recommended for these lesions per consensus recommendations based on imaging criteria. ADDENDUM: 08/19/22 0324 The findings were verbally communicated via telephone conference with Dr. Reynolds at 3:19 AM PRODUCTION ASSEMBLER on 08/19/2022. The findings were acknowledged and understood. Laboratory Results WBC 6.6 10^3/uL (4.0-10.0) 08/21/22 02:12 RBC 2.87 10^6/uL (4.1-5.3) L 08/21/22 02:12 Hgb 8.9 g/dL (11.5-15.3) L 08/21/22 02:12 Hct 27.6 % (37.0-47.0) L 08/21/22 02:12 MCV 96.2 fl (81-99) 08/21/22 02:12 MCH 31.0 pg (28.0-34.0) 08/21/22 02:12 MCHC 32.2 g/dL (30.0-36.0) 08/21/22 02:12 RDW 14.6 % (12.1-15.1) 08/21/22 02:12 Plt Count 155 10^3/cmm (130-400) 08/21/22 02:12 MPV 11.3 fL (7.4-10.4) H 08/21/22 02:12 Neut % (Auto) 62.3 % 08/21/22 02:12 Lymph % (Auto) 18.6 % 08/21/22 02:12 Zapata % (Auto) 7.6 % 08/21/22 02:12 Eos % (Auto) 6.4 % 08/21/22 02:12 Baso % (Auto) 0.8 % 08/21/22 02:12 Neut # (Auto) 4.10 10^3/uL (1.8-7.7) 08/21/22 02:12 Lymph # (Auto) 1.2 10^3/uL (0.8-4.8) 08/21/22 02:12 Zapata # (Auto) 0.5 10^3/uL (0.2-0.9) 08/21/22 02:12 Eos # (Auto) 0.4 10^3/uL (0.0-0.8) 08/21/22 02:12 Baso # (Auto) 0.1 10^3/uL (0.0-0.1) 08/21/22 02:12 Nucleated RBC % (auto) 0 % 08/21/22 02:12 Nucleated RBCs # 0.0 /100WBC 08/21/22 02:12 PT 15.70 SECONDS (12.1-14.9) H 08/19/22 02:20 INR 1.21 (0.8-1.2) H 08/19/22 02:20 Sodium 139 mmol/L (136-145) 08/21/22 02:12 Potassium 3.8 mmol/L (3.5-5.1) 08/21/22 02:12 Chloride 109 mmol/L (98-107) H 08/21/22 02:12 Carbon Dioxide 25 mmol/L (22-29) 08/21/22 02:12 Anion Gap 8.8 (5-19) 08/21/22 02:12 BUN 11 mg/dL (6-20) 08/21/22 02:12 Creatinine 0.6 mg/dL (0.5-0.9) 08/21/22 02:12 GFR Calculation 104.2 mL/min (90-130) 08/21/22 02:12 Glucose 96 mg/dL (65-115) 08/21/22 02:12 POC Glucose 95 mg/dL (70-110) 08/21/22 11:24 Calculated Osmolality 287 mOsm/kg (285-295) 08/21/22 02:12 Calcium 8.0 mg/dL (8.5-10.5) L 08/21/22 02:12 Total Bilirubin 0.3 mg/dL (0.15-1.2) 08/19/22 09:45 AST 16 U/L (0-32) 08/19/22 09:45 ALT 13 U/L (0-33) 08/19/22 09:45 Alkaline Phosphatase 51 U/L (35-105) 08/19/22 09:45 Total Protein 5.5 g/dL (6.6-8.7) L 08/19/22 09:45 Albumin 3.5 g/dL (3.5-5.2) 08/19/22 09:45 Globulin 2.0 g/dL (1.3-4.6) 08/19/22 09:45 Lipase 54 U/L (13-60) 08/19/22 02:20 Urine Color Yellow (Yellow) 08/19/22 09:05 Urine Appearance Clear (CLEAR) 08/19/22 09:05 Urine pH 5 (5-7) 08/19/22 09:05 Ur Specific [place] 1.020 (1.005-1.030) 08/19/22 09:05 Urine Protein Neg (Negative) 08/19/22 09:05 Urine Glucose (UA) Norm (Normal) 08/19/22 09:05 Urine Ketones Negative (Negative) 08/19/22 09:05 Urine Blood Neg (Negative) 08/19/22 09:05 Urine Nitrate Negative (Negative) 08/19/22 09:05 Urine Bilirubin Neg (Negative) 08/19/22 09:05 Urine Urobilinogen Norm mg/dL (Negative) 08/19/22 09:05 Ur Leukocyte Esterase Negative (Negative) 08/19/22 09:05 Blood Type O Positive 08/19/22 03:25 Rho(D) Type Positive 08/19/22 03:25 Antibody Screen Negative 08/19/22 03:25 Crossmatch See Detail 08/19/22 03:25 Procedures Performed None Vitals Last Vital Signs Temp 97.5 F L 08/21/22 11:41 Pulse 80 08/21/22 11:41 Resp 16 08/21/22 11:41 BP 151/95 08/21/22 11:41 Pulse Ox 91 08/21/22 11:41 O2 Del Method 08/21/22 11:41 O2 Flow Rate 2 08/21/22 08:41 Discharge Plan Discharge Patient Disposition: Home Condition: Stable Prescriptions: New ondansetron 8 mg tablet,disintegrating 8 mg PO Q8H PRN (Reason: nausea and vomiting) Qty: 30 1RF Reglan 5 mg tablet 5 mg PO Q6H PRN (Reason: nausea and vomiting) Qty: 40 1RF Bactrim DS 800-160 mg tablet 1 tab PO BID 7 Days Qty: 14 0RF Bactrim DS 800-160 mg tablet 1 tab PO BID 7 Days Qty: 14 0RF Continued metoprolol tartrate 25 mg tablet 25 mg PO BID Qty: 180 3RF sulfasalazine 500 mg tablet 1 g PO TID Qty: 180 2RF omeprazole 20 mg Tablet,Delayed Release (Dr/Ec) 20 mg PO DAILY albuterol sulfate 90 mcg/actuation HFA aerosol inhaler 2 inh inhalation Q4H PRN (Reason: shortness of breath or wheezing) Qty: 8.5 0RF docusate sodium [DOK] 100 mg capsule 100 mg PO BID Qty: 20 0RF hydrocodone-acetaminophen 10-325 mg tablet 1 tab PO Q6H PRN (Reason: pain) Qty: 20 0RF Held ondansetron 4 mg tablet,disintegrating 4 mg PO Q8H PRN (Reason: nausea and vomiting) Qty: 14 0RF Hold Instructions: Resume on 08/28/22. Discharge Orders: Discharge Order (Routine); Ordered 08/21/22 Ordered By: Yovani Zapata Referrals: Yovani Zapata DO [Physician] - 09/05/22 10:15 am Discharge Diet: Advance as tolerated Discharge Activity: Resume usual activity and Limit activity as instructed Patient Instructions: Sulfamethoxazole/Trimethoprim (By mouth), Metoclopramide (By mouth), Ondansetron (By mouth), Opioid Safety Activity Restrictions/Additional Instructions: No lifting, pushing or pulling over 15 pounds for 6 weeks. Do not soak incisions underwater for 2 weeks. Shower daily. Let the glue fall off on its own. Discharge Attestations Time Spent in Discharge Care*: less than 30 min Quality Metrics Clinical Quality Measures [ No reported AMI, CVA or VTE this stay] Coding Level of Care Code Acute Code for [facility] Fwd Diagnoses Intraperitoneal hematoma K66.1 History of incisional hernia repair Z98.890; Z87.19 NADEEN (acute kidney injury) N17.9 Anemia D64.9
--- NOTE | 2022-08-21 16:29 | PC.SOCIAL ---
Addendum entered by Diana Frias RN 08/23/22 10:26: [employer] corrected. Pre-Cert number assigned: [id number]. Faxed to HOME at this time. Original Note: Patient has Home O2 eval completed and qualified for 2l/min. Order received and faxed to HOME @ this time. [employer] Completed Confirmation # [id number]. Faxed to HOME Called and spoke to Lois @ [facility] and updated that patient has DC orders. also called and set up patient a PCP appointment w/ Dr. Cruz @ 08/28 @ 1000. Added to DC plan and called and updated patient as DC may have already been printed and provided to patient.
--- NOTE | 2022-08-21 18:19 | PC.NURSE ---
Discussed discharge, medications, continued medications and follow up appointments. Verbalized understanding
== END 2022-08-21 17:45 | disposition home or self-care (01) ==
LOC: ER 04:07 → MEDSURG 04:34
PROVIDERS: Admitting Provider Surgery; Emergency Provider Emergency Medicine; Visit Provider Surgery
DX: K66.1 Hemoperitoneum (principal); Z98.890 Other specified postprocedural states; Z87.19 Personal history of other diseases of the digestive system; N17.9 Acute kidney failure, unspecified; D64.9 Anemia, unspecified; K21.9 Gastro-esophageal reflux disease without esophagitis; I10 Essential (primary) hypertension; M06.9 Rheumatoid arthritis, unspecified; R10.9 Unspecified abdominal pain; R11.10 Vomiting, unspecified; I47.1 Supraventricular tachycardia
CPT/HCPCS: 36415; 36416; 36430; 74177; 80048; 80053; 81003; 82962; 83690; 85014; 85018; 85025; 85610; 86850; 86900; 86920; 94760; 96365; 96367; 96375; 96376; 99285; C9113; G0378; J1170; J2270; J2405; J2765; J3370; J7030; J7050; P9040; Q9967

== ENCOUNTER → 2022-08-30 15:03 | Outpatient (BNVA) | payer MEDICAID, SELFPAY | PROVIDERS: PCP Family Medicine; Visit Provider Family Medicine | DX: D64.9 Anemia, unspecified (principal); K66.1 Hemoperitoneum; K43.2 Incisional hernia without obstruction or gangrene; K43.9 Ventral hernia without obstruction or gangrene | CPT/HCPCS: 80053; 82247; 82607; 82728; 82746; 83540; 84443; 85025 ==

== ENCOUNTER → 2022-09-05 15:27 | Outpatient (BNVA) | payer MEDICAID, SELFPAY | PROVIDERS: PCP Family Medicine; Visit Provider Surgery | DX: Z98.890 Other specified postprocedural states (principal); Z87.19 Personal history of other diseases of the digestive system | CPT/HCPCS: 99024 ==

== ENCOUNTER → 2023-03-22 11:03 | Outpatient (BNVA) | payer MEDICAID, SELFPAY | PROVIDERS: PCP Family Medicine; Visit Provider Nurse Practitioner Family | DX: L03.90 Cellulitis, unspecified (principal) | CPT/HCPCS: 87070; 87077; 87184 ==

== ENCOUNTER 2023-05-02 20:22 | Emergency (ER) | payer MEDICAID, SELFPAY ==
[2023-05-02 20:23] VITALS: BP 187/101; PULSE 73; RESP 17; TEMP 36.4; O2SAT 100; BMI 29.2
--- NOTE | 2023-05-02 20:26 | XRR_ITS ---
PROCEDURE INFORMATION: Exam: XR Left Shoulder Exam date and time: 05/02/2023 9:38 PM Age: 57 years old Clinical indication: Pain; Shoulder; Left; Additional info: Fall TECHNIQUE: Imaging protocol: Radiologic exam of the left shoulder. Views: 2 or more views. COMPARISON: CR XR chest 1V portable [id number] 06/05/2022 12:20 PM FINDINGS: Bones/joints: Normal. Soft tissues: Normal. XR/XR shoulder LT min 2V* [id number] IMPRESSION: No acute findings.
--- NOTE | 2023-05-02 21:09 | XRR_ITS ---
PROCEDURE INFORMATION: Exam: XR Left Elbow Exam date and time: 05/02/2023 9:41 PM Age: 57 years old Clinical indication: Pain; Elbow; Left; Additional info: Fall TECHNIQUE: Imaging protocol: Radiologic exam of the left elbow. Views: 3 or more views. COMPARISON: CR (CHEST, ) 05/02/2023 9:38 PM FINDINGS: Bones/joints: Nondisplaced fracture of the left radial head. Soft tissues: Normal. XR/XR elbow LT min 3V* [id number] IMPRESSION: Nondisplaced fracture of the left radial head.
--- NOTE | 2023-05-02 21:09 | XRR_ITS ---
PROCEDURE INFORMATION: Exam: XR Left Wrist Exam date and time: 05/02/2023 9:44 PM Age: 57 years old Clinical indication: Pain and injury or trauma; Fall; Other: Unknown; Wrist; Left TECHNIQUE: Imaging protocol: Radiologic exam of the left wrist. Views: 3 or more views. COMPARISON: CR ([facility], ) 05/02/2023 9:41 PM FINDINGS: Bones/joints: Normal. Soft tissues: Normal. XR/XR wrist LT min 3V* [id number] IMPRESSION: No acute findings.
--- NOTE | 2023-05-02 21:47 | XRR_ITS ---
PROCEDURE INFORMATION: Exam: XR Left Forearm Exam date and time: 05/02/2023 9:49 PM Age: 57 years old Clinical indication: Pain; Lower or forearm; Left TECHNIQUE: Imaging protocol: Radiologic exam of the left forearm. Views: 2 views. COMPARISON: CR (UP EXM, ) 05/02/2023 9:44 PM FINDINGS: Bones/joints: Normal. Soft tissues: Normal. XR/XR forearm LT 2V [id number] IMPRESSION: No acute findings.
--- NOTE | 2023-05-02 22:04 | W.ED.FALL ---
HPI - Fall General: Chief Complaint: Fall Stated Complaint: Fell Hurt left Shoulder and Arm Time Seen by Provider: 05/02/23 21:39 Source: patient Mode of arrival: ambulatory Limitations: no limitations History of Present Illness: 57-year-old female states she had fell this afternoon on outstretched left arm states that since then she has been having increasing left elbow pain. States pain is worse with movement she has radiation to her shoulder and wrist. She denies hitting her head denies any other injuries rates her pain an 8 out of 10 currently Associated symptoms-after fall: Denies abdominal pain, chest pain, headache(s) or neck pain Review of Systems Const: Denies: fever(s), chills, body aches or change in appetite ENMT: Denies: throat pain or dental pain Card: Denies: chest pain Resp: Denies: dyspnea GI: Denies: abdominal pain, nausea, vomiting or diarrhea Musc: Reports: extremity pain; Denies: neck pain or back pain Skin/Breast: Denies: rash Neuro: Denies: headache(s) PFSH ED PFSH: Medical History MEME positive Chronic thoracic spine pain Current chronic use of systemic steroids Encounter for long-term (current) use of NSAIDs GERD (gastroesophageal reflux disease) Hernia, ventral Hypertension Lichen planus Long-term use of high-risk medication No pertinent past medical history Denies diabetes, asthma, hypertension, seizures, DVT/PE PCP: None Ovarian cyst Pain management contract signed Paroxysmal supraventricular tachycardia Managed by Dr. Hoskins/Dr. Maxwell in cardiology Raynaud's phenomenon Rheumatoid arthritis Diagnosed in 2004 and is managed by rheumatology Dr. Peck Seroma after procedure Spondylosis THORACIC AND LUMBAR Urinary problem in female Ventral hernia Surgical History History of esophagogastroduodenoscopy (EGD) History of hand surgery (~1997) History of hysteroscopy (09/23/19) Hysteroscopy, D&C, Buttock biopsy. Performed by Dr. Rock at [facility] in [place], [place]. History of incisional hernia repair History of incisional hernia repair History of lumpectomy of left breast (06/27/17) Hx of section X5 Status post hysterectomy 12/06/2021--total abdominal hysterectomy with bilateral salpingectomy for abnormal uterine bleeding by Dr. Rowland at [facility] Family History Father Diabetes Heart disease Mother Hypertension Thyroid condition Heart disease Grandmother Stroke paternal Heart disease paternal Grandfather Thyroid condition maternal Family/Other Thyroid condition maternal aunt Denies family history of Colon cancer Ovarian cancer Hyperlipidemia Breast cancer Uterine cancer Social History Substance/Drug Use: never Physical Exam Const: COMMON NORMALS: no acute distress and patient oriented x3 HENMT: COMMON NORMALS: normocephalic and atraumatic HEAD & SCALP: normocephalic and atraumatic Eye: COMMON NORMALS: conjunctivae normal CONJUNCTIVA: Yes conjunctivae normal Neck/C-Spine: COMMON NORMALS: full ROM Chest: COMMONS NORMALS: normal inspection of the chest Resp: COMMON NORMALS: normal respiratory effort Extremity: NARRATIVE EXTREMITY EXAM: Tenderness over left elbow pain with range of motion distal pulses intact no obvious deformity Neuro: COMMON NORMALS: patient oriented x3 Psych: COMMON NORMALS: mental status grossly normal Skin: COMMON NORMALS: no rashes or lesions noted GENERAL SKIN EXAM: no rashes or lesions noted Course Vital Signs: Vital signs: Vital Signs Temperature 97.6 F 05/02/23 20:23 Pulse Rate 73 05/02/23 20:23 Respiratory Rate 17 05/02/23 20:23 Blood Pressure 187/101 05/02/23 20:23 Pulse Oximetry 100 05/02/23 20:23 Oxygen Delivery Me thod Room Air 05/02/23 20:23 MDM - Fall Medical Decision Making Patient presents with likely radial head fracture left elbow patient placed in a splint sling will get follow-up with orthopedics we will place patient on pain medicine she is to follow-up with orthopedics and return if worsening XR interpretation done by ED provider, pending radiology final review ED provider radiology interpretation(s): X-ray left elbow posterior fat pad likely radial head fracture Discharge Plan Discharge Patient Disposition: Home Clinical Impression: Fracture of head of left radius Condition: Stable Prescriptions: New hydrocodone-acetaminophen 5-325 mg tablet 1 tab PO Q6H PRN (Reason: pain) Qty: 14 0RF naproxen [Naprosyn] 500 mg tablet 500 mg PO BID PRN (Reason: pain) Qty: 20 0RF No Action albuterol sulfate 90 mcg/actuation HFA aerosol inhaler 2 inh inhalation Q4H PRN (Reason: shortness of breath or wheezing) Qty: 8.5 0RF metoprolol tartrate 25 mg tablet 25 mg PO BID Qty: 180 3RF clindamycin HCl 300 mg capsule 300 mg PO TID 7 Days Qty: 21 0RF prednisone 20 mg tablet 20 mg PO DAILY 7 Days Qty: 7 0RF omeprazole 20 mg Tablet,Delayed Release (Dr/Ec) 20 mg PO DAILY Discharge Orders: Discharge ED (Routine); Ordered 05/02/23 Ordered By: Andrew Reynolds Referrals: Naeem Piña DO [Physician] - 1-3 days Discharge Diet: Advance as tolerated Discharge Activity: Resume usual activity Patient Instructions: Elbow Fracture (ED) Coding Level of Care Code ED Quantitative Manager for Ad Turner
[2023-05-02] MEDS: HYDROcodone-acetaminophen 7.5-325 mg Tablet 1 TAB PO (22:08)
--- NOTE | 2023-05-03 07:39 | DCPLANNER ---
Referral was sent to ortho on 05/03 at 0739am. Clinic to contact patient for appointment.
== END 2023-05-02 22:29 | disposition home or self-care (01) ==
PROVIDERS: Emergency Provider Emergency Medicine
DX: S52.122A Displaced fracture of head of left radius, initial encounter for closed fracture (principal); I10 Essential (primary) hypertension; W19.XXXA Unspecified fall, initial encounter
CPT/HCPCS: 73030; 73080; 73090; 73110; 99284

== ENCOUNTER → 2023-05-17 13:11 | Outpatient (BNVA) | payer MEDICAID, SELFPAY | PROVIDERS: Referring Provider Emergency Medicine; Visit Provider Physician Assistant | DX: S63.8X2A Sprain of other part of left wrist and hand, initial encounter; W01.0XXA Fall on same level from slipping, tripping and stumbling without subsequent striking against object, initial encounter; M25.522 Pain in left elbow | CPT/HCPCS: 73080; 73110 ==

== ENCOUNTER 2023-05-17 14:09 | Outpatient (CLI) | payer MEDICAID, SELFPAY | END 2023-05-17 14:10 | disposition home or self-care (01) | LOC: SPT 14:10 | PROVIDERS: Visit Provider Physician Assistant | DX: Z46.89 Encounter for fitting and adjustment of other specified devices (principal); S52.509D Unspecified fracture of the lower end of unspecified radius, subsequent encounter for closed fracture with routine healing; X58.XXXD Exposure to other specified factors, subsequent encounter; S63.8X2A Sprain of other part of left wrist and hand, initial encounter; W01.0XXA Fall on same level from slipping, tripping and stumbling without subsequent striking against object, initial encounter; M25.522 Pain in left elbow | CPT/HCPCS: 97760; 99203; L3982 ==

== ENCOUNTER 2023-09-20 19:27 | Emergency (ER) | payer SELFPAY ==
[2023-09-20 19:30] VITALS: BP 184/118; PULSE 85; RESP 16; TEMP 36.5; O2SAT 99
[2023-09-20 21:30] LABS: Basophils # 0.1 10^3/uL (0.0-0.1); Basophils % 0.8 %; Eosinophils # 0.6 10^3/uL (0.0-0.8); Eosinophils % 8.4 %; Hematocrit 49.6 % (36-47); Lymphocytes # 1.4 10^3/uL (0.8-4.8); Lymphocytes % 18.7 %; Mean Corpuscular HGB Conc 33.9 g/dL (30-55); Mean Corpuscular Hemoglobin 30.4 pg (27-33); Mean Corpuscular Volume 89.9 fl (85-98); Mean Platelet Volume 11.8 fL (7.4-10.4); Monocytes # 0.4 10^3/uL (0.2-0.9); Monocytes % 5.4 %; Neutrophils # 5.08 10^3/uL (1.8-7.7); Neutrophils % 66.3 %; Nucleated Red Blood Cells % 0 %; Platelet Count 171 10^3/cmm (157-399); Red Blood Count 5.52 10^6/uL (3.85-5.65); White Blood Count 7.65 10^3/uL (3.29-11.43)
--- NOTE | 2023-09-20 21:53 | CTR_ITS ---
PROCEDURE INFORMATION: Exam: CT Abdomen And Pelvis With Contrast Exam date and time: 09/20/2023 10:41 PM Age: 58 years old Clinical indication: Abdominal pain; Localized; Right lower quadrant (rlq); Prior surgery; Surgery date: 6+ months; Surgery type: Hysterectomy year and half ago that had caused her problems since. Patient states incision keeps opening up, 5 csections; Additional info: Abd pain TECHNIQUE: Imaging protocol: Computed tomography of the abdomen and pelvis with contrast. Radiation optimization: All CT scans at this facility use at least one of these dose optimization techniques: automated exposure control; mA and/or kV adjustment per patient size (includes targeted exams where dose is matched to clinical indication); or iterative reconstruction. Contrast material: OMNI 350; Contrast volume: 100 ml; Contrast route: INTRAVENOUS (IV); COMPARISON: CT abdomen pelvis w con* [id number] 08/19/2022 2:38 AM RADIATION DOSE METRICS: Total DLP (mGy-cm): 845 FINDINGS: Lungs: Calcified granuloma in the right lower lobe. Liver: Normal. No mass. Gallbladder and bile ducts: Normal. No calcified stones. No ductal dilation. Pancreas: Normal. No ductal dilation. Spleen: Normal. No splenomegaly. Adrenal glands: Normal. No mass. Kidneys and ureters: 1.3 cm probable hemorrhagic cyst in the right kidney, 34 Hounsfield units. The kidneys are otherwise unremarkable. No calculus or hydronephrosis. Stomach and bowel: Unremarkable. No obstruction. No mucosal thickening. Appendix: The appendix is visualized and is normal. Intraperitoneal space: Unremarkable. No free air. No significant fluid collection. Vasculature: Unremarkable. No abdominal aortic aneurysm. Lymph nodes: Unremarkable. No enlarged lymph nodes. Urinary bladder: Unremarkable as visualized. Reproductive: Hysterectomy. Follicles in both ovaries measuring up to 2.0 cm on the left. No follow-up required. Bones/joints: Mild degenerative changes of the spine. No acute fracture. Soft tissues: 4.3 x 10.6 x 6.4 cm fluid collection in the right abdominal wall with a thin peripheral rind. This is primarily located in the subcutaneous soft tissues that extends through a defect/incision in the right abdominal wall into the peritoneal cavity. scars. CT/CT abdomen pelvis w con* [id number] IMPRESSION: 1. 10.6 cm fluid collection in the right abdominal wall as described. This is most likely a liquified hematoma or seroma. No gas bubbles or surrounding fat stranding to suggest an abscess. 2. 1.3 cm probable hemorrhagic cyst in the right kidney. This has increased in density from the prior study and is unchanged in size. Consider further evaluation with dedicated renal CT or MRI. MRI is preferred for lesions less than 1.5 cm. COMMENTS: Consistent with the [place] [employer]'s Incidental Findings Committee white paper (J Am Claribel Radiol 2018): Any incidental renal lesion less than 1 cm or classified as too small to characterize, or any incidental cystic renal lesion characterized as simple-appearing, is likely benign. No follow-up imaging is recommended for these lesions per consensus recommendations based on imaging criteria.
[2023-09-20 21:54] LABS: Alanine Aminotransferase 18 U/L (0-33); Albumin Level 4.9 g/dL (3.5-5.2); Alkaline Phosphatase 104 U/L (35-105); Anion Gap 14.9 (5-19); Aspartate Amino Transferase 23 U/L (0-32); Blood Urea Nitrogen 7 mg/dL (6-20); Calcium 9.5 mg/dL (8.5-10.5); Carbon Dioxide 27 mmol/L (22-29); Chloride 103 mmol/L (98-107); Creatinine Clr Calc Pharmacy 90.1912; Globulin 3.2 g/dL (1.3-4.6); Glomerular Filtration Rate 86.6 mL/min (90-130); Glucose 88 mg/dL (65-115); Lipase 41 U/L (13-60); Osmolality Calculated 289 mOsm/kg (285-295); Potassium 3.9 mmol/L (3.5-5.1); Sodium 141 mmol/L (136-145); Total Bilirubin 1.4 mg/dL (0.15-1.2); Total Protein 8.1 g/dL (6.6-8.7)
[2023-09-20 22:04] LABS: Add Urine Culture? No; Add Urine Microscopic? YES; Bacteria Urine 1+ /hpf; Bilirubin Urine Neg (Negative); Blood Urine Neg (Negative); Glucose Urine UA Norm (Normal); Ketones Urine Negative (Negative); Leukocyte Esterase Urine Negative (Negative); Mucus Urine 2+ /hpf; Nitrate Urine Negative (Negative); Protein Urine Neg (Negative); RBC Urine 0-4 /hpf (0-2); Squamous Epithelial Cell Urine 15-25 /hpf (0-5); Urine Appearance Hazy (CLEAR); Urine Color Yellow (Yellow); Urobilinogen Urine Neg (Negative); WBC Urine 0-4 /hpf (0-5); pH Urine 6 (5-7)
[2023-09-20] MEDS: iohexol 350 mg/mL 500 mL Btl (per mL) IV (22:42)
[2023-09-20 23:20] VITALS: BP 156/108; PULSE 86; O2SAT 95
[2023-09-20 23:54] VITALS: BP 150/100; PULSE 82; O2SAT 94
--- NOTE | 2023-09-20 23:58 | ED_ITS ---
HPI - Abdominal Pain 2 General: Chief Complaint: Abdominal Pain Stated Complaint: ABD\N Time Seen by Provider: 09/20/23 21:49 History of Present Illness: 58-year-old female presents emergency de partment with complaints of right lower quadrant abdominal pain. She states that she has had a foul-smelling drainage from her postoperative surgical scar since November 2021. She states she has previously seen Dr. Zapata and states that since her initial surgery prior to seeing Dr. Zapata she has continued to have drainage and intermittent discomfort. Patient denies fevers chills or night sweats or recent trauma. She states the area of skin above her surgical scar does not appear to have ever healed completely and she is concerned as this is continued to drain and now has become more foul-smelling. Review of Systems 2 General: Reports: 10 or more systems reviewed and unremarkable except in HPI and below Skin/Breast: Reports: non-healing lesions (Right lower quadrant lateral to her previous surgical incision) PFSH ED 2 PFSH: Medical History (Updated 09/21/23 @ 00:03 by Ivan Fine MD) Shortness of breath Ovarian cyst Hernia, ventral Urinary problem in female Ventral hernia Seroma after procedure No pertinent past medical history Denies diabetes, asthma, hypertension, seizures, DVT/PE PCP: None Encounter for long-term (current) use of NSAIDs Lichen planus Paroxysmal supraventricular tachycardia Managed by Dr. Hoskins/Dr. Maxwell in cardiology Hypertension Current chronic use of systemic steroids GERD (gastroesophageal reflux disease) MEME positive Rheumatoid arthritis Diagnosed in 2004 and is managed by rheumatology Dr. Peck Long-term use of high-risk medication Raynaud's phenomenon Spondylosis THORACIC AND LUMBAR Chronic thoracic spine pain Pain management contract signed Surgical History History of incisional hernia repair History of incisional hernia repair History of esophagogastroduodenoscopy (EGD) Status post hysterectomy 12/06/2021--total abdominal hysterectomy with bilateral salpingectomy for abnormal uterine bleeding by Dr. [place] [facility] History of hysteroscopy (09/23/19) Hysteroscopy, D&C, Buttock biopsy. Performed by Dr. Rock at [facility] in [place], [place]. History of hand surgery (~1997) History of lumpectomy of left breast (06/27/17) Hx of section X5 Family History Father Diabetes Heart disease Mother Hypertension Thyroid disease Heart disease Grandmother Stroke paternal Heart disease paternal Grandfather Thyroid disease maternal Family/Other Thyroid disease maternal aunt Denies family history of Colon cancer Ovarian cancer Hyperlipidemia Breast cancer Uterine cancer Social History Substance/Drug Use: never Physical Exam 2 Narrative: EXAM NARRATIVE: Constitutional: the patient appears well nourished and of normal development. Vital signs as documented. No acute distress at present. Alert and oriented-to person, place, time and situation. Head, eyes, ears, nose, mouth, throat: Normocephalic, atraumatic. Pupils-equal, round, reactive to light. No scleral icterus. Normal-appearing external ears. Normal appearing nasal turbinates, no drainage. No obvious oral lesions, posterior oropharynx without erythema or exudates. Neck: Supple, trachea is midline, no lymphadenopathy, no jugular venous distension, thyromegaly, or carotid bruits. Carotid upstrokes are brisk bilaterally. Lungs: clear to auscultation to all lung [place]. Symmetrical rise and fall of chest, no obvious signs of increased work of breathing at present. Cardiac: Regular rate and rhythm, positive S1, S2. No murmurs, rubs or gallops that I can appreciate Abdomen: Soft, slightly tender to palpation anterior to the patient's surgical scar on the right lower quadrant. There is a small amount of drainage and what appears to be a nonhealing area of the skin. Normal active bowel sounds to all quadrants. No palpable masses, no organomegaly and abdominal bruits. Extremities: 2+ pulses in the upper extremities that are equal bilaterally, 2+ pulses in the lower extremities that are equal bilaterally. Non-edematous. Moves all extremities well, sensation to all extremities are noted. Skin: Warm, dry, intact. Course 2 Vital Signs: Vital signs: Vital Signs Temperature 97.7 F 09/20/23 19:30 Pulse Rate 87 09/21/23 00:29 Respiratory Rate 18 09/21/23 00:29 Blood Pressure 176/126 09/21/23 00:29 Pulse Oximetry 98 09/21/23 00:29 Oxygen Delivery Me thod Room Air 09/20/23 19:30 MDM - Abdominal Pain Medical Decision Making Physical exam completed and documented, I reviewed the patient's previous medical record and it does appear that she has had a hernia repair by Dr. Zapata. The CBC and CMP are essentially unremarkable the CT scan does show an area of fluid collection concerning for an abscess. Patient states she has taken antibiotics multiple times and does not feel that that has been helping her. I did call Dr. Granados and discussed the patient's case with him and he felt that the patient should follow-up outpatient with Dr. Zapata and requested that she call his office tomorrow to make an appointment. Medical Records I reviewed the patient's medical records. Lab Data I reviewed the patient's lab results. 09/20/23 21:19 09/20/23 21:19 Labs/Radiology: Radiology Impressions Abdomen/Pelvis CT 09/20/23 21:53 IMPRESSION: 1. 10.6 cm fluid collection in the right abdominal wall as described. This is most likely a liquified hematoma or seroma. No gas bubbles or surrounding fat stranding to suggest an abscess. 2. 1.3 cm probable hemorrhagic cyst in the right kidney. This has increased in density from the prior study and is unchanged in size. Consider further evaluation with dedicated renal CT or MRI. MRI is preferred for lesions less than 1.5 cm. COMMENTS: Consistent with the [place] [employer]'s Incidental Findings Committee white paper (J Am Claribel Radiol 2018): Any incidental renal lesion less than 1 cm or classified as too small to characterize, or any incidental cystic renal lesion characterized as simple-appearing, is likely benign. No follow-up imaging is recommended for these lesions per consensus recommendations based on imaging criteria. Laboratory Results WBC 7.65 10^3/uL (3.29-11.43) 09/20/23 21:19 RBC 5.52 10^6/uL (3.85-5.65) 09/20/23 21:19 Hgb 16.80 g/dL (11.27-16.99) 09/20/23 21:19 Hct 49.6 % (36-47) H 09/20/23 21:19 MCV 89.9 fl (85-98) 09/20/23 21: MCH 30.4 pg (27-33) 09/20/23 21: MCHC 33.9 g/dL (30-55) 09/20/23 21:19 RDW 13.0 % (12.1-15.1) 09/20/23 21:19 Plt Count 171 10^3/cmm (157-399) 09/20/23 21:19 MPV 11.8 fL (7.4-10.4) H 09/20/23 21:19 Neut % (Auto) 66.3 % 09/20/23 21:19 Lymph % (Auto) 18.7 % 09/20/23 21:19 [place] % (Auto) 5.4 % 09/20/23 21:19 Eos % (Auto) 8.4 % 09/20/23 21:19 Baso % (Auto) 0.8 % 09/20/23 21: Neut # (Auto) 5.08 10^3/uL (1.8-7.7) 09/20/23 21:19 Lymph # (Auto) 1.4 10^3/uL (0.8-4.8) 09/20/23 21:19 [place] # (Auto) 0.4 10^3/uL (0.2-0.9) 09/20/23 21:19 Eos # (Auto) 0.6 10^3/uL (0.0-0.8) 09/20/23 21:19 Baso # (Auto) 0.1 10^3/uL (0.0-0.1) 09/20/23 21:19 Nucleated RBC % (auto) 0 % 09/20/23 21: Nucleated RBCs # 0.0 /100WBC 09/20/23 21:19 Sodium 141 mmol/L (136-145) 09/20/23 21:19 Potassium 3.9 mmol/L (3.5-5.1) 09/20/23 21:19 Chloride 103 mmol/L (98-107) 09/20/23 21:19 Carbon Dioxide 27 mmol/L (22-29) 09/20/23 21:19 Anion Gap 14.9 (5-19) 09/20/23 21:19 BUN 7 mg/dL (6-20) 09/20/23 21:19 Creatinine 0.7 mg/dL (0.5-0.9) 09/20/23 21:19 GFR Calculation 86.6 mL/min (90-130) L 09/20/23 21:19 Glucose 88 mg/dL (65-115) 09/20/23 21:19 Calculated Osmolality 289 mOsm/kg (285-295) 09/20/23 21:19 Calcium 9.5 mg/dL (8.5-10.5) 09/20/23 21:19 Total Bilirubin 1.4 mg/dL (0.15-1.2) H 09/20/23 21:19 AST 23 U/L (0-32) 09/20/23 21:19 ALT 18 U/L (0-33) 09/20/23 21:19 Alkaline Phosphatase 104 U/L (35-105) 09/20/23 21:19 Total Protein 8.1 g/dL (6.6-8.7) 09/20/23 21: Albumin 4.9 g/dL (3.5-5.2) 09/20/23 21: Globulin 3.2 g/dL (1.3-4.6) 09/20/23 21:19 Lipase 41 U/L (13-60) 09/20/23 21:19 Urine Color Yellow (Yellow) 09/20/23 21:41 Urine Appearance Hazy (CLEAR) A 09/20/23 21:41 Urine pH 6 (5-7) 09/20/23 21:41 Ur Specific [place] 1.010 (1.005-1.030) 09/20/23 21:41 Urine Protein Neg (Negative) 09/20/23 21:41 Urine Glucose (UA) Norm (Normal) 09/20/23 21:41 Urine Ketones Negative (Negative) 09/20/23 21:41 Urine Blood Neg (Negative) 09/20/23 21:41 Urine Nitrate Negative (Negative) 09/20/23 21:41 Urine Bilirubin Neg (Negative) 09/20/23 21:41 Urine Urobilinogen Neg mg/dL (Negative) 09/20/23 21:41 Ur Leukocyte Esterase Negative (Negative) 09/20/23 21:41 Urine RBC 0-4 /hpf (0-2) H 09/20/23 21:41 Urine WBC 0-4 /hpf (0-5) H 09/20/23 21:41 Ur Squamous Epith Cells 15-25 /hpf (0-5) H 09/20/23 21:41 Amorphous Sediment Not Reportable 09/20/23 21:41 Urine Bacteria 1+ /hpf (NONE) H 09/20/23 21:41 Urine Mucus 2+ /hpf 09/20/23 21:41 All radiology interpretation(s) finalized by discharge Discharge Plan Discharge Patient Disposition: Home Clinical Impression: Delayed postoperative wound closure Abdominal pain Qualifiers: Abdominal location: right lower quadrant Qualified Code(s): R10.31 - Right lower quadrant pain Condition: Stable Prescriptions: New cephalexin 500 mg capsule 500 mg PO BID 14 Days Qty: 28 0RF mupirocin 2 % ointment 1 applic topical BID Qty: 15 0RF No Action metoprolol tartrate 25 mg tablet 25 mg PO BID Qty: 180 3RF (DME) FAST FORM COCK UP SPLINT See Rx Instructions .Route .MEDSUPPLY Qty: 1 0RF Rx Instructions: As directed doxycycline hyclate 100 mg tablet 100 mg PO BID 10 Days Qty: 20 0RF prednisone 20 mg tablet 40 mg PO .Daily in A.M. 5 Days Qty: 10 0RF albuterol sulfate [Ventolin HFA] 90 mcg/actuation HFA aerosol inhaler 1 inh inhalation Q4H PRN (Reason: shortness of breath or wheezing) 30 Days Qty: 8.5 1RF omeprazole 20 mg Tablet,Delayed Release (Dr/Ec) 20 mg PO DAILY hydrocodone-acetaminophen 5-325 mg tablet 1 tab PO Q6H PRN (Reason: pain) Qty: 14 0RF Naprosyn 500 mg tablet 500 mg PO BID PRN (Reason: pain) Qty: 20 0RF Discharge Orders: Discharge ED (Routine); Ordered 09/21/23 Ordered By: Ivan Fine Referrals: Yovani Zapata DO [Physician] - Discharge Diet: Usual diet Discharge Activity: Resume usual activity Patient Instructions: Abdominal Pain (ED), Opioid Safety, Pain Management Activity Restrictions/Additional Instructions: Activity Restrictions/Additional Instructions: Thank you for choosing [facility] for your healthcare needs today. Please realize that you were seen in the Emergency Department and that we are providing you with an emergency medical screening exam and this may not be a complete and all inclusive of all the testing and or medical work-up that you may need to determine your ailment or severity of your illness. It is very important that you follow-up as instructed with your Primary care provider or Specialist for additional evaluation and to discuss your medical treatment plan. Contact Dr. Yovani Zapata on the next business day to make your follow-up appointment for evaluation and treatment plans. Coding Level of Care Code ED Neonatal Pediatric Nurse for Ad Turner
[2023-09-21] MEDS: mupirocin oint 22 gm 1 APPLIC TOPICAL (00:14)
[2023-09-21] MEDS: cephALEXin 500 mg Capsule PO (00:14)
[2023-09-21 00:19] VITALS: BP 176/126; PULSE 86; O2SAT 96
[2023-09-21 00:29] VITALS: BP 176/126; PULSE 87; RESP 18; O2SAT 98
== END 2023-09-21 00:33 | disposition home or self-care (01) ==
PROVIDERS: Emergency Provider Internal Medicine
DX: R10.31 Right lower quadrant pain (principal); T81.89XA Other complications of procedures, not elsewhere classified, initial encounter; I10 Essential (primary) hypertension
CPT/HCPCS: 36415; 74177; 80053; 81001; 83690; 85025; 99285; Q9967

== ENCOUNTER 2024-02-18 23:38 | Emergency (ER) | payer SELFPAY ==
[2024-02-18 23:48] VITALS: BP 184/106; PULSE 77; RESP 16; TEMP 36.5; O2SAT 96; BMI 29.2
--- NOTE | 2024-02-19 00:10 | XRR_ITS ---
PROCEDURE INFORMATION: Exam: XR Chest Exam date and time: 02/19/2024 12:35 AM Age: 58 years old Clinical indication: Shortness of breath; Additional info: Cough/sob TECHNIQUE: Imaging protocol: Radiologic exam of the chest. Views: 1 view. COMPARISON: CR XR chest 1V portable [id number] 06/05/2022 12:20 PM FINDINGS: Lungs: Unremarkable. No consolidation. Pleural spaces: Unremarkable. No pleural effusion. No pneumothorax. Heart/Mediastinum: Unremarkable. No cardiomegaly. Bones/joints: Unremarkable. XR/XR chest 1V portable [id number] IMPRESSION: No acute findings.
[2024-02-19 00:28] LABS: Basophils # 0.1 10^3/uL (0.0-0.1); Basophils % 1.2 %; Eosinophils # 1.2 10^3/uL (0.0-0.8); Eosinophils % 19.8 %; Hematocrit 43.3 % (36-47); Lymphocytes # 1.8 10^3/uL (0.8-4.8); Lymphocytes % 31.1 %; Mean Corpuscular HGB Conc 35.1 g/dL (30-55); Mean Corpuscular Volume 88.4 fl (85-98); Mean Platelet Volume 11.6 fL (7.4-10.4); Monocytes # 0.3 10^3/uL (0.2-0.9); Monocytes % 5.5 %; Neutrophils # 2.48 10^3/uL (1.8-7.7); Neutrophils % 42.2 %; Nucleated Red Blood Cells % 0 %; Platelet Count 157 10^3/cmm (157-399); Red Cell Distribution Width 12.2 % (12.1-15.1); White Blood Count 5.86 10^3/uL (3.29-11.43)
[2024-02-19] MEDS: dexamethasone 10 mg/mL INJ IVP (00:42)
[2024-02-19] MEDS: ondansetron 2 mg/ML SDV 2 mL 4 MG IVP (00:42)
[2024-02-19] MEDS: sodium chloride 0.9% 1,000 ML 999 ML IV (00:42)
--- NOTE | 2024-02-19 00:43 | ED_ITS ---
HPI - Eye Problem 2 General: Chief complaint: Eye Problems Stated complaint: Eye problems Time Seen by Provider: 02/18/24 23:54 Source: patient Mode of arrival: ambulatory Limitations: no limitations History of Present Illness: Patient is a 58-year-old female past medical history of rheumatoid arthritis who presents the emergency department complaining of bilateral eye irritation that has been bothering her chronically, however acutely worsening over the past few days. In the past was prescribed antibiotic drops that did nothing, however states that last year she was prescribed steroids and oral antibiotics that did help her eyes. Her complaints are swelling of her eyes as well as redness, no history of allergies and she does state that they are matted shut in the morning with yellow drainage. She is no longer followed by rheumatology, does not take steroids chronically. She also does not see an spindle frame carver. Denies any visual changes, pain with extraocular movements, or blurred vision. In addition to her eye symptoms she is also complaining of worsening shortness of breath and a cough. MD chief complaint: eye pain and eye redness Onset (ago): month(s) Duration: intermittent and progressively worsening Location: both eyes Eye Symptoms: redness, pain and itching Mechanism: none Context: other (History of rheumatoid arthritis) Associated symptoms: Denies fever(s), headache(s), nausea, neck pain or vomiting Related Data Home Medications Medication Instructions Recorded Confirmed omeprazole 20 mg tablet,delayed 20 mg PO DAILY 06/05/22 09/27/23 release Previous Rx's Medication Instructions Recorded metoprolol tartrate 25 mg tablet 25 mg PO BID #180 tabs 03/15/23 hydrocodone 5 mg-acetaminophen 325 1 tab PO Q6H PRN pain #14 tabs 05/02/23 mg tablet naproxen 500 mg tablet (Naprosyn) 500 mg PO BID PRN pain #20 tabs 05/02/23 FAST FORM COCK UP SPLINT #1 ea 05/17/23 doxycycline hyclate 100 mg tablet 100 mg PO BID 10 days #20 tabs 05/28/23 prednisone 20 mg tablet 40 mg (2 x 20 mg) PO .Daily in 05/28/23 A.M. 5 days #10 tabs mupirocin 2 % topical ointment 1 applic topical BID #15 grams 09/21/23 pantoprazole 40 mg tablet,delayed 40 mg PO BID 6 weeks #84 tabs 09/27/23 release (Protonix) albuterol sulfate 90 mcg/actuation See Rx Instructions .Route 02/13/24 aerosol inhaler .COMPLEX #18 grams doxycycline hyclate 100 mg tablet 100 mg PO BID 10 days #20 tabs 02/19/24 prednisone 20 mg tablet 60 mg (3 x 20 mg) PO ONCE 5 days 02/19/24 #15 tabs Allergies Allergy/AdvReac Type Severity Reaction Status Date / Time No Known Allergies Allergy Verified 09/20/23 19:33 Review of Systems 2 General: Reports: 10 or more systems reviewed and unremarkable except in HPI and below Const: Denies: fever(s), chills or fatigue Eyes: Reports: eye discomfort and eye redness; Denies: change in vision or blurry vision ENMT: Denies: throat pain, ear or mastoid pain or nasal discharge Card: Denies: chest pain, palpitations, swelling of feet/ankles or lightheadedness Resp: Reports: dyspnea and non-productive cough; Denies: wheezing GI: Denies: abdominal pain, nausea, vomiting, diarrhea or constipation : Denies: flank pain, difficulty voiding, dysuria or urinary frequency Musc: Denies: neck pain, back pain or joint pain Skin/Breast: Denies: rash Neuro: Denies: headache(s), numbness in extremities or weakness in extremities PFSH ED 2 PFSH: Medical History Shortness of breath Ovarian cyst Hernia, ventral Urinary problem in female Ventral hernia Seroma after procedure No pertinent past medical history Denies diabetes, asthma, hypertension, seizures, DVT/PE PCP: None Encounter for long-term (current) use of NSAIDs Lichen planus Paroxysmal supraventricular tachycardia Managed by Dr. Hoskins/Dr. Maxwell in cardiology Hypertension Current chronic use of systemic steroids GERD (gastroesophageal reflux disease) MEME positive Rheumatoid arthritis Diagnosed in 2004 and is managed by rheumatology Dr. Peck Long-term use of high-risk medication Raynaud's phenomenon Spondylosis THORACIC AND LUMBAR Chronic thoracic spine pain Pain management contract signed Surgical History History of incisional hernia repair History of incisional hernia repair History of esophagogastroduodenoscopy (EGD) Status post hysterectomy 12/06/2021--total abdominal hysterectomy with bilateral salpingectomy for abnormal uterine bleeding by Dr. Rowland at [facility] [place] History of hysteroscopy (09/23/19) Hysteroscopy, D&C, Buttock biopsy. Performed by Dr. Rock at [facility] [place] in [place], [place]. History of hand surgery (~1997) History of lumpectomy of left breast (06/27/17) Hx of section X5 Family History Father Diabetes Heart disease Mother Hypertension Thyroid disease Heart disease Grandmother Stroke paternal Heart disease paternal Grandfather Thyroid disease maternal Family/Other Thyroid disease maternal aunt Denies family history of Colon cancer Ovarian cancer Hyperlipidemia Breast cancer Uterine cancer Social History Smoking and tobacco/nicotine status: former use of tobacco/nicotine Alcohol intake: never Substance/Drug Use: never Physical Exam 2 Const: COMMON NORMALS: no acute distress and no limitations GENERAL APPEARANCE: cooperative, comfortable and well developed O RIENTATION/CONSCIOUSNESS: Yes awake HENMT: COMMON NORMALS: normocephalic, atraumatic and hearing grossly normal bilaterally HEAD & SCALP: normocephalic and atraumatic Eye: COMMON NORMALS: Equal, round and reactive pupils present and EOMs intact bilaterally PERIORBITAL: periorbital findings abnormal positive bilateral periorbital swelling and periorbital erythema CONJUNCTIVA: Yes conjunctival abnormal PUPIL: Yes Equal, round and reactive pupils present OTHER: Clinical signs of uveitis present, mild scleral icterus noticed Neck/C-Spine: COMMON NORMALS: full ROM, supple and no JVD Resp: COMMON NORMALS: normal respiratory effort, No retractions, No use of accessory muscles and clear to auscultation bilaterally AUSCULTATION: clear to auscultation bilaterally Cardio: COMMON NORMALS: no JVD, regular rate, regular rhythm, No clicks present (Cardio), No murmurs present (Cardio) and No rub (Cardio) RATE: r egular rate RHYTHM: regular rhythm GI: COMMON NORMALS: Normal to inspection, nondistended, normoactive bowel sounds present, Soft to palpation and non-tender AUSCULTATION: Yes normoactive bowel sounds PALPATION: Yes Soft to palpation RECTAL EXAM: d eferred Extremity: COMMON NORMALS: normal to inspection, full ROM and capillary refill normal Psych: COMMON NORMALS: mental status grossly normal and Normal thought process present THOUGHT PROCESS: Normal thought process present Skin: COMMON NORMALS: no rashes or lesions noted GENERAL SKIN EXAM: no rashes or lesions noted Course 2 Vital Signs: Vital signs: Vital Signs Temperature 97.7 F 02/18/24 23:48 Pulse Rate 72 02/19/24 03:00 Respiratory Rate 16 02/18/24 23:48 Blood Pressure 128/94 02/19/24 03:00 Pulse Oximetry 94 02/19/24 03:00 Oxygen Delivery Me thod Room Air 02/19/24 03:00 MDM - Eye Problem Medical Decision Making Patient presented with acute on chronic bilateral eye irritation, worsening over the past 2 days. She has a history of rheumatoid arthritis, states that she has had flareups of her eyes in the past that were treated with oral steroids and antibiotics. She has been taking antibiotic drops, however states these have not been helping. She did request lab work and a tick panel, also was reporting a cough and some shortness of breath. Her lab work was all unremarkable, chest x-ray did not demonstrate any acute cardiopulmonary processes. She is referred to ophthalmology for her recurrent eye issues, and also encouraged to follow up with rheumatology again to have rheumatoid factor and other pertinent labs checked. She will be started on oral steroids as well as antibiotics, and return precautions given. Case discussed with Dr. Munson who agrees with disposition. Lab Data 02/19/24 00:23 02/19/24 00:23 Radiology Impressions Chest X-Ray 02/19/24 00:10 IMPRESSION: No acute findings. Laboratory Results WBC 5.86 10^3/uL (3.29-11.43) 02/19/24 00:23 RBC 4.90 10^6/uL (3.85-5.65) 02/19/24 00:23 Hgb 15.20 g/dL (11.27-16.99) 02/19/24 00:23 Hct 43.3 % (36-47) 02/19/24 00:23 MCV 88.4 fl (85-98) 02/19/24 00: MCH 31.0 pg (27-33) 02/19/24 00: MCHC 35.1 g/dL (30-55) 02/19/24 00:23 RDW 12.2 % (12.1-15.1) 02/19/24 00:23 Plt Count 157 10^3/cmm (157-399) 02/19/24 00:23 MPV 11.6 fL (7.4-10.4) H 02/19/24 00:23 Neut % (Auto) 42.2 % 02/19/24 00:23 Lymph % (Auto) 31.1 % 02/19/24 00:23 [place] % (Auto) 5.5 % 02/19/24 00:23 Eos % (Auto) 19.8 % 02/19/24 00:23 Baso % (Auto) 1.2 % 02/19/24 00:23 Neut # (Auto) 2.48 10^3/uL (1.8-7.7) 02/19/24 00:23 Lymph # (Auto) 1.8 10^3/uL (0.8-4.8) 02/19/24 00:23 [place] # (Auto) 0.3 10^3/uL (0.2-0.9) 02/19/24 00:23 Eos # (Auto) 1.2 10^3/uL (0.0-0.8) H 02/19/24 00:23 Baso # (Auto) 0.1 10^3/uL (0.0-0.1) 02/19/24 00:23 Nucleated RBC % (auto) 0 % 02/19/24 00: Nucleated RBCs # 0.0 /100WBC 02/19/24 00:23 Sodium 142 mmol/L (136-145) 02/19/24 00:23 Potassium 3.7 mmol/L (3.5-5.1) 02/19/24 00:23 Chloride 105 mmol/L (98-107) 02/19/24 00:23 Carbon Dioxide 23 mmol/L (22-29) 02/19/24 00:23 Anion Gap 17.7 (5-19) 02/19/24 00:23 BUN 11 mg/dL (6-20) 02/19/24 00:23 Creatinine 0.8 mg/dL (0.5-0.9) 02/19/24 00:23 GFR Calculation 74.2 mL/min (90-130) L 02/19/24 00:23 Glucose 101 mg/dL (65-115) 02/19/24 00:23 Calculated Osmolality 294 mOsm/kg (285-295) 02/19/24 00:23 Calcium 9.1 mg/dL (8.5-10.5) 02/19/24 00:23 Total Bilirubin 0.7 mg/dL (0.15-1.2) 02/19/24 00:23 AST 17 U/L (0-32) 02/19/24 00:23 ALT 16 U/L (0-33) 02/19/24 00:23 Alkaline Phosphatase 72 U/L (35-105) 02/19/24 00:23 C-Reactive Protein 3.0 mg/L (0.0-4.9) 02/19/24 00:23 Total Protein 7.3 g/dL (6.6-8.7) 02/19/24 00:23 Albumin 4.6 g/dL (3.5-5.2) 02/19/24 00:23 Globulin 2.7 g/dL (1.3-4.6) 02/19/24 00:23 Urine Color Yellow (Yellow) 02/19/24 01:40 Urine Appearance Clear (CLEAR) 02/19/24 01:40 Urine pH 6 (5-7) 02/19/24 01:40 Ur Specific [place] 1.015 (1.005-1.030) 02/19/24 01:40 Urine Protein Neg (Negative) 02/19/24 01:40 Urine Glucose (UA) Norm (Normal) 02/19/24 01:40 Urine Ketones Negative (Negative) 02/19/24 01:40 Urine Blood Neg (Negative) 02/19/24 01:40 Urine Nitrate Negative (Negative) 02/19/24 01:40 Urine Bilirubin Neg (Negative) 02/19/24 01:40 Urine Urobilinogen Neg mg/dL (Negative) 02/19/24 01:40 Ur Leukocyte Esterase Trace (Negative) H 02/19/24 01:40 Urine WBC 0-4 /hpf (0-5) H 02/19/24 01:40 Ur Squamous Epith Cells 0-4 /hpf (0-5) H 02/19/24 01:40 Amorphous Sediment Not Reportable 02/19/24 01:40 Urine Bacteria None /hpf (NONE) 02/19/24 01:40 All radiology interpretation(s) finalized by discharge Discharge Plan Discharge Patient Disposition: Home Clinical Impression: Uveitis Condition: Stable Prescriptions: New prednisone 20 mg tablet 60 mg PO ONCE 5 Days Qty: 15 0RF doxycycline hyclate 100 mg tablet 100 mg PO BID 10 Days Qty: 20 0RF No Action metoprolol tartrate 25 mg tablet 25 mg PO BID Qty: 180 3RF (DME) FAST FORM COCK UP SPLINT See Rx Instructions .Route .MEDSUPPLY Qty: 1 0RF Rx Instructions: As directed doxycycline hyclate 100 mg tablet 100 mg PO BID 10 Days Qty: 20 0RF prednisone 20 mg tablet 40 mg PO .Daily in A.M. 5 Days Qty: 10 0RF pantoprazole [Protonix] 40 mg tablet,delayed release (DR/EC) 40 mg PO BID 42 Days Qty: 84 1RF albuterol sulfate 90 mcg/actuation HFA aerosol inhaler See Rx Instructions .ROUTE .COMPLEX Qty: 18 1RF Dose Instruction: 1 INHALE EVERY 4 HOURS NEEDED FOR SHORTNESS OF BREATH OR WHEEZING FOR 30 DAYS Rx Instructions: 1 INHALE EVERY 4 HOURS NEEDED FOR SHORTNESS OF BREATH OR WHEEZING FOR 30 DAYS omeprazole 20 mg Tablet,Delayed Release (Dr/Ec) 20 mg PO DAILY hydrocodone-acetaminophen 5-325 mg tablet 1 tab PO Q6H PRN (Reason: pain) Qty: 14 0RF Naprosyn 500 mg tablet 500 mg PO BID PRN (Reason: pain) Qty: 20 0RF mupirocin 2 % ointment 1 applic topical BID Qty: 15 0RF Discharge Orders: Discharge ED (Routine); Ordered 02/19/24 Ordered By: Nagi Lock Discharge Diet: Usual diet Discharge Activity: Increase activity as tolerated Patient Instructions: Uveitis (DC) Activity Restrictions/Additional Instructions: Doxycycline. Prednisone. Please follow-up with ophthalmology as arranged. Also follow-up with your primary care provider later this week. Return with any new or concerning symptoms you may have. Coding Level of Care Code ED Investment Advisor for Ad Turner
[2024-02-19 00:50] LABS: Alanine Aminotransferase 16 U/L (0-33); Albumin Level 4.6 g/dL (3.5-5.2); Alkaline Phosphatase 72 U/L (35-105); Anion Gap 17.7 (5-19); Aspartate Amino Transferase 17 U/L (0-32); Blood Urea Nitrogen 11 mg/dL (6-20); Calcium 9.1 mg/dL (8.5-10.5); Carbon Dioxide 23 mmol/L (22-29); Chloride 105 mmol/L (98-107); Creatinine Clr Calc Pharmacy 78.9173; Globulin 2.7 g/dL (1.3-4.6); Glomerular Filtration Rate 74.2 mL/min (90-130); Glucose 101 mg/dL (65-115); Osmolality Calculated 294 mOsm/kg (285-295); Potassium 3.7 mmol/L (3.5-5.1); Sodium 142 mmol/L (136-145); Total Bilirubin 0.7 mg/dL (0.15-1.2); Total Protein 7.3 g/dL (6.6-8.7)
[2024-02-19 01:30] VITALS: BP 148/97; PULSE 71; O2SAT 94
[2024-02-19] MEDS: cefTRIAXone 1,000 MG in water for injection-sterile 2.1 ML 1 MG IM (01:38)
[2024-02-19 01:45] LABS: Charge for UA Resulting for Rev
[2024-02-19 01:50] LABS: Bilirubin Urine Neg (Negative); Blood Urine Neg (Negative); Glucose Urine UA Norm (Normal); Ketones Urine Negative (Negative); Leukocyte Esterase Urine Trace (Negative); Nitrate Urine Negative (Negative); Protein Urine Neg (Negative); Specific Gravity, Urine 1.015 (1.005-1.030); Urine Appearance Clear (CLEAR); Urine Color Yellow (Yellow); Urobilinogen Urine Neg (Negative); pH Urine 6 (5-7)
[2024-02-19 01:52] LABS: Add Urine Culture? No; Squamous Epithelial Cell Urine 0-4 /hpf (0-5); WBC Urine 0-4 /hpf (0-5)
[2024-02-19 03:00] VITALS: BP 128/94; PULSE 72; O2SAT 94
[2024-02-20 14:10] LABS: Lyme AB Screen <0.90 index
== END 2024-02-19 03:08 | disposition home or self-care (01) ==
PROVIDERS: Emergency Provider Physician Assistant
DX: H20.9 Unspecified iridocyclitis (principal); Z87.891 Personal history of nicotine dependence; I10 Essential (primary) hypertension
CPT/HCPCS: 36415; 71045; 80053; 81003; 81015; 85025; 86140; 86618; 86666; 86757; 96361; 96372; 96374; 96375; 99284; J0696; J1100; J2405; J7030

== ENCOUNTER 2024-07-24 19:59 | Emergency (ER) | payer MEDICAID, SELFPAY ==
[2024-07-24 20:16] VITALS: BP 164/82; PULSE 62; RESP 16; TEMP 36.6; O2SAT 96; BMI 29.2
--- NOTE | 2024-07-24 20:26 | XRR_ITS ---
PROCEDURE INFORMATION: Exam: XR Left Foot Exam date and time: 07/24/2024 9:04 PM Age: 58 years old Clinical indication: Patient HX: C/O worsening left foot pain over the last few weeks. No injury. TECHNIQUE: Imaging protocol: Radiologic exam of the left foot. Views: 3 or more views. COMPARISON: No relevant prior studies available. FINDINGS: Bones/joints: Subtle periosteal bulging along the medial aspect of the midshaft of the 3rd metatarsal may represent a periosteal reaction stress fracture. If clinically indicated, a forefoot MRI may help to confirm/exclude this diagnosis. Soft tissues: Normal. XR/XR foot LT min 3V* [id number] IMPRESSION: Subtle periosteal bulging along the medial aspect of the midshaft of the 3rd metatarsal may represent a periosteal reaction stress fracture. If clinically indicated, a forefoot MRI may help to confirm/exclude this diagnosis.
--- NOTE | 2024-07-24 22:36 | ED_ITS ---
HPI - Extremity Problem General: Chief complaint: Extremity Injury, Lower Stated complaint: L foot pain Time Seen by Provider: 07/24/24 20:38 Source: patient Mode of arrival: ambulatory Limitations: no limitations History of Present Illness: Patient is a 58-year-old female presents emergency department with worsening left foot pain over the last few weeks. She denies any known injury. She states she does feel like there may be some clicking in there. She denies any fever or chills. She reports the pain is in the center of the foot. She denies any ankle pain, knee pain or hip pain. She states nothing has been making the symptoms better other than rest. She states she has not taken any [id number] medications for this. She presents to the emergency department for further evaluation and treatment. Associated symptoms: Deny chest pain, fever(s) or rash Related Data Home Medications Medication Instructions Recorded Confirmed omeprazole 20 mg tablet,delayed 20 mg PO DAILY 06/05/22 09/27/23 release Previous Rx's Medication Instructions Recorded FAST FORM COCK UP SPLINT #1 ea 05/17/23 mupirocin 2 % topical ointment 1 applic topical BID #15 grams 09/21/23 pantoprazole 40 mg tablet,delayed 40 mg PO BID 6 weeks #84 tabs 09/27/23 release (Protonix) albuterol sulfate 90 mcg/actuation See Rx Instructions .Route 02/13/24 aerosol inhaler .COMPLEX #18 grams metoprolol tartrate 25 mg tablet 25 mg PO BID #180 tabs 06/20/24 naproxen 500 mg tablet 500 mg PO Q12H PRN pain #10 tabs 07/24/24 prednisone 20 mg tablet 40 mg (2 x 20 mg) PO DAILY 5 days 07/24/24 #20 tabs Allergies Allergy/AdvReac Type Severity Reaction Status Date / Time No Known Allergies Allergy Verified 07/24/24 20:19 Review of Systems Const: Denies: fever(s) or chills Eyes: Denies: change in vision ENMT: Denies: throat pain or ear or mastoid pain Card: Denies: chest pain or palpitations Resp: Denies: dyspnea, productive cough, non-productive cough or wheezing GI: Denies: abdominal pain, nausea or vomiting : Denies: flank pain, difficulty voiding or dysuria Musc: Reports: extremity pain (Left foot) and joint swelling (Mild swelling left foot); Denies: joint redness or joint warmth Skin/Breast: Denies: rash, pruritus or erythema Neuro: Denies: headache(s), numbness in extremities or weakness in extremities Psych: Denies: anxiety or depression Endo: Denies: polyuria or polydipsia Kamran/Lymph: Denies: easy bruising or easy bleeding All/Imm: Denies: urticaria or throat swelling PFSH ED PFSH: Medical History Shortness of breath Ovarian cyst Hernia, ventral Urinary problem in female Ventral hernia Seroma after procedure No pertinent past medical history Denies diabetes, asthma, hypertension, seizures, DVT/PE PCP: None Encounter for long-term (current) use of NSAIDs Lichen planus Paroxysmal supraventricular tachycardia Managed by Dr. Hoskins/Dr. Maxwell in cardiology Hypertension Current chronic use of systemic steroids GERD (gastroesophageal reflux disease) MEME positive Rheumatoid arthritis Diagnosed in 2004 and is managed by rheumatology Dr. Peck Long-term use of high-risk medication Raynaud's phenomenon Spondylosis THORACIC AND LUMBAR Chronic thoracic spine pain Pain management contract signed Surgical History History of incisional hernia repair History of incisional hernia repair History of esophagogastroduodenoscopy (EGD) Status post hysterectomy 12/06/2021--total abdominal hysterectomy with bilateral salpingectomy for abnormal uterine bleeding by Dr. [place]land [place] [facility] [place] History of hysteroscopy (09/23/19) Hysteroscopy, D&C, Buttock biopsy. Performed by Dr. Rock at [facility] [place] in [place], [place]. History of hand surgery (~1997) History of lumpectomy of left breast (06/27/17) Hx of section X5 Family History Father Diabetes Heart disease Mother Hypertension Thyroid disease Heart disease Grandmother Stroke paternal Heart disease paternal Grandfather Thyroid disease maternal Family/Other Thyroid disease maternal aunt Denies family history of Colon cancer Ovarian cancer Hyperlipidemia Breast cancer Uterine cancer Social History Smoking and tobacco/nicotine status: former use of tobacco/nicotine Alcohol intake: never Substance/Drug Use: never Physical Exam Const: COMMON NORMALS: no acute distress, patient oriented x3 and alert HENMT: COMMON NORMALS: normocephalic, atraumatic, external ears normal and Normal external nose present HEAD & SCALP: normocephalic and atraumatic FACE & SINUS: normal facial exam NOSE: Normal external nose present EXTERNAL EAR: Yes external ears normal Eye: COMMON NORMALS: conjunctivae normal CONJUNCTIVA: Yes conjunctivae normal Neck/C-Spine: COMMON NORMALS: full ROM Resp: COMMON NORMALS: normal respiratory effort EFFORT & INSPECTION: Yes able to speak in complete sentences AUSCULTATION: no crackles, no rales, no rhonchi and no wheezes Cardio: COMMON NORMALS: regular rate and regular rhythm RATE: regular rate RHYTHM: regular rhythm Back/Pelvis: THORACIC SPINE/UPPER BACK: Yes thoracic ROM normal LUMBAR SPINE/LOWER BACK: Yes lumbar ROM normal Extremity: COMMON NORMALS: normal to inspection and capillary refill normal GENERAL: Yes normal exam except as noted and No calf tenderness LEFT LOWER EXTREMITY: Yes foot & digits (Tender to palpation on the dorsal aspect of the left foot) Neuro: COMMON NORMALS: patient oriented x3, moves all extremities and no sensory deficits noted SENSORIUM/ORIENTATION: Yes alert Procedures Orthopedic Splinting/Casting Injury #1: Side: left Lower Extremity Injury Location: foot Lower Extremity Immobilizer: posterior splint Other Orthopedic Equipment: crutches Additional Comments: Ortho-Glass splint was placed by the groundwater monitoring technician. I personally examined the patient after the splint application. Patient maintained good sensation and capillary refill after splint application. Course Vital Signs: Vital signs: Vital Signs Temperature 97.8 F 07/24/24 20:16 Pulse Rate 76 07/24/24 23:33 Respiratory Rate 16 07/24/24 20:16 Blood Pressure 160/74 07/24/24 23:33 Pulse Oximetry 99 07/24/24 23:33 Oxygen Delivery Me thod Room Air 07/24/24 20:16 MDM - Extremity (Nontraumatic) Medical Decision Making Patient was advised of the exam and x-ray findings. She does have tenderness a nd mild swelling to the dorsal aspect of the left foot. The radiologist did notice a subtle periosteal bulging along the medial aspect of the midshaft of the third metatarsal that may represent a periosteal reaction stress fracture. Since the patient does have tenderness in that area she was placed in a splint and advised that she will need to follow-up with orthopedics or podiatry for further evaluation and treatment. I recommended that she use the medications as directed. The patient requested some steroids because she does have a history of rheumatoid arthritis and states that she usually will feel better after some steroids. I felt that this was reasonable I did provide the patient with prednisone. She was advised to use the medications as directed, follow-up as instructed and return to the emergency department with any worsening symptoms. The patient expressed understanding. Lab Data Radiology Impressions Foot X-Ray 07/24/24 20:26 IMPRESSION: Subtle periosteal bulging along the medial aspect of the midshaft of the 3rd metatarsal may represent a periosteal reaction stress fracture. If clinically indicated, a forefoot MRI may help to confirm/exclude this diagnosis. All radiology interpretation(s) finalized by discharge Critical Care Time Critical Care Time: Critical Care Time: No Discharge Plan Discharge Patient Disposition: Home Clinical Impression: Acute pain of left foot Condition: Stable Prescriptions: New prednisone 20 mg tablet 40 mg PO DAILY 5 Days Qty: 20 0RF naproxen 500 mg tablet 500 mg PO Q12H PRN (Reason: pain) Qty: 10 0RF Discontinued doxycycline hyclate 100 mg tablet 100 mg PO BID 10 Days Qty: 20 0RF prednisone 20 mg tablet 40 mg PO .Daily in A.M. 5 Days Qty: 10 0RF hydrocodone-acetaminophen 5-325 mg tablet 1 tab PO Q6H PRN (Reason: pain) Qty: 14 0RF naproxen [Naprosyn] 500 mg tablet 500 mg PO BID PRN (Reason: pain) Qty: 20 0RF No Action (DME) FAST FORM COCK UP SPLINT See Rx Instructions .Route .MEDSUPPLY Qty: 1 0RF Rx Instructions: As directed pantoprazole [Protonix] 40 mg tablet,delayed release (DR/EC) 40 mg PO BID 42 Days Qty: 84 1RF albuterol sulfate 90 mcg/actuation HFA aerosol inhaler See Rx Instructions .ROUTE .COMPLEX Qty: 18 1RF Dose Instruction: 1 INHALE EVERY 4 HOURS NEEDED FOR SHORTNESS OF BREATH OR WHEEZING FOR 30 DAYS Rx Instructions: 1 INHALE EVERY 4 HOURS NEEDED FOR SHORTNESS OF BREATH OR WHEEZING FOR 30 DAYS metoprolol tartrate 25 mg tablet 25 mg PO BID Qty: 180 3RF omeprazole 20 mg Tablet,Delayed Release (Dr/Ec) 20 mg PO DAILY mupirocin 2 % ointment 1 applic topical BID Qty: 15 0RF Discharge Orders: Discharge ED (Routine); Ordered 07/24/24 Ordered By: Howard Woods Referrals: Jacob Muñoz DPM [Physician] - Patient Instructions: Foot Fracture in Adults (ED), Opioid Safety, Pain Management Activity Restrictions/Additional Instructions: Take medications as directed. Your prescriptions were sent electronically to your preferred pharmacy. No weightbearing until cleared by doctor. Use the splint and crutches as directed. Follow-up with orthopedics/podiatry as directed. Call for an appointment. Elevate the extremity. Ice 20 minutes at a time, 5 times throughout the day as needed for pain or swelling. You may apply the ice over the splint or, you may apply the ice behind the knee to help cool the blood and in turn cool the extremity. Return to the emergency department with any worsening symptoms. Coding Level of Care Code ED Job Setter Honing for Ad Turner
[2024-07-24] MEDS: HYDROcodone-acetaminophen 5-325 mg Tablet 1 TAB PO (22:50)
[2024-07-24] MEDS: predniSONE 20 mg Tablet 40 MG PO (22:50)
[2024-07-24 23:33] VITALS: BP 160/74; PULSE 76; O2SAT 99
== END 2024-07-24 23:35 | disposition home or self-care (01) ==
PROVIDERS: Emergency Provider Physician Assistant
DX: M79.672 Pain in left foot (principal); Z87.891 Personal history of nicotine dependence; I10 Essential (primary) hypertension
CPT/HCPCS: 12345; 29515; 73630; 99283; E0114; J7512

== ENCOUNTER → 2024-07-30 15:59 | Outpatient (BNVA) | payer MEDICAID, SELFPAY | PROVIDERS: Visit Provider Podiatrist Foot & Ankle Surgery | DX: S92.335A Nondisplaced fracture of third metatarsal bone, left foot, initial encounter for closed fracture (principal); X58.XXXA Exposure to other specified factors, initial encounter | CPT/HCPCS: 99203 ==

== ENCOUNTER 2024-09-18 21:45 | Emergency (ER) | payer SELFPAY ==
[2024-09-18 22:10] VITALS: BP 167/93; PULSE 85; RESP 14; TEMP 36.4; O2SAT 96
--- NOTE | 2024-09-18 22:28 | XRR_ITS ---
PROCEDURE INFORMATION: Exam: XR Left Foot Exam date and time: 09/18/2024 10:34 PM Age: 59 years old Clinical indication: Pain; Ankle and foot; Left; Additional info: Injury TECHNIQUE: Imaging protocol: Radiologic exam of the left foot. Views: 3 or more views. COMPARISON: CR XR foot LT min 3V* [id number] 07/24/2024 9:04 PM FINDINGS: Bones/joints: Normal. Soft tissues: Normal. XR/XR foot LT min 3V* [id number] IMPRESSION: No acute findings.
--- NOTE | 2024-09-18 22:28 | XRR_ITS ---
PROCEDURE INFORMATION: Exam: XR Left Ankle Exam date and time: 09/18/2024 10:34 PM Age: 59 years old Clinical indication: Pain; Ankle; Left; Additional info: Injury TECHNIQUE: Imaging protocol: Radiologic exam of the left ankle. Views: 3 or more views. COMPARISON: CR XR foot LT min 3V* [id number] 07/24/2024 9:04 PM FINDINGS: Bones/joints: Normal. Soft tissues: Normal. XR/XR ankle LT min 3V* [id number] IMPRESSION: No acute findings.
--- NOTE | 2024-09-18 22:30 | ED_ITS ---
HPI - Extremity Injury (Lower) General: Chief Complaint: Extremity Injury, Lower Stated Complaint: left foot injury Time Seen by Provider: 09/18/24 22:09 Source: patient Mode of arrival: wheelchair Limitations: no limitations History of Present Illness: Patient is a nice 59-year-old female presents to ED today for evaluation of a left foot and ankle injury that she sustained earlier today. Patient states she is currently having an RA flare and not getting around well . She states this caused her to roll her left foot and ankle earlier today. She has noticed some swelling to the lateral aspect of the ankle since the injury. Reports previous fracture in the foot that she was seeing podiatry for. MD complaint: ankle injury and foot injury Onset (ago): hour(s) Type of Injury: inversion Place: home Severity: moderate Relieving factors: immobilization Exacerbating factors: weight bearing, movement and palpation Associated symptoms: Reports no associated symptoms Other symptoms: none Related Data Home Medications ?Medication ?Instructions ?Recorded ?Confirmed omeprazole 20 mg tablet,delayed 20 mg PO DAILY 2 07/30/24 release Previous Rx's ?Medication ?Instructions ?Recorded FAST FORM COCK UP SPLINT #1 ea 05/17/23 mupirocin 2 % topical ointment 1 applic topical BID #1 5 grams 09/21/23 pantoprazole 40 mg tablet,delayed 40 mg PO BID 6 weeks #84 tabs 09/27/23 release (Protonix) albuterol sulfate 90 mcg/actuation See Rx Instructions .Route 02/13/24 aerosol inhaler .COMPLEX #18 grams metoprolol tartrate 25 mg tablet 25 mg PO BID #180 tab s 06/20/24 naproxen 500 mg tablet 500 mg PO Q12H PRN pain #10 tabs 07/24/24 CAM BOOT #1 ea 07/30/24 Allergies Allergy/AdvReac Type Severity Reaction Status Date / Time No Known Allergies Allergy Verified 09/18/24 22:15 Review of Systems Const: Denies: fever(s), chills, body aches, fatigue or malaise Card: Denies: chest pain Resp: Denies: dyspnea Musc: Reports: extremity pain (L foot), joint pain (L ankle) and joint swelling (L ankle); Denies: joint redness or muscle cramps Neuro: Denies: numbness in extremities, weakness in extremities or sensory changes [facility] ED PFSH: Medical History Shortness of breath Ovarian cyst Hernia, ventral Urinary problem in female Ventral hernia Seroma after procedure No pertinent past medical history Denies diabetes, asthma, hypertension, seizures, DVT/PE PCP: None Encounter for long-term (current) use of NSAIDs Lichen planus Paroxysmal supraventricular tachycardia Managed by Dr. Hoskins/Dr. Maxwell in cardiology Hypertension Current chronic use of systemic steroids GERD (gastroesophageal reflux disease) MEME positive Rheumatoid arthritis Diagnosed in 2004 and is managed by rheumatology Dr. Peck Long-term use of high-risk medication Raynaud's phenomenon Spondylosis THORACIC AND LUMBAR Chronic thoracic spine pain Pain management contract signed Surgical History History of incisional hernia repair History of incisional hernia repair History of esophagogastroduodenoscopy (EGD) Status post hysterectomy 12/06/2021--total abdominal hysterectomy with bilateral salpingectomy for abnormal uterine [place] [facility] [place] of hysteroscopy (09/23/19) Hysteroscopy, D&C, Buttock biopsy. [place] [facility] [place] [employer] History of hand surgery (~1997) History of lumpectomy of left breast (06/27/17) Hx of section X5 Family History Father Diabetes Heart disease Mother Hypertension Thyroid disease Heart disease Grandmother Stroke paternal Heart disease paternal Grandfather Thyroid disease maternal Family/Other Thyroid disease maternal aunt Denies family history of Colon cancer Ovarian cancer Hyperlipidemia Breast cancer Uterine cancer Social History Smoking and tobacco/nicotine status: unknown if used tobacco/nicotine Alcohol intake: never Substance/Drug Use: never Physical Exam Const: COMMON NORMALS: no acute distress, average body habitus, no limitations, healthy appearing, alert and well nourished Extremity: LEFT LOWER EXTREMITY: Yes ankle joint (TTP/edema lateral ankle) Left ankle: Yes neurovascular exam (normal) and Yes foot & digits (TTP dorsal foot; no edema or bony deformity) Left foot and digits: Yes ROM (normal) and Yes neurovascular exam (normal) Neuro: SENSORIUM/ORIENTATION: Yes alert Course Vital Signs: Vital signs: Vital Signs Temperature 97.6 F 09/18/24 22:10 Pulse Rate 78 09/18/24 22:56 Respiratory Rate 16 09/18/24 22:56 Blood Pressure 139/88 09/18/24 22:56 Pulse Oximetry 94 09/18/24 22:56 Oxygen Delivery Me thod Room Air 09/18/24 22:56 MDM - Extremity Injury (Lower) Medical Decision Making XR personal interpretation unremarkable. Very small belén from medial malleolus but this looks round/well corticated and probably not an acute avulsion fx. She has no pain here clinically. Will MAGGI wrap. She has crutches at home she can use. RICE therapy. Can follow up with PCP or her cut roll machine offbearer Dr. Muñoz if symptoms are not improving over the next 2 weeks. Medical Records I reviewed the patient's medical records. XR interpretation done by ED provider, pending radiology final review Discharge Plan Discharge Patient Disposition: Home Clinical Impression: Left ankle sprain Qualifiers: Encounter type: initial encounter Involved ligament of ankle: unspecified ligament Qualified Code(s): S93.402A - Sprain of unspecified ligament of left ankle, initial encounter Condition: Stable Prescriptions: No Action (DME) FAST FORM COCK UP SPLINT See Rx Instructions .Route .MEDSUPPLY Qty: 1 0RF Rx Instructions: As directed pantoprazole [Protonix] 40 mg tablet,delayed release (DR/EC) 40 mg PO BID 42 Days Qty: 84 1RF (DME) CAM BOOT See Rx Instructions .Route .MEDSUPPLY Qty: 1 0RF Rx Instructions: As directed albuterol sulfate 90 mcg/actuation HFA aerosol inhaler See Rx Instructions .ROUTE .COMPLEX Qty: 18 1RF Dose Instruction: 1 INHALE EVERY 4 HOURS NEEDED FOR SHORTNESS OF BREATH OR WHEEZING FOR 30 DAYS Rx Instructions: 1 INHALE EVERY 4 HOURS NEEDED FOR SHORTNESS OF BREATH OR WHEEZING FOR 30 DAYS metoprolol tartrate 25 mg tablet 25 mg PO BID Qty: 180 3RF omeprazole 20 mg Tablet,Delayed Release (Dr/Ec) 20 mg PO DAILY mupirocin 2 % ointment 1 applic topical BID Qty: 15 0RF naproxen 500 mg tablet 500 mg PO Q12H PRN (Reason: pain) Qty: 10 0RF Discharge Orders: Discharge ED (Routine); Ordered 09/18/24 Ordered By: Lindsay Love Referrals: Sherron Corea, FOUNDER CEO & PRESIDENT [Primary Care Provider] - Patient Instructions: Ankle Sprain (DC), RICE Therapy Activity Restrictions/Additional Instructions: As we discussed, you may use your crutches as needed for ambulation. Weightbearing as tolerated. You may ice and elevate the extremity. Please follow-up with primary care or your cut roll machine offbearer if sympotms are not improving over the next 2 weeks. Print Language: Cymraes Coding Level of Care Code ED Spotter Driver for Ad Turner
[2024-09-18 22:33] VITALS: BP 134/103; PULSE 84; RESP 20; O2SAT 96
[2024-09-18] MEDS: dexamethasone 10 mg/mL INJ IM (22:54)
[2024-09-18 22:56] VITALS: BP 139/88; PULSE 78; RESP 16; O2SAT 94
[2024-09-18 23:43] VITALS: BP 157/100; PULSE 83; RESP 16; O2SAT 93
== END 2024-09-18 23:20 | disposition home or self-care (01) ==
PROVIDERS: Emergency Provider Physician Assistant; PCP Nurse Practitioner Family
DX: S93.402A Sprain of unspecified ligament of left ankle, initial encounter (principal); X58.XXXA Exposure to other specified factors, initial encounter; I10 Essential (primary) hypertension
CPT/HCPCS: 73610; 73630; 96372; 99284; J1100

== ENCOUNTER 2024-09-25 14:31 | Emergency (ER) | payer SELFPAY ==
--- NOTE | 2024-09-25 14:32 | ECG_ITS ---
[facility] Date: 2024-09-25 Pat Name: Nicky Gonzalez Department: Room: Gender: Female Spirits Model: : 1965 Requested By: Andrew Reynolds Order Number: [id number] Ibrahim MD: John Pickett M.D. Measurements Intervals [place] Rate: 203 P: 0 [place]: 0 QRS: 46 QRSD: 82 T: 27 QT: 212 QTc: 390 Interpretive Statements SUPRAVENTRICULAR TACHYCARDIA NONSPECIFIC ST & T-WAVE ABNORMALITY CRITICAL TEST RESULT Compared to ECG 08/17/2022 09:20:26 T-wave abnormality now present Sinus rhythm no longer present Sinus arrhythmia no longer present Electronically Signed On 09-25-2024 22:19:56 CDT by John Pickett M.D. [email or web address] [id number]
--- NOTE | 2024-09-25 14:38 | W.ED.ARRPALP ---
HPI - Arrhythmia/Palpitations General: Chief Complaint: Arrhythmia/Palpitations Stated Complaint: high heart rate Time Seen by Provider: 09/25/24 14:36 Source: patient Mode of arrival: ambulatory Limitations: no limitations History of Present Illness: 59-year-old female has a history of SVT states that she started having increased heart rate today at 1230 she tried to do vagal maneuvers to convert her self at home did not work. She is in SVT here with heart rate 200s. Denies any pain or shortness of breath Associated symptoms: Deny nausea or vomiting Related Data Home Medications ?Medication ?Instructions ?Recorded ?Confirmed omeprazole 20 mg tablet,delayed 20 mg PO DAILY 06/05/22 07/30/24 release Previous Rx's ?Medication ?Instructions ?Recorded FAST FORM COCK UP SPLINT #1 ea 05/17/23 mupirocin 2 % topical ointment 1 applic topical BID #15 grams 09/21/23 pantoprazole 40 mg tablet,delayed 40 mg PO BID 6 weeks #84 tabs 09/27/23 release (Protonix) albuterol sulfate 90 mcg/actuation See Rx Instructions .Route 02/13/24 aerosol inhaler .COMPLEX #18 grams metoprolol tartrate 25 mg tablet 25 mg PO BID #180 tabs 06/20/24 naproxen 500 mg tablet 500 mg PO Q12H PRN pain #10 tabs 07/24/24 CAM BOOT #1 ea 07/30/24 Allergies Allergy/AdvReac Type Severity Reaction Status Date / Time No Known Allergies Allergy Verified 09/18/24 22:15 Review of Systems Const: Denies: fever(s), chills, body aches or change in appetite ENMT: Denies: throat pain or dental pain Card: Reports: palpitations; Denies: chest pain Resp: Denies: dyspnea GI: Denies: abdominal pain, nausea, vomiting or diarrhea Musc: Denies: neck pain or back pain Skin/Breast: Denies: rash Neuro: Denies: headache(s) PFSH ED PFSH: Medical History Shortness of breath Ovarian cyst Hernia, ventral Urinary problem in female Ventral hernia Seroma after procedure No pertinent past medical history Denies diabetes, asthma, hypertension, seizures, DVT/PE PCP: None Encounter for long-term (current) use of NSAIDs Lichen planus Paroxysmal supraventricular tachycardia Managed by Dr. Hoskins/Dr. Maxwell in cardiology Hypertension Current chronic use of systemic steroids GERD (gastroesophageal reflux disease) MEME positive Rheumatoid arthritis Diagnosed in 2004 and is managed by rheumatology Dr. Peck Long-term use of high-risk medication Raynaud's phenomenon Spondylosis THORACIC AND LUMBAR Chronic thoracic spine pain Pain management contract signed Surgical History History of incisional hernia repair History of incisional hernia repair History of esophagogastroduodenoscopy (EGD) Status post hysterectomy 12/06/2021--total abdominal hysterectomy with bilateral salping[place] for abnormal [place] [facility] [place] of hysteroscopy (09/23/19) Hysteroscopy, D&C, Buttock biopsy. [place] [facility] History of hand surgery (~1997) History of lumpectomy of left breast (06/27/17) Hx of section X5 Family History Father Diabetes Heart disease Mother Hypertension Thyroid disease Heart disease Grandmother Stroke paternal Heart disease paternal Grandfather Thyroid disease maternal Family/Other Thyroid disease maternal aunt Denies family history of Colon cancer Ovarian cancer Hyperlipidemia Breast cancer Uterine cancer Social History Smoking and tobacco/nicotine status: unknown if used tobacco/nicotine Alcohol intake: never Substance/Drug Use: never Physical Exam Const: COMMON NORMALS: patient oriented x3 HENMT: COMMON NORMALS: normocephalic and atraumatic HEAD & SCALP: normocephalic and atraumatic Eye: COMMON NORMALS: conjunctivae normal CONJUNCTIVA: Yes conjunctivae normal Neck/C-Spine: COMMON NORMALS: full ROM and supple Chest: COMMONS NORMALS: normal inspection of the chest Resp: COMMON NORMALS: normal respiratory effort Cardio: COMMON NORMALS: No murmurs present (Cardio) RATE: tachycardic Extremity: COMMON NORMALS: normal to inspection and full ROM Neuro: COMMON NORMALS: patient oriented x3, moves all extremities and no focal motor deficits Psych: COMMON NORMALS: mental status grossly normal, Normal thought process present and cooperative THOUGHT PROCESS: Normal thought process present Skin: COMMON NORMALS: no rashes or lesions noted and no wounds GENERAL SKIN EXAM: no rashes or lesions noted Course Vital Signs: Vital signs: Vital Signs Temperature 97.5 F L 09/25/24 14:41 Pulse Rate 108 H 09/25/24 14:41 Respiratory Rate 25 H 09/25/24 14:41 Blood Pressure 141/90 09/25/24 14:41 Pulse Oximetry 96 09/25/24 14:41 MDM - Arrhythmia/Palpitations Medical Decision Making Patient presents here with SVT patient converted here herself did observe her she still be in normal sinus rhythm she feels much improved she is stable for discharge we will put a referral for cardiology and she is return if worsening Medical Records I reviewed the patient's medical records. Lab Data I reviewed the patient's lab results. 09/25/24 14:42 09/25/24 14:42 Laboratory Results WBC 8.51 10^3/uL (3.29-11.43) 09/25/24 14:42 RBC 5.63 10^6/uL (3.85-5.65) 09/25/24 14:42 Hgb 16.80 g/dL (11.27-16.99) 09/25/24 14:42 Hct 50.0 % (36-47) H 09/25/24 14:42 MCV 88.8 fl (85-98) 09/25/24 14:42 MCH 29.8 pg (27-33) 09/25/24 14:42 MCHC 33.6 g/dL (30-55) 09/25/24 14:42 RDW 12.4 % (12.1-15.1) 09/25/24 14:42 Plt Count 223 10^3/cmm (157-399) 09/25/24 14:42 MPV 12.7 fL (7.4-10.4) H 09/25/24 14:42 Neut % (Auto) 54.1 % 09/25/24 14:42 Lymph % (Auto) 22.9 % 09/25/24 14:42 Mcmullen % (Auto) 7.6 % 09/25/24 14:42 Eos % (Auto) 13.9 % 09/25/24 14:42 Baso % (Auto) 1.3 % 09/25/24 14:42 Neut # (Auto) 4.60 10^3/uL (1.8-7.7) 09/25/24 14:42 Lymph # (Auto) 2.0 10^3/uL (0.8-4.8) 09/25/24 14:42 Mcmullen # (Auto) 0.7 10^3/uL (0.2-0.9) 09/25/24 14:42 Eos # (Auto) 1.2 10^3/uL (0.0-0.8) H 09/25/24 14:42 Baso # (Auto) 0.1 10^3/uL (0.0-0.1) 09/25/24 14:42 Nucleated RBC % (auto) 0 % 09/25/24 14:42 Nucleated RBCs # 0.0 /100WBC 09/25/24 14:42 Sodium 139 mmol/L (136-145) 09/25/24 14:42 Potassium 4.1 mmol/L (3.5-5.1) 09/25/24 14:42 Chloride 101 mmol/L (98-107) 09/25/24 14:42 Carbon Dioxide 24 mmol/L (22-29) 09/25/24 14:42 Anion Gap 18.1 (5-19) 09/25/24 14:42 BUN 13 mg/dL (6-20) 09/25/24 14:42 Creatinine 1.1 mg/dL (0.5-0.9) H 09/25/24 14:42 GFR Calculation 51.2 mL/min (90-130) L 09/25/24 14:42 Glucose 125 mg/dL (65-115) H 09/25/24 14:42 Calculated Osmolality 290 mOsm/kg (285-295) 09/25/24 14:42 Calcium 9.8 mg/dL (8.5-10.5) 09/25/24 14:42 Total Bilirubin 1.0 mg/dL (0.15-1.2) 09/25/24 14:42 AST 34 U/L (0-32) H 09/25/24 14:42 ALT 38 U/L (0-33) H 09/25/24 14:42 Alkaline Phosphatase 77 U/L (35-105) 09/25/24 14:42 Total Protein 7.6 g/dL (6.6-8.7) 09/25/24 14:42 Albumin 4.9 g/dL (3.5-5.2) 09/25/24 14:42 Globulin 2.7 g/dL (1.3-4.6) 09/25/24 14:42 No radiology studies performed this visit EKG Data EKG 1: I personally reviewed and interpreted this EKG as follows: EKG interpretation date: 09/25/24 Interpretation: svt hr [address] elevation qrs 82 qtc 312 EKG 2: I personally reviewed and interpreted this EKG as follows: EKG interpretation date: 09/25/24 EKG interpretation time: 15:02 Interpretation: sinus tach hr [address] elevation qrs 90 qtc 403 Discharge Plan Discharge Patient Disposition: Home Clinical Impression: Supraventricular tachycardia Condition: Stable Prescriptions: No Action (DME) FAST FORM COCK UP SPLINT See Rx Instructions .Route .MEDSUPPLY Qty: 1 0RF Rx Instructions: As directed pantoprazole [Protonix] 40 mg tablet,delayed release (DR/EC) 40 mg PO BID 42 Days Qty: 84 1RF (DME) CAM BOOT See Rx Instructions .Route .MEDSUPPLY Qty: 1 0RF Rx Instructions: As directed albuterol sulfate 90 mcg/actuation HFA aerosol inhaler See Rx Instructions .ROUTE .COMPLEX Qty: 18 1RF Dose Instruction: 1 INHALE EVERY 4 HOURS NEEDED FOR SHORTNESS OF BREATH OR WHEEZING FOR 30 DAYS Rx Instructions: 1 INHALE EVERY 4 HOURS NEEDED FOR SHORTNESS OF BREATH OR WHEEZING FOR 30 DAYS metoprolol tartrate 25 mg tablet 25 mg PO BID Qty: 180 3RF omeprazole 20 mg Tablet,Delayed Release (Dr/Ec) 20 mg PO DAILY mupirocin 2 % ointment 1 applic topical BID Qty: 15 0RF naproxen 500 mg tablet 500 mg PO Q12H PRN (Reason: pain) Qty: 10 0RF Discharge Orders: Discharge ED (Routine); Ordered 09/25/24 Ordered By: Andrew Reynolds Referrals: Sherron Corea, TECHNICAL SUPPORT REPRESENTATIVE [Primary Care Provider] - Discharge Diet: Advance as tolerated Discharge Activity: Resume usual activity Patient Instructions: Supraventricular Tachycardia (ED) Print Language: Hungarian Coding Level of Care Code ED Mailing Machine Assistant for Chg Johnny
[2024-09-25 14:41] VITALS: BP 141/90; PULSE 108; RESP 25; TEMP 36.4; O2SAT 96; BMI 29.2
--- NOTE | 2024-09-25 14:57 | DCPLANNER ---
messaged heart care for er f/u
--- NOTE | 2024-09-25 15:02 | ECG_ITS ---
[facility] Test Date: 2024-09-25 Pat Name: Nicky Gonzalez Department: Room: Gender: Female Sterile Processing Tech: : 1965 Requested By: Andrew Reynolds Order Number: [id number] [place] MD: John Pickett M.D. Measurements Intervals [place] Rate: 110 P: 61 [place]: 168 QRS: 41 QRSD: 90 T: 39 QT: 338 QTc: 459 Interpretive Statements SINUS TACHYCARDIA POSSIBLE LEFT ATRIAL ENLARGEMENT [-0.1mV P-WAVE IN V1/V2] ABNORMAL RHYTHM ECG Compared to ECG 09/25/2024 14:35:22 Supraventricular tachycardia no longer present T-wave abnormality no longer present Electronically Signed On 09-25-2024 22:19:34 CDT by John Pickett M.D. [email or web address] [id number]
[2024-09-25 15:31] LABS: Basophils # 0.1 10^3/uL (0.0-0.1); Basophils % 1.3 %; Eosinophils # 1.2 10^3/uL (0.0-0.8); Eosinophils % 13.9 %; Lymphocytes % 22.9 %; Mean Corpuscular HGB Conc 33.6 g/dL (30-55); Mean Corpuscular Hemoglobin 29.8 pg (27-33); Mean Corpuscular Volume 88.8 fl (85-98); Mean Platelet Volume 12.7 fL (7.4-10.4); Monocytes # 0.7 10^3/uL (0.2-0.9); Monocytes % 7.6 %; Neutrophils % 54.1 %; Nucleated Red Blood Cells % 0 %; Platelet Count 223 10^3/cmm (157-399); Red Blood Count 5.63 10^6/uL (3.85-5.65); Red Cell Distribution Width 12.4 % (12.1-15.1); White Blood Count 8.51 10^3/uL (3.29-11.43)
[2024-09-25 15:44] LABS: Alanine Aminotransferase 38 U/L (0-33); Albumin Level 4.9 g/dL (3.5-5.2); Alkaline Phosphatase 77 U/L (35-105); Aspartate Amino Transferase 34 U/L (0-32); Blood Urea Nitrogen 13 mg/dL (6-20); Calcium 9.8 mg/dL (8.5-10.5); Carbon Dioxide 24 mmol/L (22-29); Chloride 101 mmol/L (98-107); Creatinine Clr Calc Pharmacy 56.7112; Globulin 2.7 g/dL (1.3-4.6); Glomerular Filtration Rate 51.2 mL/min (90-130); Glucose 125 mg/dL (65-115); Osmolality Calculated 290 mOsm/kg (285-295); Sodium 139 mmol/L (136-145); Total Protein 7.6 g/dL (6.6-8.7)
[2024-09-25] MEDS: sodium chloride 0.9% 1,000 ML 999 ML IV (15:45)
[2024-09-25 15:53] LABS: Anion Gap 18.1 (5-19); Potassium 4.1 mmol/L (3.5-5.1)
[2024-09-25 15:58] VITALS: BP 114/87; PULSE 104; RESP 19; O2SAT 99
[2024-09-25 16:34] VITALS: BP 125/90; PULSE 98; O2SAT 100
== END 2024-09-25 16:36 | disposition home or self-care (01) ==
PROVIDERS: Emergency Provider Emergency Medicine; PCP Nurse Practitioner Family
DX: I47.10 Supraventricular tachycardia, unspecified (principal); I10 Essential (primary) hypertension
CPT/HCPCS: 80053; 85025; 93005; 96360; 99284; J7030

== ENCOUNTER → 2024-10-02 16:00 | Outpatient (BNVA) | payer MEDICAID, SELFPAY | PROVIDERS: PCP Nurse Practitioner Family; Visit Provider Nurse Practitioner Family | DX: Z79.899 Other long term (current) drug therapy (principal); I10 Essential (primary) hypertension; D64.9 Anemia, unspecified; M06.9 Rheumatoid arthritis, unspecified; E55.9 Vitamin D deficiency, unspecified | CPT/HCPCS: 80061; 82306; 82607; 82728; 82746; 83036; 83550; 84439; 84443; 84481; 86376 ==

== ENCOUNTER → 2024-10-06 14:04 | Outpatient (BNVA) | payer MEDICAID, SELFPAY | PROVIDERS: PCP Nurse Practitioner Family; Visit Provider Podiatrist Foot & Ankle Surgery | DX: M79.672 Pain in left foot (principal); M77.42 Metatarsalgia, left foot; M84.375A Stress fracture, left foot, initial encounter for fracture | CPT/HCPCS: 99213 ==

== ENCOUNTER → 2024-10-16 16:14 | Outpatient (BNVA) | payer MEDICAID, SELFPAY | PROVIDERS: PCP Nurse Practitioner Family; Visit Provider Nurse Practitioner Family | DX: R79.89 Other specified abnormal findings of blood chemistry (principal) | CPT/HCPCS: 80053 ==

== ENCOUNTER 2024-10-21 16:07 | Outpatient (CLI) | payer MEDICAID, SELFPAY ==
--- NOTE | 2024-10-21 16:00 | MR_ITS ---
WS: [id number] MRI LEFT FOOT WITHOUT CONTRAST. COMPARISON: Radiograph 09/18/2024 Multiplanar, multisequence imaging is performed without contrast. This exam was performed including knee and ankle and foot which lower sensitivity and decreases quality of the examination. Dedicated MRIs of the ankle and foot would provide better quality imaging and detail. Marrow edema mid talus extending to the subtalar articulation. There is also small amount of edema in the lateral cuneiform and the cuboid. There is soft tissue edema surrounding the tarsals. Metatarsals are intact. Achilles tendon is normal. No widening of the syndesmosis. Small amount of fluid and edema along the dorsal surface of the foot at the level of the talus. Grossly the Lisfranc ligament appears intact. Limited evaluation of the flexor and extensor tendons. There is increased T2 signal in the sinus Tarsi. Significant amount of increased T2 signal with thickening of the cervical ligament. Partial tear is expected. Only partial visualization of the tendon in sertion site to the talus. Note: For more sensitive and improved quality imaging separate MRI evaluations of the ankle and foot would provide more information. It is difficult to combine ankle and foot MRI in the same examination and adequately evaluate the ligaments and tendons. MR/MR foot LT wo con* [id number] IMPRESSION: 1. No acute fracture identified. 2. Marrow edema in the lateral cuneiform and the cuboid and in the mid talus. 3. Abnormal cervical ligament. Partial tear suspected along with edema. 4. Soft tissue edema in the mid foot.
== END 2024-10-21 16:08 | disposition home or self-care (01) ==
PROVIDERS: PCP Nurse Practitioner Family; Visit Provider Podiatrist Foot & Ankle Surgery
DX: M79.672 Pain in left foot (principal); R60.0 Localized edema; R93.6 Abnormal findings on diagnostic imaging of limbs
CPT/HCPCS: 73718

== ENCOUNTER → 2024-11-03 13:44 | Outpatient (BNVA) | payer MEDICAID, SELFPAY | PROVIDERS: PCP Nurse Practitioner Family; Visit Provider Podiatrist Foot & Ankle Surgery | DX: M77.42 Metatarsalgia, left foot (principal); R93.7 Abnormal findings on diagnostic imaging of other parts of musculoskeletal system | CPT/HCPCS: 99214 ==

== ENCOUNTER 2024-11-11 11:45 | Outpatient (CLI) | payer MEDICAID, SELFPAY ==
[2024-11-11] MEDS: gadobenate dimeglumine 20 mL vial 18 ML IV (12:14)
--- NOTE | 2024-11-11 15:15 | MRR_ITS ---
PROCEDURE INFORMATION: Exam: MR Abdomen Without and With Contrast; Kidneys Exam date and time: 11/11/2024 11:59 AM Age: 59 years old Clinical indication: Abnormal findings; Abnormal radiologic finding of the abdomen; Radiologic exam and body structure: 09/20/2023; 1.3 cm probable hemorrhagic cyst in the right kidney. This has increased in density from the prior study and is unchanged in size. ; Additional info: N28.89 - other specified disorders of kidney and ureter, renal protocol - TECHNIQUE: Imaging protocol: Magnetic resonance imaging of the abdomen without and with contrast. Exam focused on the kidneys. Total images: 561 COMPARISON: CT abdomen pelvis w con* [id number] 09/20/2023 10:41 PM FINDINGS: Liver: The visualized portions of the liver are unremarkable. Spleen: Visualized portions of the spleen are unremarkable. Adrenals: No adrenal enlargement. Pancreas: Pancreas is unremarkable. Gallbladder: Gallbladder is unremarkable with no biliary ductal dilatation evident. Kidneys: There is no hydronephrosis of either kidney. Anteriorly within the right kidney is a 2.0 x 1.6 cm structure, enlarged from 1.7 x 1.[address] of 09/20/2023. The structures T2 hyperintense. On T1 it demonstrates a fluid fluid level with the dependent portion T1 hyperintense. There is no definite enhancement abnormality identified, although the intrinsic elevated T1 signal limits sensitivity particularly for low-level enhancement, in the absence of subtraction images.. The kidneys are otherwise unremarkable. No free intraperitoneal fluid evident. Abdominal aorta is of normal caliber in the imaged region. MR/MR abdomen wo/w con* [id number] IMPRESSION: 1.Findings consistent with a hemorrhagic 2.0 by 1.6 cm right renal cyst, slightly enlarged from 1.7 x 1.3 cm on 09/20/2023. However this lesion appears to have enlarged slightly, and appropriate follow-up evaluation is recommended. Consider follow-up imaging in six months.
== END 2024-11-11 11:46 | disposition home or self-care (01) ==
PROVIDERS: PCP Nurse Practitioner Family; Visit Provider Nurse Practitioner Family
DX: N28.89 Other specified disorders of kidney and ureter (principal); R93.421 Abnormal radiologic findings on diagnostic imaging of right kidney
CPT/HCPCS: 74183

== ENCOUNTER → 2024-11-25 10:16 | Outpatient (BNVA) | payer MEDICAID, SELFPAY | PROVIDERS: PCP Nurse Practitioner Family; Referring Provider Nurse Practitioner Family; Visit Provider Internal Medicine Rheumatology | DX: M05.79 Rheumatoid arthritis with rheumatoid factor of multiple sites without organ or systems involvement (principal); Z79.899 Other long term (current) drug therapy; Z71.85 Encounter for immunization safety counseling; R76.8 Other specified abnormal immunological findings in serum; M06.9 Rheumatoid arthritis, unspecified | CPT/HCPCS: 73630; 99204 ==

== ENCOUNTER 2024-12-23 14:49 | Outpatient (CLI) | payer MEDICAID, SELFPAY ==
--- NOTE | 2024-12-23 15:00 | USCV_ITS ---
Nicky Gonzalez Age: 59 Gender: F : 1965 Exam Date: 12/23/2024 15:10 Ordering Phys: Brayan Ayala MD ([email or web address]) Technologist: DORA [place] [facility] [place]: cp murmur BP: 138 / 90 HR: 70 Rhythm: Sinus Technical Quality: MEASUREMENTS (Male / Female) Normal Values 2D ECHO LV Diastolic Diameter PLAX 4.6 cm 4.2 - 5.9 / 3.9 - 5.3 cm IVS Diastolic Thickness 0.8 cm 0.6 - 1.0 / 0.6 - 0.9 cm IVS Systolic Thickness 1.6 cm LVPW Diastolic Thickness 1.1 cm 0.6 - 1.0 / 0.6 - 0.9 cm LVPW Systolic Thickness 1.7 cm LVOT Diameter 1.9 cm LV Ejection Fraction 2D Teich 65.7 % LV Ejection Fraction MOD 4C 57.2 % LV Ejection Fraction MOD 2C 67.7 % LV Ejection Fraction 2C AL 69.6 % LA Diameter 3.4 cm RA Systolic Volume 4C AL 33.2 ml RA Systolic Volume 4C MOD 31.7 ml LA Sys Volume AL 43.6 cm cubed LA Sys Volume Index AL 21.2 cm cubed/m squared Aorta at Sinotubular Diameter 3.1 cm IVC Diameter 2.2 cm M-MODE LA Ao Ratio MM 1.2 AV Cusp Separation MM 1.9 cm DOPPLER AV Peak Velocity 112.0 cm/s LVOT Peak Velocity 109.0 cm/s AV Area Cont Eq vti 3.3 cm squared AV Area Cont Eq pk 2.9 cm squared MV Peak Velocity 95.0 cm/s MV Area PHT 3.8 cm squared Mitral E to A Ratio 0.8 TR Peak Velocity 244.0 cm/s TR Peak Gradient 23.8 mmHg TV Peak E Velocity 66.0 cm/s PV Peak Velocity 79.0 cm/s FINDINGS Left Ventricle Normal left ventricular size, systolic function and wall thickness, with no regional wall motion abnormalities. Left ventricular ejection fraction is estimated at 60 %. Grade I/IV diastolic dysfunction (abnormal relaxation filling pattern), normal to mildly elevated filling pressures. Right Ventricle The right ventricle is normal in size and function. Right Atrium The right atrium is normal in size. Left Atrium Moderately increased left atrial size. Mitral Valve Mildly thickened mitral valve. No mitral valve stenosis. Trace mitral valve regurgitation. Aortic Valve Mild aortic valve calcification. No aortic valve stenosis. Mild aortic valve regurgitation. Tricuspid Valve Structurally normal tricuspid valve without significant stenosis or regurgitation. Pulmonary artery systolic pressure is normal. Pulmonic Valve Structurally normal pulmonic valve without significant stenosis. There is no pulmonic regurgitation. Pericardium Normal pericardium without effusion. Aorta Normal ascending aorta dimension. IVC The inferior vena cava appears normal. CONCLUSIONS Normal left ventricular size, systolic function and wall thickness, with no regional wall motion abnormalities. Left ventricular ejection fraction is estimated at 60 %. Grade I/IV diastolic dysfunction (abnormal relaxation filling pattern), normal to mildly elevated filling pressures. Moderately increased left atrial size. Mildly thickened mitral valve. No mitral valve stenosis. Trace mitral valve regurgitation. Mild aortic valve calcification. No aortic valve stenosis. Mild aortic valve regurgitation. There is no pericardial effusion. Right atrial pressure is around 5 mm of mercury. Brayan Ayala MD (Electronically Signed) Final Date: 13 January 2025 21:39 S
== END 2024-12-23 14:50 | disposition home or self-care (01) ==
PROVIDERS: PCP Nurse Practitioner Family; Visit Provider Internal Medicine Cardiovascular Disease
DX: R06.02 Shortness of breath (principal); R07.9 Chest pain, unspecified; I47.10 Supraventricular tachycardia, unspecified; R93.1 Abnormal findings on diagnostic imaging of heart and coronary circulation; I51.7 Cardiomegaly; I35.8 Other nonrheumatic aortic valve disorders; I35.1 Nonrheumatic aortic (valve) insufficiency
CPT/HCPCS: 93306

== ENCOUNTER 2024-12-30 13:00 | Outpatient (CLI) | payer MEDICAID, SELFPAY ==
--- NOTE | 2024-12-30 13:00 | XR_ITS ---
WS: [email or web address] SCREENING DEXA SCAN [email or web address] CLINICAL INFORMATION: Z87.312 - Personal history of (healed) stress fracture COMPARISON: None. FINDINGS: The L1-L4 bone mineral density measures 1.213 g/cm2. This corresponds to a T score score of 0.3 and Z score of 0.5. Left femoral neck bone mineral density measures 0.949 g/cm2. This corresponds to a T score of -0.5 and Z score of -0.3. Right femoral neck bone mineral density measures 0.962 g/cm2. This corresponds to a T score -0.4of and Z score of -0.2. Mean femoral neck bone mineral density measures 0.956 g/cm2. This corresponds to a T score of -0.4 and Z score of -0.2. XR/XR DEXA axial skeleton* [id number] IMPRESSION: Normal bone mineralization. Patient's FRAX calculated 10 year probability for major osteoporotic fracture i s 21.7% and osteoporotic hip fracture is 1.7%.
[2024-12-30 14:04] VITALS: PULSE 71; RESP 18; O2SAT 97
== END 2024-12-30 13:01 | disposition home or self-care (01) ==
LOC: RAD 13:01
PROVIDERS: PCP Nurse Practitioner Family; Visit Provider Internal Medicine Rheumatology
DX: Z87.312 Personal history of (healed) stress fracture (principal); M79.672 Pain in left foot; R06.09 Other forms of dyspnea; R05.9 Cough, unspecified; R93.7 Abnormal findings on diagnostic imaging of other parts of musculoskeletal system; R06.2 Wheezing; S92.12 Fracture of body of talus; S92.215G Nondisplaced fracture of cuboid bone of left foot, subsequent encounter for fracture with delayed healing; X58.XXXD Exposure to other specified factors, subsequent encounter
CPT/HCPCS: 73630; 77080; 94060; 94726; 94729; 99213; J7613

== ENCOUNTER 2025-01-09 14:49 | Outpatient (CLI) | payer BC, MEDICAID, SELFPAY ==
--- NOTE | 2025-01-09 14:45 | USR_ITS ---
PROCEDURE INFORMATION: Exam: US Soft Tissue Head and Neck, Thyroid Exam date and time: 01/09/2025 3:03 PM Age: 59 years old Clinical indication: Condition or disease; Thyroid disorder; Goiter, non-toxic; Type not specified; Additional info: E04.9 - nontoxic goiter, unspecified TECHNIQUE: Imaging protocol: Real-time ultrasound scan of the neck with image documentation. Exam focused on the thyroid. COMPARISON: No relevant prior studies available. FINDINGS: Right thyroid lobe: The right lobe measures 4.7 x 1.9 x 2.1 cm. Right lobe echogenicity is normal. Left thyroid lobe: The left lobe measures 4.6 x 1.8 x 1.6 cm. Left lobe echogenicity is normal. Isthmus: The isthmus measures 6 mm. Lymph nodes: In the location of palpable lump, a normal configuration lymph node measuring 4 mm in short axis is noted. A shadowing osseous structure underlies the location of palpable lump, identified as the clavicle by the journalism internship. Soft tissues: No cervical lavell enlargement identified. US/US thyroid [id number] IMPRESSION: 1. No evidence suspicious neck mass underlying palpable lump. 2. Normal thyroid gland.
== END 2025-01-09 14:50 | disposition home or self-care (01) ==
LOC: RAD 14:49
PROVIDERS: PCP Nurse Practitioner Family; Visit Provider Nurse Practitioner Family
DX: E04.9 Nontoxic goiter, unspecified (principal)
CPT/HCPCS: 76536

== ENCOUNTER → 2025-01-15 12:53 | Outpatient (BNVA) | payer BC, MEDICAID, SELFPAY | PROVIDERS: PCP Nurse Practitioner Family; Visit Provider Podiatrist Foot & Ankle Surgery | DX: R93.7 Abnormal findings on diagnostic imaging of other parts of musculoskeletal system (principal); M79.672 Pain in left foot; S92.12 Fracture of body of talus; S92.215G Nondisplaced fracture of cuboid bone of left foot, subsequent encounter for fracture with delayed healing; X58.XXXD Exposure to other specified factors, subsequent encounter | CPT/HCPCS: 73630 ==

== ENCOUNTER 2025-01-20 14:31 | Outpatient (CLI) | payer BC, MEDICAID, SELFPAY ==
--- NOTE | 2025-01-20 14:30 | MR_ITS ---
WS: [email or web address] MRI/MRCP OF THE ABDOMEN WITHOUT GADOLINIUM ENHANCEMENT TECHNIQUE: Coronal T2 Fase BH, Axial T2 Fase BH, Axial T2 FS BH, Zxial 3D Fofana BH, Axial DWI BH, 2D MRCP Radial BH, 3D MRCP (Resp), and Axial 3D Dyn BH Post sequences. CLINICAL INFORMATION: N28.89 - Other specified disorders of kidney and ureter COMPARISON: MRI 11/11/24 FINDINGS: Stable slightly complex cyst RIGHT kidney measuring 2.1 cm. Small amount of internal debris likely hemorrhagic or proteinaceous debris. This is unchanged in appearance compared to 11/11/2024. No hydronephrosis in either kidney. Adrenal glands are normal. Small esophageal hiatal hernia. MR/MR abdomen wo/w con* [id number] Impression: 1. Stable slightly complex cyst RIGHT kidney measuring 2.1 cm. Small amount of internal debris likely hemorrhagic or proteinaceous. Recommend continued annua l surveillance. 2. No other significant changes.
[2025-01-20] MEDS: gadobenate dimeglumine 20 mL vial IV (15:27)
== END 2025-01-20 14:32 | disposition home or self-care (01) ==
LOC: RAD 14:32
PROVIDERS: PCP Nurse Practitioner Family; Visit Provider Nurse Practitioner Family
DX: N28.89 Other specified disorders of kidney and ureter (principal); N28.1 Cyst of kidney, acquired
CPT/HCPCS: 74183

== ENCOUNTER 2025-01-22 15:21 | Outpatient (CLI) | payer BC, MEDICAID, SELFPAY ==
--- NOTE | 2025-01-22 15:15 | MRR_ITS ---
PROCEDURE INFORMATION: Exam: MR Left Lower Extremity Other Than Joint Without Contrast; Hindfoot Exam date and time: 01/22/2025 3:36 PM Age: 59 years old Clinical indication: Pain; Ankle; Left; Cuboid stress FX in walking boot; Additional info: Eval left foot fractures, surgical planning TECHNIQUE: Imaging protocol: Magnetic resonance imaging of the left lower extremity other than joint without contrast. Exam focused on the hindfoot. COMPARISON: MR foot LT wo con* [id number] 10/21/2024 4:25 PM FINDINGS: Bones/joints: Alignment is normal. There is no bone marrow edema. There is a small talonavicular joint effusion. Ankle mortise alignment is normal. Articular cartilage is normal. LIGAMENTS: Distal tibiofibular syndesmosis: Unremarkable. No tear. Anterior talofibular ligament: Anterior talofibular ligament is intact. Posterior talofibular ligament: Posterior talofibular ligament is intact. Calcaneofibular ligament: Calcaneofibular ligament is intact. Deltoid ligament complex: The deltoid ligament is intact. Lisfranc ligament: Lisfranc ligament is intact. TENDONS: Flexor tendons of foot: Unremarkable as visualized. Tibialis posterior tendon: There is mild thickening without abnormal signal in the tibialis posterior tendon. Peroneal tendons: Peroneal tendons are normal. Extensor tendons of foot: Visible portions of the extensor tendons are normal. Tibialis anterior tendon: Tibialis anterior tendon is normal. Achilles tendon: Achilles tendon is normal. Tarsal canal (Sinus tarsi): There is edema in the tarsal sinus without visible ligament tear. Tarsal tunnel: Unremarkable. Soft tissues: Unremarkable. Plantar fascia: Plantar fascia is normal. MR/MR foot LT wo con* [id number] IMPRESSION: 1. Tarsal sinus edema, similar to the prior. Ligaments are suboptimally visualized due to slice thickness. 2. No bone marrow edema. No sign of acute fracture. Bone marrow edema seen on the prior MRI has resolved. 3. Small talonavicular joint effusion, similar to the prior.
== END 2025-01-22 15:22 | disposition home or self-care (01) ==
LOC: RAD 15:22
PROVIDERS: PCP Nurse Practitioner Family; Visit Provider Podiatrist Foot & Ankle Surgery
DX: M25.475 Effusion, left foot (principal); R93.7 Abnormal findings on diagnostic imaging of other parts of musculoskeletal system
CPT/HCPCS: 73718

== ENCOUNTER → 2025-01-30 11:15 | Outpatient (BNVA) | payer BC, MEDICAID, SELFPAY | PROVIDERS: PCP Nurse Practitioner Family; Visit Provider Nurse Practitioner Family | DX: M06.9 Rheumatoid arthritis, unspecified (principal); D64.9 Anemia, unspecified; E04.9 Nontoxic goiter, unspecified; R76.8 Other specified abnormal immunological findings in serum | CPT/HCPCS: 85025 ==

== ENCOUNTER 2025-02-09 15:14 | Outpatient (CLI) | payer BC, MEDICAID, SELFPAY ==
[2025-02-09 16:11] LABS: Hematocrit 45.7 % (36-47); Hemoglobin 15.70 g/dL (11.27-16.99); Mean Corpuscular HGB Conc 34.4 g/dL (30-55); Mean Corpuscular Hemoglobin 30.3 pg (27-33); Mean Corpuscular Volume 88.1 fl (85-98); Nucleated Red Blood Cells % 0 %; Platelet Count 171 10^3/cmm (157-399); Red Blood Count 5.19 10^6/uL (3.85-5.65); White Blood Count 5.75 10^3/uL (3.29-11.43)
[2025-02-09 16:54] LABS: Hepatitis B Surface Antigen Non-Reactive (Nonreactive)
[2025-02-09 16:59] LABS: Alanine Aminotransferase 22 U/L (0-33); Albumin Level 4.9 g/dL (3.5-5.2); Alkaline Phosphatase 65 U/L (35-105); Aspartate Amino Transferase 21 U/L (0-32); Ferritin 43 ng/mL (15-150); Globulin 2.7 g/dL (1.3-4.6); Iron 180 ug/dL (37-145); Thyroid Stimulating Hormone 1.09 uIU/mL (0.27-4.20); Total Iron Binding Capacity 319 mcg/dl; Total Protein 7.6 g/dL (6.6-8.7); Unsaturated Iron Binding 139 ug/dL (112-347)
[2025-02-09 20:03] LABS: Free T4 Free Thyroxine 1.56 ng/dL (0.82-1.77)
== END 2025-02-09 15:15 | disposition home or self-care (01) ==
LOC: LAB 15:16
PROVIDERS: PCP Nurse Practitioner Family; Visit Provider Internal Medicine Rheumatology
DX: E04.9 Nontoxic goiter, unspecified (principal); D64.9 Anemia, unspecified; R76.8 Other specified abnormal immunological findings in serum; M06.9 Rheumatoid arthritis, unspecified
CPT/HCPCS: 36415; 80076; 82306; 82565; 82728; 83516; 83540; 83550; 84439; 84443; 85025; 85651; 86140; 86480; 86704; 86803; 87340

== ENCOUNTER → 2025-02-10 15:25 | Outpatient (BNVA) | payer BC, MEDICAID, SELFPAY | PROVIDERS: PCP Nurse Practitioner Family; Visit Provider Emergency Medicine | DX: M19.042 Primary osteoarthritis, left hand (principal) | CPT/HCPCS: 73130 ==

== ENCOUNTER 2025-03-22 19:21 | Emergency (ER) | payer BC, MEDICAID, SELFPAY ==
[2025-03-22 19:24] VITALS: PULSE 183; RESP 20; TEMP 36.4; O2SAT 98; BMI 34.7
--- NOTE | 2025-03-22 19:27 | XRR_ITS ---
PROCEDURE INFORMATION: Exam: XR Chest Exam date and time: 03/22/2025 7:34 PM Age: 59 years old Clinical indication: Chest pressure; Prior surgery; Surgery date: 6+ months; Surgery type: Node ablation. Left lumpectomy; C/O chest pain with svt TECHNIQUE: Imaging protocol: Radiologic exam of the chest. Views: 1 view. COMPARISON: CR XR chest 1V portable [id number] 02/19/2024 12:35 AM FINDINGS: Lungs: Unremarkable. No consolidation. Pleural spaces: Unremarkable. No pleural effusion. No pneumothorax. Heart/Mediastinum: Unremarkable. No cardiomegaly. Bones/joints: Unremarkable. XR/XR chest 1V portable [id number] IMPRESSION: No acute findings.
--- OUTSIDE RECORDS SUMMARY | 2025-03-22 19:27 | XMS_ITS | Clinical Summary ---
Author Organization [facility] Address [address] [place] [address] Care Team Providers Care Statement Distribution Clerk Name Role Phone Shyanne Medina MD Primary Care Provider [phone] Allergies No known active allergies Medications sulfaSALAzine (AZULFIDINE) 500 mg tablet Take 500 mg by mouth 3 times daily . Active prednisoLONE 5 mg tablet Take 5 mg by mouth late in the day . Active metoprolol tartrate (LOPRESSOR) 50 mg tabletIndications :Prescribed by rubberizing mechanic Take 50 mg by mouth 2 times daily . Active HYDROcodone-aceta minophen (NORCO) 5-325 mg tablet Take 1 Tablet by mouth 3 times daily as needed for Pain, Moderate. Dr. Reyes Active omeprazole (PriLOSEC) 20 mg Capsule, Delayed Release(E.C.) Take 1 capsule by mouth twice daily 180 Capsule 1 Active famotidine (PEPCID) 20 mg tablet Take 2 tablets by mouth once daily 60 Tablet 1 Active Active Problems Problem Noted Date Diagnosed Date Breast mass in female 06/15/2017 Immunizations Immunization Administration Dates Next Due (ADACEL/BOOSTRIX)(10 YR UP) TDAP VACCINE, 0.5ML, IM 01/22/2012 Dt Dtp Dtap Vaccine 05/16/1998 Family History Medical History Relation Name Comments Heart Disease Mother Hypertension Mother Relation Name Status Comments Father Mother Alive Social History Tobacco Use Types Packs/Day Years Used Date Smoking Tobacco: Never Smokeless Tobacco: Never Alcohol Use Standard Drinks/Week Comments No 0 (1 standard drink = 0.6 oz pur e alcohol) Comments No Sex and Gender Information Value Date Recorded Sex Assigned at Not on file Legal 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 Gender Identity Not on file Sexual Orientation Not on file Occupation Industry Job Start Date Job End Date Not on file Not on file Not on file Not on file Last Filed Vital Signs Vital Sign Reading Time Taken Comments Blood Pressure 98/62 01/07/2020 1:58 PM CDT Pulse 86 01/07/2020 1:58 PM CDT Temperature 35.6 C (96 F) 01/07/2020 1:58 PM CDT Respiratory Rate 15 11/01/2017 2:18 PM CDT Oxygen Saturation 98% 01/07/2020 1:58 PM CDT Inhaled Oxygen Concentration - - Weight 80.7 kg (178 lb) 01/07/2020 1:58 PM CDT Height 162.6 cm (5' 4 ) 01/07/2020 1:58 PM CDT Body Mass Index 30.55 01/07/2020 1:58 PM CDT Plan of Treatment Health Maintenance Due Date Last Done Comments HEPATITIS B VACCINES (1 of 3 - 19+ 3-dose series) 09/08/1986 Preventative Visit-Managed Medicaid 09/08/1986 HPV/Cotest (21-29) 09/08/1988 CERVICAL CANCER SCREENING 09/08/1997 HPV/Cotest (30-65) 09/08/1997 PAP SMEAR 09/08/1997 COLORECTAL SCREENING 09/08/2012 Colorectal Cancer Screening 09/08/2012 FIT-DNA Q 3 years 09/08/2012 FIT/FOBT Q 1 year 09/08/2012 Flex Sig/CT Colonography Q 5 years 09/08/2012 ZOSTER VACCINE (1 of 2) 09/08/2017 BREAST CANCER SCREENING 05/18/2018 05/18/2017, 10/11 DTAP/TDAP/TD VACCINES (3 - Td or Tdap) 01/21/2022, 05/16/1998 INFLUENZA VACCINE (#1) 2025 Procedures Procedure Name Priority Date/Time Associated Diagnosis Comments MAMMO DIAGNOSTIC UNI LEFT W OR WO CAD Routine 05/18/2017 from Last 3 Months or Most Recently Relevant to Health Maintenance Results * MAMMO DIAGNOSTIC UNI LEFT W OR WO CAD (05/18/2017) Anatomical Region Laterality Modality Breast Left Mammography Bogdan BOCANEGRA MAMMO ORDERABLES Edited Resul t - Final from Last 3 Months or Most Recently Relevant to Health Maintenance Insurance MEDICAID [place] Advance Directives For more information, please contact: [phone] * Full Code (Latest Code Status on File) Date Activated Date Inactivated Comments 06/27/2017 7:56 AM 06/27/2017 4:30 PM Care Teams Statement Distribution Clerk Relationship Specialty Start Date End Date Shyanne Medina MD [address] [place] [id number] PCP - General Family Practice 07/24/13
--- OUTSIDE RECORDS SUMMARY | 2025-03-22 19:27 | XMS_ITS | Encounter Summary ---
Author Organization [facility] Address [address] [place] [address] Care Team Providers Care Crop Supervisor Name Role Phone Shyanne Medina MD Primary Care Provider [phone]- [phone] Encounter Details Date Type Department Care Team (Late st Contact Info) Description 08/03/2014 Lab Requisition [facility] [employer] [address] [place] [id number] Melina Cornelius, PIPE FITTER MAINTENANCE [address] [place] [address] Social History Tobacco Use Types Packs/Day Years Used Date Smoking Tobacco: Never Smokeless Tobacco: Never Alcohol Use Standard Drinks/Week Comments No 0 (1 standard drink = 0.6 oz pur e alcohol) Comments No Sex and Gender Information Value Date Recorded Sex Assigned at Not on file 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 Gender Identity Not on file Sexual Orientation Not on file Occupation Industry Job Start Date Job End Date Not on file Not on file Not on file Not on file documented as of this encounter Plan of Treatment Not on file documented as of this encounter Procedures Procedure Name Priority Date/Time Associated Diagnosis Comments VITAMIN B12 AND FOLATE Routine 08/03/2014 11:09 PM LIFE TESTER [employer] IRON LEVEL Routine 08/03/2014 11:09 PM [employer] TE[employer] FERRITIN Routine 08/03/2014 11:09 PM [employer] TESTER [employer] BASIC METABOLIC PANEL Routine 08/03/2014 11:09 PM LIFE TESTER [employer] documented in this encounter Results * (ABNORMAL) IRON LEVEL (08/03/2014 11:09 PM [employer] TE[employer]) IRON 14(L) 50 - 170 ug/dL 08/04/2014 12:19 AM LIFE TESTER OUTBOARD [employer]ORS [employer] [facility] Blood 08/03/2014 11:0 9 PM LIFE TESTER [employer] 08/03/2014 11:09 PM [employer] TE[employer] Melina [facility] [employer] PIPE FITTER MAINTENANCE CHEMISTRY ORDERABLES Final Result Performing Organization Address [facility] Co de Phone Number [facility] [employer] [facility] CLIA # [id number] [address] [place] [phone] * (ABNORMAL) FERRITIN (08/03/2014 11:09 PM [employer] TE[employer]) FERRITIN 2.0(L) 8.0 - 252.0 ng/mL 08/04/2014 12:19 AM LIFE TESTER OUTBOARD MOTORS [facility] Blood 08/03/2014 11:0 9 PM LIFE TESTER [employer] 08/03/2014 11:09 PM LIFE TESTER [employer]BO[employer] Melina [employer] [facility] CHEMISTRY ORDERABLES Final Result Performing Organization Address [facility] de Phone Number [facility] [employer] [facility] CLIA # [id number] [address] [place] [address] * (ABNORMAL) BASIC METABOLIC PANEL (08/03/2014 11:09 PM LIFE TE[employer]) SODIUM 139 136 - 145 mmol/L 08/03/2014 11:59 PM LIFE TESTER OUTBOARD MOT[employer] [facility] POTASSIUM 3.3(L) 3.5 - 5.1 mmol/L 08/03/2014 11:59 PM LIFE TESTER OUTBOARD MOTORS [facility] CHLORIDE 102 98 - 107 mmol/L 08/03/2014 11:59 PM LIFE TESTER OUTBOARD MOTORS [facility] CO2 25 21 - 32 mmol/L 08/03/2014 11:59 PM LIFE TESTER OUTBOARD MOTORS [facility] CALCIUM 9.0 8.5 - 10.1 mg/dL 08/03/2014 11:59 PM LIFE TESTER OUTBOARD MOTORS [facility] BUN 8 7 - 18 mg/dL 08/03/2014 11:59 PM [facility] CREATININE 1.00 0.60 - 1.30 mg/dL 08/03/2014 11:59 PM [facility] GLUCOSE 86 74 - 106 mg/dL 08/03/2014 11:59 PM [facility] GFR 60 >=60 mL/min/1.7 3 sq meter 08/03/2014 11:59 PM [facility] Comment: eGFR has not been validated for use in the elderly (> 70 years of age), women, patients with serious co-morbid conditions, or persons with extremes of body size or muscle mass and should also be interpreted with caution in patients with acute kidney failure, dialysis dependent patients, patients reporting exceptional dietary intake (e.g. vegetarian diet, high protein diets, creatine supplementation), and patients with severe liver disease. Based on National Kidney Disease Education Program If patient is , please refer to the GFR result. GFR, >60 >=60 mL/min/1.7 3 sq meter 08/03/2014 11:59 PM [facility] ANION GAP 12 12 - 20 mmol/L 08/03/2014 11:59 PM [facility] Blood 08/03/2014 11:0 9 PM [employer] TE[employer] 08/03/2014 11:09 PM [employer] TE[employer] Melina Cornelius PIPE FITTER MAINTENANCE CHEMISTRY ORDERABLES Final Result [id number] [address] [place] [phone] * VITAMIN B12 AND FOLATE (08/03/2014 11:09 PM LIFE TE[employer]) VITAMIN B12 398 211 - 911 pg/mL 08/04/2014 9:51 PM [facility] FOLATE, SERUM 21.79 >=5.38 ng/mL 08/04/2014 9:51 PM [facility] Blood specimen (specimen) 08/03/2014 11:09 PM [employer] TE[employer] 08/03/2014 11:09 PM [employer] TE[employer] Melina Long [employer] PIPE FITTER MAINTENANCE CHEMISTRY ORDERABLES Final Result [facility] CLIA# [id number] [address] [place] [address] documented in this encounter Visit Diagnoses Not on filedocumented in this encounter Care Teams Crop Supervisor Relationship Specialty Start Date End Date Shyanne Medina MD [address] [phone] PCP - General Family Practice 07/24/13 documented as of this encounter
--- OUTSIDE RECORDS SUMMARY | 2025-03-22 19:27 | XMS_ITS | Encounter Summary ---
Author Organization [facility] Address [address] [place] [address] Care Team Providers Care Tattoo Technician Name Role Phone Shyanne Medina MD Primary Care Provider [phone] Encounter Details Date Type Department Care Team (Late st Contact Info) Description 10/25/2015 Lab Requisition [facility] Laboratory Services [place] [address] [place] [phone] Min Del Real, DO NO ADDRESS ON FILE Illness Social History Tobacco Use Types Packs/Day Years Used Date Smoking Tobacco: Never Smokeless Tobacco: Never Alcohol Use Standard Drinks/Week Comments No 0 (1 standard drink = 0.6 oz pur e alcohol) Comments No Sex and Gender Information Value Date Recorded Sex Assigned at Not on file Legal 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 Gender Identity Not on file Sexual Orientation Not on file Occupation Industry Job Start Date Job End Date Not on file Not on file Not on file Not on file documented as of this encounter Plan of Treatment Not on file documented as of this encounter Procedures Procedure Name Priority Date/Time Associated Diagnosis Comments DIFFERENTIAL, MANUAL Routine 10/25/2015 9:08 PM CDT Illness CBC WITH DIFFERENTIAL Routine 10/25/2015 9:08 PM CDT Illness TSH Routine 10/25/2015 9:08 PM CDT Illness LIPID PANEL Routine 10/25/2015 9:08 PM CDT Illness COMPREHENSIVE METABOLIC PANEL Routine 10/25/2015 9:08 PM CDT Illness documented in this encounter Results * MANUAL DIFFERENTIAL (10/25/2015 9:08 PM CDT) SEGMENTED NEUTROPHILS 67 45 - 70 % 10/25/2015 10:25 PM CDT [facility] [place] BANDS RELATIVE 1 1 - 5 % 10/25/2015 10:25 PM CDT [facility] [place] LYMPHOCYTES RELATIVE 26 20 - 45 % 10/25/2015 10:25 PM CDT [facility] [place] MONOCYTES RELATIVE 4 2 - 8 % 10/25/2015 10:25 PM CDT [facility] [place] EOSINOPHILS RELATIVE 2 0 - 5 % 10/25/2015 10:25 PM CDT [facility] [place] NEUTROPHILS ABSOLUTE COUNT 5.10 1.78 - 5.38 K/uL 10/25/2015 10:25 PM CDT [facility] [place] LYMPHOCYTES ABSOLUTE 1.95 1.20 - 4.00 K/uL 10/25/2015 10:25 PM CDT [facility] [place] MONOCYTES ABSOLUTE 0.30 0.30 - 0.82 K/uL 10/25/2015 10:25 PM CDT [facility] [place] EOSINOPHILS ABSOLUTE 0.15 0.04 - 0.54 K/uL 10/25/2015 10:25 PM CDT [facility] [place] TOTAL CELLS COUNTED IN DIFF 100 10/25/2015 10:25 PM CDT [facility] [place] PLATELET EST. Adequate 10/25/2015 10:25 PM CDT [facility] [place] RBC MORPHOLOGY Normal 10/25/2015 10:25 PM CDT [facility] [place] Blood Collection / Unknown 10/25/2015 9:08 PM CDT 10/25/2015 9:08 PM CDT us Min Del Real DO HEMATOLOGY ORDERABLES COM Final Result [facility] [place] CLIA # [id number] [address] [place] [address] * TSH (10/25/2015 9:08 PM CDT) TSH 0.97 0.27 - 4.20 uIU/mL 10/25/2015 10:40 PM CDT [facility] [employer] [facility] Blood Collection / Unknown 10/25/2015 9:08 PM CDT 10/25/2015 9:08 PM CDT Min Del Real DO CHEMISTRY ORDERABLES Final Resu lt [facility] CLIA # [id number] [address] [place] [address] * (ABNORMAL) LIPID PANEL (10/25/2015 9:08 PM CDT) CHOLESTEROL 210(H) <200 mg/dL 10/25/2015 10:40 PM CDT [facility] [employer] [facility] TRIGLYCERIDE 242(H) <150 mg/dL 10/25/2015 10:40 PM CDT [facility] HDL 49 40 - 59 mg/dL 10/25/2015 10:40 PM CDT [facility] LDL CALCULATED 113(H) <100 mg/dL 10/25/2015 10:40 PM CDT [facility] [employer] [facility] NON-HDL CHOLESTEROL 161(H) <130 mg/dL 10/25/2015 10:40 PM CDT [facility] Blood Collection / Unknown 10/25/2015 9:08 PM CDT 10/25/2015 9:08 PM CDT Narrative [facility] [employer] [facility] - 10/25/2015 10:40 PM CDT TOTAL CHOLESTEROL mg/dL Desirable <200 Borderline high 200-239 High >=240 TRIGLYCERIDES mg/dL Normal <150 Borderline high 150-199 High 200-499 Very high >=500 HDL CHOLESTEROL mg/dL Low <40 Normal 40-59 Desirable >=60 LDL CHOLESTEROL mg/dL Optimal <100 Low risk 100-129 Borderline high 130-159 High 160-189 Very high >=190 NON HDL CHOLESTEROL mg/dL Optimal <130 Near Optimal 130-159 Borderline High 160-189 High 190-219 Very high >=220 Based on AHA/NCEP Guidelines Min Del Real DO CHEMISTRY ORDERABLES Final Resu lt [facility] [place] CLIA # [id number] [address] [address] * COMPREHENSIVE METABOLIC PANEL (10/25/2015 9:08 PM CDT) SODIUM 140 136 - 145 mmol/L 10/25/2015 10:39 PM CDT [facility] [place] POTASSIUM 3.5 3.5 - 5.1 mmol/L 10/25/2015 10:39 PM CDT [facility] [place] CHLORIDE 100 98 - 107 mmol/L 10/25/2015 10:39 PM CDT [facility] [place] CO2 26 22 - 29 mmol/L 10/25/2015 10:39 PM CDT [facility] [place] CALCIUM 9.2 8.6 - 10.0 mg/dL 10/25/2015 10:39 PM CDT [facility] [place] BUN 12 6 - 20 mg/dL 10/25/2015 10:39 PM T [facility] [place] CREATININE 0.76 0.51 - 0.95 mg/dL 10/25/2015 10:39 PM CDT [facility] [place] GLUCOSE 74 74 - 106 mg/dL 10/25/2015 10:39 PM CDT [facility] [place] TOTAL PROTEIN 7.5 6.6 - 8.7 g/dL 10/25/2015 10:39 PM CDT [facility] [place] ALBUMIN 4.3 3.5 - 5.2 g/dL 10/25/2015 10:39 PM CDT [facility] [place] BILIRUBIN TOTAL 0.3 0.0 - 1.2 mg/dL 10/25/2015 10:39 PM CDT [facility] [place] ALKALINE PHOSPHATASE 71 35 - 104 U/L 10/25/2015 10:39 PM CDT [facility] [place] AST 17 10 - 35 U/L 10/25/2015 10:39 PM CDT [facility] [place] ALT 19 10 - 35 U/L 10/25/2015 10:39 PM CDT [facility] [place] GFR >60 >=60 mL/min/1.7 3 sq meter 10/25/2015 10:39 PM CDT [employer] [facility] Comment: eGFR has not been [...] GFR, >60 >=60 mL/min/1.7 3 sq meter 10/25/2015 10:39 PM CDT [facility] ANION GAP 14 12 - 20 mmol/L 10/25/2015 10:39 PM CDT [facility] [employer] [facility] Blood Collection / Unknown 10/25/2015 9:08 PM CDT 10/25/2015 9:08 PM CDT us Min Del Real DO CHEMISTRY ORDERABLES Final Resu lt [facility] [email or web address] [facility] CLIA # [id number] [address] [place] [address] * (ABNORMAL) CBC WITH DIFFERENTIAL (10/25/2015 9:08 PM CDT) WBC 7.5 4.0 - 10.0 K/uL 10/25/2015 10:16 PM CDT [facility] [email or web address] [facility] RBC 4.44 3.93 - 5.22 M/uL 10/25/2015 10:16 PM CDT [facility] [employer] [facility] HEMOGLOBIN 13.2 11.2 - 15.7 g/dL 10/25/2015 10:16 PM CDT [facility] [employer] [facility] HEMATOCRIT 40.6 34.1 - 44.9 % 10/25/2015 10:16 PM CDT [facility] [employer] [facility] MCV 91.4 79.4 - 94.8 fL 10/25/2015 10:16 PM CDT [facility] [email or web address] [facility] MCH 29.7 25.6 - 32.2 pg 10/25/2015 10:16 PM CDT [facility] [place] MCHC 32.5 32.2 - 35.5 g/dL 10/25/2015 10:16 PM CDT [facility] RDW 13.9 11.0 - 14.5 % 10/25/2015 10:16 PM CDT [facility] RDW-STDEV 45.2 36.9 - 56.9 fL 10/25/2015 10:16 PM CDT [facility] PLATELETS 151(L) 163 - 337 K/uL 10/25/2015 10:16 PM CDT [facility] MPV 12.1 10.0 - 14.8 fL 10/25/2015 10:16 PM CDT [facility] Blood Collection / Unknown 10/25/2015 9:08 PM CDT 10/25/2015 9:08 PM CDT Min Del Real DO HEMATOLOGY ORDERABLES Final Res ult [facility] [employer] [facility] CLIA # [id number] [address] [address] documented in this encounter Visit Diagnoses Diagnosis Illness Other unknown and unspecified cause of morbidity or mortality documented in this encounter Care Teams Tattoo Technician Relationship Specialty Start Date End Date Shyanne Medina MD [address] [phone] PCP - General Family Practice 07/24/13 documented as of this encounter
--- OUTSIDE RECORDS SUMMARY | 2025-03-22 19:27 | XMS_ITS | Encounter Summary ---
Author Organization [facility] Address [address] [place] [address] Care Team Providers Care Seo Expert Name Role Phone Shyanne Medina MD Primary Care Provider [phone]- [phone] Encounter Details Date Type Department Care Team (Late st Contact Info) Description 01/31/2016 Lab Requisition [facility] Laboratory Services [place] [address] [place] [phone] Min Del Real, DO NO ADDRESS ON FILE Social History Tobacco Use Types Packs/Day Years Used Date Smoking Tobacco: Never Smokeless Tobacco: Never Alcohol Use Standard Drinks/Week Comments No 0 (1 standard drink = 0.6 oz pur e alcohol) Comments No Sex and Gender Information Value Date Recorded Sex Assigned at Not on file 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 Gender Identity Not on file Sexual Orientation Not on file Occupation Industry Job Start Date Job End Date Not on file Not on file Not on file Not on file documented as of this encounter Plan of Treatment Not on file documented as of this encounter Procedures Procedure Name Priority Date/Time Associated Diagnosis Comments IRON, TIBC, AND PERCENT SATURATION Routine 01/31/2016 9:00 PM CDT CBC WITH DIFFERENTIAL Routine 01/31/2016 9:00 PM CDT FERRITIN Routine 01/31/2016 9:00 PM CDT documented in this encounter Results * (ABNORMAL) IRON, TIBC, AND PERCENT SATURATION (01/31/2016 9:00 PM CDT) IRON 26(L) 37 - 145 ug/dL 01/31/2016 11:37 PM CDT [facility] TIBC 364 250 - 450 ug/dL 01/31/2016 11:37 PM CDT [facility] IRON % SATURATION 7(L) 15 - 32 % 01/31/2016 11:37 PM CDT [facility] Blood 01/31/2016 9:00 PM CDT 01/31/2016 11:04 PM CDT us Min Del Real DO CHEMISTRY ORDERABLES Final Resu lt Performing Organization Address [facility]/ZIP Co de Phone Number [facility] CLIA # [id number] [address] [place] [address] * (ABNORMAL) FERRITIN (01/31/2016 9:00 PM CDT) FERRITIN 7.1(L) 15.0 - 150.0 ng/mL 01/31/2016 11:37 PM CDT [facility] Blood 01/31/2016 9:00 PM CDT 01/31/2016 11:04 PM CDT us Min Del Real DO CHEMISTRY ORDERABLES Final Resu lt Performing Organization Address [facility]/ZIP Co de Phone Number [facility] CLIA # [id number] [address] [place] [address] * (ABNORMAL) CBC WITH DIFFERENTIAL (01/31/2016 9:00 PM CDT) WBC 8.3 4.0 - 10.0 K/uL 01/31/2016 11:11 PM CDT [facility] RBC 4.42 3.93 - 5.22 M/uL 01/31/2016 11:11 PM CDT [facility] HEMOGLOBIN 11.9 11.2 - 15.7 g/dL 01/31/2016 11:11 PM T [facility] HEMATOCRIT 37.8 34.1 - 44.9 % 01/31/2016 11:11 PM CDT [facility] MCV 85.5 79.4 - 94.8 fL 01/31/2016 11:11 PM [facility] MCH 26.9 25.6 - 32.2 pg 01/31/2016 11:11 PM [facility] MCHC 31.5(L) 32.2 - 35.5 g/dL 01/31/2016 11:11 PM [facility] RDW 13.7 11.0 - 14.5 % 01/31/2016 11:11 PM [facility] RDW-STDEV 42.3 36.9 - 56.9 fL 01/31/2016 11:11 PM [facility] PLATELETS 248 163 - 337 K/uL 01/31/2016 11:11 PM [facility] MPV 11.6 10.0 - 14.8 fL 01/31/2016 11:11 PM [facility] NEUTROPHILS 67 34 - 71 % 01/31/2016 11:11 PM [facility] LYMPHOCYTES 24 19 - 52 % 01/31/2016 11:11 PM [facility] MONOCYTES 8 5 - 13 % 01/31/2016 11:11 PM [facility] EOSINOPHILS 0(L) 1 - 6 % 01/31/2016 11:11 PM [facility] BASOPHILS 1 0 - 1 % 01/31/2016 11:11 PM [facility] NEUTROPHIL ABSOLUTE 5.57 1.56 - 6.13 K/uL 01/31/2016 11:11 PM [facility] LYMPHOCYTE ABSOLUTE 1.96 1.20 - 3.40 K/uL 01/31/2016 11:11 PM [facility] MONOCYTE ABSOLUTE 0.67(H) 0.24 - 0.36 K/uL 01/31/2016 11:11 PM [facility] EOSINOPHIL ABSOLUTE 0.00(L) 0.04 - 0.36 K/uL 01/31/2016 11:11 PM [facility] BASOPHILS ABSOLUTE 0.05 0.01 - 0.08 K/uL 01/31/2016 11:11 PM [facility] IMMATURE GRANULOCYTES 0 % 01/31/2016 11:11 PM CDT [facility] IMMATURE GRANULOCYTES ABSOLUTE 0.02 K/uL 01/31/2016 11:11 PM CDT [facility] Blood 01/31/2016 9:00 PM CDT 01/31/2016 11:04 PM CDT us Min Del Real DO HEMATOLOGY ORDERABLES Final Res ult [facility] CLIA # [id number] [address] [address] documented in this encounter Visit Diagnoses Not on filedocumented in this encounter Care Teams Seo Expert Relationship Specialty Start Date End Date Shyanne Medina MD [address] [phone] PCP - General Family Practice 07/24/13 documented as of this encounter
--- OUTSIDE RECORDS SUMMARY | 2025-03-22 19:27 | XMS_ITS | Clinical Summary ---
Author Organization [facility] Address [address] [place]: Epic Prelude ADT ERIN [facility] [address] Care Team Providers Care Logistics Project Manager Name Role Phone Shyanne Medina MD Primary Care Provider [phone] Allergies No known active allergies Medications HYDROcodone-abi taminophen (NORCO) 5-325 mg tablet Take 1 Tablet by mouth 3 times daily as needed for Pain, Moderate. Dr. Reyes 0 Active famotidine (PEPCID) 20 mg tablet Take 2 tablets by mouth once daily 60 Tablet 0 1 Active Additional Information Patient not taking.Reported on 12/05/2022 omeprazole (PriLOSEC) 20 mg Capsule, Delayed Release(E.C.) Take 1 capsule by mouth twice daily 180 Capsule 0 1 Active sulfaSALAzine (AZULFIDINE) 500 mg tablet Take 500 mg by mouth 3 times daily . 7 Active prednisoLONE 5 mg tablet Take 5 mg by mouth late in the day . 7 Active metoprolol tartrate (LOPRESSOR) 50 mg tablet Take 50 mg by mouth 2 times daily . 7 Active tranexamic acid (LYSTEDA) 650 mg Tablet tablet TAKE 2 TABLETS BY MOUTH THREE TIMES DAILY 2 Active tiZANidine (ZANAFLEX) 4 mg Tablet TAKE 1 TABLET BY MOUTH THREE TIMES DAILY NEEDED FOR MUSCLE SPASTICITY 2 Active lidocaine (XYLOCAINE) 2 % jelly APPLY TOPICALLY DAILY FOR WOUND CARE 2 Active ibuprofen (MOTRIN) 800 mg tablet TAKE 1 TABLET BY MOUTH THREE TIMES DAILY NEEDED FOR PAIN 2 Active docusate sodium (COLACE) 100 mg capsule Take 100 mg by mouth 2 times daily. 2 Active Active Problems Problem Noted Date Diagnosed Date Breast mass in female 06/15/2017 Immunizations Immunization Administration Dates Next Due (ADACEL/BOOSTRIX)(10 YR UP) TDAP VACCINE, 0.5ML, IM 01/22/2012 Diptheria, Tetanus Toxoids, And Whole Cell Pertussis Vaccine (DTP), for intramuscular use 05/16/1998 Dt Dtp Dtap Vaccine 05/16/1998 Family History Medical History Relation Name Comments Heart Disease Mother Hypertension Mother Relation Name Status Comments Father Mother Alive Social History Tobacco Use Types Packs/Day Years Used Date Smoking Tobacco: Never Smokeless Tobacco: Never Tobacco Cessation:Counseling Given: No Alcohol Use Standard Drinks/Week Comments No 0 (1 standard drink = 0.6 oz pur e alcohol) Comments No Sex and Gender Information Value Date Recorded Sex Assigned at Not on file Legal Sex Female 12:27 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 Gender Identity Not on file Sexual Orientation Not on file Last Filed Vital Signs Vital Sign Reading Time Taken Comments Blood Pressure 136/84 09/24/2023 3:46 PM CDT Pulse 96 09/24/2023 3:46 PM CDT Temperature 36.6 C (97.8 F) 09/24/2023 3:46 PM CDT Respiratory Rate 18 09/24/2023 3:46 PM CDT Oxygen Saturation 99% 09/24/2023 3:46 PM CDT Inhaled Oxygen Concentration - - Weight 87.8 kg (193 lb 8 oz) 09/24/2023 3:46 PM CDT Height 162.6 cm (5' 4 ) 09/24/2023 3:46 PM CDT Body Mass Index 33.21 09/24/2023 3:46 PM CDT Plan of Treatment Health Maintenance [...] of 2) 09/08/2017 BREAST CANCER SCREENING 05/18/2018 05/18/20, 05/18/2017, 10/11/2016 DTAP/TDAP/TD VACCINES (4 - T d or Tdap) 01/21/2022 01/22/2012, 05/16/1998, 05/16/1998 INFLUENZA VACCINE (#1) 2025 09/24/2023 Procedures Procedure Name Priority Date/Time Associated Diagnosis Comments MAMMO DIAGNOSTIC UNI LEFT W OR WO CAD Routine 05/18/2017 12:00 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 from Last 3 Months or Most Recently Relevant to Health Maintenance Results * MAMMO DIAGNOSTIC UNI LEFT W OR WO CAD (05/18/2017 12:00 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) Anatomical Region Laterality Modality Breast Left Other Bogdan BOCANEGRA MAMMO ORDERABLES Edited Resul t - Final from Last 3 Months or Most Recently Relevant to Health Maintenance Insurance MEDICAID [place] Care Teams Logistics Project Manager Relationship Specialty Start Date End Date Shyanne Medina MD [address] [phone] PCP - General Family Practice 07/24/13
--- OUTSIDE RECORDS SUMMARY | 2025-03-22 19:27 | XMS_ITS | Encounter Summary ---
Author Organization [facility] Address [address] [place] [address] Care Team Providers Care Office Bookkeeper Name Role Phone Shyanne Medina MD Primary Care Provider [phone] [phone] Encounter Details Date Type Department Care Team (Late st Contact Info) Description 11/03/2011 Ancillary Orders [address] [phone] Bogdan Hewitt PA NO ADDRESS ON FILE Back pain Social History Tobacco Use Types Packs/Day Years Used Date Smoking Tobacco: Never Alcohol Use Standard Drinks/Week Comments No 0 (1 standard drink = 0.6 oz pur e alcohol) Comments Unknown Sex and Gender Information Value Date Recorded Sex Assigned at Not on file 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 Pedicles and paraspinal lines appear normal. There is very slight mid-dorsal thoracic dextroscoliosis. On the lateral view, there is some minimal anterior osteophyte formation. Procedure Note Arvin Caraballo MD - 11/03/2011 DESCRIPTION: AP and lateral thoracic spine views and collimated lateral cervicothoracicswimmer projection show no acute fracture or loss of alignment. Pediclesand paraspinal lines appear normal. There is very slight mid-dorsalthoracic dextroscoliosis. On the lateral view, there is some minimalanterior osteophyte formation. IMPRESSION no acute changes seen osito - transcribed in [facility] - Bogdan BOCANEGRA DIAGNOSTIC IMAGING ORDERABLES Final Result documented in this encounter Visit Diagnoses Diagnosis Back pain Backache, unspecified Back pain Backache, unspecified documented in this encounter Care Teams Office Bookkeeper Relationship Specialty Start Date End Date Shyanne Medina MD [address] [phone] PCP - General Family Practice 07/24/13 documented as of this encounter
--- OUTSIDE RECORDS SUMMARY | 2025-03-22 19:27 | XMS_ITS | Encounter Summary ---
Author Organization [facility] Address [address] [place] [address] Care Team Providers Care Tongue Presser Name Role Phone Shyanne Medina MD Primary Care Provider +1- [phone] Encounter Details Date Type Department Care Team (Latest Contact Info) Description 09/27/1998 Outpatient Historical [facility] Medicine- [address] [phone] Min Del Real, NO ADDRESS ON FILE Cellulitis and abscess of unspecified site (Primary Dx); Other ovarian dysfunction Social History Tobacco Use Types Packs/Day Years Used Date Smoking Tobacco: Never Assessed Comments Unknown Sex and Gender Information Value Date Recorded Sex Assigned at Not on file 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
--- OUTSIDE RECORDS SUMMARY | 2025-03-22 19:27 | XMS_ITS | Encounter Summary ---
Author Organization [facility] Address [address] [place] [address] Care Team Providers Care Die Maintenance Technician Name Role Phone Shyanne Medina MD Primary Care Provider [phone]- [phone] Encounter Details Date Type Department Care Team (Latest Contact Info) Description 08/28/2001 Outpatient Historical [facility] Medicine- [address] [phone] Herbie Capellan MD [address] [facility] [address] [place] [phone] ACUTE URI NOS (Primary Dx); STOMATITIS Social History Tobacco Use Types Packs/Day Years Used Date Smoking Tobacco: Never Assessed Comments Unknown Sex and Gender Information Value Date Recorded Sex Assigned at Not on file 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
--- OUTSIDE RECORDS SUMMARY | 2025-03-22 19:27 | XMS_ITS | Encounter Summary ---
Author Organization [facility] Address [address] [place] [address] Care Team Providers Care Film Critic Name Role Phone Shyanne Medina MD Primary Care Provider [phone]- [phone] Encounter Details Date Type Department Care Team (Latest Contact Info) Description 10/01/1998 Outpatient Historical [facility] Medicine- [address] [phone] Herbie Capellan MD [address] [facility] [address] [place] [phone] Cellulitis and abscess of unspecified site (Primary Dx) Social History Tobacco Use Types Packs/Day Years Used Date Smoking Tobacco: Never Assessed Comments Unknown Sex and Gender Information Value Date Recorded Sex Assigned at Not on file 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
--- OUTSIDE RECORDS SUMMARY | 2025-03-22 19:27 | XMS_ITS | Encounter Summary ---
Author Organization [facility] Address [address] [place] [address] Care Team Providers Care Gravity Prospector Name Role Phone Shyanne Medina MD Primary Care Provider +1- [phone] Encounter Details Date Type Department Care Team (Latest Contact Info) Description 10/23/[address] 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
--- OUTSIDE RECORDS SUMMARY | 2025-03-22 19:27 | XMS_ITS | Encounter Summary ---
Author Organization [facility] Address [address] [place] [address] Care Team Providers Care Puller Through Name Role Phone Shyanne Medina MD Primary Care Provider +1- [phone] Encounter Details Date Type Department Care Team (Latest Contact Info) Description 03/30/2000 Outpatient Historical [facility] Medicine- [address] [phone] Herbie Capellan MD [address] [facility] [address] [place] [phone] Unspecified disorder of skin and subcutaneous tissue (Primary Dx) Social History Tobacco Use Types Packs/Day Years Used Date Smoking Tobacco: Never Assessed Comments Unknown Sex and Gender Information Value Date Recorded Sex Assigned at Not on file 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
--- NOTE | 2025-03-22 19:28 | ECG_ITS ---
[facility] Date: 2025-03-22 Pat Name: Nicky Gonzalez Department: Room: Gender: Female Mill Roll Operator: : 1965 Requested By: Dl Edwards Order Number: [id number] Ibrahim MD: John Pickett M.D. Measurements Intervals Mitchell Rate: 181 P: 0 GA: 0 QRS: 33 QRSD: 75 T: 2 QT: 246 QTc: 427 Interpretive Statements SUPRAVENTRICULAR TACHYCARDIA ST DEPRESSION, CONSIDER SUBENDOCARDIAL INJURY [0.1+ mV ST DEPRESSION] CRITICAL TEST RESULT Compared to ECG 09/25/2024 15:02:17 ST (T wave) deviation now present Sinus tachycardia no longer present Electronically Signed On 03-23-2025 20:23:09 CDT by John Pickett M.D. [email or web address]
--- OUTSIDE RECORDS SUMMARY | 2025-03-22 19:28 | XMS_ITS | Encounter Summary ---
Author Organization [facility] Address [address] [place] [address] Care Team Providers Care Field Education Coordinator Name Role Phone Shyanne Medina MD Primary Care Provider [phone]- [phone] Reason for Referral * Outpatient Services (Routine) - Closed Specialty Diagnoses / Procedures Referred By Nghia t Referred To Contact Radiology Diagnoses Taste impairment Procedures CT HEAD W CONTRAST Min Del Real DO [facility] CT Scan [facility] [address] [place] [address] Phone: tel: fax: Referral ID Status Reason Start Date Expiration Date V isits Requested Visits Authorized [id number] Closed [facility] CTS to Schedule (SGF) 07/28/2014 08/28/2015 1 1 NCIAL AID COORDINATOR Encounter Details Date Type Department Care Team (Latest Contact Info) Description 07/28/2014 Ancillary Orders [facility] Scheduling [address] [facility] [address] [place] [address] Min Del Real DO NO ADDRESS ON FILE Taste impairment (Primary Dx) Social History Tobacco Use Types Packs/Day Years Used Date Smoking Tobacco: Never Smokeless Tobacco: Never Alcohol Use Standard Drinks/Week Comments No 0 (1 standard drink = 0.6 oz pur e alcohol) Comments No Sex and Gender Information Value Date Recorded Sex Assigned at Not on file 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 Female 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 Gender Identity Not on file Sexual Orientation Not on file Occupation Industry Job Start Date Job End Date Not on file Not on file Not on file Not on file documented as of this encounter Plan of Treatment Not on file documented as of this encounter Results * CT HEAD W CONTRAST (07/31/2014 3:55 PM FINANCIAL AID COORDINATOR) Anatomical Region Laterality Modality Head Computed Tomogra phy 07/31/2014 2:56 PM FINANCIAL AID COORDINATOR Narrative 07/31/2014 4:19 PM FINANCIAL AID COORDINATOR PROCEDURE HEAD CT, IV contrast-enhanced, 31 July 2014 TECHNIQUE After injection of 100 mL Optiray-300 on a contrast material, computed cerebral tomography was obtained with 56 axial images. Bone window reconstructions are also obtained. DESCRIPTION There is no midline shift, mass effect, or edema. No extra-axial fluid collection is seen. There is normal and symmetric vascular enhancement. No extra-axial fluid collection is revealed and no abnormal brain parenchymal enhancement is seen. Bone window settings show intact calvarium. There is incidental note of a subcutaneous fat density lesion compatible with lipoma overlying the posterior left frontal bone laterally, measuring 8 mm in thickness and 2.7 cm AP diameter. There is no abnormal fluid density seen in the visualized paranasal sinuses or mastoid air cells. IMPRESSION essentially negative head CT post contrast-enhancement Procedure Note Arvin Caraballo MD - 07/31/[address], IV contrast-enhanced, 31 July 2014 TECHNIQUE After injection of 100 mL Optiray-300 on a contrast material, computed cerebral tomography was obtained with 56 axial images. Bone window reconstructions are also obtained. DESCRIPTION There is no midline shift, mass effect, or edema. No extra-axial fluid collection is seen. There is normal and symmetric vascular enhancement. No extra-axial fluid collection is revealed and no abnormal brain parenchymal enhancement is seen. Bone window settings show intact calvarium. There is incidental note of a subcutaneous fat density lesion compatible with lipoma overlying the posterior left frontal bone laterally, measuring 8 mm in thickness and 2.7 cm AP diameter. There is no abnormal fluid density seen in the visualized paranasal sinuses or mastoid air cells. IMPRESSION essentially negative head CT post contrast-enhancement Min Del Real DO CT ORDERABLES Final Result documented in this encounter Visit Diagnoses Diagnosis Taste impairment- Primary Disturbances of sensation of smell and taste Taste impairment Disturbances of sensation of smell and taste documented in this encounter Care Teams Field Education Coordinator Relationship Specialty Start Date End Date Shyanne Medina MD [address] [phone] PCP - General Family Practice 07/24/13 documented as of this encounter
--- OUTSIDE RECORDS SUMMARY | 2025-03-22 19:28 | XMS_ITS | Encounter Summary ---
Author Organization [facility] Address [address] [place] [address] Care Team Providers Care Residential Concierge Name Role Phone Shyanne Medina MD Primary Care Provider [phone]- [phone] Encounter Details Date Type Department Care Team (Late st Contact Info) Description 07/28/2014 Lab Requisition [facility] [place] [address] [place] [phone] Min Del Real, DO NO ADDRESS ON FILE Social History Tobacco Use Types Packs/Day Years Used Date Smoking Tobacco: Never Smokeless Tobacco: Never Alcohol Use Standard Drinks/Week Comments No 0 (1 standard drink = 0.6 oz pur e alcohol) Comments No Sex and Gender Information Value Date Recorded Sex Assigned at Not on file Legal Sex Female 5:42 AM COLORING CHECKER Gender Identity Not on file Sexual Orientation Not on file Occupation Industry Job Start Date Job End Date Not on file Not on file Not on file Not on file documented as of this encounter Plan of Treatment Not on file documented as of this encounter Procedures Procedure Name Priority Date/Time Associated Diagnosis Comments CBC WITH DIFFERENTIAL Routine 07/27/2014 9:00 PM COLORING CHECKER SEDIMENTATION RATE Routine 07/27/2014 9: 00 PM COLORING CHECKER RETICULOCYTES Routine 07/27/2014 9:00 PM COLORING CHECKER TSH Routine 07/27/2014 9:00 PM COLORING CHECKER COMPREHENSIVE METABOLIC PANEL Routine 07/27/2014 9:00 PM COLORING CHECKER documented in this encounter Results * RETICULOCYTES (07/27/2014 9:00 PM COLORING CHECKER) RETICULOCYTES 1.1 0.5 - 1.5 % 07/28/2014 11:25 AM COLORING CHECKER [facility] IMMATURE RETIC FRACTION 8.1 % 07/28/2014 11:25 AM [facility] Blood 07/27/2014 9:00 PM COLORING CHECKER 07/28/2014 1:31 AM COLORING CHECKER us Min Del Real DO HEMATOLOGY ORDERABLES Final Res ult Performing Organization Address [facility] Co de Phone Number [facility] CLIA # [id number] [address] [place] [address] * TSH (07/27/2014 9:00 PM COLORING CHECKER) Pathologist [facility] TSH 1.61 0.30 - 4.80 uIU/mL 07/28/2014 2:28 AM [facility] Blood 07/27/2014 9:00 PM COLORING CHECKER 07/28/2014 1:31 AM COLORING CHECKER us Min Del Real DO CHEMISTRY ORDERABLES Final Resu lt Performing Organization Address [facility] Co de Phone Number [facility] CLIA # [id number] [address] [place] [address], [place] [address] * SEDIMENTATION RATE (07/27/2014 9:00 PM COLORING CHECKER) Pathologist [facility] ESR (SEDIMENTATION RATE) 12 0 - 20 mm/Hr 07/28/2014 2:51 AM [facility] Blood 07/27/2014 9:00 PM COLORING CHECKER 07/28/2014 1:31 AM COLORING CHECKER us Min Del Real DO HEMATOLOGY ORDERABLES Final Res ult Performing Organization Address [facility] Co de Phone Number [facility] CLIA # [id number] [address] [place] [address] * (ABNORMAL) COMPREHENSIVE METABOLIC PANEL (07/27/2014 9:00 PM COLORING CHECKER) Pathologist [facility] SODIUM 141 136 - 145 mmol/L 07/28/2014 2:28 AM [facility] [place] POTASSIUM 3.2(L) 3.5 - 5.1 mmol/L 07/28/2014 2:28 AM [facility] [place] CHLORIDE 103 98 - 107 mmol/L 07/28/2014 2:28 AM COLORING CHECKER [facility] [place] CO2 27 21 - 32 mmol/L 07/28/2014 2:28 AM [facility] [place] CALCIUM 8.8 8.5 - 10.1 mg/dL 07/28/2014 2:28 AM COLORING CHECKER [facility] [place] BUN 8 7 - 18 mg/dL 07/28/2014 2:28 AM [facility] CREATININE 0.90 0.60 - 1.30 mg/dL 07/28/2014 2:28 AM [facility] [place] GLUCOSE 91 74 - 106 mg/dL 07/28/2014 2:28 AM [facility] TOTAL PROTEIN 8.4(H) 6.4 - 8.2 g/dL 07/28/2014 2:28 AM [facility] [place] ALBUMIN 4.2 3.4 - 5.0 g/dL 07/28/2014 2:28 AM COLORING CHECKER [facility] [place] BILIRUBIN TOTAL 0.6 0.2 - 1.0 mg/dL 07/28/2014 2:28 AM [facility] [place] ALKALINE PHOSPHATASE 65 46 - 116 U/L 07/28/2014 2:28 AM [facility] [place] AST 16 15 - 37 U/L 07/28/2014 2:28 AM COLORING CHECKER [facility] [place] ALT 17(L) 30 - 65 U/L 07/28/2014 2:28 AM COLORING CHECKER [facility] GFR >60 >=60 mL/min/1.7 3 sq meter 07/28/2014 2:28 AM [facility] [facility] Comment: eGFR has not been validated for [...] GFR, >60 >=60 mL/min/1.7 3 sq meter 07/28/2014 2:28 AM [facility] Prior Knowledge - [place] ANION GAP 11(L) 12 - 20 mmol/L 07/28/2014 2:28 AM [facility] Prior Knowledge [facility] Blood 07/27/2014 9:00 PM COLORING CHECKER 07/28/2014 1:31 AM COLORING CHECKER Narrative Prior Knowledge - [place] - 07/28/2014 2:28 AM COLORING CHECKER Effective 03/05/2014, the Alkaline Phosphatase test method and reference range have changed. Please take this into consideration when interpreting results prior to or after this date. us Min Del Real DO CHEMISTRY ORDERABLES Final Resu lt [facility] [place] CLIA # [id number] [address] [place] [address] * (ABNORMAL) CBC WITH DIFFERENTIAL (07/27/2014 9:00 PM COLORING CHECKER) WBC 7.0 4.0 - 10.0 K/uL 07/28/2014 2:51 AM [facility] [place] RBC 4.02 3.93 - 5.22 M/uL 07/28/2014 2:51 AM [facility] HEMOGLOBIN 6.8(LL) 11.2 - 15.7 g/dL 07/28/2014 2:51 AM [facility] Comment:Called to Anel ([facility]) by Jackelyn at 0245. HEMATOCRIT 26.5(L) 34.1 - 44.9 % 07/28/2014 2:51 AM [facility] MCV 65.9(L) 79.4 - 94.8 fL 07/28/2014 2:51 AM [facility] MCH 16.9(L) 25.6 - 32.2 pg 07/28/2014 2:51 AM COLORING CHECKER [facility] [place] MCHC 25.7(L) 32.2 - 35.5 g/dL 07/28/2014 2:51 AM COLORING CHECKER [facility] [place] RDW 20.4(H) 11.0 - 14.5 % 07/28/2014 2:51 AM COLORING CHECKER [facility] [place] RDW-STDEV 48.4 36.9 - 56.9 fL 07/28/2014 2:51 AM COLORING CHECKER [facility] [place] PLATELETS 469(H) 163 - 337 K/uL 07/28/2014 2:51 AM COLORING CHECKER [facility] [place] MPV 10.6 10.0 - 14.8 fL 07/28/2014 2:51 AM COLORING CHECKER [facility] [place] NEUTROPHILS 61 34 - 71 % 07/28/2014 2:51 AM COLORING CHECKER [facility] [place] LYMPHOCYTES 26 19 - 52 % 07/28/2014 2:51 AM COLORING CHECKER [facility] [place] MONOCYTES 4(L) 5 - 13 % 07/28/2014 2:51 AM COLORING CHECKER [facility] [place] EOSINOPHILS 8(H) 1 - 6 % 07/28/2014 2:51 AM COLORING CHECKER [facility] [place] BASOPHILS 1 0 - 1 % 07/28/2014 2:51 AM COLORING CHECKER [facility] [place] NEUTROPHIL ABSOLUTE 4.26 1.56 - 6.13 K/uL 07/28/2014 2:51 AM COLORING CHECKER [facility] [place] LYMPHOCYTE ABSOLUTE 1.80 1.20 - 3.40 K/uL 07/28/2014 2:51 AM COLORING CHECKER [facility] [place] MONOCYTE ABSOLUTE 0.31 0.24 - 0.36 K/uL 07/28/2014 2:51 AM COLORING CHECKER [facility] [place] EOSINOPHIL ABSOLUTE 0.53(H) 0.04 - 0.36 K/uL 07/28/2014 2:51 AM COLORING CHECKER [facility] [place] BASOPHILS ABSOLUTE 0.08 0.01 - 0.08 K/uL 07/28/2014 2:51 AM COLORING CHECKER [facility] [place] IMMATURE GRANULOCYTES 0 % 07/28/2014 2:51 AM COLORING CHECKER [facility] [place] IMMATURE GRANULOCYTES ABSOLUTE 0.01 K/uL 07/28/2014 2:51 AM COLORING CHECKER [facility] [place] Blood 07/27/2014 9:00 PM COLORING CHECKER 07/28/2014 1:31 AM COLORING CHECKER us Min Del Real DO HEMATOLOGY ORDERABLES Final Res ult [facility] [place] CLIA # [id number] [address] [address] documented in this encounter Visit Diagnoses Not on filedocumented in this encounter Care Teams Residential Concierge Relationship Specialty Start Date End Date Shyanne Medina MD [address] [phone] PCP - General Family Practice 07/24/13 documented as of this encounter
[2025-03-22] MEDS: adenosine 3 mg/mL SDV 2mL 6 MG IVP (19:39)
[2025-03-22 19:40] VITALS: BP 122/104; PULSE 96; RESP 20; O2SAT 96
[2025-03-22 19:44] LABS: Hematocrit 45.6 % (36-47); Hemoglobin 15.90 g/dL (11.27-16.99); Mean Corpuscular HGB Conc 34.9 g/dL (30-55); Mean Corpuscular Hemoglobin 31.0 pg (27-33); Mean Corpuscular Volume 88.9 fl (85-98); Nucleated Red Blood Cells % 0 %; Platelet Count 205 10^3/cmm (157-399); Red Blood Count 5.13 10^6/uL (3.85-5.65); White Blood Count 8.53 10^3/uL (3.29-11.43)
--- NOTE | 2025-03-22 19:57 | W.ED.ARRPALP ---
HPI - Arrhythmia/Palpitations General: Chief Complaint: Arrhythmia/Palpitations Stated Complaint: SVT Time Seen by Provider: 03/22/25 19:27 History of Present Illness: 59 yo F with Hx of recurrent SVT presents with 2 hours of rapid palpitations starting ~1730. Prior episodes treated successfully with adenosine; she has attempted vagal maneuvers at home without relief this time. Reports bilateral jaw pain during episode. Denies atrial fibrillation. Denies recent illness, cough, poor sleep, stress, or stimulant/energy drink use. She follows with cardiology (Dr. Ayala). No prior ablation. Takes metoprolol succinate 25 mg daily; previously tried 50 mg but developed low BP (~96/64) and lightheadedness, so dose reduced. EKG at 1928 showed SVT with rate 181 and rate-related ST changes. Adenosine administered in ED with successful conversion and symptomatic improvement. Related Data Previous Rx's ?Medication ?Instructions ?Recorded metoprolol succinate 25 mg 25 mg PO DAILY #90 tabs 11/11/24 tablet,extended release 24 hr prednisone 5 mg tablet 5 mg PO DAILY #90 tabs 11/25/24 sulfasalazine 500 mg tablet 1 g (2 x 500 mg) PO BID #120 tabs 11/25/24 omeprazole 20 mg capsule,delayed 20 mg PO DAILY #30 caps 12/04/24 release Ventolin HFA 90 mcg/actuation See Rx Instructions .Route 01/05/25 aerosol inhaler (albuterol sulfate) .COMPLEX #18 grams hydrocodone 7.5 mg-acetaminophen 1 tab PO Q6H PRN pain 5 days #20 02/10/25 325 mg tablet tabs Symbicort 160 mcg-4.5 See Rx Instructions .Route 02/16/25 mcg/actuation HFA aerosol inhaler .COMPLEX #11 grams (budesonide-formoterol) Allergies Allergy/AdvReac Type Severity Reaction Status Date / Time No Known Allergies Allergy Verified 02/23/25 15:10 [facility] ED [facility]: Medical History (Updated 03/22/25 @ 20:47 by Dl Seth MD) Acquired complex cyst of kidney Goiter Anti-TPO antibodies present Positive antinuclear antibody Immunization counseling High risk medication use Seropositive rheumatoid arthritis of multiple sites Renal cyst, [place], hemorrhage Renal cyst Elevated serum creatinine Hyperpigmentation Vitamin D deficiency Lower respiratory infection Shortness of breath Ovarian cyst Hernia, ventral Urinary problem in female Ventral hernia Seroma after procedure No pertinent past medical history Denies diabetes, asthma, hypertension, seizures, DVT/PE PCP: None Encounter for long-term (current) use of NSAIDs Lichen planus Paroxysmal supraventricular tachycardia Managed by Dr. Hoskins/Dr. Maxwell in cardiology Hypertension Current chronic use of systemic steroids GERD (gastroesophageal reflux disease) MEME positive Rheumatoid arthritis Diagnosed in 2004 and is managed by rheumatology Dr. Peck Long-term use of high-risk medication Raynaud's phenomenon Spondylosis THORACIC AND LUMBAR Chronic thoracic spine pain Pain management contract signed Surgical History History of incisional hernia repair History of incisional hernia repair History of esophagogastroduodenoscopy (EGD) Status post hysterectomy 12/06/2021--total abdominal hysterectomy with bilateral salpingectomy for abnormal uterine bleeding by Dr. Rowland at [facility] History of hysteroscopy (09/23/19) Hysteroscopy, D&C, Buttock biopsy. Performed by Dr. Rock at [facility] in [place], [place]. History of hand surgery (~1997) History of lumpectomy of left breast (06/27/17) Hx of section X5 Family History Father Diabetes Heart disease Mother Hypertension Thyroid disease Heart disease Grandmother Stroke paternal Heart disease paternal Grandfather Thyroid disease maternal Family/Other Thyroid disease maternal aunt Denies family history of Colon cancer Ovarian cancer Hyperlipidemia Breast cancer Uterine cancer Social History Smoking and tobacco/nicotine status: former use of tobacco/nicotine Alcohol intake: never Substance/Drug Use: never Physical Exam Const: COMMON NORMALS: no acute distress, patient oriented x3 and alert HENMT: COMMON NORMALS: normocephalic and atraumatic HEAD & SCALP: normocephalic and atraumatic Eye: COMMON NORMALS: Equal, round and reactive pupils present, EOMs intact bilaterally and no scleral icterus PUPIL: Yes Equal, round and reactive pupils present Resp: COMMON NORMALS: normal respiratory effort and No retractions Cardio: COMMON NORMALS: regular rhythm and No murmurs present (Cardio) RATE: tachycardic RHYTHM: regular rhythm GI: COMMON NORMALS: Normal to inspection, nondistended, normoactive bowel sounds present, Soft to palpation and non-tender PALPATION: Yes Soft to palpation Neuro: COMMON NORMALS: patient oriented x3 SENSORIUM/ORIENTATION: Yes alert Skin: COMMON NORMALS: no rashes or lesions noted GENERAL SKIN EXAM: no rashes or lesions noted Course Vital Signs: Vital signs: Vital Signs Temperature 97.5 F L 03/22/25 19:24 Pulse Rate 96 03/22/25 19:40 Respiratory Rate 20 H 03/22/25 19:40 Blood Pressure 122/104 03/22/25 19:40 Pulse Oximetry 96 03/22/25 19:40 Oxygen Delivery Me thod Room Air 03/22/25 19:40 MDM - Arrhythmia/Palpitations Medical Decision Making 59 yo F with recurrent SVT presents with 2 hours of palpitations and bilateral jaw pain; failed vagal maneuvers at home. On metoprolol 25 mg; higher doses previously caused hypotension and lightheadedness. Followed by Dr. Ayala; no prior ablation. Labs pending. EKG at 1928: SVT, rate 181, mild aVR ST elevation with ST depression in inferior/lateral leads, likely rate-related. Post-adenosine: conversion with HR ~[address] changes. No other test results available. DDx: SVT confirmed on EKG. ACS considered less likely given ST changes attributed to rate; plan to check troponin to exclude ischemia. Atrial fibrillation denied by patient and not seen on EKG. Adenosine given with successful chemical cardioversion. Repeat EKG planned. Baseline labs ordered: troponin, Mg, K, Hgb. If labs acceptable and EKG stable, plan discharge home. Diltiazem discussed as alternative if adenosine ineffective. Potential metoprolol uptitration discussed but limited by prior hypotension. Repeat EKG shows resolution of ST segment changes likely caused by rate. Troponin and BNP and electrolytes and hemoglobin are stable. She will be discharged home in stable and improved condition with follow-up with cardiology to make sure they do not want to increase her metoprolol dose.?She states that when she took 50 mg previously her blood pressure got so that she felt lightheaded all the time so it may be just as well to leave her 25 mg daily. Lab Data 03/22/25 19:36 03/22/25 19:36 Laboratory Results WBC 8.53 10^3/uL (3.29-11.43) 03/22/25 19:36 RBC 5.13 10^6/uL (3.85-5.65) 03/22/25 19:36 Hgb 15.90 g/dL (11.27-16.99) 03/22/25 19:36 Hct 45.6 % (36-47) 03/22/25 19:36 MCV 88.9 fl (85-98) 03/22/25 19:36 MCH 31.0 pg (27-33) 03/22/25 19:36 MCHC 34.9 g/dL (30-55) 03/22/25 19:36 RDW 12.7 % (12.1-15.1) 03/22/25 19:36 Plt Count 205 10^3/cmm (157-399) 03/22/25 19:36 MPV 11.9 fL (7.4-10.4) H 03/22/25 19:36 Neut % (Auto) 54.9 % 03/22/25 19:36 Lymph % (Auto) 31.1 % 03/22/25 19:36 [place]he % (Auto) 9.3 % 03/22/25 19:36 Eos % (Auto) 3.3 % 03/22/25 19:36 Baso % (Auto) 0.9 % 03/22/25 19:36 Neut # (Auto) 4.69 10^3/uL (1.8-7.7) 03/22/25 19:36 Lymph # (Auto) 2.7 10^3/uL (0.8-4.8) 03/22/25 19:36 [place]he # (Auto) 0.8 10^3/uL (0.2-0.9) 03/22/25 19:36 Eos # (Auto) 0.3 10^3/uL (0.0-0.8) 03/22/25 19:36 Baso # (Auto) 0.1 10^3/uL (0.0-0.1) 03/22/25 19:36 Nucleated RBC % (auto) 0 % 03/22/25 19:36 Nucleated RBCs # 0.0 /100WBC 03/22/25 19:36 Sodium 141 mmol/L (136-145) 03/22/25 19:36 Potassium 3.5 mmol/L (3.5-5.1) 03/22/25 19:36 Chloride 103 mmol/L (98-107) 03/22/25 19:36 Carbon Dioxide 24 mmol/L (22-29) 03/22/25 19:36 Anion Gap 17.5 (5-19) 03/22/25 19:36 BUN 10 mg/dL (6-20) 03/22/25 19:36 Creatinine 0.9 mg/dL (0.5-0.9) 03/22/25 19:36 GFR Calculation 64.5 mL/min (90-130) L 03/22/25 19:36 Glucose 120 mg/dL (65-115) H 03/22/25 19:36 Calculated Osmolality 292 mOsm/kg (285-295) 03/22/25 19:36 Calcium 9.5 mg/dL (8.5-10.5) 03/22/25 19:36 Phosphorus 3.2 mg/dL (2.5-4.5) 03/22/25 19:36 Magnesium 2.2 mg/dL (1.7-2.3) 03/22/25 19:36 Total Bilirubin 0.7 mg/dL (0.15-1.2) 03/22/25 19:36 AST 35 U/L (0-32) H 03/22/25 19:36 ALT 39 U/L (0-33) H 03/22/25 19:36 Alkaline Phosphatase 78 U/L (35-105) 03/22/25 19:36 NT-Pro-B Natriuret Pep 127 pg/mL (0-125) H 03/22/25 19:36 Total Protein 7.6 g/dL (6.6-8.7) 03/22/25 19:36 Albumin 4.7 g/dL (3.5-5.2) 03/22/25 19:36 Globulin 2.9 g/dL (1.3-4.6) 03/22/25 19:36 All radiology interpretation(s) finalized by discharge EKG Data EKG 2: Interpretation: EKG #2 interpreted by me after receiving adenosine for SVT: Time?1943?sinus rhythm, rate of 97, no ST segment elevation or depression, no T wave inversions, QTc was under 98. Previously seen ST segment changes are resolved as expected with rate control. Discharge Plan Discharge Patient Disposition: Home Clinical Impression: SVT (supraventricular tachycardia) Condition: Stable Prescriptions: No Action sulfasalazine 500 mg tablet 1 g PO BID Qty: 120 4RF Rx Instructions: Take 1 QD daily x1wk then 1 BID x1wk then 2 in AM and 1 HS for 1wk then stay on 2 BID. give with food. prednisone 5 mg tablet 5 mg PO DAILY Qty: 90 1RF metoprolol succinate 25 mg tablet extended release 24 hr 25 mg PO DAILY Qty: 90 3RF hydrocodone-acetaminophen 7.5-325 mg tablet 1 tab PO Q6H PRN (Reason: pain) 5 Days Qty: 20 0RF omeprazole 20 mg capsule,delayed release(DR/EC) 20 mg PO DAILY Qty: 30 3RF albuterol sulfate [Ventolin HFA] 90 mcg/actuation HFA aerosol inhaler See Rx Instructions .ROUTE .COMPLEX Qty: 18 0RF Dose Instruction: INHALE 1 PUFF BY MOUTH EVERY 4 HOURS NEEDED FOR SHORTNESS OF BREATH FOR WHEEZING Rx Instructions: INHALE 1 PUFF BY MOUTH EVERY 4 HOURS NEEDED FOR SHORTNESS OF BREATH FOR WHEEZING budesonide-formoterol [Symbicort] 160-4.5 mcg/actuation HFA aerosol inhaler See Rx Instructions .ROUTE .COMPLEX Qty: 11 0RF Dose Instruction: Inhale 2 puffs by mouth twice daily Rx Instructions: Inhale 2 puffs by mouth twice daily Discharge Orders: Discharge ED (Routine); Ordered 03/22/25 Ordered By: Dl Seth Referrals: TANK Mccracken, MEDICAL AUTHORIZATION SPECIALIST [Primary Care Provider, Family Practice] Discharge Diet: Usual diet Discharge Activity: Increase activity as tolerated Patient Instructions: Supraventricular Tachycardia (ED), Patient Portal & Kayla Instructions Activity Restrictions/Additional Instructions: Please contact your stone processing machine operator to see if they would like to augment your medications to try and keep this from happening again Print Language: Frisian Coding Level of Care Code ED Value Stream Coach for Ad Turner
[2025-03-22 20:17] LABS: Alanine Aminotransferase 39 U/L (0-33); Albumin Level 4.7 g/dL (3.5-5.2); Alkaline Phosphatase 78 U/L (35-105); Anion Gap 17.5 (5-19); Aspartate Amino Transferase 35 U/L (0-32); Blood Urea Nitrogen 10 mg/dL (6-20); Calcium 9.5 mg/dL (8.5-10.5); Carbon Dioxide 24 mmol/L (22-29); Chloride 103 mmol/L (98-107); Creatinine Clr Calc Pharmacy 75.6740; Globulin 2.9 g/dL (1.3-4.6); Glucose 120 mg/dL (65-115); Magnesium 2.2 mg/dL (1.7-2.3); NT Pro B Type Natriuretic Pept 127 pg/mL (0-125); Osmolality Calculated 292 mOsm/kg (285-295); Potassium 3.5 mmol/L (3.5-5.1); Sodium 141 mmol/L (136-145); Total Protein 7.6 g/dL (6.6-8.7)
[2025-03-22 21:02] VITALS: BP 145/105; PULSE 96; RESP 16; O2SAT 98
[2025-03-22 21:04] VITALS: BP 145/105; PULSE 96; RESP 16; O2SAT 98
== END 2025-03-22 21:05 | disposition home or self-care (01) ==
PROVIDERS: Emergency Provider Student in an Organized Health Care Education/Training Program; PCP Nurse Practitioner Family
DX: I47.10 Supraventricular tachycardia, unspecified (principal)
CPT/HCPCS: 36415; 71045; 80053; 83735; 83880; 84100; 85025; 93005; 96361; 96374; 99285; J0153; J7030